=== PATIENT | female | born 1955 | race Caucasian/White ===

== ENCOUNTER 2016-12-22 11:06 | Day surgery (SDC) | payer MEDICARE ==
[2016-12-16 11:27] VITALS: BMI 27.0
[~2016-12-22 11:06] MED LIST: HYDROmorphone 1 MG/ML 1 ML SYRINGE IVP PRN; LACTATED RINGERS 1,000 ML IV SCH; LIDOCAINE 1% 20 ML VIAL (10MG/ML) FOR IV START INTRADERMA PRN; ONDANSETRON 4 MG/2 ML VIAL IVP PRN; Pre Op ABX Message 1 EACH MISC MISCELLANE ONE
[2016-12-22 12:05] VITALS: RESP 16; TEMP 97.8
[2016-12-22] MEDS ORDERED: ONDANSETRON 4 MG/2 ML VIAL ONE (12:27)
[2016-12-22] MEDS ORDERED: LIDOCAINE 1% INJ 10MG/ML (20 ML MDV) ONE (12:27)
[2016-12-22] MEDS ORDERED: MIDAZOLAM 2 MG/2 ML VIAL ONE (12:27)
[2016-12-22] MEDS ORDERED: fentaNYL (PF) 50 MCG/ML 2 ML AMP ONE (12:27)
[2016-12-22] MEDS ORDERED: PROPOFOL 10 MG/ML 20 ML VIAL IV ONE (12:27)
[2016-12-22] MEDS ORDERED: LIDOCAINE 1% (PF) 10 MG/ML (30 ML SDV) SQ ONE (12:40)
--- NOTE | 2016-12-22 13:20 | P.OP ---
Date of Procedure: 12/22/16 Preoperative Diagnosis: Plantar fasciitis right foot Postoperative Diagnosis: Same Procedure(s) Performed: Endoscopic plantar fasciotomy procedure right foot Implants: Anesthesia: MAC Surgeon: Sebastien Fink Indications for Procedure: Operative Findings: Unremarkable Description of Procedure: On the date of surgery the patient was taken to the operating room in good condition placed on the operating table in a supine position where an IV was started and adequate IV anesthetic agents were utilized. Anesthesia was then further supplemented with approximately 10 mL of 1% Xylocaine plain given in an infiltrative block to the patient's right heel. The patient's right foot and ankle were then prepped and draped in the usual aseptic manner. The patient's right foot and ankle were then elevated and exsanguinated of blood. Utilizing an Esmarch bandage and after approximately 1 minutes. A time ankle tourniquet to the right ankle was inflated to approximately 250 mmHg At this time attention was directed to the plantar medial side of the patient's right heel where an approximately 0.75 cm linear incision was made the incision was deepened via sharp dissection down through the level of the subcutaneous tissue layers. All neurovascular structures encountered were identified isolated and were retracted and any bleeding vessels were clamped electrocauterized. A fascial probe was then used to identify the plantar fascia and was passed along the inferior surface of the plantar fascia from medially to laterally and Obturator were then inserted and a lateral exit portal incision was made. The endoscope was introduced from the medial side and L blade from the lateral side and the medial band of the plantar fascia was severed upon completion of this fascial probe was used to ensure that all fibers had been severed. When this was seen to be the case the surgical site was flushed with copious amounts of sterile saline solution and the was removed. The skin edges were coaptated and maintained utilizing 4-0 simple interrupted suture. Adaptic Kerlix fluffs four- inch conformer and 4 inch Coban was used to form a compression dressing and the ankle tourniquet to the patient's right ankle was deflated. Adequate hemostatic return was seen in all digits the patient's right foot The patient tolerated surgery and anesthesia well was taken to the recovery room in good postoperative condition.
[2016-12-22 13:53] VITALS: BP 122/78; PULSE 74
[2016-12-22] MEDS ORDERED: Acetaminophen-Codeine 300-30mg TAB PO ONE (13:53)
== END 2016-12-22 14:28 | disposition home or self-care (01) ==
LOC: OR 11:06
PROVIDERS: ATTEND Podiatrist Foot & Ankle Surgery
DX: M72.2 Plantar fascial fibromatosis (principal); I10 Essential (primary) hypertension; I38 Endocarditis, valve unspecified; R01.1 Cardiac murmur, unspecified; K21.9 Gastro-esophageal reflux disease without esophagitis; I73.9 Peripheral vascular disease, unspecified; E07.9 Disorder of thyroid, unspecified; J45.909 Unspecified asthma, uncomplicated; Z79.51 Long term (current) use of inhaled steroids; Z79.899 Other long term (current) drug therapy; Z88.1 Allergy status to other antibiotic agents; Z88.0 Allergy status to penicillin; Z88.2 Allergy status to sulfonamides; Z88.8 Allergy status to other drugs, medicaments and biological substances

== ENCOUNTER → 2018-07-03 | Outpatient (CLI) | payer MEDICARE | END | disposition home or self-care (01) | LOC: LABWHC1 10:52 | PROVIDERS: ATTEND Otolaryngology | DX: J30.89 Other allergic rhinitis (principal) | CPT/HCPCS: 36415 ==

== ENCOUNTER → 2018-08-28 | Outpatient (CLI) | payer MEDICARE ==
[2018-08-24 15:41] VITALS: BMI 27.0
[2018-08-28 12:09] VITALS: BP 159/76; PULSE 72; RESP 16
--- NOTE | 2018-08-28 12:46 | P.PAINCN ---
History of Present Illness - Reason for Consult Consult date: 08/28/18 - History of Present Illness Fe is a 62-year-old female presents today as a new patient consult. She has a long history of multiple back surgeries with the most recent being 2015. She presents today with a chief complaint of right-sided low back pain and right leg pain. She reports most of her pain is over the right-sided buttock and into the top of the right leg. She reports after having back surgery her symptoms significantly improved. She began having pain in October 2017 after she suffered a stroke with right-sided weakness. At that time she was unable to walk and has been persistent in physical therapy and significant progress. She walks now with a walker and sometimes with a cane. Since the stroke she complains of pain over the right side of her low back and weakness in her right leg. She reports weakness is getting better with physical therapy. She describes pain which is sharp and shooting pain and describes it as a knife jabbing or in the side. She denies any bowel or bladder incontinence. She has weakness secondary to the stroke. She has had significant lumbar fusion which appears to be from L2 through S1. I have reviewed her MRI and they are in her chart. Thoracic MRI also shows a T10-T11 neural foraminal narrowing. She also has an MR lumbar spine correction of the deformities revisiting mentioned. 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 or walker, possible aneurysm-being tested, hx ulcers, IBS History of Any Multi-Drug Resistant Organisms: None Reported Past Surgical History: Appendectomy, Back Surgery, Bladder Surgery, Breast Surgery, Cholecystectomy, Heart Catheterization, Hysterectomy, Orthopedic Surgery, Tubal Ligation Additional Past Surgical History / Comment(s): Bilateral Carpal Tunnel surgery, Nasal surgery,kev cataract surgery, Ganglion Cyst removal right hand, Left Kidney Stone surgery, Right Breat Biopsy, Back Surgery X3, Right Ulna surgery, gum Line surgery, Bladder Suspension X 3, Colonoscopies, Debridement and Repair of left elbow. Past Anesthesia/Blood Transfusion Reactions: Motion Sickness, Postoperative Nausea & Vomiting (PONV) Additional Past Anesthesia/Blood Transfusion Reaction / Comm: states becomes very nauseaous when NPO. Smoking Status: Never smoker - Past Family History Mother Family Medical History: No Reported History Medications and Allergies Home Medications Medication Instructions Recorded Confirmed Type Calcium Carbonate [Calcium] 600 mg PO BID 12/16/16 08/24/18 History Cholecalciferol (Vitamin D3) 2,000 unit PO DAILY 12/16/16 08/24/18 History [Vitamin D3] Cinnamon Bark [Cinnamon] 1,000 mg PO BID 12/16/16 08/24/18 History Dexlansoprazole [Dexilant] 30 mg PO HS 12/16/16 08/24/18 History Dicyclomine [Bentyl] 20 mg PO BID 12/16/16 08/24/18 History Fluticasone Nasal [place] [Flonase 2 spr EA NOSTRIL HS 12/16/16 08/24/18 History Nasal [place]] L.acidoph,Paracasei, B.lactis 1 each PO DAILY 12/16/16 08/24/18 History [Probiotic] Levothyroxine Sodium [Synthroid] 50 mcg PO QAM 12/16/16 08/24/18 History Mometasone/Formoterol [Dulera 100 1 puff INHALATION BID PRN 12/16/16 08/24/18 History Mcg/5 Mcg Inhaler] Montelukast [Singulair] 10 mg PO HS 12/16/16 08/24/18 History Spironolactone [Aldactone] 50 mg PO BID 12/16/16 08/24/18 History Atorvastatin [Lipitor] 10 mg PO HS 08/24/18 08/24/18 History Azelastine HCl [Astepro] 2 spray NASAL BID PRN 08/24/18 08/24/18 History Baclofen [Lioresal] 10 mg PO 1400 08/24/18 08/24/18 History Baclofen [Lioresal] 20 mg PO 0800,2200 08/24/18 08/24/18 History Benzonatate [Tessalon Perles] 100 - 200 mg PO Q8HR PRN 08/24/18 08/24/18 History DULoxetine HCL [Cymbalta] 60 mg PO BID 08/24/18 08/24/18 History Diphenox-Atrop 2.5-0.025 mg 1 tab PO TID PRN 08/24/18 08/24/18 History [Lomotil] Furosemide [Lasix] 20 mg PO 1700 08/24/18 08/24/18 History Furosemide [Lasix] 40 mg PO QAM 08/24/18 08/24/18 History Hydrocodone/Acetaminophen [[place] 1 tab PO Q4-6H PRN 08/24/18 08/24/18 History 7.5-325] Iprat[place]ium [place] 0.06%Nasal 2 spray EA NOSTRIL BID 08/24/18 08/24/18 History [Atrovent Nasal 0.06%] L.acidoph,Paracasei, B.lactis 1 each PO BID 08/24/18 08/24/18 History [Probiotic] Losartan [Cozaar] 25 mg PO DAILY 08/24/18 08/24/18 History Ondansetron HCl [Zofran] 4 - 8 mg PO Q4HR PRN 08/24/18 08/24/18 History Promethaz-Cod 6.25-10 mg/5 ml 5 ml PO Q8HR PRN 08/24/18 08/24/18 History [Phenergan with Codeine] fentaNYL 25MCG/HR PATCH [Duragesic 1 patch TRANSDERM Q72H 08/24/18 08/24/18 History 25MCG/HR] hydrOXYzine HCL [Atarax] 10 - 20 mg PO Q12H PRN 08/24/18 08/24/18 History lamoTRIgine [LaMICtal] 100 mg PO BID 08/24/18 08/24/18 History Allergies Allergy/AdvReac Type Severity Reaction Status Date / Time cefaclor [From Ceclor] Allergy Drug Verified 08/28/18 11:48 induced fever ciprofloxacin [From Cipro] Allergy Rash/Hives Verified 08/28/18 11:48 clindamycin [From Cleocin] Allergy Drug Verified 08/28/18 11:48 induced fever gentamicin Allergy Ototoxicity Verified 08/28/18 11:48 nitrofurantoin Allergy Chest Pain Verified 08/28/18 11:48 [From Macrodantin] Penicillins Allergy Rash/Hives Verified 08/28/18 11:48 sulfamethoxazole Allergy tongue Verified 08/28/18 11:48 [From ] swelling thimerosal Allergy Rash/Hives Verified 08/28/18 11:48 tobramycin Allergy Rash/Hives Verified 08/28/18 11:48 trimethoprim [From Septra] Allergy tongue Verified 08/28/18 11:48 swelling seasonal allergies Allergy Cough Uncoded 08/28/18 11:48 Physical Exam General: Awake and alert oriented 3 mild distress Respiratory exam: No audible wheezing no accessory muscle usage Cardiovascular exam: regular rate, palpable bilateral pulses, no lower extremity edema Abdominal exam: No distention nontender to palpation Cervical spine: Normal alignment, Spurling's negative, facet loading negative, Becerra's negative Lumbar spine: Lumbar lordosis is preserved. The alignment of lumbar spine is normal. Incisions are well-healed. Skin is normal. There is some numbness over the right-sided flank. There is also areas of tenderness to palpation over the SI joint on the right side. Is also some tenderness to palpation over the l umbar spine over the facet joints. No pain is noted over the trochanteric bursa. She has limited range of motion with flexion and extension of the lumbar spine. She is unsteady on her gait secondary to right leg weakness and her stroke. Straight leg raise is positive on the right. Sacroiliac joints: tender to palpation on the right, MAURO is positive on the right, Gaenselon positive on the right Neuro exam: Normal sensation in bilateral upper extremities, deep tendon reflexes are brisk on the right impaired to the left.. She has normal sensation in the lower extremity in the upper extremity except for the small area of dysesthesia over the the right flank Psych exam: Cooperative, appropriate mood Assessment and Plan Assessment: #1 sacroiliitis #2 radiculopathy #3 central pain syndrome Plan: Had a long discussion with the patient and her family. I discussed multiple pain generators which may include the sacroiliac joint, dressing radiculopathy, as well as central pain. She is currently on fentanyl patch 25 g along with [place] as needed. I discussed with her these medications may significantly increase her pain and she would be better off coming off the medications. I advised her to discuss with her primary care doctor was riding his medications in regard to planned to decrease them slowly. As for the injections I offered her to do an SI joint injection the right side feel this may potentially help. I discussed that it may not be helpful as well. If she does have good relief which is transient nature I advised her that we may need to repeat a second time and we may potentially be able to do radiofrequency ablation on the right if she has good relief. If she does not have good relief on that side secondary to the SI joint injection we may need to try thoracic epidural at the T10 11 level. Patient family understood very well and we will move forward with the SI joint injection. She is also on aspirin I advised her to continue taking the aspirin. Time with Patient: Greater than 30 PQRS Measure Charge Sheet Measure #130: Documentation of Current Meds in Medical Chart: Patient's medications documented in chart Measure #226: Tobacco Use: Screen & Cessation Intervention: Pt not a tobacco user Measure #111: Pneumonia Vaccination: Pneumococcal vaccine administered or previously received Measure #47: Advance Care Plan: Advance care planning discussed & documented, plan or surrogate given Measure #412: Opioid Treatment Agreement: No documentation of signed opioid treatment agreement Measure #317: Preventitive Care & Scrn High Bld Press & F/U: Normal blood pressure, f/u not required Measure #128: Body Mass Index (BMI) Screening & Follow-up: BMI documented within normal parameters Measure #131: Pain Assessment & Follow-up: Pain positive & plan documented, Follow-up scheduled Measure #431: Unhealthy Alcohol Use Preventative Care & Scrn: Patient not identified as an unhealthy alcohol user PQRS Narrative: Smoking Status Never smoker Home Medications: Ambulatory Orders Calcium Carbonate [Calcium] 600 mg PO BID 12/16/16 Cholecalciferol (Vitamin D3) [Vitamin D3] 2,000 unit PO DAILY 12/16/16 Cinnamon Bark [Cinnamon] 1,000 mg PO BID 12/16/16 Dexlansoprazole [Dexilant] 30 mg PO HS 12/16/16 Dicyclomine [Bentyl] 20 mg PO BID 12/16/16 Fluticasone Nasal [place] [Flonase Nasal [place]] 2 spr EA NOSTRIL HS 12/16/16 L.acidoph,Paracasei, B.lactis [Probiotic] 1 each PO DAILY 12/16/16 Levothyroxine Sodium [Synthroid] 50 mcg PO QAM 12/16/16 Mometasone/Formoterol [Dulera 100 Mcg/5 Mcg Inhaler] 1 puff INHALATION BID PRN 12/16/16 Montelukast [Singulair] 10 mg PO HS 12/16/16 Spironolactone [Aldactone] 50 mg PO BID 12/16/16 Atorvastatin [Lipitor] 10 mg PO HS 08/24/18 Azelastine HCl [Astepro] 2 spray NASAL BID PRN 08/24/18 Baclofen [Lioresal] 10 mg PO 1400 08/24/18 Baclofen [Lioresal] 20 mg PO 0800,2200 08/24/18 Benzonatate [Tessalon Perles] 100 - 200 mg PO Q8HR PRN 08/24/18 DULoxetine HCL [Cymbalta] 60 mg PO BID 08/24/18 Diphenox-Atrop 2.5-0.025 mg [Lomotil] 1 tab PO TID PRN 08/24/18 Furosemide [Lasix] 20 mg PO 1700 08/24/18 Furosemide [Lasix] 40 mg PO QAM 08/24/18 Hydrocodone/Acetaminophen [[place] 7.5-325] 1 tab PO Q4-6H PRN 08/24/18 Iprat[place]ium [place] 0.06%Nasal [Atrovent Nasal 0.06%] 2 spray EA NOSTRIL BID 08/24/18 L.acidoph,Paracasei, B.lactis [Probiotic] 1 each PO BID 08/24/18 Losartan [Cozaar] 25 mg PO DAILY 08/24/18 Ondansetron HCl [Zofran] 4 - 8 mg PO Q4HR PRN 08/24/18 Promethaz-Cod 6.25-10 mg/5 ml [Phenergan with Codeine] 5 ml PO Q8HR PRN 08/24/18 fentaNYL 25MCG/HR PATCH [Duragesic 25MCG/HR] 1 patch TRANSDERM Q72H 08/24/18 hydrOXYzine HCL [Atarax] 10 - 20 mg PO Q12H PRN 08/24/18 lamoTRIgine [LaMICtal] 100 mg PO BID 08/24/18
== END ==
LOC: PNWHC3 11:40
PROVIDERS: ATTEND Hospitalist
DX: G89.0 Central pain syndrome (principal); M54.10 Radiculopathy, site unspecified; M46.1 Sacroiliitis, not elsewhere classified; Z79.899 Other long term (current) drug therapy; Z79.891 Long term (current) use of opiate analgesic; Z88.1 Allergy status to other antibiotic agents; Z88.0 Allergy status to penicillin; Z88.2 Allergy status to sulfonamides
CPT/HCPCS: 99211

== ENCOUNTER 2018-09-05 09:50 | Day surgery (SDC) | payer MEDICARE ==
[2018-08-31 14:30] VITALS: BMI 27.0
[~2018-09-05 09:50] MED LIST changes: -HYDROmorphone 1 MG/ML 1 ML SYRINGE IVP PRN; -LIDOCAINE 1% 20 ML VIAL (10MG/ML) FOR IV START INTRADERMA PRN; -ONDANSETRON 4 MG/2 ML VIAL IVP PRN; -Pre Op ABX Message 1 EACH MISC MISCELLANE ONE
[2018-09-05 10:28] VITALS: RESP 16; TEMP 97.7
--- NOTE | 2018-09-05 10:55 | P.PCN ---
Date of Procedure: 09/05/18 Procedure(s) Performed: Procedure= Right sacral iliac joints steroid injection under fluoroscopy esa hickey Preoperative diagnosis= 1-sacroiliitis 2-lumbar radiculopathy Postoperative diagnosis=1-sacroiliitis 2-lumbar radiculopathy Complication = none Condition= stable Anesthesia= only local infiltration with lidocaine 1% 3 mL Indication for the procedure= patient complaining of low back pain , examination was positive for severe tenderness over the sacroiliac joints ,and patient di agnosed with sacroiliitis, for this reason she was good candidate for sacroiliac joint steroid injection. Description of the procedure= procedure risk and benefits discussed with the patient, including but not limited, risk of infection and bleeding, and ALLERGIC reaction to the medication and not complete pain relief and patient agreed with the preceding patient taken to the operating room, placed in prone position or standard monitors applied to the patient then after induction of anesthesia back prepped with chlorhexidine 3 times , Then under strict sterile technique, first I did the right sacroiliac joint the which was identified under fluoroscopy guidance been local infiltration of the skin and subcu interstitial with lidocaine 1% then 22-gauge [place]ke Needle advanced slowly under fluoroscopy and placed in the right sacroiliac joint needle placement confirmed with AP and oblique and lateral view and after appropriate needle placement confirmed and after negative aspiration, or heme , then Ropivacaine 0.5% 3 mL, and 40 mg of Depo-Medrol mixed together and injected in the right sacroiliac joint after negative aspiration patient tolerated the procedure well without any complication.
[2018-09-05 11:18] VITALS: BP 122/67; PULSE 72
--- NOTE | 2018-09-05 11:29 | FL ---
EXAMINATION TYPE: FL guided pain mgmt statistic DATE OF EXAM: 09/05/2018 HISTORY: Pain 4 sec fluoro. Right SI joint.
== END 2018-09-05 11:44 | disposition home or self-care (01) ==
LOC: ORPAIN 09:50
PROVIDERS: ATTEND Specialist
DX: M46.1 Sacroiliitis, not elsewhere classified (principal); M47.26 Other spondylosis with radiculopathy, lumbar region; J45.909 Unspecified asthma, uncomplicated; Z86.73 Personal history of transient ischemic attack (TIA), and cerebral infarction without residual deficits; Z88.1 Allergy status to other antibiotic agents
CPT/HCPCS: J1030; G0260; 27096; 64483

== ENCOUNTER 2018-09-19 07:01 | Day surgery (SDC) | payer MEDICARE ==
[2018-09-15 14:57] VITALS: BMI 27.0
[2018-09-19 07:22] VITALS: TEMP 97.9
[2018-09-19] MEDS ORDERED: LACTATED RINGERS 1,000 ML IV ONE (07:28)
[2018-09-19 07:31] LABS: Glucose,Whole Blood 87 mg/dL (75-99)
--- NOTE | 2018-09-19 07:35 | P.PCN ---
Date of Procedure: 09/19/18 Description of Procedure: Procedure: Sacroiliac joint injection Preoperative diagnosis: Sacroiliitis Postoperative diagnosis: Sacroiliitis Complications: none Anesthesia: conscious sedation and local with 1% lidocaine Description of the procedure: procedure risk and benefits discussed with the patient, including but not limited, risk of infection and bleeding, and allergic reaction to the medication and incomplete pain relief. Patient agreed and signed consent. Patient was taken to the room and placed in a prone position. Chlorhexidine was used to cleanse the skin. Under sterile conditions patient skin was anesthetized 1% lidocaine. Subcutaneous tissues were also anesthetized with a total 5 mL of 1% lidocaine. After that 22-gauge spinal needle was advanced through the anesthetized location. Needle was advanced into the inferior portion of the sacroiliac joint. IV contrast was used to confirm spread within the joint. After adequate spread was achieved, 2.5 ML's of 0.5% ropivacaine with 40 mg of triamcinolone was injected into the joint. Patient tolerated the procedure well. Sent to the recovery room in stable condition. Patient will follow up in the clinic in 4-8 weeks' time
[2018-09-19 07:50] VITALS: RESP 16
[2018-09-19] MEDS ORDERED: IV FLUID CONTINUATION 1,000 ML IV ONE (07:57)
[2018-09-19 08:05] VITALS: BP 146/82; PULSE 59
--- NOTE | 2018-09-19 10:13 | FL ---
Fluoroscopy INDICATION: Pain FINDINGS: Fluoroscopy time: 5 seconds. Images obtained: 1. IMPRESSIONS: 1. Documentation of fluoroscopy.
== END 2018-09-19 08:15 | disposition home or self-care (01) ==
LOC: ORPAIN 07:01
PROVIDERS: ATTEND Hospitalist
DX: M46.1 Sacroiliitis, not elsewhere classified (principal); M54.16 Radiculopathy, lumbar region; I69.351 Hemiplegia and hemiparesis following cerebral infarction affecting right dominant side; J45.909 Unspecified asthma, uncomplicated; K21.9 Gastro-esophageal reflux disease without esophagitis; H91.90 Unspecified hearing loss, unspecified ear; I10 Essential (primary) hypertension; M19.90 Unspecified osteoarthritis, unspecified site; E07.9 Disorder of thyroid, unspecified; R20.0 Anesthesia of skin; Z91.048 Other nonmedicinal substance allergy status; Z87.442 Personal history of urinary calculi; K58.9 Irritable bowel syndrome, unspecified; Z79.890 Hormone replacement therapy; Z79.891 Long term (current) use of opiate analgesic; Z79.899 Other long term (current) drug therapy; Z79.51 Long term (current) use of inhaled steroids; Z88.1 Allergy status to other antibiotic agents; Z88.3 Allergy status to other anti-infective agents; Z88.0 Allergy status to penicillin; Z88.2 Allergy status to sulfonamides
CPT/HCPCS: J1030; Q9966; G0260; 27096

== ENCOUNTER → 2018-10-03 | Outpatient (CLI) | payer MEDICARE ==
[2018-10-03 12:39] VITALS: BP 135/71; PULSE 68; RESP 16
--- NOTE | 2018-10-03 12:59 | P.PN ---
Subjective Progress Note Date: 10/03/18 Palate presents today for follow-up. She reports she had excellent relief in her hip and her low back secondary to the SI joint injections. Her pain over the there is significantly better. She continues to have a small area of pain along the right side of her low back along the iliac crest. She complains of pain in the area which is tender to palpation and is inflamed at this point. She reports she's had this pain for quite some time and was not at her with the SI joint injection. To refresh she had a long history of multiple back surgeries and has a large fusion from L1 through S1. She currently uses [place] at home as well as lamotrigine for neuropathy Objective - Vital Signs Vital signs: Vital Signs Temp Pulse 68 10/03/18 12:34 Resp 16 10/03/18 12:34 BP 135/71 10/03/18 12:34 Pulse Ox 97 10/03/18 12:34 Intake & Output 10/02/18 10/03/18 10/03/18 18:59 06:59 18:59 Weight 70.307 kg - Exam General: Awake and alert oriented 3 mild distress Respiratory exam: No audible wheezing no accessory muscle usage Cardiovascular exam: regular rate, palpable bilateral pulses, no lower extremity edema Abdominal exam: No distention nontender to palpation Cervical spine: Normal alignment, Spurling's negative, facet loading negative, Seo Intern strength is 5/5, barcenas negative Lumbar spine: Loss of lumbar lordosis, normal alignment, tender to palpation over the iliac crest on the right side just lateral to the incision of the lumbar spine. She has no tenderness over the SI joint. There is no tenderness over the trochanteric bursa. Erythema or fluctuance over the area. Sacroiliac joints: Nontender to palpation, MAURO is negative, Gaenselon negative Neuro exam: Normal sensation in bilateral upper extremities, deep tendon reflexes are 2+ bilateral upper extremities. Normal sensation in bilateral lower extremities. Deep tendon reflexes are 1 in lower extremities Psych exam: Cooperative, appropriate mood Assessment and Plan Assessment: Lumbar postlaminectomy syndrome Sacroiliitis Cluneal neuropathy Plan: After examining the patient and reviewing her medical records a long discussion with her regarding this pain. I believe that trying a right cluneal nerve injection along the iliac crest and the medial crest may offer some benefit. I have advised her to to continue doing stretching techniques as well as muscle relaxation exercises using a ball. We'll schedule her for the injection this point in follow-up. If she does not have good relief from that we consider doing a T10 epidural injection
== END | disposition home or self-care (01) ==
LOC: PNWHC3 12:20
PROVIDERS: ATTEND Hospitalist
DX: M96.1 Postlaminectomy syndrome, not elsewhere classified (principal); M46.1 Sacroiliitis, not elsewhere classified; G62.9 Polyneuropathy, unspecified; Z98.1 Arthrodesis status; Z79.891 Long term (current) use of opiate analgesic; Z79.899 Other long term (current) drug therapy
CPT/HCPCS: 99211

== ENCOUNTER 2018-10-12 09:00 | Day surgery (SDC) | payer MEDICARE ==
[2018-10-11 08:24] VITALS: BMI 27.1
[2018-10-12] MEDS ORDERED: LACTATED RINGERS 1,000 ML IV SCH (10:15)
[2018-10-12] MEDS ORDERED: LIDOCAINE 1% 20 ML VIAL (10MG/ML) FOR IV START INTRADERMA ONE (10:40)
[2018-10-12 10:45] VITALS: RESP 16; TEMP 97.8
--- NOTE | 2018-10-12 11:04 | P.PCN ---
Date of Procedure: 10/12/18 Procedure(s) Performed: Procedure= right cluneal nerve steroid injection under fluoroscopy guidance Preoperative diagnosis= 1-sacroiliitis 2-right cluneal nerve neuralgia Postoperative diagnosis= same as preoperative diagnosis Complication = none Condition= stable Anesthesia= moderate sedation with intravenous Versed 1 mg , and fentanyl 50 micrograms . Indication for the procedure= patient complaining of low back pain, diagnosed with right cluneal neuralgia Description of the procedure= procedure risk and benefits discussed with the patient, including but not limited, risk of infection and bleeding, and ALLERGIC reaction to the medication and not complete pain relief and patient agreed with the preceding patient taken to the operating room, placed in prone position or standard monitors applied to the patient then after induction of anesthesia back prepped with chlorhexidine 3 times , Then under strict sterile technique, first I did the right cluneal nerve location and the lateral edge of the right iliac crest the which was identified under fluoroscopy guidance been local infiltration of the skin and subcu interstitial with lidocaine 1% then 22-gauge Quincke Needle advanced slowly under fluoroscopy and placed in the right cluneal nerve location needle placement confirmed with AP and oblique and lateral view and after appropriate needle placement confirmed and after negative aspiration, or heme , then Ropivacaine 0.5% 4 mL, and 40 mg of Depo-Medrol mixed together and injected , after negative aspiration patient tolerated the procedure well without any complication
[2018-10-12] MEDS ORDERED: IV FLUID CONTINUATION 1,000 ML IV ONE (11:07)
[2018-10-12 11:24] VITALS: BP 130/84; PULSE 58
--- NOTE | 2018-10-12 11:25 | FL ---
Fluoroscopy INDICATION: Pain FINDINGS: Fluoroscopy time: 2 seconds. Images obtained: 1. IMPRESSIONS: 1. Documentation of fluoroscopy.
[2018-10-12] MEDS ORDERED: KETOROLAC 30 MG/ML 1 ML VIAL IVP ONE (11:41)
== END 2018-10-12 12:27 | disposition home or self-care (01) ==
LOC: ORPAIN 09:00
PROVIDERS: ATTEND Specialist
DX: G58.8 Other specified mononeuropathies (principal); M46.1 Sacroiliitis, not elsewhere classified; Z88.1 Allergy status to other antibiotic agents; I10 Essential (primary) hypertension; Z86.73 Personal history of transient ischemic attack (TIA), and cerebral infarction without residual deficits
CPT/HCPCS: 64450; J2250; J1030; J1885

== ENCOUNTER → 2018-10-26 | Day surgery (SDC) | payer MEDICARE ==
[2018-10-24 09:39] VITALS: BMI 27.8
[~2018-10-26] MED LIST changes: +IV FLUID CONTINUATION 1,000 ML IV ONE; +KETOROLAC 30 MG/ML 1 ML VIAL IVP ONE
[2018-10-26 09:25] VITALS: TEMP 98.6
--- NOTE | 2018-10-26 10:02 | P.PCN ---
Date of Procedure: 10/26/18 Procedure(s) Performed: Procedure= right cluneal nerve steroid injection under fluoroscopy guidance Preoperative diagnosis= 1-sacroiliitis 2-right cluneal nerve neuralgia Postoperative diagnosis= same as preoperative diagnosis Complication = none Condition= stable Anesthesia= moderate sedation with intravenous Versed 1 mg , and fentanyl 50 micrograms . Indication for the procedure= patient complaining of low back pain, diagnosed with right cluneal neuralgia Description of the procedure= procedure risk and benefits discussed with the patient, including but not limited, risk of infection and bleeding, and ALLERGIC reaction to the medication and not complete pain relief and patient agreed with the preceding patient taken to the operating room, placed in prone position or standard monitors applied to the patient then after induction of anesthesia back prepped with chlorhexidine 3 times , Then under strict sterile technique, first I did the right cluneal nerve location and the lateral edge of the right iliac crest the which was identified under fluoroscopy guidance been local infiltration of the skin and subcu interstitial with lidocaine 1% then 22-gauge Quincke Needle advanced slowly under fluoroscopy and placed in the right cluneal nerve location needle placement confirmed with AP and oblique and lateral view and after appropriate needle placement confirmed and after negative aspiration, or heme , then Ropivacaine 0.5% 4 mL, and 40 mg of Depo-Medrol mixed together and injected , after negative aspiration patient tolerated the procedure well without any complication
--- NOTE | 2018-10-26 10:28 | FL ---
EXAMINATION TYPE: FL guided pain mgmt statistic DATE OF EXAM: 10/26/2018 HISTORY: Flouroscopy time 2 seconds of fluoroscopy provided. IMPRESSION: 1. Fluoroscopy time.
[2018-10-26 10:37] VITALS: BP 131/72; PULSE 59; RESP 18
== END ==
LOC: ORPAIN 08:46
PROVIDERS: ATTEND Specialist
DX: M46.1 Sacroiliitis, not elsewhere classified (principal); G58.8 Other specified mononeuropathies; Z88.1 Allergy status to other antibiotic agents; Z88.0 Allergy status to penicillin; Z88.2 Allergy status to sulfonamides; I10 Essential (primary) hypertension; J45.909 Unspecified asthma, uncomplicated; Z86.73 Personal history of transient ischemic attack (TIA), and cerebral infarction without residual deficits; E07.9 Disorder of thyroid, unspecified; Z90.710 Acquired absence of both cervix and uterus; Z79.82 Long term (current) use of aspirin
CPT/HCPCS: 64450; J2250; J1030; J3010; J1885

== ENCOUNTER → 2018-11-14 | Outpatient (CLI) | payer MEDICARE ==
[2018-11-14 12:42] VITALS: BP 144/69; PULSE 60; RESP 16
--- NOTE | 2018-11-14 14:42 | P.PN ---
Subjective This is follow-up visit for this 63 years old female, with a history of severe low back pain mainly on the right side she is diagnosed with a right cluneal neuralgia, recently we have done a right cluneal nerve block 2 , she reported that she gets more than 50% improvement of her low back pain after the cluneal nerve block, and the pain relief was for 2 weeks after each block. . She continues to have a small area of pain along the right side of her low back along the iliac crest. Physical Examinations : -Constitutiona : Cooperative , not in acute distress . -HEENT : nech : supple , no Lymphadenopathy , normal thyroid size . eyes : no ptosis , no icterus, no photophobia . . - neurologic : Cranial nerve II to XII intact , no focal neurological deffecit . -psychatric : alert , oriented X 3 , appropriate affect , intact judgment and insight . -Lymphatic : no Lymphadenopathy . - musculoskeltal : Lumber spine moter stegnth lower extremities ,thigh and legs 3-4/5 Right side , 3-4/5 Left side deep tendon reflexes : Brisk Knee J erk , brisk ankle Jerk positive lumber facet Loading Test Range of motion of the lumbar spine Flexion 30 degrees, extension 10 degrees strait leg raising test , positive at 45degree Fabere test negative bilaterally mild tenderness over the Sacroiliac joint on the R and L sides Tenderness over the lateral aspect of the right iliac crest. Assessment and plan 1-Lumbar postlaminectomy syndrome 2- Right Sacroiliitis 3- Right Cluneal neuropathy Patient had a good result after the right cluneal nerve block x2 , patient could benefit from right cluneal nerve radiofrequency ablation, but we checked with the insurance, we checked with the patient's insurance ,this procedure is not approved by her insurance , patient could benefit from TENS unit trial which will be provided by physical therapy, and patient will follow up with the pain clinic when necessary - PQRS measures = - Patient's medications are documented in the chart. -Tobacco use is negative and counseling.Given. -Patient's has not received pneumococcal vaccine. -Advanced care planning discussed, patient not eligible. -Opiate contract not signed. -Pain positive and follow-up visit/procedure is scheduled. -Patient's blood pressure measured [ 144/69 ] , and documented in the record ,and patient will follow up with the primary care. -Patient's weight was measured and body mass index [27.5 ] above the normal limits and counseling was done. and patient instructed to follow-up with the primary care physician. -Patient was not identified as an unhealthy alcohol user Objective - Vital Signs Vital signs: Vital Signs Temp Pulse 60 11/14/18 12:37 Resp 16 11/14/18 12:37 BP 144/69 11/14/18 12:37 Pulse Ox 100 11/14/18 12:37 Intake & Output 11/13/18 11/14/18 11/14/18 18:59 06:59 18:59 Weight 70.307 kg
== END ==
LOC: PNWHC3 11:19
PROVIDERS: ATTEND Specialist
DX: M96.1 Postlaminectomy syndrome, not elsewhere classified (principal); M46.1 Sacroiliitis, not elsewhere classified; G62.9 Polyneuropathy, unspecified
CPT/HCPCS: 99211

== ENCOUNTER → 2018-11-21 | Outpatient (CLI) | payer MEDICARE ==
--- NOTE | 2018-11-21 20:55 | P.PN ---
Subjective Progress Note Date: 11/21/18 This is follow-up visit for this 63 years old female, with a history of severe low back pain mainly on the right side she is diagnosed with a right cluneal neuralgia, recently we have done a right cluneal nerve block 2 , she reported that she gets more than 50% improvement of her low back pain after the cluneal nerve block, and the pain relief was for 2 weeks after each block. We tried to get approval from her insurance to do right cluneal nerve radiofrequency ablation, it was not approved, we ordered TENS unit, she reported that she use it and she has no benefit from it, she continued to have severe pain, patient tried Neurontin in the past and she had no benefit from it, (300 mg 3 times a day ) , she tried Lyrica in the past and she had side effects from it (weight gain ), Physical Examinations : -Constitutiona : Cooperative , not in acute distress . -HEENT : nech : supple , no Lymphadenopathy , normal thyroid size . eyes : no ptosis , no icterus, no photophobia . . - neurologic : Cranial nerve II to XII intact , no focal neurological deffecit . -psychatric : alert , oriented X 3 , appropriate affect , intact judgment and insight . -Lymphatic : no Lymphadenopathy . - musculoskeltal : Lumber spine moter stegnth lower extremities ,thigh and legs 3-4/5 Right side , 3-4/5 Left side deep tendon reflexes : Brisk Knee Jerk , brisk ankle Jerk positive lumber facet Loading Test Range of motion of the lumbar spine Flexion 30 degrees, extension 10 degrees strait leg raising test , positive at 45degree Fabere test negative bilaterally mild tenderness over the Sacroiliac joint on the R and L sides Tenderness over the lateral aspect of the right iliac crest. Assessment and plan 1-Lumbar postlaminectomy syndrome 2- Right Sacroiliitis 3- Right Cluneal neuropathy Patient had a good result after the right cluneal nerve block x2 , patient could benefit from right cluneal nerve radiofrequency ablation, but we checked with the insurance, we checked with the patient's insurance , we will schedule patient to have repeat right cluneal nerve block under fluoroscopy guidance Will use the highest concentration of the local anesthetic bupivacaine 0.75% - PQRS measures = - Patient's medications are documented in the chart. -Tobacco use is negative and counseling.Given. -Patient's has received pneumococcal vaccine. -Advanced care planning discussed, patient not eligible. -Opiate contract signed. -Pain positive and follow-up visit/procedure is scheduled. -Patient's blood pressure measured [ 154/68 ] , and documented in the record ,and patient will follow up with the primary care. -Patient's weight was measured and body mass index [ 26.8 ] above the normal limits and counseling was done. and patient instructed to follow-up with the primary care physician. -Patient was not identified as an unhealthy alcohol user Objective - Vital Signs Vital signs: Intake & Output 11/21/18 11/21/18 11/22/18 06:59 18:59 06:59 Weight 70.76 kg
== END | disposition home or self-care (01) ==
LOC: PNWHC3 11:50
PROVIDERS: ATTEND Specialist
DX: M96.1 Postlaminectomy syndrome, not elsewhere classified (principal); M46.1 Sacroiliitis, not elsewhere classified; G62.9 Polyneuropathy, unspecified
CPT/HCPCS: 99211

== ENCOUNTER → 2018-12-11 | Day surgery (SDC) | payer MEDICARE ==
[2018-12-05 16:16] VITALS: BMI 27.8
[~2018-12-11] MED LIST changes: -KETOROLAC 30 MG/ML 1 ML VIAL IVP ONE; +LACTATED RINGERS 1,000 ML IV ONE; -LACTATED RINGERS 1,000 ML IV SCH; +LIDOCAINE 1% 20 ML VIAL (10MG/ML) FOR IV START INTRADERMA ONE
[2018-12-11 09:39] VITALS: RESP 16; TEMP 97.6
--- NOTE | 2018-12-11 11:14 | P.PCN ---
Date of Procedure: 12/11/18 Procedure(s) Performed: Procedure= right cluneal nerve steroid injection under fluoroscopy guidance Preoperative diagnosis= 1-right cluneal nerve neuralgia Postoperative diagnosis= same as preoperative diagnosis Complication = none Condition= stable Anesthesia= moderate sedation with intravenous Versed 2 mg , and fentanyl 100 micrograms . Indication for the procedure= patient complaining of low back pain, diagnosed with right cluneal neuralgia Description of the procedure= procedure risk and benefits discussed with the patient, including but not limited, risk of infection and bleeding, and ALLERGIC reaction to the medication and not complete pain relief and patient agreed with the preceding patient taken to the operating room, placed in prone position or standard monitors applied to the patient then after induction of anesthesia back prepped with chlorhexidine Then under strict sterile technique, the right cluneal nerves located at the edge of the right iliac crest which was identified under fluoroscopy guidance. Local infiltration of the skin and subcutaneuos tissue with lidocaine 1% was performed, then 2 22-gauge [place]ke Needle was advanced slowly under fluoroscopy and placed in the right cluneal nerve location. Needle placement confirmed with AP fluoroscopy. Then, after negative aspiration, 2 MLS of Isovue 200 was injected revealing no intravascular uptake. Then 2.5 mLs of treatment solution was injected at each point. Then, the needles were moved more laterally along the iliac crest, Isovue was again injected revealing no intravascular uptake and 2.5 mLs of treatment solution was again injected at each point. A total of Ropivacaine 0.5% 9mL, and 40 mg of Kenalog was injected , after negative aspiration. Patient tolerated the procedure well without any complication and was monitored for 20-30 minutes in the recovery room, then sent home in stable condition. Patient will follow up in clinic in 4 weeks.
[2018-12-11 11:44] VITALS: BP 138/84; PULSE 69
--- NOTE | 2018-12-11 14:49 | FL ---
Fluoroscopy HISTORY: Pain 3 seconds fluoroscopy time supplied to the referring clinician. 2 intraoperative C-arm images docume nt the procedure. See dictated report from anesthesia.
== END ==
LOC: ORPAIN 08:52
PROVIDERS: ATTEND Anesthesiology
DX: G58.8 Other specified mononeuropathies (principal); M96.1 Postlaminectomy syndrome, not elsewhere classified; M46.1 Sacroiliitis, not elsewhere classified; M54.5 Low back pain
CPT/HCPCS: 64450; J2250; J3301; J3010; Q9966; 99152

== ENCOUNTER → 2019-01-09 | Outpatient (CLI) | payer MEDICARE ==
[2019-01-09 11:52] VITALS: BP 145/77; PULSE 64; RESP 18
--- NOTE | 2019-01-09 15:15 | P.PAINPG ---
Subjective Progress Note Date: 01/09/19 Mrs. Nagel is a 63-year-old female who follows in our clinic for right cluneal mononeuropathy. She is status post her third cluneal nerve injection on 12/11/2018. She states that the last injection provided almost a month of relief which is longer than the first 2 injections. She is very happy with the results. Unfortunately we have tried to get a ablation improved further insurance however this was denied. She has tried many medications such as lidocaine patch and gabapentin without good effect. She is hopeful that the mononeuropathy resolves over time. Otherwise she has no new complaints. Objective - Vital Signs Vital signs: Vital Signs Temp Pulse 64 01/09/19 11:45 Resp 18 01/09/19 11:45 BP 145/77 01/09/19 11:45 Pulse Ox 98 01/09/19 11:45 Intake & Output 01/08/19 01/09/19 01/09/19 18:59 06:59 18:59 Weight 70.307 kg - Exam Vital Signs: Reviewed in EMR GENERAL: Well appearing, in no acute distress, PSYCH: Mood and affect is appropriate. Awake, alert, and oriented SKIN: Skin color, texture, turgor normal, no rashes or lesions HEENT: Normocephalic, atraumatic. EOM intact CV: No pedal edema RESP: Respirations are unlabored, no audible wheezing GI: Abdomen non-distended MUSCULOSKELETAL: Bilateral upper and lower extremity strength is normal and symmetric. No atrophy or tone abnormalities are noted. Buttocks: She has pain to palpation along her right iliac crest. She also has pain to palpation over right PSIS Extremities: Peripheral joint ROM is full and pain free without obvious instability or laxity in all four extremities. No edema or skin discolorations noted. Gait: Gait is anantalgic NEUR: Cranial nerves are grossly intact. Assessment and Plan Assessment: Assessment: 1. Right cluneal mononeuropathy 2. Right SI joint dysfunction 3. Multiple ALLERGIES please see last Plan: 1. Explanation: Spoke to her about the risks of 2. Opioid agreement: None 3. Counseling: The patient was counseled extensively on staying active 4. Procedures: She will have a repeat right cluneal nerve injection with steroid, similar to the one she had at the end of November and she has had most benefit with that. 5. Consultations: None 6. Investigations: None 7. Medications: We are not prescribing medications 8. Disposition: For procedure , PQRS Measure Charge Sheet Measure #226: Tobacco Use: Screen & Cessation Intervention: Pt not a tobacco user Measure #47: Advance Care Plan: Advance care planning discussed & documented, pt chose/unable to give Measure #412: Opioid Treatment Agreement: No documentation of signed opioid treatment agreement Measure #408: Opioid Therapy Follow-up Evaluation: Patient had NO f/u eval minimum every 3 months during opioid therapy Measure #131: Pain Assessment & Follow-up: Pain positive & plan documented, Follow-up scheduled Measure #431: Unhealthy Alcohol Use Preventative Care & Scrn: Patient not identified as an unhealthy alcohol user PQRS Narrative: Smoking Status Never smoker Blood Pressure 145/77 Pain Intensity [Right Lower 6 Back] Scale Used Numeric (1 - 10) Hx Alcohol Use (MH) No Home Medications: Ambulatory Orders Calcium Carbonate [Calcium] 600 mg PO BID 12/16/16 Cholecalciferol (Vitamin D3) [Vitamin D3] 2,000 unit PO DAILY 12/16/16 Cinnamon Bark [Cinnamon] 1,000 mg PO BID 12/16/16 Dexlansoprazole [Dexilant] 30 mg PO HS 12/16/16 Dicyclomine [Bentyl] 20 mg PO BID 12/16/16 Fluticasone Nasal [place] [Flonase Nasal [place]] 2 spr EA NOSTRIL HS 12/16/16 L.acidoph,Paracasei, B.lactis [Probiotic] 1 each PO BID 12/16/16 Mometasone/Formoterol [Dulera 100 Mcg/5 Mcg Inhaler] 1 puff INHALATION BID PRN 12/16/16 Montelukast [Singulair] 10 mg PO HS 12/16/16 Spironolactone [Aldactone] 50 mg PO BID 12/16/16 Atorvastatin [Lipitor] 10 mg PO HS 08/24/18 Azelastine HCl [Astepro] 2 spray NASAL BID PRN 08/24/18 Baclofen [Lioresal] 10 mg PO 1400 08/24/18 Baclofen [Lioresal] 20 mg PO 0800,2200 08/24/18 Benzonatate [Tessalon Perles] 100 - 200 mg PO Q8HR PRN 08/24/18 DULoxetine HCL [Cymbalta] 60 mg PO BID 08/24/18 Diphenox-Atrop 2.5-0.025 mg [Lomotil] 1 tab PO TID PRN 08/24/18 Furosemide [Lasix] 20 mg PO HS 08/24/18 Furosemide [Lasix] 40 mg PO QAM 08/24/18 Losartan [Cozaar] 25 mg PO DAILY 08/24/18 Ondansetron HCl [Zofran] 4 - 8 mg PO Q4HR PRN 08/24/18 Promethaz-Cod 6.25-10 mg/5 ml [Phenergan with Codeine] 5 ml PO Q8HR PRN 08/24/18 hydrOXYzine HCL [Atarax] 10 - 20 mg PO Q12H PRN 08/24/18 lamoTRIgine [LaMICtal] 100 mg PO BID 08/24/18 Levothyroxine Sodium [Synthroid] 50 mcg PO DAILY 09/19/18 Methenamine Hippurate [Hiprex] 1 gm PO DAILY 09/19/18 HYDROcodone/APAP 10-325MG [[place] 10-325] 1 tab PO Q6HR PRN 10/11/18 Meloxicam [Mobic] 7.5 mg PO DAILY 10/11/18 Potassium Chloride 10 meq PO BID 10/12/18 Aspirin 81 mg PO DAILY 10/24/18 Magnesium 200 mg PO DAILY 10/24/18 Controlled Substance Measures - Controlled Substance Measures Is patient prescribed a controlled substance at discharge?: No
== END | disposition home or self-care (01) ==
LOC: PNWHC3 11:30
PROVIDERS: ATTEND Student in an Organized Health Care Education/Training Program
DX: G58.8 Other specified mononeuropathies (principal); M53.3 Sacrococcygeal disorders, not elsewhere classified; Z88.0 Allergy status to penicillin; Z88.1 Allergy status to other antibiotic agents; Z88.2 Allergy status to sulfonamides; Z88.3 Allergy status to other anti-infective agents
CPT/HCPCS: 99211

== ENCOUNTER 2019-03-19 09:49 | Day surgery (SDC) | payer SELFPAY ==
[2019-03-14 16:10] VITALS: BMI 27.8
[2019-03-19] MEDS ORDERED: LACTATED RINGERS 1,000 ML IV SCH (11:02)
[2019-03-19 11:17] VITALS: TEMP 97.8
[2019-03-19] MEDS ORDERED: LACTATED RINGERS 1,000 ML IV ONE (11:17)
[2019-03-19] MEDS ORDERED: LIDOCAINE 1% 20 ML VIAL (10MG/ML) FOR IV START INTRADERMA ONE (11:39)
--- NOTE | 2019-03-19 12:40 | P.PCN ---
Date of Procedure: 03/19/19 Procedure(s) Performed: Procedure= right cluneal nerve radiofrequency ablation under fluoroscopy travis luana Preoperative diagnosis= 1-right cluneal nerve neuralgia Postoperative diagnosis= same as preoperative diagnosis Complication = none Condition= stable Anesthesia= moderate sedation with intravenous Versed and fentanyl, sedation time 24 minutes Fluoroscopic images were saved to the radiology portion of patient's chart Indication for the procedure= patient complaining of low back pain, diagnosed with right cluneal neuralgia, which responded well to cluneal nerve block but of limited duration Description of the procedure= procedure risk and benefits discussed with the patient, including but not limited, risk of infection and bleeding, and ALLERGIC reaction to the medication and not complete pain relief and patient agreed with the preceding patient taken to the operating room, placed in prone position or standard monitors applied to the patient then after induction of anesthesia back prepped with chlorhexidine Then under strict sterile technique, the right cluneal nerves located at the edge of the right iliac crest which was identified under fluoroscopy guidance. Local infiltration of the skin and subcutaneuos tissue with lidocaine 1% was performed, then 4 18 guage 100-mm radiofrequency cannula with a 10-mm active tip was advanced guided by fluoroscopy to the identified target at each site along the medial half of the right iliac crest. Needle placement confirmed with AP fluoroscopy. Then, after negative aspiration, 1 mL of 4% lidocaine was injected at each site. Subsequently, bipolar radiofrequency ablation was carried out at each of the aforementioned locations with a probe temperature set to 90C for 150 seconds. A total of 5 bipolar radiofrequency lesions was done after moving the needles more laterally along the iliac crest. Patient tolerated the procedu re well without any complication and was monitored for 20-30 minutes in the recovery room, then sent home in stable condition. Patient will follow up in clinic in 4 weeks.
[2019-03-19] MEDS ORDERED: IV FLUID CONTINUATION 700 ML IV ONE (12:45)
[2019-03-19 12:56] VITALS: RESP 16
[2019-03-19 13:02] VITALS: BP 136/80; PULSE 65
--- NOTE | 2019-03-19 13:03 | FL ---
EXAMINATION TYPE: FL guided pain mgmt statistic DATE OF EXAM: 03/19/2019 CLINICAL HISTORY: Low back and sacroiliac joint pain. TECHNIQUE: Fluoroscopy. COMPARISON: None. FINDINGS: Fluoroscopic guidance was provided during pain relief procedure performed by Dr. Bush. A t otal of 7 seconds of fluoroscopic time was utilized during the procedure and two spot images are acqu ired. Images acquired shows needle localization of the right sacroiliac joint. IMPRESSION: As Above.
== END 2019-03-19 13:24 | disposition home or self-care (01) ==
LOC: ORPAIN 09:49
PROVIDERS: ATTEND Anesthesiology
DX: Z78.0 Asymptomatic menopausal state (principal); Z79.82 Long term (current) use of aspirin
CPT/HCPCS: 64640; J2250; J3010; 99152; 99153

== ENCOUNTER → 2019-04-09 | Outpatient (CLI) | payer MEDICARE ==
[2019-04-09 14:30] VITALS: BP 164/104; PULSE 74; RESP 16
--- NOTE | 2019-04-09 15:28 | P.PAINPG ---
Subjective Progress Note Date: 04/09/19 This is follow-up visit for this 63 years old female, with a history of severe low back pain mainly on the right side she is diagnosed with a right cluneal neuralgia, lumbar degenerative disc disease and lumbar spondylosis with lumbar facet arthropathy , status post radiofrequency thermocoagulation of the right cluneal nerve, she reported that she had significant improvement, and her low back pain but she continued to have low back pain issue which is increased with any activity, she is able to ambulate and she decreased her intake of opioid by 50%, currently she is using one or twice of [place] per day, she denies any change in the bowel movements or urination, no fever or night sweats Objective - Vital Signs Vital signs: Vital Signs Temp Pulse 74 04/09/19 14:26 Resp 16 04/09/19 14:26 BP 164/104 04/09/19 14:26 Pulse Ox Intake & Output 04/08/19 04/09/19 04/09/19 18:59 06:59 18:59 Weight 72.575 kg - Exam -Constitutiona : Cooperative , not in acute distress . -HEENT : nech : supple , no Lymphadenopathy , normal thyroid size . eyes : no ptosis , no icterus, no photophobia . . - neurologic : Cranial nerve II to XII intact , no focal neurological deffecit . -psychatric : alert , oriented X 3 , appropriate affect , intact judgment and insight . -Lymphatic : no Lymphadenopathy . - musculoskeltal : Lumber spine moter stegnth lower extremities ,thigh and legs 3-4/5 Right side , 3-4/5 Left side deep tendon reflexes : Brisk Knee Jerk , brisk ankle Jerk positive lumber facet Loading Test Range of motion of the lumbar spine Flexion 30 degrees, extension 10 degrees strait leg raising test , positive at 45degree Fabere test negative bilaterally mild tenderness over the Sacroiliac joint on the R and L sides Tenderness over the lateral aspect of the right iliac crest. Assessment and Plan Plan: Assessment and plan 1-Lumbar spondylosis with lumbar facet arthropathy 2- Right Sacroiliitis 3- Right Cluneal neuropathy 4-postlaminectomy pain syndrome Patient had improvement of her pain after right cluneal nerve radiofrequency ablation, patient continued to have pain, and correctly most of the pain is coming from the facetogenic component, patient would be good candidate to have right-sided diagnostic medial branch block L2, L3, L4 ,L5 , and if she has good results then we will proceed with RFA, treatment plan discussed with the patient she agreed with the preceding PQRS Measure Charge Sheet Measure #130: Documentation of Current Meds in Medical Chart: Patient's me dications documented in chart Measure #226: Tobacco Use: Screen & Cessation Intervention: Pt not a tobacco user Measure #111: Pneumonia Vaccination: Pneumococcal vaccine administered or previously received Measure #47: Advance Care Plan: Advance care planning discussed & documented, pt chose/unable to give Measure #412: Opioid Treatment Agreement: No documentation of signed opioid treatment agreement Measure #408: Opioid Therapy Follow-up Evaluation: Patient had NO f/u eval minimum every 3 months during opioid therapy Measure #317: Preventitive Care & Scrn High Bld Press & F/U: Pre-hypertensive or hypertensive BP documented, pt will f/u with PCP Measure #128: Body Mass Index (BMI) Screening & Follow-up: BMI documented ABOVE normal parameters - f/u documented Measure #131: Pain Assessment & Follow-up: Pain positive & plan documented, Follow-up scheduled Measure #431: Unhealthy Alcohol Use Preventative Care & Scrn: Patient not identified as an unhealthy alcohol user PQRS Narrative: Smoking Status Never smoker Blood Pressure 164/104 Pain Intensity [Right Lower 6 Back] Scale Used Numeric (1 - 10) Hx Alcohol Use (MH) No Home Medications: Ambulatory Orders Calcium Carbonate [Calcium] 600 mg PO BID 12/16/16 Cholecalciferol (Vitamin D3) [Vitamin D3] 2,000 unit PO DAILY 12/16/16 Cinnamon Bark [Cinnamon] 1,000 mg PO BID 12/16/16 Dexlansoprazole [Dexilant] 30 mg PO HS 12/16/16 Dicyclomine [Bentyl] 20 mg PO BID 12/16/16 Fluticasone Nasal [place] [Flonase Nasal [place]] 2 spr EA NOSTRIL 12/16/16 L.acidoph,Paracasei, B.lactis [Probiotic] 1 each PO BID 12/16/16 Mometasone/Formoterol [Dulera 100 Mcg/5 Mcg Inhaler] 1 puff INHALATION BID PRN 12/16/16 Montelukast [Singulair] 10 mg PO HS 12/16/16 Spironolactone [Aldactone] 50 mg PO BID 12/16/16 Atorvastatin [Lipitor] 10 mg PO HS 08/24/18 Azelastine HCl [Astepro] 2 spray NASAL BID PRN 08/24/18 Baclofen [Lioresal] 10 mg PO 1400 08/24/18 Baclofen [Lioresal] 20 mg PO 0800,2200 08/24/18 Benzonatate [Tessalon Perles] 100 - 200 mg PO Q8HR PRN 08/24/18 DULoxetine HCL [Cymbalta] 60 mg PO DAILY 08/24/18 Diphenox-Atrop 2.5-0.025 mg [Lomotil] 1 tab PO TID PRN 08/24/18 Furosemide [Lasix] 20 mg PO HS 08/24/18 Furosemide [Lasix] 40 mg PO QAM 08/24/18 Losartan [Cozaar] 100 mg PO DAILY 08/24/18 Ondansetron HCl [Zofran] 4 - 8 mg PO Q4HR PRN 08/24/18 Promethaz-Cod 6.25-10 mg/5 ml [Phenergan with Codeine] 5 ml PO Q8HR PRN 08/24/18 hydrOXYzine HCL [Atarax] 10 - 20 mg PO Q12H PRN 08/24/18 lamoTRIgine [LaMICtal] 100 mg PO BID 08/24/18 Levothyroxine Sodium [Synthroid] 50 mcg PO DAILY 09/19/18 Methenamine Hippurate [Hiprex] 1 gm PO DAILY 09/19/18 HYDROcodone/APAP 10-325MG [[place] 10-325] 1 tab PO Q6HR PRN 10/11/18 Meloxicam [Mobic] 7.5 mg PO DAILY 10/11/18 Potassium Chloride 10 meq PO BID 10/12/18 Aspirin 81 mg PO DAILY 10/24/18 Magnesium 200 mg PO DAILY 10/24/18 Controlled Substance Measures - Controlled Substance Measures Is patient prescribed a controlled substance at discharge?: No
== END ==
LOC: PNWHC3 13:56
PROVIDERS: ATTEND Specialist
DX: M47.816 Spondylosis without myelopathy or radiculopathy, lumbar region (principal); M46.96 Unspecified inflammatory spondylopathy, lumbar region; M46.1 Sacroiliitis, not elsewhere classified; G62.9 Polyneuropathy, unspecified; M96.1 Postlaminectomy syndrome, not elsewhere classified; Z79.899 Other long term (current) drug therapy; Z79.891 Long term (current) use of opiate analgesic; Z79.1 Long term (current) use of non-steroidal anti-inflammatories (NSAID); Z79.82 Long term (current) use of aspirin
CPT/HCPCS: 99211

== ENCOUNTER 2019-04-18 09:05 | Day surgery (SDC) | payer MEDICARE ==
[2019-04-16 15:15] VITALS: BMI 27.7
[~2019-04-18 09:05] MED LIST changes: -IV FLUID CONTINUATION 1,000 ML IV ONE; -LACTATED RINGERS 1,000 ML IV ONE; +LACTATED RINGERS 1,000 ML IV SCH; -LIDOCAINE 1% 20 ML VIAL (10MG/ML) FOR IV START INTRADERMA ONE
[2019-04-18 09:33] VITALS: TEMP 97.4
[2019-04-18] MEDS ORDERED: LIDOCAINE 1% 20 ML VIAL (10MG/ML) FOR IV START INTRADERMA ONE (09:52)
--- NOTE | 2019-04-18 10:26 | P.PCN ---
Date of Procedure: 04/18/19 Procedure(s) Performed: PREOPERATIVE DIAGNOSIS : 1- Lumbar spondylosis with Facet Arthropathy without myelopathy . 2- Failed back surgeries in the lumbar area 3-right cluneal nerve neuralgia. 4-right sacroiliitis POSTOPERATIVE DIAGNOSIS: Same as preoperative diagnosis PROCEDURE: Diagnostic Right L3 , L4 , and L5 medial branch block under fluoroscopy guidance(fluoroscopy images available in the radiology Department ) ( To target the facet joint between L4-5 , and L5-S1 ) ANESTHESIA: Local with Ropivacain 0.5 % 3 ml , moderate sedation with intravenous Versed 2 mg and Fentanyl 50 mcg. EBL: Minimal COMPLICATION: None. IV FLUIDS: 100 mL of normal saline. PROCEDURE INDICATION: Chronic low back pain secondary to Facet arthropathy unresponsive to conservative treatment. PROCEDURE DESCRIPTION: the patient was seen and identified in the preop holding area , risks and benefits and possible complications of the procedure and alternative were discussed with the patient, and the patient agreed to proceed with the procedure and signed the consent IV was started and vital signs monitored during the procedure and fluoroscopy was used to maximize the benefit and accuracy of the needle placement, and sedation was given to decrease patient anxiety, patient was taken to the procedure room and placed in prone position vital signs monitored in the back prepped with chlorhexidine X3 then under strict sterile technique using a right oblique fluoroscopy ,the junction of the transverse process and the superior articulating process of the right L3 , L4 , and L5 vertebra which corresponding to the fluoroscopy image of the eye of the Jose dog on the block side for the medial branches and subsequently , after local infiltration of skin and subcu tissuies with Ropivacaine 0.5 % , one mL at each level ,then 22-gauge Quincke-type needles , 3 needle was used , each one of them placed at the junction of the base of the transverse process and the superior articular process at the appropriate level, and the needle was advanced until the periosteum contacted, needle placement confirmed with AP oblique and lateral view and after appropriate needle placement confirmed, and after negative aspiration for heme and CSF and there was no paresthesia 1-1/2 mL of Ropivacaine 0.5% mixed with 20 mg Depo-Medrol , then half mL injected at each level after negative aspiration the needle subsequently removed intact. At the end of the procedure and the needles removed and a bandage applied after the skin was cleaned the cleaning solution patient taken to recovery room in stable condition and monitors in the recovery room for 20-30 minutes and discharged home in stable condition after discharge criteria met and patient will follow up with the pain clinic in 2-4 weeks note= the plan was to do the agnostic medial branch block right side L2 ,L3 ,L4 ,L5 , but patient had hardware ,at L2 level for this reason it was not done , a nd we ended up doing on the right side L3, L4, L5
[2019-04-18] MEDS ORDERED: IV FLUID CONTINUATION 1,000 ML IV ONE (10:30)
--- NOTE | 2019-04-18 10:47 | FL ---
EXAMINATION TYPE: FL guided pain mgmt statistic DATE OF EXAM: 04/18/2019 CLINICAL HISTORY: Low back pain. TECHNIQUE: Fluoroscopy. COMPARISON: None. FINDINGS: Fluoroscopic guidance was provided during pain relief procedure performed by Dr. Ward . A total of 3 seconds of fluoroscopic time was utilized during the procedure and 2 spot images are acquired. Images acquired shows needle localization at multiple levels in the lumbar spine. IMPRESSION: As Above.
[2019-04-18 10:51] VITALS: BP 133/70; PULSE 69; RESP 17
== END 2019-04-18 11:15 | disposition home or self-care (01) ==
LOC: ORPAIN 09:05
PROVIDERS: ATTEND Specialist
DX: G89.29 Other chronic pain (principal); M47.816 Spondylosis without myelopathy or radiculopathy, lumbar region; M96.1 Postlaminectomy syndrome, not elsewhere classified; G58.8 Other specified mononeuropathies; M46.1 Sacroiliitis, not elsewhere classified; M51.36 Other intervertebral disc degeneration, lumbar region; Z79.891 Long term (current) use of opiate analgesic; Z79.899 Other long term (current) drug therapy; Z79.51 Long term (current) use of inhaled steroids; Z79.890 Hormone replacement therapy; Z79.82 Long term (current) use of aspirin; Z98.890 Other specified postprocedural states
CPT/HCPCS: 64493; 64494; 64495; J2250; J1030; J3010

== ENCOUNTER → 2019-05-03 | Day surgery (SDC) | payer MEDICARE ==
[2019-05-02 08:10] VITALS: BMI 27.7
[~2019-05-03] MED LIST changes: +IV FLUID CONTINUATION 1,000 ML IV ONE; +LIDOCAINE 1% 20 ML VIAL (10MG/ML) FOR IV START INTRADERMA ONE
[2019-05-03 09:39] VITALS: TEMP 97.5
--- NOTE | 2019-05-03 10:04 | P.PCN ---
Date of Procedure: 05/03/19 Procedure(s) Performed: PREOPERATIVE DIAGNOSIS : Lumbar spondylosis with Facet Arthropathy without myelopathy POSTOPERATIVE DIAGNOSIS: same PROCEDURE: [first/second] Diagnostic lumbar medial branch block with fluoroscopy at L3, L4, L5 right side which covers facets L4-5 and L5-S1 ANESTHESIA: Local anesthetic; moderate IV sedation with Versed 1 mg, sedation time 10 minutes Fluoroscopy was used for the procedure and images were saved in the radiology portion of the chart. Surgeon: Yahir Bush MD PROCEDURE INDICATION: Lumbar back pain without radiculopathy, not responsive to conservative management. PROCEDURE DESCRIPTION: the patient was seen and identified in the preop holding area , risks and benefits and possible complications of the procedure and alternatives were discussed with the patient, and the patient agreed to proceed with the procedure and signed the consent . IV was started , vital signs were monitored during the procedure and fluoroscopy was used to maximize the benefit and accuracy of the needle placement, and sedation was given to decrease patient anxiety. Patient was taken to the procedure room and placed in prone position. The lumbar region was prepped using chlorhexidineX-2. Under strict sterile technique using AP fluoroscopy the bilateral sacral ala were identified and using ipsilateral oblique fluoroscopy ,the junction of the transverse process and the superior articulating process of the L4, L5 vertebra which corresponds to the fluoroscopy image of the eye of the Jose dog for the medial branches were identified. Subsequently, after local infiltration of skin with lidocaine 1% 0.2 mL at each level , a 25-gauge 3.5" Quincke-type needle was placed at the junction of the base of the transverse process and the superior articular process at the appropriate level as well as the sacral ala, and the needle was advanced until the periosteum contacted, needle placement confirmed with AP and oblique fluoroscopy, 0.2 mL of Isovue 200 per level was injected which revealed no vascular uptake and after negative aspiration, 0.5 mL of lidocaine 4% was injected at each level and the needle subsequently removed . At the end of the procedure and the needles were removed and a bandage applied after the skin was cleaned. The patient was taken to recovery room in stable condition and monitors in the recovery room for 20-30 minutes and discharged home in stable condition after discharge criteria met and patient will follow up in clinic in 2 weeks EBL: Minimal COMPLICATION: None.
[2019-05-03 10:19] VITALS: BP 132/74; PULSE 61; RESP 18
--- NOTE | 2019-05-05 09:25 | FL ---
Fluoroscopy HISTORY: Pain 4 seconds fluoroscopy time supplied to the referring clinician. 2 intraoperative C-arm images docume nt the procedure. See dictated report from anesthesia.
== END ==
LOC: ORPAIN 08:44
PROVIDERS: ATTEND Anesthesiology
DX: M47.816 Spondylosis without myelopathy or radiculopathy, lumbar region (principal); M51.36 Other intervertebral disc degeneration, lumbar region; M46.1 Sacroiliitis, not elsewhere classified; M96.1 Postlaminectomy syndrome, not elsewhere classified; Z79.82 Long term (current) use of aspirin; Z88.1 Allergy status to other antibiotic agents; Z79.899 Other long term (current) drug therapy; Z79.890 Hormone replacement therapy; Z88.0 Allergy status to penicillin; Z88.2 Allergy status to sulfonamides
CPT/HCPCS: 64493; 64494; J2250; Q9966; 99152

== ENCOUNTER 2019-05-30 12:42 | Emergency (ER) | payer MEDICARE ==
[2019-05-30] MEDS ORDERED: SODIUM CHLORIDE 0.9% 1,000 ML IV STA (13:04)
--- NOTE | 2019-05-30 13:08 | ED ---
General Adult HPI - General Chief complaint: Neuro Symptoms/Deficit Stated complaint: Lower back pain Time Seen by Provider: 05/30/19 12:52 Source: patient, family, RN/MD, RN notes reviewed Mode of arrival: wheelchair Limitations: no limitations - History of Present Illness Initial comments: Patient is a pleasant 63-year-old female presenting to the emergency department with some increase in low back pain. Patient was using the restroom when her back started hurting her more. Patient was unable to urinate. Patient feels like her bladder is full. Patient does have some history of intermittent urinary retention, sometimes up to 600 mL. Patient does have pain in her back. Patient does have numbness sensation of her right greater than left leg. Patient's right leg is flexed and she has difficulty relaxing it. Patient did have similar symptoms previously associated with back problems. Patient also had a presumed blood clot to her thoracic spine in 2018 with somewhat similar symptoms. Patient was never put on more blood thinners other than aspirin for this however. - Related Data Home Medications Medication Instructions Recorded Confirmed Calcium Carbonate [Calcium] 600 mg PO BID 12/16/16 05/30/19 Cholecalciferol (Vitamin D3) 2,000 unit PO BID 12/16/16 05/30/19 [Vitamin D3] Cinnamon Bark [Cinnamon] 1,000 mg PO BID 12/16/16 05/30/19 Dexlansoprazole [Dexilant] 30 mg PO HS 12/16/16 05/30/19 Dicyclomine [Bentyl] 20 mg PO Q12HR 12/16/16 05/30/19 Fluticasone Nasal [place] [Flonase 2 spr EA NOSTRIL HS 12/16/16 05/30/19 Nasal [place]] L.acidoph,Paracasei, B.lactis 1 each PO BID 12/16/16 05/30/19 [Probiotic] Montelukast [Singulair] 10 mg PO HS 12/16/16 05/30/19 Spironolactone [Aldactone] 50 mg PO BID 12/16/16 05/30/19 Atorvastatin [Lipitor] 10 mg PO HS 08/24/18 05/30/19 Azelastine HCl [Astepro] 2 spray NASAL BID PRN 08/24/18 05/30/19 Baclofen [Lioresal] 10 mg PO 1400 08/24/18 05/30/19 Baclofen [Lioresal] 20 mg PO 0800,2200 08/24/18 05/30/19 DULoxetine HCL [Cymbalta] 60 mg PO DAILY 08/24/18 05/30/19 Furosemide [Lasix] 20 mg PO HS 08/24/18 05/30/19 Furosemide [Lasix] 40 mg PO QAM 08/24/18 05/30/19 Losartan [Cozaar] 100 mg PO DAILY 08/24/18 05/30/19 lamoTRIgine [LaMICtal] 100 mg PO BID 08/24/18 05/30/19 Levothyroxine Sodium [Synthroid] 50 mcg PO DAILY 09/19/18 05/30/19 Methenamine Hippurate [Hiprex] 1 gm PO DAILY 09/19/18 05/30/19 HYDROcodone/APAP 10-325MG [[place] 1 tab PO Q4-6H PRN 10/11/18 05/30/19 10-325] Meloxicam [Mobic] 7.5 mg PO DAILY 10/11/18 05/30/19 Potassium Chloride 10 meq PO BID 10/12/18 05/30/19 Aspirin 81 mg PO DAILY 10/24/18 05/30/19 Magnesium 200 mg PO DAILY 10/24/18 05/30/19 Allergy Injections Weekly 1 dose SQ WEEKLY 05/25/19 05/30/19 Ascorbic Acid [Vitamin C] 500 mg PO DAILY 05/25/19 05/30/19 Benzonatate [Tessalon Perles] 100 mg PO TID PRN 05/25/19 05/30/19 Calcium Polycarbophil [Fibercon] 625 mg PO BID 05/25/19 05/30/19 Ipratropium Smilax 0.06%Nasal 2 spray EA NOSTRIL DIRECTED PRN 05/25/19 05/30/19 [Atrovent Nasal 0.06%] Ondansetron HCl [Zofran] 8 mg PO Q12H PRN 05/25/19 05/30/19 Sucralfate [Carafate] 1 gm PO Q8HR PRN 05/25/19 05/30/19 hydrALAZINE HCL [Apresoline] 37.5 mg PO TID 05/25/19 05/30/19 hydrOXYzine HCL [Atarax] 10 mg PO TID PRN 05/25/19 05/30/19 Allergies Allergy/AdvReac Type Severity Reaction Status Date / Time cefaclor [From Ceclor] Allergy Drug Verified 05/25/19 11:56 induced fever ciprofloxacin [From Cipro] Allergy Rash/Hives Verified 05/25/19 11:56 clindamycin [From Cleocin] Allergy Drug Verified 05/25/19 11:56 induced fever gentamicin Allergy Ototoxicity Verified 05/25/19 11:56 nitrofurantoin Allergy Chest Pain Verified 05/25/19 11:56 [From Macrodantin] Penicillins Allergy Rash/Hives Verified 05/25/19 11:56 sulfamethoxazole Allergy tongue Verified 05/25/19 11:56 [From Septra] swelling thimerosal Allergy Rash/Hives Verified 05/25/19 11:56 tobramycin Allergy Rash/Hives Verified 05/25/19 11:56 trimethoprim [From Septra] Allergy tongue Verified 05/25/19 11:56 swelling seasonal allergies Allergy Cough Uncoded 05/25/19 11:56 Review of Systems ROS Statement: Those systems with pertinent positive or pertinent negative responses have been documented in the HPI. ROS Other: All systems not noted in ROS Statement are negative. Constitutional: Denies: fever Eyes: Denies: eye pain ENT: Denies: ear pain Respiratory: Denies: cough, dyspnea Cardiovascular: Denies: chest pain Endocrine: Denies: fatigue Gastrointestinal: Denies: nausea, vomiting Genitourinary: Reports: as per HPI Musculoskeletal: Reports: as per HPI Skin: Denies: rash Neurological: Reports: as per HPI Past Medical History Past Medical History: Asthma, CVA/TIA, GERD/Reflux, Hearing Disorder / Deafness, Hypertension, Osteoarthritis (OA), Thyroid Disorder Additional Past Medical History / Comment(s): heart murmur, numbness left foot, can not feel rt foot, severe seasonal allergies, pyleonephritis and kidney stones, swelling in legs." Unexplained episode of endocrine shutdown-yrs ago", "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 Hinton) History of Any Multi-Drug Resistant Organisms: None Reported Past Surgical History: Appendectomy, Back Surgery, Bladder Surgery, Breast Surgery, Cholecystectomy, Heart Catheterization, Hysterectomy, Orthopedic Surgery, Tubal Ligation Additional Past Surgical History / Comment(s): Bilateral Carpal Tunnel surgery, Nasal surgery, bilateral cataract surgery, Ganglion Cyst removal right hand, Left Kidney Stone surgery, Right Breast Biopsy, Back Surgery X3, Right Ulna s urgery, gum Line surgery, Bladder Suspension X 3, Colonoscopies, Debridement and Repair of left elbow. PAIN CLINIC PROCEDURES., torn retina right eye with tx Apr 2019 Past Anesthesia/Blood Transfusion Reactions: Motion Sickness, Postoperative Nausea & Vomiting (PONV) Additional Past Anesthesia/Blood Transfusion Reaction / Comment(s): States becomes very nauseaous when NPO. Past Psychological History: Depression Smoking Status: Never smoker Past Alcohol Use History: None Reported Past Drug Use History: None Reported - Past Family History Mother Family Medical History: No Reported History General Exam Limitations: no limitations General appearance: alert Head exam: Present: atraumatic, normocephalic Eye exam: Present: normal appearance, PERRL ENT exam: Present: normal oropharynx Neck exam: Present: normal inspection Respiratory exam: Present: normal lung sounds bilaterally Cardiovascular Exam: Present: regular rate, normal rhythm Expanded Peripheral pulses: 2+: Dorsalis Pedis (R), Dorsalis Pedis (L) GI/Abdominal exam: Present: soft. Absent: tenderness Extremities exam: Absent: pedal edema, calf tenderness Neurological exam: Present: alert Expanded Sensory exam: Lower Extremity Light Touch: Abnormal Right, Lower Extremity Pin Prick: Abnormal Right Motor strength exam: RUE: 5, LUE: 5 Eye Response: (4) open spontaneously Motor Response: (6) obeys commands Verbal Response: (5) oriented Psychiatric exam: Present: normal affect, normal mood Skin exam: Present: normal color Course Vital Signs 05/30/19 05/30/19 12:44 15:57 Temperature 97.7 F Pulse Rate 86 75 Respiratory 19 18 Rate Blood Pressure 127/77 137/72 O2 Sat by Pulse 97 98 Oximetry - Reevaluation(s) Reevaluation #1: 05/30/19 16:13 Patient was earlier reevaluated with still complains of discomfort and minimal improvement of weakness with right leg. Orthopedics was called. Dr. Pompa is not available however his practitioner Yue Barr did speak with him and does recommend 80 mg of Solu-Medrol and transfer. Patient previously has been to [facility] with similar symptoms. Case was discussed with Meño from transfer team as well as Dr. Valencia who will accept transfer. Medical Decision Making - Medical Decision Making Patient and family updated - Lab Data Result diagrams: 05/30/19 13:55 05/30/19 13:55 Lab Results 05/30/19 05/30/19 05/30/19 Range/Units 13:55 13:55 13:55 WBC 9.4 (3.8-10.6) k/uL RBC 4.36 (3.80-5.40) m/uL Hgb 13.9 (11.4-16.0) gm/dL Hct 41.9 (34.0-46.0) % MCV 96.1 (80.0-100.0) fL MCH 32.0 (25.0-35.0) pg MCHC 33.3 (31.0-37.0) g/dL RDW 13.2 (11.5-15.5) % Plt Count 230 (150-450) k/uL Neutrophils % 72 % Lymphocytes % 16 % Monocytes % 5 % Eosinophils % 4 % Basophils % 2 % Neutrophils # 6.8 (1.3-7.7) k/uL Lymphocytes # 1.5 (1.0-4.8) k/uL Monocytes # 0.5 (0-1.0) k/uL Eosinophils # 0.4 (0-0.7) k/uL Basophils # 0.2 (0-0.2) k/uL PT 9.5 (9.0-12.0) sec INR 0.9 (<1.2) APTT 22.3 (22.0-30.0) sec Sodium 141 (137-145) mmol/L Potassium 3.9 (3.5-5.1) mmol/L Chloride 106 (98-107) mmol/L Carbon Dioxide 26 (22-30) mmol/L Anion Gap 9 mmol/L BUN 16 (7-17) mg/dL Creatinine 0.77 (0.52-1.04) mg/dL Est GFR (CKD-EPI)AfAm >90 (>60 ml/min/1.73 sqM) Est GFR (CKD-EPI)NonAf 81 (>60 ml/min/1.73 sqM) Glucose 91 (74-99) mg/dL Calcium 10.0 (8.4-10.2) mg/dL Total Bilirubin 0.9 (0.2-1.3) mg/dL AST 39 H (14-36) U/L ALT 24 (4-34) U/L Alkaline Phosphatase 91 (38-126) U/L Total Protein 7.1 (6.3-8.2) g/dL Albumin 4.7 (3.5-5.0) g/dL Urine Color Urine Appearance (Clear) Urine pH (5.0-8.0) Ur Specific [place] (1.001-1.035) Urine Protein (Negative) Urine Glucose (UA) (Negative) Urine Ketones (Negative) Urine Blood (Negative) Urine Nitrite (Negative) Urine Bilirubin (Negative) Urine Urobilinogen (<2.0) mg/dL Ur Leukocyte Esterase (Negative) 05/30/19 Range/Units 14:02 WBC (3.8-10.6) k/uL RBC (3.80-5.40) m/uL Hgb (11.4-16.0) gm/dL Hct (34.0-46.0) % MCV (80.0-100.0) fL MCH (25.0-35.0) pg MCHC (31.0-37.0) g/dL RDW (11.5-15.5) % Plt Count (150-450) k/uL Neutrophils % % Lymphocytes % % Monocytes % % Eosinophils % % Basophils % % Neutrophils # (1.3-7.7) k/uL Lymphocytes # (1.0-4.8) k/uL Monocytes # (0-1.0) k/uL Eosinophils # (0-0.7) k/uL Basophils # (0-0.2) k/uL PT (9.0-12.0) sec INR (<1.2) APTT (22.0-30.0) sec Sodium (137-145) mmol/L Potassium (3.5-5.1) mmol/L Chloride (98-107) mmol/L Carbon Dioxide (22-30) mmol/L Anion Gap mmol/L BUN (7-17) mg/dL Creatinine (0.52-1.04) mg/dL Est GFR (CKD-EPI)AfAm (>60 ml/min/1.73 sqM) Est GFR (CKD-EPI)NonAf (>60 ml/min/1.73 sqM) Glucose (74-99) mg/dL Calcium (8.4-10.2) mg/dL Total Bilirubin (0.2-1.3) mg/dL AST (14-36) U/L ALT (4-34) U/L Alkaline Phosphatase (38-126) U/L Total Protein (6.3-8.2) g/dL Albumin (3.5-5.0) g/dL Urine Color Light Yellow Urine Appearance Clear (Clear) Urine pH 7.5 (5.0-8.0) Ur Specific [place] 1.006 (1.001-1.035) Urine Protein Negative (Negative) Urine Glucose (UA) Negative (Negative) Urine Ketones Negative (Negative) Urine Blood Negative (Negative) Urine Nitrite Negative (Negative) Urine Bilirubin Negative (Negative) Urine Urobilinogen <2.0 (<2.0) mg/dL Ur Leukocyte Esterase Negative (Negative) Disposition Clinical Impression: Leg weakness, Low back pain, Urinary retention Disposition: OTHER INSTITUTION NOT DEFINED Condition: Serious Is patient prescribed a controlled substance at d/c from ED?: No Referrals: Sherman Myers MD [Primary Care Provider] - 1-2 days Time of Disposition: 16:14 - Out of Hospital Transfer - Req. Specs Out of Hospital Transfer - Requested Specifics: Other Emergency Center
[2019-05-30 14:05] LABS: Basophils # (A) 0.2 k/uL (0-0.2); Basophils % (A) 2 %; Eosinophils # (A) 0.4 k/uL (0-0.7); Eosinophils % (A) 4 %; HCT 41.9 % (34.0-46.0); HGB 13.9 gm/dL (11.4-16.0); Lymphocytes # (A) 1.5 k/uL (1.0-4.8); Lymphocytes % (A) 16 %; MCHC 33.3 g/dL (31.0-37.0); MCV 96.1 fL (80.0-100.0); Monocytes # (A) 0.5 k/uL (0-1.0); Monocytes % (A) 5 %; Neutrophils # (A) 6.8 k/uL (1.3-7.7); Neutrophils % (A) 72 %; Platelet Count 230 k/uL (150-450); RBC 4.36 m/uL (3.80-5.40); RDW 13.2 % (11.5-15.5); WBC 9.4 k/uL (3.8-10.6)
[2019-05-30 14:13] LABS: INR 0.9 (<1.2); Partial Thromboplastin Time 22.3 sec (22.0-30.0); Prothrombin Time 9.5 sec (9.0-12.0)
[2019-05-30 14:14] LABS: Appearance,Urine Clear (Clear); Bilirubin,Urine Negative (Negative); Blood,Urine Negative (Negative); Color,Urine Light Yellow; Glucose,Urine (UA) Negative (Negative); Ketones,Urine Negative (Negative); Leukocyte Esterase,Urine Negative (Negative); Nitrite,Urine Negative (Negative); PH, Urine 7.5 (5.0-8.0); Protein,Urine Negative (Negative); Specific Gravity,Urine 1.006 (1.001-1.035); Urobilinogen,Urine <2.0 mg/dL (<2.0)
[2019-05-30 14:18] LABS: ALT 24 U/L (4-34); AST 39 U/L (14-36); African American GFR (CKD) >90 (>60 ml/min/1.73 sqM); Albumin 4.7 g/dL (3.5-5.0); Alkaline Phosphatase 91 U/L (38-126); Anion Gap 9 mmol/L; Blood Urea Nitrogen 16 mg/dL (7-17); Carbon Dioxide 26 mmol/L (22-30); Chloride 106 mmol/L (98-107); Glucose 91 mg/dL (74-99); Non-African American GFR(CKD) 81 (>60 ml/min/1.73 sqM); Potassium 3.9 mmol/L (3.5-5.1); Sodium 141 mmol/L (137-145); Total Bilirubin 0.9 mg/dL (0.2-1.3); Total Protein 7.1 g/dL (6.3-8.2)
[2019-05-30] MEDS: HYDROmorphone 1 MG/ML 1 ML SYRINGE IVP STA ×2 (14:31→14:47)
[2019-05-30] MEDS ORDERED: HYDROmorphone 1 MG/ML 1 ML SYRINGE IM STA (14:31)
[2019-05-30] MEDS ORDERED: HYDROmorphone 1 MG/ML 1 ML SYRINGE IVP STA (15:53)
[2019-05-30 15:58] VITALS: RESP 18
[2019-05-30] MEDS ORDERED: methylPREDNISolone SOD SUCCI 125 MG/2 ML VIAL IV STA (16:18)
[2019-05-30 17:25] VITALS: BP 132/72; PULSE 85; TEMP 97.8
== END 2019-05-30 17:30 | disposition other institution (70) ==
LOC: EC 12:42
DX: M54.5 Low back pain (principal); R33.9 Retention of urine, unspecified; R20.0 Anesthesia of skin; M62.81 Muscle weakness (generalized); J45.909 Unspecified asthma, uncomplicated; I10 Essential (primary) hypertension; E07.9 Disorder of thyroid, unspecified; F32.9 Major depressive disorder, single episode, unspecified; Z79.51 Long term (current) use of inhaled steroids; Z79.890 Hormone replacement therapy; Z79.1 Long term (current) use of non-steroidal anti-inflammatories (NSAID); Z79.82 Long term (current) use of aspirin; Z79.899 Other long term (current) drug therapy; Z88.0 Allergy status to penicillin; Z88.1 Allergy status to other antibiotic agents; Z88.2 Allergy status to sulfonamides; Z88.8 Allergy status to other drugs, medicaments and biological substances; Z91.048 Other nonmedicinal substance allergy status; Z86.73 Personal history of transient ischemic attack (TIA), and cerebral infarction without residual deficits
CPT/HCPCS: 36415; 80053; 85025; 85610; 85730; 81003; 99284; 96374; 96375; 96376; 96361 ×3; J2930; J1170

== ENCOUNTER → 2019-05-30 | Outpatient (CLI) | payer MEDICARE ==
[2019-05-30 12:33] VITALS: BP 168/66; PULSE 94; RESP 20
--- NOTE | 2019-05-30 14:28 | P.PN ---
Progress Note - Text Progress Note Date: 05/30/19 63-year-old female with a history of chronic low back pain. She recently had right-sided lumbar medial branch blocks of the L4 5 and L5-S1 facet joints. She reported relief greater than 80% with those diagnostic blocks. However, today when presenting for her appointment patient went to the bathroom and experienced acute and sudden low back pain and right leg weakness. Patient was having difficulty with any type of movement secondary to excruciating pain in her low back. She has had an episode similar to this in the past over 2 years ago but not to this severity. Patient appears to be in acute moderate distress and will be sent to the emergency department for further evaluation which will include a computed tomography scan of her lumbar spine and analgesia. She denies any recent bowel or bladder incontinence any significant weakness in her right lower shoddy. She was able to ambulate a walker to this appointment. She denies any falls in the bathroom. In addition to above, 13-point review of systems is also negative for chest pain, shortness of breath, changes in vision, changes in hearing, new onset weakness, abdominal pain, diarrhea, extreme fatigue, malaise, fever, skin changes, homicidal or suicidal ideation, or bowel or bladder incontinence. Vital Signs: Reviewed in EMR General: Awake and alert oriented 3, acute moderate distress Respiratory: No audible wheezing no accessory muscle usage Cardiovascular exam: regular rate, palpable bilateral pulses, no lower extremity edema Abdominal exam: No distention nontender to palpation Cervical spine: Normal alignment, Spurling's negative, facet loading negative, Becerra's negative Lumbar spine: pain across lumbar spine. 0 out of 5 motor strength in dorsiflexion, plantar flexion hip flexion, quadriceps extension or flexion in the right. Motor strength preserved on the left. Sensation decreased in the dermatomes of L4 and L5 on the right compared to left Psych exam: Cooperative, appropriate mood Imaging: Reviewed in EMR Assessment: 1. lumbar spinal stenosis 2. lumbar radiculopathy 3. lumbar spondylosis 4. Lumbar postlaminectomy syndrome Plan: 1. Explanation: Diagnoses, prognoses, and multiple treatment options including but not limited to physical therapy, interventional therapies, adjuvant medical therapies, narcotic medication therapies, and surgery were discussed with the patient and all questions were answered to the patient's satisfaction. 2. Opioid agreement: none 3. Counseling: The patient was counseled extensively on SMOKING CESSATION, BODY MASS INDEX, EXERCISE. Specifically, the patient was instructed regarding the importance of smoking cessation, obesity, and exercise in the context of both chronic pain and overall health. 4. Procedures: We'll consider radio frequency ablation in the future pending patient's current issue. 5. Consultations: We will send patient to the emergency department, I'll contact ER to notify. Patient will likely need an evaluation with a computed tomography scan of her lumbar spine and a consultation with orthopedic spine surgeon. 6. Medications: None 7. Disposition: patient taken to the emergency department in stable condition, assisted and escorting patient and understands rationale for sending patient to the emergency department. PQRS measures: 1-Patient's medications are documented in the chart. 2-Tobacco use is positive, counseling given 3-Patient has not had a pneumococcal vaccine. 4-Advanced care planning discussed, patient unable to give. 5-Opioid contract signed with the patient. 6-Pain positive, follow-up visit or procedure scheduled 7-Patient's blood pressure measured and documented, and WNL. 8-Patient's weight was measured, and body mass index ABOVE the normal limits, and counseling was done. Patient instructed to follow up with PCP. 9-Patient WAS NOT identified as an unhealthy alcohol user.
== END | disposition home or self-care (01) ==
LOC: PNWHC3 11:43
PROVIDERS: ATTEND Anesthesiology
DX: M48.061 Spinal stenosis, lumbar region without neurogenic claudication (principal); M47.26 Other spondylosis with radiculopathy, lumbar region; M96.1 Postlaminectomy syndrome, not elsewhere classified; Z72.0 Tobacco use
CPT/HCPCS: 99211

== ENCOUNTER → 2019-07-11 | Day surgery (SDC) | payer MEDICARE ==
[2019-07-10 10:06] VITALS: BMI 27.8
[~2019-07-11] MED LIST changes: +LACTATED RINGERS 1,000 ML IV ONE; +MIDAZOLAM 2 MG/2 ML VIAL ONE; +ROPIVACAINE 5MG/ML 20ML VIAL ONE; +fentaNYL (PF) 50 MCG/ML 2 ML AMP ONE; +methylPREDNISolone ACETATE 40 MG/ML 1 ML VIAL ONE
--- NOTE | 2019-07-11 10:52 | P.PCN ---
Date of Procedure: 07/11/19 Procedure(s) Performed: PREOPERATIVE DIAGNOSIS: 1-Lumbar Spondylosis with Facet Arthropathy without myelopathy. 2-right cluneal nerve neuralgia. 3-right sacroiliitis. POSTOPERATIVE DIAGNOSIS: Same as preop diagnosis PROCEDURES : Right Radiofrequency thermocoagulation, L3 , L4 , and L5 medial branch, with fluoroscopic guidance (fluoroscopy images available in the radiology department) ( to denervate the facet joint at L4-5 ,and L5-S1 levels ) ANESTHESIA: Moderate sedation with intravenous versed 2 mg and fentaneyl 100 mcg. EBL: Minimal PROCEDURE INDICATION: The patient with low back pain secondary to lumbar facet arthropathy who had more than 50% relief of her pain with previous diagnostic lumbar medial branch block with bupivacaine. PROCEDURE DESCRIPTION / TECHNIQUE: The patient was seen and identified in the preoperative area. Risks, benefits, complications, including but not limited to risk of infection ,bleeding , allergic reactions to the medications and no com plete pain releife , and alternatives were discussed with the patient, the patient agreed to proceed with the procedure and signed the consent. IV was started. Vital signs remained stable throughout the procedure. Patient was taken to the OR and time out was completed. The patient was placed in the prone position on the procedure table. The lumber area was prepped and draped in the usual sterile fashion. . Vital signs were closely monitored during the procedure .IV sedation was used during the procedure to decrease patients anxiety. Using AP and then oblique fluoroscopy, the ``eye of the Jose dog corresponding to the connection between the superior and transverse articular processes of right L3, L4, and L5 were identified, marked, and localized with 1% lidocaine. Subsequently, a 18 [id number] radiofrequency cannula with a 10- mm active tip was advanced guided by fluoroscopy to each of the``eyes of the Jose dog at right L3, L4, and L5. Each site then underwent sensory testing at 50 Hz and 0 to 1 volt and motor testing at 2.5 Hz and 0 to 3 volt with local stimulation, but no radicular symptoms down the legs. Thereafter the right L3, L4 , and L5 sites underwent radiofrequency thermocoagulation at 80 degrees celsius for 90 seconds after injecting 0.5 ml of PF Ropivacaine 1ml, then after the thermocoagulation done , 1 ml of the block solution containing Depo-Medrol 40 mg and 3 ml of Ropivacaine 0.5% was injected at the right L3 , L4 , and L5 , levels after negative aspiration of CSF and blood and with no paresthesias. Cannulas were retracted while injecting lidocaine 1% until the needle is out. At the end of the procedure, the skin was cleansed and bandages were applied. COMPLICATIONS: No acute complications. DISPOSITION / PLANS: The patient was placed in a supine position and transferred to the recovery area in a stable condition for observation and was discharged from the recovery room after meeting discharge criteria. Home discharge instructions given to the patient by the staff. The patient was reexamined prior to discharge. The patient will schedule a follow up in the clinic in 2-4 weeks.
--- NOTE | 2019-07-11 10:58 | FL ---
EXAMINATION TYPE: FL guided pain mgmt statistic DATE OF EXAM: 07/11/2019 HISTORY: Pain Rt lumbar RF. 22 sec fl, 3 images scanned.
[2019-07-11 11:02] VITALS: PULSE 68
[2019-07-11 11:18] VITALS: BP 99/59; RESP 16
== END ==
LOC: ORPAIN 08:46
PROVIDERS: ATTEND Specialist
DX: M47.816 Spondylosis without myelopathy or radiculopathy, lumbar region (principal); G58.8 Other specified mononeuropathies; M46.1 Sacroiliitis, not elsewhere classified; Z78.0 Asymptomatic menopausal state; Z79.82 Long term (current) use of aspirin; Z88.1 Allergy status to other antibiotic agents
CPT/HCPCS: 64635; 64636; J2250; J1030; J3010; J2795; 99152

== ENCOUNTER → 2019-07-30 | Outpatient (CLI) | payer MEDICARE | END | disposition home or self-care (01) | CPT/HCPCS: 99211 ==

== ENCOUNTER → 2019-12-20 | Outpatient (CLI) | payer MEDICARE ==
[2019-12-20 13:04] VITALS: TEMP 98.1
[2019-12-20 13:12] VITALS: BP 133/70; PULSE 73; RESP 16
--- NOTE | 2019-12-20 13:13 | P.PAINPG ---
Subjective This is follow-up visit for this 64 years old female, with a history of severe low back pain mainly on the right side she is diagnosed with a right cluneal neuralgia, lumbar degenerative disc disease and lumbar spondylosis with lumbar facet arthropathy , status post radiofrequency thermocoagulation of the right cluneal nerve, she reported that she had significant improvement of her low back pain. She had an RFA of the right side at L3-L4 and L5 in June of this year with great relief. She was planning on having this prior to June but she had an episode of severe weakness of the right lower extremity where she had to go to [facility] and was told that her weakness was due to a past stroke. However at this moment she is feeling okay just pain in the right lower back described as sharp stabbing and aching which is the same in quality and severity as it was prior to the previous lumbar radiofrequency ablation. Currently interested in repeating procedure. No symptoms of cauda equina syndrome such as bowel or bladder incontinence, saddle anesthesia, worsening lower show any weakness Review of systems is negative for chest pain, shortness of breath, new onset weakness, numbness/tingling, abdominal pain, malaise, fever, night sweats, chills, homicidal or suicidal ideation, or bowel or bladder incontinence. - Exam -Constitutiona : Cooperative , not in acute distress . -HEENT : nech : supple , no Lymphadenopathy , normal thyroid size . eyes : no ptosis , no icterus, no photophobia . . - neurologic : Cranial nerve II to XII intact , no focal neurological deffecit . -psychatric : alert , oriented X 3 , appropriate affect , intact judgment and insight . -Lymphatic : no Lymphadenopathy . - musculoskeltal : Lumber spine moter stegnth lower extremities ,thigh and legs 3-4/5 Right side , 3-4/5 Left side deep tendon reflexes : Brisk Knee Jerk , brisk ankle Jerk positive lumber facet Loading Test Range of motion of the lumbar spine Flexion 30 degrees, extension 10 degrees strait leg raising test , positive at 45degree Fabere test negative bilaterally mild tenderness over the Sacroiliac joint on the R and L sides Tenderness over the lateral aspect of the right iliac crest. Assessment and Plan Plan: Assessment and plan 1-Lumbar spondylosis with lumbar facet arthropathy 2- Right Sacroiliitis 3- Right Cluneal neuropathy 4-postlaminectomy pain syndrome Repeat L3 L4 L5 lumbar radiofrequency ablation on the right side Time with Patient: Less than 30 Smoking Status Never smoker Blood Pressure 126/68 Pain Intensity [Right Lower 7 Back] Scale Used Numeric (1 - 10) Hx Alcohol Use (MH) No Objective - Vital Signs Vital signs: Vital Signs Temp 98.1 F 12/20/19 12:59 Pulse Resp BP Pulse Ox 98 12/20/19 12:59 PQRS Measure Charge Sheet Measure #226: Tobacco Use: Screen & Cessation Intervention: Pt not a tobacco user Measure #111: Pneumonia Vaccination: Pneumococcal vaccine administered or previously received Measure #47: Advance Care Plan: Advance care planning discussed & documented, pt chose/unable to give Measure #131: Pain Assessment & Follow-up: Pain positive & plan documented, Fol low-up scheduled Measure #431: Unhealthy Alcohol Use Preventative Care & Scrn: Patient not identified as an unhealthy alcohol user PQRS Narrative: Smoking Status Never smoker Pain Intensity [Right Lower 7 Back] Scale Used Numeric (1 - 10) Hx Alcohol Use (MH) No Home Medications: Ambulatory Orders Calcium Carbonate [Calcium] 600 mg PO BID 12/16/16 Cholecalciferol (Vitamin D3) [Vitamin D3] 2,000 unit PO BID 12/16/16 Cinnamon Bark [Cinnamon] 1,000 mg PO BID 12/16/16 Dexlansoprazole [Dexilant] 30 mg PO HS 12/16/16 Dicyclomine [Bentyl] 20 mg PO Q12HR 12/16/16 Fluticasone Nasal Brohard [Flonase Nasal Brohard] 2 spr EA NOSTRIL HS 12/16/16 L.acidoph,Paracasei, B.lactis [Probiotic] 1 each PO BID 12/16/16 Montelukast [Singulair] 10 mg PO HS 12/16/16 Spironolactone [Aldactone] 50 mg PO BID 12/16/16 Atorvastatin [Lipitor] 10 mg PO HS 08/24/18 Azelastine HCl [Astepro] 2 spray NASAL BID PRN 08/24/18 Baclofen [Lioresal] 20 mg PO 0800,2200 08/24/18 DULoxetine HCL [Cymbalta] 60 mg PO DAILY 08/24/18 Furosemide [Lasix] 20 mg PO HS 08/24/18 Furosemide [Lasix] 40 mg PO QAM 08/24/18 Losartan [Cozaar] 100 mg PO DAILY 08/24/18 lamoTRIgine [LaMICtal] 50 mg PO BID 08/24/18 Levothyroxine Sodium [Synthroid] 50 mcg PO DAILY 09/19/18 Methenamine Hippurate [Hiprex] 1 gm PO DAILY 09/19/18 HYDROcodone/APAP 10-325MG [Mikana 10-325] 1 tab PO Q4-6H PRN 10/11/18 Potassium Chloride 10 meq PO BID 10/12/18 Aspirin 81 mg PO DAILY 10/24/18 Magnesium 200 mg PO DAILY 10/24/18 Allergy Injections Weekly 1 dose SQ WEEKLY 05/25/19 Ascorbic Acid [Vitamin C] 500 mg PO DAILY 05/25/19 Benzonatate [Tessalon Perles] 100 mg PO TID PRN 05/25/19 Ipratropium [place] 0.06%Nasal [Atrovent Nasal 0.06%] 2 spray EA NOSTRIL TID PRN 05/25/19 Ondansetron HCl [Zofran] 8 mg PO Q8H PRN 05/25/19 Sucralfate [Carafate] 1 gm PO Q8HR PRN 05/25/19 calcium polycarbophiL [Fibercon] 625 mg PO BID 05/25/19 hydrALAZINE HCL [Apresoline] 37.5 mg PO TID 05/25/19 hydrOXYzine HCL [Atarax] 10 - 20 mg PO Q12H PRN 05/25/19 Diclofenac Sodium Gel [Voltaren Gel] 4 gm TOPICAL QID PRN 07/10/19 Albuterol Sulfate [Ventolin HFA] 2 puff INHALATION Q4-6H PRN 12/17/19 Mometasone/Formoterol [Dulera 100 Mcg-5 Mcg Inhaler] 1 puff PO BID PRN 12/17/19 Controlled Substance Measures - Controlled Substance Measures Is patient prescribed a controlled substance at discharge?: No
== END | disposition home or self-care (01) ==
LOC: PNWHC3 12:53
PROVIDERS: ATTEND Anesthesiology
DX: M47.816 Spondylosis without myelopathy or radiculopathy, lumbar region (principal); M46.1 Sacroiliitis, not elsewhere classified; M46.96 Unspecified inflammatory spondylopathy, lumbar region; M96.1 Postlaminectomy syndrome, not elsewhere classified; G62.9 Polyneuropathy, unspecified; Z79.891 Long term (current) use of opiate analgesic; Z79.899 Other long term (current) drug therapy; Z79.82 Long term (current) use of aspirin
CPT/HCPCS: 99211

== ENCOUNTER → 2020-01-24 | Day surgery (SDC) | payer MEDICARE ==
[2020-01-22 10:11] VITALS: BMI 27.4
[~2020-01-24] MED LIST changes: -LACTATED RINGERS 1,000 ML IV ONE; -LACTATED RINGERS 1,000 ML IV SCH; -LIDOCAINE 1% 20 ML VIAL (10MG/ML) FOR IV START INTRADERMA ONE
[2020-01-24 08:27] VITALS: TEMP 98.3
[2020-01-24] MEDS: LACTATED RINGERS 1,000 ML IV SCH ×2 (08:38→08:47)
--- NOTE | 2020-01-24 09:11 | P.PCN ---
Date of Procedure: 01/24/20 Procedure(s) Performed: PREOPERATIVE DIAGNOSIS: 1-Lumbar Spondylosis with Facet Arthropathy without myelopathy. 2-right cluneal nerve neuralgia. 3-right sacroiliitis. POSTOPERATIVE DIAGNOSIS: Same as preop diagnosis. PROCEDURES : Right Radiofrequency thermocoagulation, L3 , L4 , and L5 medial branch, with fluoroscopic guidance (fluoroscopy images available in the radiology department) ( to denervate the facet joint at L4-5 ,and L5-S1 levels ) ANESTHESIA: Moderate sedation with intravenous versed 2 mg and fentaneyl 50 mcg. EBL: Minimal PROCEDURE INDICATION: The patient with low back pain secondary to lumbar facet arthropathy who had more than 50% relief of her pain with previous diagnostic lumbar medial branch block with bupivacaine. PROCEDURE DESCRIPTION / TECHNIQUE: The patient was seen and identified in the preoperative area. Risks, benefits, complications, including but not limited to risk of infection ,bleeding , allergic reactions to the medications and no com plete pain releife , and alternatives were discussed with the patient, the patient agreed to proceed with the procedure and signed the consent. IV was started. Vital signs remained stable throughout the procedure. Patient was taken to the OR and time out was completed. The patient was placed in the prone position on the procedure table. The lumber area was prepped and draped in the usual sterile fashion. . Vital signs were closely monitored during the procedure .IV sedation was used during the procedure to decrease patients anxiety. Using AP and then oblique fluoroscopy, the ``eye of the Jose dog corresponding to the connection between the superior and transverse articular processes of right L3, L4, and L5 were identified, marked, and localized with 1% lidocaine. Subsequently, a 18 [id number] radiofrequency cannula with a 10- mm active tip was advanced guided by fluoroscopy to each of the``eyes of the Jose dog at right L3, L4, and L5. Each site then underwent sensory testing at 50 Hz and 0 to 1 volt and motor testing at 2.5 Hz and 0 to 3 volt with local stimulation, but no radicular symptoms down the legs. Thereafter the right L3, L4 , and L5 sites underwent radiofrequency thermocoagulation at 80 degrees celsius for 90 seconds after injecting 0.5 ml of PF Ropivacaine 1ml, then after the thermocoagulation done , 1 ml of the block solution containing Depo-Medrol 40 mg and 3 ml of Ropivacaine 0.5% was injected at the right L3 , L4 , and L5 , levels after negative aspiration of CSF and blood and with no paresthesias. Cannulas were retracted while injecting lidocaine 1% until the needle is out. At the end of the procedure, the skin was cleansed and bandages were applied. COMPLICATIONS: No acute complications. DISPOSITION / PLANS: The patient was placed in a supine position and transferred to the recovery area in a stable condition for observation and was discharged from the recovery room after meeting discharge criteria. Home discharge instructions given to the patient by the staff. The patient was reexamined prior to discharge. The patient will schedule a follow up in the clinic in 2-4 weeks.
[2020-01-24 09:28] VITALS: BP 115/65; PULSE 67; RESP 17
--- NOTE | 2020-01-24 09:34 | FL ---
EXAMINATION TYPE: FL guided pain mgmt statistic DATE OF EXAM: 01/24/2020 HISTORY: Pain DR. HURTADO SUPERVISED USE OF RYLEE LUMBAR. FL 0.08 MINS.
== END ==
LOC: ORPAIN 07:59
PROVIDERS: ATTEND Specialist
DX: M47.816 Spondylosis without myelopathy or radiculopathy, lumbar region (principal); M46.1 Sacroiliitis, not elsewhere classified; G58.8 Other specified mononeuropathies; Z88.1 Allergy status to other antibiotic agents
CPT/HCPCS: 64635; 64636; J2250; J1030; J3010; J2795; 99152

== ENCOUNTER → 2020-02-13 | Outpatient (CLI) | payer MEDICARE ==
[2020-02-13 14:35] VITALS: BP 133/79; PULSE 71; RESP 12; TEMP 98.1
--- NOTE | 2020-02-14 15:22 | P.PN ---
Subjective Progress Note Date: 02/13/20 This is follow-up visit for this 63 years old female, with a history of severe low back pain mainly on the right side she is diagnosed with a right cluneal neuralgia, lumbar degenerative disc disease and lumbar spondylosis with lumbar facet arthropathy , recently we have been RFA of the right medial branch lumbar area, her low back pain improved significantly but she is currently complaining of severe right buttock pain which is constant and increased with any activity she denies any Ivar overnights which she denies any change in the bowel movement or urination -Constitutiona : Cooperative , not in acute distress . -HEENT : nech : supple , no Lymphadenopathy , normal thyroid size . eyes : no ptosis , no icterus, no photophobia . . - neurologic : Cranial nerve II to XII intact , no focal neurological deffecit . -psychatric : alert , oriented X 3 , appropriate affect , intact judgment and insight . -Lymphatic : no Lymphadenopathy . - musculoskeltal : Lumber spine moter stegnth lower extremities ,thigh and legs 3-4/5 Right side , 3-4/5 Left side deep tendon reflexes : Brisk Knee Jerk , brisk ankle Jerk positive lumber facet Loading Test Range of motion of the lumbar spine Flexion 30 degrees, extension 10 degrees strait leg raising test , positive at 45 degree Fabere test negative bilaterally tenderness over the Sacroiliac joint on the Right side Tenderness over the lateral aspect of the right iliac crest. Assessment and plan 1-Lumbar spondylosis with lumbar facet arthropathy 2- Right Sacroiliitis 3- Right Cluneal neuropathy 4-postlaminectomy pain syndrome Patient could benefit from right sacroiliac joint steroid injection Time with Patient: Less than 30 PQRS Measure Charge Sheet Measure #130: Documentation of Current Meds in Medical Chart: Patient's medications documented in chart Measure #226: Tobacco Use: Screen & Cessation Intervention: Pt not a tobacco user Measure #111: Pneumonia Vaccination: Pneumococcal vaccine administered or previously received Measure #47: Advance Care Plan: Advance care planning discussed & documented, pt chose/unable to give Measure #412: Opioid Treatment Agreement: No documentation of signed opioid treatment agreement Measure #408: Opioid Therapy Follow-up Evaluation: Patient had NO f/u eval minimum every 3 months during opioid therapy Measure #317: Preventitive Care & Scrn High Bld Press & F/U: Normal blood pressure, f/u not required Measure #128: Body Mass Index (BMI) Screening & Follow-up: BMI documented ABOVE normal parameters - f/u documented Measure #131: Pain Assessment & Follow-up: Pain positive & plan documented, Follow-up scheduled Measure #431: Unhealthy Alcohol Use Preventative Care & Scrn: Patient not identified as an unhealthy alcohol user PQRS Narrative: Objective - Vital Signs Vital signs: Vital Signs Temp 98.1 F 02/13/20 14:28 Pulse 71 02/13/20 14:28 Resp 12 02/13/20 14:28 BP 133/79 02/13/20 14:28 Pulse Ox 97 02/13/20 14:28
== END | disposition home or self-care (01) ==
LOC: PNWHC3 14:11
PROVIDERS: ATTEND Specialist
DX: M96.1 Postlaminectomy syndrome, not elsewhere classified (principal); M47.816 Spondylosis without myelopathy or radiculopathy, lumbar region; M46.1 Sacroiliitis, not elsewhere classified; G62.9 Polyneuropathy, unspecified
CPT/HCPCS: 99211

== ENCOUNTER 2020-02-28 12:26 | Day surgery (SDC) | payer MEDICARE ==
[2020-02-27 09:03] VITALS: BMI 27.4
[~2020-02-28 12:26] MED LIST changes: -IV FLUID CONTINUATION 1,000 ML IV ONE; +LACTATED RINGERS 1,000 ML IV SCH; -MIDAZOLAM 2 MG/2 ML VIAL ONE; -ROPIVACAINE 5MG/ML 20ML VIAL ONE; -fentaNYL (PF) 50 MCG/ML 2 ML AMP ONE; -methylPREDNISolone ACETATE 40 MG/ML 1 ML VIAL ONE
[2020-02-28 13:18] VITALS: TEMP 97.8
[2020-02-28] MEDS ORDERED: TRIAMCINOLONE ACETONIDE 40 MG/ML 1 ML VIAL ONE (13:27)
[2020-02-28] MEDS ORDERED: ROPIVACAINE 5MG/ML 20ML VIAL ONE (13:27)
[2020-02-28] MEDS ORDERED: MIDAZOLAM 2 MG/2 ML VIAL ONE (13:27)
[2020-02-28] MEDS ORDERED: fentaNYL (PF) 50 MCG/ML 2 ML AMP ONE (13:27)
--- NOTE | 2020-02-28 13:40 | P.PCN ---
Date of Procedure: 02/28/20 Surgeon: Brett Baez Pathology: none sent Condition: stable Disposition: PACU Description of Procedure: Preoperative diagnoses= sacroiliac joint dysfunction and sacroiliitis on the r ight side.postlaminectomy pain syndrome Postoperative diagnoses= same as preoperative diagnosis. Procedure= sacroiliac joint steroid injection under fluoroscopic guidance. Anesthesia= local anesthesia with lidocaine 1% and IV moderate conscious sedation with fentanyl and Versed Estimated blood loss=minimal. Procedure indication= the patient had a history of severe chronic low back pain, diagnosed with sacroiliitis and lumbar sacral facet arthropathy unresponsive to conservative treatment. Procedure description= the patient was seen and identified in the preoperative holding area, risks and benefits and alternative of the procedure and possible complications discussed with the patient, patient signed the consent. an IV was started, and vital signs were monitored and were stable throughout the procedure, patient was placed in the prone position or table and the lumbosacral area was prepped and draped with a sterile fashion, vital signs were closely monitored during the procedure.The Rt sacroiliac joint was identified on the AP view of fluoroscopy then the C-arm was tilted to the contralateral oblique position to superimpose the anterior and posterior joint lines on each other and to have a unified joint line with the target point at the inferior one third of this line. I used 22-gauge 3-1/2 inch Quincke spinal needle for this procedure and after getting into the sacroiliac joint I injected 40 mg of Kenalog +2 MLS of Ropivacaine 0.5%. Patient tolerated the procedure well without any complication, The patient returned to supine position after the back was cleaned and a Band- Aid applied, the patient transported to recovery room in stable condition and he was monitored for 30 minutes before she was discharged home in stable condition . patient will follow up with the pain clinic in a few weeks. A copy of the needle placement was saved to the C-arm machine.
[2020-02-28] MEDS ORDERED: IV FLUID CONTINUATION 1,000 ML IV ONE (13:46)
--- NOTE | 2020-02-28 13:50 | FL ---
Fluoroscopy INDICATION: Pain FINDINGS: Fluoroscopy time: 2 seconds. Images obtained: 1. IMPRESSIONS: 1. Documentation of fluoroscopy.
[2020-02-28 14:44] VITALS: RESP 18
[2020-02-28 14:58] VITALS: BP 105/65; PULSE 66
== END 2020-02-28 15:04 | disposition home or self-care (01) ==
LOC: ORPAIN 12:26
PROVIDERS: ATTEND Anesthesiology
DX: G89.29 Other chronic pain (principal); M46.1 Sacroiliitis, not elsewhere classified; M53.3 Sacrococcygeal disorders, not elsewhere classified; M96.1 Postlaminectomy syndrome, not elsewhere classified; M47.897 Other spondylosis, lumbosacral region; I10 Essential (primary) hypertension; Z88.0 Allergy status to penicillin; Z88.1 Allergy status to other antibiotic agents; Z88.2 Allergy status to sulfonamides; Z88.8 Allergy status to other drugs, medicaments and biological substances
CPT/HCPCS: J2250; J3301; J3010; J2795; G0260; 27096

== ENCOUNTER → 2020-03-24 | Outpatient (CLI) | payer MEDICARE ==
[2020-03-24 11:05] VITALS: BP 119/70; PULSE 71; RESP 18; TEMP 98.3
--- NOTE | 2020-03-25 11:45 | P.PN ---
Subjective Progress Note Date: 03/24/20 This is follow-up visit for this 63 years old female, with a history of severe low back pain mainly on the right side she is diagnosed with a right cluneal neuralgia, lumbar degenerative disc disease and lumbar spondylosis with lumbar facet arthropathy , and right sacroiliitis , status post RFA of the right medial branch lumbar area, a few weeks ago we did right-sided sacroiliac joint steroid injection, she reported excellent pain relief ,she denies any change in the bowel movement or urination Objective - Vital Signs Vital signs: Vital Signs Temp 98.3 F 03/24/20 10:55 Pulse 71 03/24/20 10:55 Resp 18 03/24/20 10:55 BP 119/70 03/24/20 10:55 Pulse Ox 95 03/24/20 10:55 - Exam -Constitutiona : Cooperative , not in acute distress . -HEENT : nech : supple , no Lymphadenopathy , normal thyroid size . eyes : no ptosis , no icterus, no photophobia . . - neurologic : Cranial nerve II to XII intact , no focal neurological deffecit . -psychatric : alert , oriented X 3 , appropriate affect , intact judgment and insight . -Lymphatic : no Lymphadenopathy . - musculoskeltal : Lumber spine moter stegnth lower extremities ,thigh and legs 4/5 Right side , 4/5 Left side deep tendon reflexes : Brisk Knee Jerk , brisk ankle Jerk positive lumber facet Loading Test Range of motion of the lumbar spine Flexion 30 degrees, extension 10 degrees strait leg raising test , positive at 45 degree Fabere test negative bilaterally tenderness over the Sacroiliac joint on the Right side Tenderness over the lateral aspect of the right iliac crest. Assessment and Plan Plan: Assessment and plan 1-Lumbar spondylosis with lumbar facet arthropathy 2- Right Sacroiliitis 3- Right Cluneal neuropathy 4-postlaminectomy pain syndrome Patient improved after RFA of the right medial branch lumbar area ,and after right sacroiliac joint steroid injection, she will follow up when necessary and we can repeat the right-sided sacroiliac joint steroid injection Time with Patient: Less than 30 PQRS Measure Charge Sheet Measure #130: Documentation of Current Meds in Medical Chart: Patient's medications documented in chart Measure #226: Tobacco Use: Screen & Cessation Intervention: Pt not a tobacco user Measure #111: Pneumonia Vaccination: Pneumococcal vaccine administered or previously received Measure #47: Advance Care Plan: Advance care planning discussed & documented, pt chose/unable to give Measure #412: Opioid Treatment Agreement: No documentation of signed opioid treatment agreement Measure #408: Opioid Therapy Follow-up Evaluation: Patient had NO f/u eval minimum every 3 months during opioid therapy Measure #317: Preventitive Care & Scrn High Bld Press & F/U: Normal blood pressure, f/u not required Measure #128: Body Mass Index (BMI) Screening & Follow-up: BMI documented ABOVE normal parameters - f/u documented Measure #131: Pain Assessment & Follow-up: Pain positive & plan documented, Follow-up scheduled Measure #431: Unhealthy Alcohol Use Preventative Care & Scrn: Patient not identified as an unhealthy alcohol user PQRS Narrative: Time with Patient: Less than 30
== END | disposition home or self-care (01) ==
LOC: PNWHC3 09:57
PROVIDERS: ATTEND Specialist
DX: M47.816 Spondylosis without myelopathy or radiculopathy, lumbar region (principal); M46.1 Sacroiliitis, not elsewhere classified; G62.9 Polyneuropathy, unspecified
CPT/HCPCS: 99211

== ENCOUNTER 2020-04-09 23:28 | Inpatient (IN) | payer MEDICARE ==
[2020-04-10] MEDS ORDERED: SODIUM CHLORIDE 0.9% 500 ML 500 ML IV STA ×2 (00:28→02:37)
[2020-04-10] MEDS ORDERED: ONDANSETRON 4 MG/2 ML VIAL IVP STA (00:30)
--- NOTE | 2020-04-10 00:36 | ED ---
Nausea/Vomiting/Diarrhea HPI - General Chief complaint: Nausea/Vomiting/Diarrhea Stated complaint: Fever Time Seen by Provider: 04/09/20 23:39 Source: patient, EMS Mode of arrival: EMS Limitations: no limitations - History of Present Illness Initial comments: This patient is a 64-year-old woman who presents here as a transfer from [facility]. The patient had gone there as a return visit, this evening to be seen about recurrent nausea and vomiting. The patient's history begins approximately one week ago when she started having upper respiratory symptoms, including cough and congestion as well as some intermittent fevers. She did have a cold and test as outpatient a few days ago, and then returned to [facility] she was having nausea and vomiting. She went into the hospital on Tuesday, was admitted, had a rapid Covid test that was positive, and was administered monoclonal antibody therapy. The patient was discharged today, and then return to the hospital when she had recurrent nausea and vomiting, as well as generalized weakness and fatigue. The patient was transferred here for intractable nausea and vomiting. Patient here is denying dyspnea, abdominal pain, change in bowel movements. She did earlier have some right flank pain but had computed tomography scan performed at the outside hospital which was read as negative. MD complaint: nausea, vomiting Onset/Timin -: days(s) Description of Vomiting: food contents Associated Abdominal Pain: Yes Location: flank (Right) Radiation: none Severity: moderate Quality: stabbing Consistency: constant Improves with: none Worsens with: none Associated Symptoms: cough, fever/chills, nausea/vomiting, weakness - Related Data Home Medications Medication Instructions Recorded Confirmed Calcium Carbonate [Calcium] 600 mg PO BID 12/16/16 03/20/20 Cholecalciferol (Vitamin D3) 2,000 unit PO BID 12/16/16 03/20/20 [Vitamin D3] Cinnamon Bark [Cinnamon] 1,000 mg PO BID 12/16/16 03/20/20 Dexlansoprazole [Dexilant] 30 mg PO HS 12/16/16 03/20/20 Dicyclomine [Bentyl] 20 mg PO Q12HR 12/16/16 03/20/20 Fluticasone Nasal [place] [Flonase 2 spr EA NOSTRIL HS 12/16/16 03/20/20 Nasal [place]] L.acidoph,Paracasei, B.lactis 1 each PO BID 12/16/16 03/20/20 [Probiotic] Montelukast [Singulair] 10 mg PO HS 12/16/16 03/20/20 Spironolactone [Aldactone] 50 mg PO BID 12/16/16 03/20/20 Atorvastatin [Lipitor] 10 mg PO HS 08/24/18 03/20/20 Azelastine HCl [Astepro] 2 spray [place]AL BID PRN 08/24/18 03/20/20 Baclofen [Lioresal] 20 mg PO 0800,2200 08/24/18 03/20/20 DULoxetine HCL [Cymbalta] 60 mg PO DAILY 08/24/18 03/20/20 Furosemide [Lasix] 20 mg PO DAILY@1700 08/24/18 03/20/20 Furosemide [Lasix] 40 mg PO QAM 08/24/18 03/20/20 Losartan [Cozaar] 100 mg PO DAILY 08/24/18 03/20/20 lamoTRIgine [LaMICtal] 50 mg PO BID 08/24/18 03/20/20 Levothyroxine Sodium [Synthroid] 50 mcg PO DAILY 09/19/18 03/20/20 Methenamine Hippurate [Hiprex] 1 gm PO DAILY 09/19/18 03/20/20 HYDROcodone/APAP 10-325MG [[place] 1 tab PO Q4-6H PRN 10/11/18 03/20/20 10-325] Potassium Chloride 10 meq PO BID 10/12/18 03/20/20 Aspirin 81 mg PO DAILY 10/24/18 03/20/20 Magnesium 200 mg PO DAILY 10/24/18 03/20/20 Allergy Injections Weekly 1 dose SQ WEEKLY 05/25/19 03/20/20 Ascorbic Acid [Vitamin C] 500 mg PO DAILY 05/25/19 03/20/20 Benzonatate [Tessalon [place]] 100 mg PO TID PRN 05/25/19 03/20/20 Ipratropium [place] 0.06%Nasal 2 spray EA NOSTRIL TID PRN 05/25/19 03/20/20 [Atrovent Nasal 0.06%] Sucralfate [Carafate] 1 gm PO Q8HR PRN 05/25/19 03/20/20 calcium polycarbophiL [Fibercon] 625 mg PO BID 05/25/19 03/20/20 hydrALAZINE HCL [Apresoline] 37.5 mg PO TID 05/25/19 03/20/20 hydrOXYzine HCL [Atarax] 10 - 20 mg PO Q12H PRN 05/25/19 03/20/20 ondansetron HCL [Zofran] 8 mg PO Q8H PRN 05/25/19 03/20/20 Diclofenac Sodium Gel [Voltaren 4 gm TOPICAL QID PRN 07/10/19 03/20/20 Gel] Albuterol Sulfate [Ventolin HFA] 2 puff INHALATION Q4-6H PRN 12/17/19 03/20/20 Mometasone/Formoterol [Dulera 100 1 puff PO BID PRN 12/17/19 03/20/20 Mcg-5 Mcg Inhaler] Lidocaine 5% Patch [Lidoderm] 1 patch TOPICAL DAILY 01/22/20 03/20/20 Amitriptyline HCl [Elavil] 10 mg PO HS 02/28/20 03/20/20 Allergies Allergy/AdvReac Type Severity Reaction Status Date / Time cefaclor [From Ceclor] Allergy Drug Verified 04/09/20 23:43 induced fever ciprofloxacin [From Cipro] Allergy Rash/Hives Verified 04/09/20 23:43 clindamycin [From Cleocin] Allergy Drug Verified 04/09/20 23:43 induced fever gentamicin Allergy Ototoxicity Verified 04/09/20 23:43 nitrofurantoin Allergy Chest Pain Verified 04/09/20 23:43 [From Macrodantin] Penicillins Allergy Rash/Hives Verified 04/09/20 23:43 sulfamethoxazole Allergy tongue Verified 04/09/20 23:43 [From Septra] swelling thimerosal Allergy Rash/Hives Verified 04/09/20 23:43 tobramycin Allergy Rash/Hives Verified 04/09/20 23:43 trimethoprim [From Septra] Allergy tongue Verified 04/09/20 23:43 swelling seasonal allergies Allergy Cough Uncoded 03/24/20 10:58 Review of Systems ROS Statement: Those systems with pertinent positive or pertinent negative responses have been documented in the HPI. ROS Other: All systems not noted in ROS Statement are negative. Constitutional: Reports: fever, chills, weakness ENT: Reports: congestion Respiratory: Reports: cough. Denies: dyspnea, wheezes, hemoptysis Cardiovascular: Denies: chest pain, palpitations, orthopnea, edema, syncope Gastrointestinal: Reports: abdominal pain, nausea, vomiting. Denies: diarrhea, constipation, hematemesis, melena, hematochezia Genitourinary: Denies: dysuria, hematuria Musculoskeletal: Denies: back pain Skin: Denies: rash Neurological: Denies: headache, weakness Past Medical History Past Medical History: Asthma, CVA/TIA, GERD/Reflux, Hearing Disorder / Deafness, Hypertension, Musculoskeletal Disorder, Osteoarthritis (OA), Thyroid Disorder Additional Past Medical History / Comment(s): heart murmur, Aortic Aneurysm, numbness lt foot, no feeling RLE, & right leg is numb now, severe seasonal allergies, pyleonephritis and kidney stones, swelling in Rt leg." Unexplained episode of endocrine shutdown-yrs ago", "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 allergy shots weekly (Dr. Hinton). 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 Hx spinal fusion L2-S1. History of Any Multi-Drug Resistant Organisms: None Reported Past Surgical History: Appendectomy, Back Surgery, Bladder Surgery, Breast Surgery, Cholecystectomy, Heart Catheterization, Hysterectomy, Orthopedic Surgery, Tubal Ligation Additional Past Surgical History / Comment(s): Bilat CTR, Nasal surgery, bilat cataract surgery, Ganglion Cyst removal right hand, Left Kidney Stone surgery, Right Breast Biopsy, Back Surgery X3 w/(Lumbar fusion L2-S1), Right Ulna surgery, gum Line surgery, Bladder Suspension X 3, Colonoscopies, Debridement & Repair of left elbow. PAIN CLINIC PROCEDURES., torn retina right eye 04/2019 Past Anesthesia/Blood Transfusion Reactions: Motion Sickness, Postoperative Nausea & Vomiting (PONV) Additional Past Anesthesia/Blood Transfusion Reaction / Comment(s): States beco mes very nauseaous when NPO. Past Psychological History: Depression Smoking Status: Never smoker Past Alcohol Use History: None Reported Past Drug Use History: None Reported - Past Family History Mother Family Medical History: No Reported History Daughter(s) Family Medical History: Deep Vein Thrombosis (DVT) General Exam Limitations: no limitations General appearance: alert, in no apparent distress Head exam: Present: atraumatic, normocephalic Eye exam: Present: normal appearance. Absent: scleral icterus, conjunctival injection ENT exam: Present: normal oropharynx Neck exam: Present: normal inspection Respiratory exam: Present: rales (Diffuse bilateral rales). Absent: respiratory distress, wheezes, rhonchi, stridor Cardiovascular Exam: Present: regular rate, normal rhythm, normal heart sounds. Absent: systolic murmur, diastolic murmur, rubs, gallop GI/Abdominal exam: Present: soft. Absent: distended, tenderness, guarding, rebound, rigid, mass Extremities exam: Present: normal inspection, normal capillary refill. Absent: pedal edema, calf tenderness Back exam: Present: normal inspection. Absent: CVA tenderness (R), CVA tenderness (L) Neurological exam: Present: alert Skin exam: Present: warm, dry, intact, normal color. Absent: rash Course Vital Signs 04/09/20 23:32 Temperature 98.8 F Pulse Rate 70 Respiratory 18 Rate Blood Pressure 119/58 O2 Sat by Pulse 97 Oximetry Disposition Referrals: Sherman Myers MD [Primary Care Provider] - 1-2 days
[2020-04-10 01:15] LABS: Basophils % (A) 0 %; Eosinophils % (A) 0 %; HCT 34.8 % (34.0-46.0); HGB 12.2 gm/dL (11.4-16.0); Lymphocytes # (A) 0.4 k/uL (1.0-4.8); Lymphocytes % (A) 5 %; MCH 32.7 pg (25.0-35.0); MCHC 35.1 g/dL (31.0-37.0); Mean Platelet Volume 8.4; Monocytes # (A) 0.4 k/uL (0-1.0); Monocytes % (A) 4 %; Neutrophils # (A) 8.3 k/uL (1.3-7.7); Neutrophils % (A) 90 %; Platelet Count 156 k/uL (150-450); RBC 3.74 m/uL (3.80-5.40); RDW 12.5 % (11.5-15.5); WBC 9.2 k/uL (3.8-10.6)
[2020-04-10 02:06] LABS: African American GFR (CKD) >90 (>60 ml/min/1.73 sqM); Anion Gap 5 mmol/L; Blood Urea Nitrogen 15 mg/dL (7-17); Calcium 8.1 mg/dL (8.4-10.2); Carbon Dioxide 27 mmol/L (22-30); Chloride 101 mmol/L (98-107); Glucose 107 mg/dL (74-99); Non-African American GFR(CKD) 83 (>60 ml/min/1.73 sqM); Potassium 4.2 mmol/L (3.5-5.1); Sodium 133 mmol/L (137-145)
[2020-04-10] MEDS ORDERED: ONDANSETRON 4 MG/2 ML VIAL IVP PRN (02:55)
[2020-04-10] MEDS ORDERED: NALOXONE 0.4 MG/ML 1 ML VIAL IV PRN (02:55)
[2020-04-10] MEDS: SODIUM CHLORIDE 0.9% 1,000 ML IV SCH ×2 (07:46→14:04)
[2020-04-10] MEDS ORDERED: guaiFENesin-DM 100-10MG/5ML 10 ML CUP PO PRN (13:23)
--- NOTE | 2020-04-10 13:24 | P.HPIM ---
History of Present Illness This is a pleasant 64 years old female with multiple medical problems as below. She was transferred from [facility]. She is a patient of Dr. Myers Patient presents with cough and an upper respiratory symptoms of one week duration associated with loss of some smell of 3 days duration. Also she was complaining of from abdominal pain in the right upper quadrant for about one to 1-2 weeks Also she went to bed ask about 2 weeks ago when she had a CT of the abdomen showing stool in the bowel as per records and they prescribed her laxative. Chest x-ray showing septal Covid 19 infiltration in both bases with right more than left and small area in the left midlung. Her also complaining from respiratory symptoms with cough. CT of the abdomen and pelvis showing Stable liver cyst patchy infiltrates on both lung bases greater on the right side suspicious for Covid 19 distribution patient had low-grade temperature of 99.9. She is saturating 97% on 2 L oxygen. Postop Vitas looks stable. Labs show an unremarkable CBC except for mild leukopenia of 0.4K. Sodium slightly low at 133, rest of BMP is unremarkable. Liver enzymes not elevated with AST 18 and ALT 12 and total bilirubin 0.5 at [facility]. Other labs prior to transfer showing lactic acid normal at 0.5, normal WBC 6.9K, hemoglobin 12.6, platelets 150 3K, urine analysis is nonsuspicious of infection, sodium 132, potassium 3.7, creatinine 0.9, glucose 84 Review of Systems CONSTITUTIONAL: No fever, no malaise, no fatigue. HEENT: No recent visual problems or hearing problems. Denied any sore throat. CARDIOVASCULAR: No orthopnea, PND, no palpitations, no syncope. -PULMONARY: As above -GASTROINTESTINAL: As above NEUROLOGICAL: No headaches, no weakness, no numbness. HEMATOLOGICAL: Denies any bleeding or petechiae. GENITOURINARY: Denies any burning micturition, frequency, or urgency. MUSCULOSKELETAL/RHEUMATOLOGICAL: Denies any joint pain, swelling, or any muscle pain. ENDOCRINE: Denies any polyuria or polydipsia. 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 allergy shots weekly (Dr. Hinton). 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 Hx spinal fusion L2-S1. History of Any Multi-Drug Resistant Organisms: None Reported Past Surgical History: Appendectomy, Back Surgery, Bladder Surgery, Breast Surg oscar, Cholecystectomy, Heart Catheterization, Hysterectomy, Orthopedic Surgery, Tubal Ligation Additional Past Surgical History / Comment(s): Bilat CTR, Nasal surgery, bilat cataract surgery, Ganglion Cyst removal right hand, Left Kidney Stone surgery, Right Breast Biopsy, Back Surgery X3 w/(Lumbar fusion L2-S1), Right Ulna surgery, gum Line surgery, Bladder Suspension X 3, Colonoscopies, Debridement & Repair of left elbow. PAIN CLINIC PROCEDURES., torn retina right eye 04/2019 Past Anesthesia/Blood Transfusion Reactions: Motion Sickness, Postoperative Nausea & Vomiting (PONV) Additional Past Anesthesia/Blood Transfusion Reaction / Comment(s): States becomes very nauseaous when NPO. Past Psychological History: Depression Smoking Status: Never smoker Past Alcohol Use History: None Reported Past Drug Use History: None Reported - Past Family History Mother Family Medical History: No Reported History Daughter(s) Family Medical History: Deep Vein Thrombosis (DVT) Medications and Allergies Home Medications Medication Instructions Recorded Confirmed Type Calcium Carbonate [Calcium] 600 mg PO BID 12/16/16 04/10/20 History Cholecalciferol (Vitamin D3) 2,000 unit PO BID 12/16/16 04/10/20 History [Vitamin D3] Cinnamon Bark [Cinnamon] 1,000 mg PO BID 12/16/16 04/10/20 History Dexlansoprazole [Dexilant] 30 mg PO HS 12/16/16 04/10/20 History Dicyclomine [Bentyl] 20 mg PO Q12HR 12/16/16 04/10/20 History Fluticasone Nasal [place] [Flonase 2 spr EA NOSTRIL HS 12/16/16 04/10/20 History Nasal [place]] L.acidoph,Paracasei, B.lactis 1 each PO BID 12/16/16 04/10/20 History [Probiotic] Montelukast [Singulair] 10 mg PO HS 12/16/16 04/10/20 History Spironolactone [Aldactone] 50 mg PO BID 12/16/16 04/10/20 History Atorvastatin [Lipitor] 10 mg PO HS 08/24/18 04/10/20 History Azelastine HCl [Astepro] 2 spray EA NOSTRIL BID PRN 08/24/18 04/10/20 History Baclofen [Lioresal] 20 mg PO BID 08/24/18 04/10/20 History DULoxetine HCL [Cymbalta] 60 mg PO DAILY 08/24/18 04/10/20 History Furosemide [Lasix] 20 mg PO DAILY@1700 08/24/18 04/10/20 History Furosemide [Lasix] 40 mg PO QAM 08/24/18 04/10/20 History Losartan [Cozaar] 100 mg PO DAILY 08/24/18 04/10/20 History lamoTRIgine [LaMICtal] 50 mg PO BID 08/24/18 04/10/20 History Levothyroxine Sodium [Synthroid] 50 mcg PO DAILY 09/19/18 04/10/20 History Methenamine Hippurate [Hiprex] 1 gm PO DAILY 09/19/18 04/10/20 History HYDROcodone/APAP 10-325MG [[place] 1 tab PO Q4-6H PRN 10/11/18 04/10/20 History 10-325] Potassium Chloride 10 meq PO BID 10/12/18 04/10/20 History Aspirin 81 mg PO DAILY 10/24/18 04/10/20 History Magnesium 200 mg PO DAILY 10/24/18 04/10/20 History Ascorbic Acid [Vitamin C] 500 mg PO DAILY 05/25/19 04/10/20 History Ipratropium [place] 0.06%Nasal 2 spray EA NOSTRIL TID PRN 05/25/19 04/10/20 History [Atrovent Nasal 0.06%] Sucralfate [Carafate] 1 gm PO BID PRN 05/25/19 04/10/20 History calcium polycarbophiL [Fibercon] 625 mg PO BID 05/25/19 04/10/20 History hydrALAZINE HCL [Apresoline] 37.5 mg PO TID 05/25/19 04/10/20 History hydrOXYzine HCL [Atarax] 10 - 20 mg PO Q12H PRN 05/25/19 04/10/20 History Diclofenac Sodium Gel [Voltaren 4 gm TOPICAL QID PRN 07/10/19 04/10/20 History Gel] Mometasone/Formoterol [Dulera 100 1 puff PO RT-BID PRN 12/17/19 04/10/20 History Mcg-5 Mcg Inhaler] Lidocaine 5% Patch [Lidoderm] 1 patch TOPICAL DAILY 01/22/20 04/10/20 History Amitriptyline HCl [Elavil] 10 mg PO HS 02/28/20 04/10/20 History Metoclopramide HCl [Reglan] 10 mg PO TID PRN 04/10/20 04/10/20 History Ondansetron Odt [Zofran ODT] 8 mg PO TID PRN 04/10/20 04/10/20 History Allergies Allergy/AdvReac Type Severity Reaction Status Date / Time cefaclor [From Ceclor] Allergy Drug Verified 04/10/20 11:43 induced fever ciprofloxacin [From Cipro] Allergy Rash/Hives Verified 04/10/20 11:43 clindamycin [From Cleocin] Allergy Drug Verified 04/10/20 11:43 induced fever gentamicin Allergy Ototoxicity Verified 04/10/20 11:43 nitrofurantoin Allergy Chest Pain Verified 04/10/20 11:43 [From Macrodantin] Penicillins Allergy Rash/Hives Verified 04/10/20 11:43 sulfamethoxazole Allergy tongue Verified 04/10/20 11:43 [From Septra] swelling thimerosal Allergy Rash/Hives Verified 04/10/20 11:43 tobramycin Allergy Rash/Hives Verified 04/10/20 11:43 trimethoprim [From Septra] Allergy tongue Verified 04/10/20 11:43 swelling seasonal allergies Allergy Cough Uncoded 03/24/20 10:58 Physical Exam Vitals: Vital Signs Temp Pulse Pulse Resp BP BP Pulse Ox 04/10/20 13:00 99.9 F H 68 18 160/70 98 04/10/20 12:36 98.7 F 92 18 118/82 98 04/10/20 06:00 63 18 118/63 98 04/10/20 03:00 60 16 134/66 98 04/10/20 00:43 65 18 133/66 97 04/09/20 23:32 98.8 F 70 18 119/58 97 Intake and Output 04/09/20 04/10/20 04/10/20 22:59 06:59 14:59 Other: Weight 71.214 kg GENERAL: The patient is alert and oriented x3, not in any acute distress. Well developed, well nourished. HEENT: Pupils are round and equally reacting to light. EOMI. No scleral icterus. No conjunctival pallor. Normocephalic, atraumatic. No pharyngeal erythema. No thyromegaly. CARDIOVASCULAR: S1 and S2 present. No murmurs, rubs, or gallops. PULMONARY: Chest is clear to auscultation, no wheezing or crackles. ABDOMEN: Soft, nontender, nondistended, normoactive bowel sounds. No palpable organomegaly. MUSCULOSKELETAL: No joint swelling or deformity. EXTREMITIES: No cyanosis, clubbing, or pedal edema. NEUROLOGICAL: Gross neurological examination did not reveal any focal deficits. SKIN: No rashes. No petechiae Results CBC & Chem 7: 04/10/20 00:58 04/10/20 01:41 Labs: Abnormal Lab Results - Last 24 Hours (Table) 04/10/20 04/10/20 Range/Units 00:58 01:41 RBC 3.74 L (3.80-5.40) m/uL Neutrophils # 8.3 H (1.3-7.7) k/uL Lymphocytes # 0.4 L (1.0-4.8) k/uL Sodium 133 L (137-145) mmol/L Glucose 107 H (74-99) mg/dL Calcium 8.1 L (8.4-10.2) mg/dL Assessment and Plan Assessment: -Bilateral Covid pneumonia: Continue with vitamin C, zinc sulfate insufflate, dexamethasone. Also Lovenox. Consult pulmonary service. Continue with oxygen as needed. -Acute Covid gastroenteritis: Continue with gentle hydration. 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 DVT prophylaxis: Lovenox GI prophylaxis: I asked Prognosis is guardeChronic low back paind
[2020-04-10] MEDS ORDERED: dexAMETHasone 2 MG TAB PO SCH (13:30)
[2020-04-10] MEDS ORDERED: ENOXAPARIN 40 MG/0.4 ML SYRINGE SQ SCH (13:30)
[2020-04-10] MEDS ORDERED: ONDANSETRON 4 MG TAB PO PRN (13:40)
[2020-04-10] MEDS: ZINC SULFATE 220 MG CAP PO SCH (14:10)
[2020-04-10] MEDS: ASCORBIC ACID 500 MG TAB PO SCH (14:11)
[2020-04-11] MEDS: ONDANSETRON 4 MG/2 ML VIAL IVP PRN (04:57)
[2020-04-11] MEDS: SODIUM CHLORIDE 0.9% 1,000 ML IV SCH ×2 (06:19→18:46)
[2020-04-11] MEDS ORDERED: SUCRALFATE 1 GM TAB PO PRN (07:33)
[2020-04-11] MEDS ORDERED: METOCLOPRAMIDE 10 MG TAB PO PRN (07:33)
[2020-04-11] MEDS ORDERED: SYMBICORT 80-4.5 MCG INHALER INHALATION PRN (07:33)
[2020-04-11] MEDS ORDERED: HYDROcodone/APAP 10-325MG 1 EACH TAB PO PRN (07:33)
[2020-04-11] MEDS ORDERED: hydrOXYzine HCL 10 MG TAB PO PRN (07:33)
[2020-04-11] MEDS: DICYCLOMINE 20 MG TAB PO SCH ×2 (08:45→22:33)
[2020-04-11] MEDS: ZINC SULFATE 220 MG CAP PO SCH (08:45)
[2020-04-11] MEDS: LOSARTAN 50 MG TAB PO SCH (08:46)
[2020-04-11] MEDS: lamoTRIgine 100 MG TAB PO SCH ×2 (08:46→22:32)
[2020-04-11] MEDS: DULoxetine HCL 60 MG CAPSULE.DR PO SCH (08:46)
[2020-04-11] MEDS: ASCORBIC ACID 500 MG TAB PO SCH (08:46)
[2020-04-11] MEDS: BACLOFEN 10 MG TAB PO SCH ×2 (08:47→22:33)
[2020-04-11] MEDS: LEVOTHYROXINE 50 MCG TAB PO SCH (08:51)
[2020-04-11] MEDS: LIDOCAINE 5% PATCH TOPICAL SCH (08:51)
--- NOTE | 2020-04-11 10:02 | XR ---
EXAMINATION TYPE: XR KUB DATE OF EXAM: 04/11/2020 COMPARISON: None INDICATION: Gastroenteritis TECHNIQUE: Single view abdomen spine view FINDINGS: There is a normal bowel gas pattern. Contrast is present through the colon. Psoas margins are normal. No organomegaly is present. Cholecystectomy clips are in the right upper quadrant. IMPRESSION: 1. Unremarkable Abdomen
[2020-04-11 10:07] VITALS: BMI 26.9
[2020-04-11 10:28] VITALS: RESP 18
[2020-04-11] MEDS: ASPIRIN 81 MG PO SCH (10:29)
[2020-04-11] MEDS: FUROSEMIDE 40 MG TAB PO SCH (10:29)
[2020-04-11] MEDS: SPIRONOLACTONE 25 MG TAB PO SCH ×2 (10:30→22:32)
[2020-04-11] MEDS: hydrALAZINE HCL 25 MG TAB PO SCH ×3 (10:30→22:30)
[2020-04-11] MEDS: POTASSIUM CHLORIDE ER 10 MEQ TAB.ER.PRT PO SCH ×2 (10:30→22:31)
[2020-04-11 10:43] LABS: Basophils % (A) 0 %; Eosinophils % (A) 1 %; HCT 36.2 % (34.0-46.0); HGB 12.4 gm/dL (11.4-16.0); Lymphocytes # (A) 1.2 k/uL (1.0-4.8); Lymphocytes % (A) 23 %; MCH 32.1 pg (25.0-35.0); MCHC 34.1 g/dL (31.0-37.0); MCV 94.1 fL (80.0-100.0); Mean Platelet Volume 8.4; Monocytes # (A) 0.4 k/uL (0-1.0); Monocytes % (A) 8 %; Neutrophils # (A) 3.3 k/uL (1.3-7.7); Neutrophils % (A) 66 %; Platelet Count 178 k/uL (150-450); RBC 3.85 m/uL (3.80-5.40); RDW 12.5 % (11.5-15.5); WBC 5.1 k/uL (3.8-10.6)
[2020-04-11 10:48] LABS: African American GFR (CKD) >90 (>60 ml/min/1.73 sqM); Anion Gap 7 mmol/L; Blood Urea Nitrogen 15 mg/dL (7-17); Calcium 8.5 mg/dL (8.4-10.2); Carbon Dioxide 20 mmol/L (22-30); Chloride 110 mmol/L (98-107); Glucose 86 mg/dL (74-99); Non-African American GFR(CKD) >90 (>60 ml/min/1.73 sqM); Potassium 4.2 mmol/L (3.5-5.1); Sodium 137 mmol/L (137-145)
[2020-04-11] MEDS: DEXAMETHASONE SOD PHOSPHATE 10 MG/ML 1 ML VIAL IV SCH (11:45)
--- NOTE | 2020-04-11 11:51 | XR ---
EXAMINATION TYPE: XR chest 1V portable DATE OF EXAM: 04/11/2020 COMPARISON: None INDICATION: Covid, short of breath TECHNIQUE: Single frontal view of the chest is obtained. FINDINGS: The heart size is normal. The pulmonary vasculature is normal. Minimal infiltrate is in the periphery of the right upper lobe. Some mild increased lung markings are in the periphery of the left upper lung field. This is nonspecific but can be related to atypical pn eumonia. IMPRESSION: 1. Correlate for Mild atypical pneumonia
[2020-04-11] MEDS ORDERED: FUROSEMIDE 20 MG TAB PO SCH (17:00)
--- NOTE | 2020-04-11 20:50 | P.PN ---
Subjective This is a pleasant 64 years old female with multiple medical problems as below. She was transferred from [facility]. She is a patient of Dr. Myers Patient presents with cough and an upper respiratory symptoms of one week duration associated with loss of some smell of 3 days duration. Also she was complaining of from abdominal pain in the right upper quadrant for about one to 1-2 weeks Also she went to bed ask about 2 weeks ago when she had a CT of the abdomen showing stool in the bowel as per records and they prescribed her laxative. Chest x-ray showing septal Covid 19 infiltration in both bases with right more than left and small area in the left midlung. Her also complaining from respiratory symptoms with cough. CT of the abdomen and pelvis showing Stable liver cyst patchy infiltrates on both lung bases greater on the right side suspicious for Covid 19 distribution patient had low-grade temperature of 99.9. She is saturating 97% on 2 L oxygen. Postop Vitas looks stable. Labs show an unremarkable CBC except for mild leukopenia of 0.4K. Sodium slightly low at 133, rest of BMP is unremarkable. Liver enzymes not elevated with AST 18 and ALT 12 and total bilirubin 0.5 at [facility]. Other labs prior to transfer showing lactic acid normal at 0.5, normal WBC 6.9K, hemoglobin 12.6, platelets 150 3K, urine analysis is nonsuspicious of infection, sodium 132, potassium 3.7, creatinine 0.9, glucose 84 04/11/2020 Patient is awake and alert, she is presenting quietly. She has a large bowel movement conversant, last night but that was formed however this morning she has recurrent lower abdominal pain with loose bowel movement, abdominal x-ray shows nonspecific finding. Chest x-ray: Mild atypical pneumonia pulmonary team evaluated the patient and start her on dexamethasone Patient is not eating much, only 25% of her meal, patient encouraged to increase her eating as she was afraid to do so Objective - Vital Signs Vital signs: Vital Signs Temp 97.5 F L 04/11/20 09:00 Pulse 57 L 04/11/20 09:00 Resp 18 04/11/20 09:00 BP 157/69 04/11/20 09:00 Pulse Ox 99 04/11/20 09:00 Intake & Output 04/10/20 04/11/20 04/11/20 18:59 06:59 18:59 Intake Total 120 Balance 120 Weight 71.214 kg 71.214 kg Intake: Oral 120 Other: Voiding Method Toilet Toilet Toilet # Voids 2 1 # Bowel Movements 1 2 - Exam HEENT: Pupils are round and equally reacting to light. EOMI. No scleral icterus. No conjunctival pallor. Normocephalic, atraumatic. No pharyngeal erythema. No thyromegaly. CARDIOVASCULAR: S1 and S2 present. No murmurs, rubs, or gallops. PULMONARY: Chest is clear to auscultation, no wheezing or crackles. ABDOMEN: Soft, nontender, nondistended, normoactive bowel sounds. No palpable organomegaly. MUSCULOSKELETAL: No joint swelling or deformity. EXTREMITIES: No cyanosis, clubbing, or pedal edema. NEUROLOGICAL: Gross neurological examination did not reveal any focal deficits. SKIN: No rashes. No petechiae - Labs CBC & Chem 7: 04/11/20 10:31 04/11/20 10:31 Labs: Abnormal Lab Results - Last 24 Hours (Table) 04/11/20 Range/Units 10:31 Chloride 110 H (98-107) mmol/L Carbon Dioxide 20 L (22-30) mmol/L Assessment and Plan Assessment: -Bilateral Covid pneumonia: Continue with vitamin C, zinc sulfate insufflate, dexamethasone. Also Lovenox. Consult pulmonary service. Continue with oxygen as needed. -Acute Covid gastroenteritis: Continue with gentle hydration. 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 DVT prophylaxis: Lovenox GI prophylaxis: I asked Prognosis is guardeChronic low back paind
[2020-04-11] MEDS ORDERED: ATORVASTATIN 10 MG TAB PO SCH (21:00)
[2020-04-11] MEDS ORDERED: MONTELUKAST 10 MG TAB PO SCH (21:00)
[2020-04-11] MEDS ORDERED: AMITRIPTYLINE HCL 10 MG TAB PO SCH (21:00)
[2020-04-12] MEDS: LEVOTHYROXINE 50 MCG TAB PO SCH (06:37)
[2020-04-12] MEDS: ONDANSETRON 4 MG/2 ML VIAL IVP PRN (06:37)
[2020-04-12] MEDS: BACLOFEN 10 MG TAB PO SCH (10:09)
[2020-04-12] MEDS: SODIUM CHLORIDE 0.9% 1,000 ML IV SCH (10:09)
[2020-04-12] MEDS: ASPIRIN 81 MG PO SCH (10:09)
[2020-04-12] MEDS: SPIRONOLACTONE 25 MG TAB PO SCH (10:09)
[2020-04-12] MEDS: ASCORBIC ACID 500 MG TAB PO SCH (10:09)
[2020-04-12] MEDS: LOSARTAN 50 MG TAB PO SCH (10:10)
[2020-04-12] MEDS: hydrALAZINE HCL 25 MG TAB PO SCH (10:10)
[2020-04-12] MEDS: FUROSEMIDE 40 MG TAB PO SCH (10:10)
[2020-04-12] MEDS: lamoTRIgine 100 MG TAB PO SCH (10:10)
[2020-04-12] MEDS: ZINC SULFATE 220 MG CAP PO SCH (10:11)
[2020-04-12] MEDS: POTASSIUM CHLORIDE ER 10 MEQ TAB.ER.PRT PO SCH (10:11)
[2020-04-12] MEDS: DICYCLOMINE 20 MG TAB PO SCH (10:12)
[2020-04-12] MEDS: DEXAMETHASONE SOD PHOSPHATE 10 MG/ML 1 ML VIAL IV SCH (10:12)
[2020-04-12] MEDS: DULoxetine HCL 60 MG CAPSULE.DR PO SCH (10:12)
[2020-04-12] MEDS: LIDOCAINE 5% PATCH TOPICAL SCH (10:13)
[2020-04-12 10:41] LABS: Basophils % (A) 0 %; Eosinophils % (A) 0 %; HCT 34.4 % (34.0-46.0); HGB 11.4 gm/dL (11.4-16.0); Lymphocytes # (A) 1.4 k/uL (1.0-4.8); Lymphocytes % (A) 21 %; MCH 31.4 pg (25.0-35.0); MCHC 33.2 g/dL (31.0-37.0); MCV 94.8 fL (80.0-100.0); Mean Platelet Volume 8.7; Monocytes # (A) 0.4 k/uL (0-1.0); Monocytes % (A) 5 %; Neutrophils # (A) 4.8 k/uL (1.3-7.7); Neutrophils % (A) 72 %; Platelet Count 191 k/uL (150-450); RBC 3.63 m/uL (3.80-5.40); RDW 13.1 % (11.5-15.5); WBC 6.7 k/uL (3.8-10.6)
[2020-04-12 10:55] LABS: African American GFR (CKD) >90 (>60 ml/min/1.73 sqM); Anion Gap 6 mmol/L; Blood Urea Nitrogen 12 mg/dL (7-17); Calcium 8.2 mg/dL (8.4-10.2); Carbon Dioxide 22 mmol/L (22-30); Chloride 111 mmol/L (98-107); Glucose 105 mg/dL (74-99); Magnesium 1.9 mg/dL (1.6-2.3); Non-African American GFR(CKD) >90 (>60 ml/min/1.73 sqM); Sodium 139 mmol/L (137-145)
[2020-04-12 15:37] VITALS: BP 134/63; PULSE 63; TEMP 97.7
== END 2020-04-12 17:46 | disposition home or self-care (01) | DRG 177 ==
LOC: EC 23:28 → 1SOBS 04-10 02:55 → OBSVTOIN 04-12 07:41
PROVIDERS: ADMIT Hospitalist; ATTEND Hospitalist
DX: U07.1 COVID-19 (principal); J12.89 Other viral pneumonia; J96.01 Acute respiratory failure with hypoxia; A08.39 Other viral enteritis; G81.91 Hemiplegia, unspecified affecting right dominant side; K76.89 Other specified diseases of liver; E03.9 Hypothyroidism, unspecified; F32.9 Major depressive disorder, single episode, unspecified; H91.90 Unspecified hearing loss, unspecified ear; I10 Essential (primary) hypertension; J45.909 Unspecified asthma, uncomplicated; M19.90 Unspecified osteoarthritis, unspecified site; I71.9 Aortic aneurysm of unspecified site, without rupture; K21.9 Gastro-esophageal reflux disease without esophagitis; K58.9 Irritable bowel syndrome, unspecified; R01.1 Cardiac murmur, unspecified; Z79.51 Long term (current) use of inhaled steroids; Z79.82 Long term (current) use of aspirin; Z79.890 Hormone replacement therapy; Z79.899 Other long term (current) drug therapy; Z87.442 Personal history of urinary calculi; Z90.710 Acquired absence of both cervix and uterus; Z98.1 Arthrodesis status; Z88.1 Allergy status to other antibiotic agents; Z88.0 Allergy status to penicillin; Z88.2 Allergy status to sulfonamides; Z88.8 Allergy status to other drugs, medicaments and biological substances; Z98.42 Cataract extraction status, left eye; Z98.41 Cataract extraction status, right eye; Z90.49 Acquired absence of other specified parts of digestive tract; Z87.19 Personal history of other diseases of the digestive system; Z98.890 Other specified postprocedural states; Z87.11 Personal history of peptic ulcer disease; Z98.51 Tubal ligation status; Z82.49 Family history of ischemic heart disease and other diseases of the circulatory system; Z86.73 Personal history of transient ischemic attack (TIA), and cerebral infarction without residual deficits
CPT/HCPCS: 36415; 71045; 74018; 80048; 83735; 84145; 85025; 96372; 99284

== ENCOUNTER → 2020-10-22 | Outpatient (CLI) | payer MEDICARE ==
[2020-10-22 11:20] VITALS: BP 130/41; PULSE 78; RESP 18; TEMP 98.3
--- NOTE | 2020-10-22 11:50 | P.PN ---
Subjective Progress Note Date: 10/22/20 This is follow-up visit for this 65 years old female, with a history of severe low back pain mainly on the right side she is diagnosed with a right cluneal neuralgia, lumbar degenerative disc disease ,and lumbar spondylosis with lumbar facet arthropathy , last year we have been RFA of the right medial branch lumbar area, her low back pain improved significantly , she gets pain relief more than 80 % or more than 6 months , and her activity of daily livings improved significantly , and she is complaining of pain mainly in the low back area on the right side ,pain is constant and increased with any activity , she denies any change in the bowel movement or urination, she is using Bronson 10/325 every 6 hours when necessary and baclofen 10 mg when necessary she is getting prescription refills from her primary care and she denies any side effect of the medication -Constitutiona : Cooperative , not in acute distress . -HEENT : nech : supple , no Lymphadenopathy , normal thyroid size . eyes : no ptosis , no icterus, no photophobia . . - neurologic : Cranial nerve II to XII intact , no focal neurological deffecit . -psychatric : alert , oriented X 3 , appropriate affect , intact judgment and insight . -Lymphatic : no Lymphadenopathy . - musculoskeltal : Lumber spine moter stegnth lower extremities ,thigh and legs 3-4/5 Right side , 4/5 Left side deep tendon reflexes : Brisk Knee Jerk , brisk ankle Jerk positive lumber facet Loading Test Range of motion of the lumbar spine Flexion 30 degrees, extension 10 degrees strait leg raising test , positive at 45 degree Fabere test negative bilaterally tenderness over the Sacroiliac joint on the Right side Tenderness over the lateral aspect of the right iliac crest. Assessment and plan 1-Lumbar spondylosis with lumbar facet arthropathy 2- Right Sacroiliitis 3- Right Cluneal neuropathy 4-postlaminectomy pain syndrome Patient could benefit from repeat RFA of the right side medial branch lumbar area at L3, L4, L5 Time with Patient: Less than 30 PQRS Measure Charge Sheet Measure #130: Documentation of Current Meds in Medical Chart: Patient's medications documented in chart Measure #226: Tobacco Use: Screen & Cessation Intervention: Pt not a tobacco user Measure #111: Pneumonia Vaccination: Pneumococcal vaccine administered or previously received Measure #47: Advance Care Plan: Advance care planning discussed & documented, pt chose/unable to give Measure #412: Opioid Treatment Agreement: No documentation of signed opioid treatment agreement Measure #408: Opioid Therapy Follow-up Evaluation: Patient had NO f/u eval minimum every 3 months during opioid therapy Measure #317: Preventitive Care & Scrn High Bld Press & F/U: Normal blood pressure, f/u not required Measure #128: Body Mass Index (BMI) Screening & Follow-up: BMI documented ABOVE normal parameters - f/u documented Measure #131: Pain Assessment & Follow-up: Pain positive & plan documented, Follow-up scheduled Measure #431: Unhealthy Alcohol Use Preventative Care & Scrn: Patient not identified as an unhealthy alcohol user PQRS Narrative: Objective - Vital Signs Vital signs: Vital Signs Temp 98.3 F 10/22/20 11:17 Pulse 78 10/22/20 11:17 Resp 18 10/22/20 11:17 BP 130/41 10/22/20 11:17 Pulse Ox 95 10/22/20 11:17 Intake & Output 10/21/20 10/22/20 10/22/20 18:59 06:59 18:59 Weight 72.575 kg
== END ==
LOC: PNWHC3 11:07
PROVIDERS: ATTEND Specialist
DX: M47.816 Spondylosis without myelopathy or radiculopathy, lumbar region (principal); M46.1 Sacroiliitis, not elsewhere classified; M96.1 Postlaminectomy syndrome, not elsewhere classified; G62.9 Polyneuropathy, unspecified; Z88.1 Allergy status to other antibiotic agents; Z88.0 Allergy status to penicillin; Z88.2 Allergy status to sulfonamides; Z88.7 Allergy status to serum and vaccine; Z91.09 Other allergy status, other than to drugs and biological substances
CPT/HCPCS: 99211

== ENCOUNTER 2020-11-14 | Day surgery (SDC) | payer MEDICARE | END 2020-11-14 09:37 | disposition home or self-care (01) | CPT/HCPCS: 64635; 64636; J2250; J2001; J3010; J2795 ==

== ENCOUNTER → 2020-12-15 | Outpatient (CLI) | payer MEDICARE ==
[2020-12-15 09:27] VITALS: BP 125/68; PULSE 62; RESP 16; TEMP 98.1
--- NOTE | 2020-12-15 09:36 | P.PN ---
Subjective Progress Note Date: 12/15/20 This is follow-up visit for this 65 years old female, with a history of severe low back pain mainly on the right side she is diagnosed with a right cluneal neuralgia, lumbar spondylosis with lumbar facet arthropathy, status post RFA of the medial branch lumbar area on the right side she gets excellent pain relief, of her low back pain currently she is complaining of severe localized pain in the right side above the iliac crest area, she tried TENS unit, and she has no benefit from it, she continued to have severe pain, Physical Examinations : -Constitutiona : Cooperative , not in acute distress . -HEENT : nech : supple , no Lymphadenopathy , normal thyroid size . eyes : no ptosis , no icterus, no photophobia . . - neurologic : Cranial nerve II to XII intact , no focal neurological deffecit . -psychatric : alert , oriented X 3 , appropriate affect , intact judgment and insight . -Lymphatic : no Lymphadenopathy . - musculoskeltal : Lumber spine moter stegnth lower extremities ,thigh and legs 3-4/5 Right side , 3-4/5 Left side deep tendon reflexes : Brisk Knee Jerk , brisk ankle Jerk positive lumber facet Loading Test Range of motion of the lumbar spine Flexion 30 degrees, extension 10 degrees strait leg raising test , positive at 45degree Fabere test negative bilaterally mild tenderness over the Sacroiliac joint on the R and L sides Tenderness over the lateral aspect of the right iliac crest. Assessment and plan 1-Lumbar postlaminectomy syndrome 2- Right Sacroiliitis 3- Right Cluneal neuropathy. 4-lumbar spondylosis with lumbar facet arthropathy Patient had good benefit from a right sided medial branch RFA, most of the pain is coming from the right cluneal nerve neuralgia, patient could benefit from repeat RFA of the right cluneal nerve, the procedure was done in 2019 and she had good pain relief from it, - PQRS measures = - Patient's medications are documented in the chart. -Tobacco use is negative and counseling.Given. -Patient's has not received pneumococcal vaccine. -Advanced care planning discussed, patient not eligible. -Opiate contract not signed. -Pain positive and follow-up visit/procedure is scheduled. -Patient's blood pressure measured [ 125/68 ] , and documented in the record ,and patient will follow up with the primary care. -Patient's weight was measured and body mass index [ 28] above the,normal limits and counseling was done. and patient instructed to follow-up with the primary care physician. -Patient was not identified as an unhealthy alcohol user Objective - Vital Signs Vital signs: Vital Signs Temp 98.1 F 12/15/20 09:24 Pulse 62 12/15/20 09:24 Resp 16 12/15/20 09:24 BP 125/68 12/15/20 09:24 Pulse Ox 97 12/15/20 09:24
== END | disposition home or self-care (01) ==
LOC: PNWHC3 08:53
PROVIDERS: ATTEND Specialist
DX: M47.816 Spondylosis without myelopathy or radiculopathy, lumbar region (principal); M46.96 Unspecified inflammatory spondylopathy, lumbar region; M96.1 Postlaminectomy syndrome, not elsewhere classified; M46.1 Sacroiliitis, not elsewhere classified; G62.9 Polyneuropathy, unspecified; Z98.890 Other specified postprocedural states
CPT/HCPCS: 99211

== ENCOUNTER 2021-02-03 08:54 | Day surgery (SDC) | payer MEDICARE ==
[2021-01-30 16:04] VITALS: BMI 27.4
[2021-02-03 09:45] VITALS: RESP 16; TEMP 97.4
[2021-02-03] MEDS: LACTATED RINGERS 1,000 ML IV SCH ×2 (10:20→10:24)
[2021-02-03] MEDS ORDERED: TRIAMCINOLONE ACETONIDE 40 MG/ML 1 ML VIAL ONE (10:24)
[2021-02-03] MEDS ORDERED: ROPIVACAINE 5MG/ML 20ML VIAL ONE (10:24)
[2021-02-03] MEDS ORDERED: fentaNYL (PF) 50 MCG/ML 2 ML AMP ONE (10:24)
[2021-02-03] MEDS ORDERED: MIDAZOLAM 2 MG/2 ML VIAL ONE (10:24)
[2021-02-03] MEDS ORDERED: IV FLUID CONTINUATION 900 ML IV ONE (10:44)
--- NOTE | 2021-02-03 11:08 | P.PCN ---
Date of Procedure: 02/03/21 Surgeon: Brett Baez Pathology: none sent Condition: stable Disposition: PACU Description of Procedure: pre- and postoperative diagnosis :Rt cluneal nerve entrapment procedure: Rt cluneal nerve block under fluoroscopic guidance physician:Brett Baez MD Anesthesia: Local with IV moderate sedation with Versed and fentanyl Description of procedure: The patient was seen in the preop holding area consent was obtained then she was brought into the procedure room and placed in prone position. ASA monitors were applied. Skin was prepped with ChloraPrep and draped in a sterile manner. Lidocaine 1% was used to numb the skin up at the target points. The target points were chosen as follows: The superior cluneal nerve branches to medial, intermediate, and lateral branches at the medial aspect of the iliac crest slightly lateral to the posterior superior iliac spine. The target points were chosen a few centimeters away from the posterior superior iliac spine in 3 spots at the edge of the iliac crest. I used 22-gauge 3-1/2 inch Quincke spinal needle for this procedure.After contacting bone I injected 3 mls of a mixture of 40 mg of Kenalog +9 MLS of ropivacaine 0.5% in each spot. patient tolerated procedure well. The final picture was saved to the fluoroscopy machine.
[2021-02-03 11:21] VITALS: BP 96/54; PULSE 63
--- NOTE | 2021-02-03 14:23 | FL ---
Fluoroscopy INDICATION: Pain FINDINGS: Fluoroscopy time: 5 seconds. Images obtained: 3. IMPRESSIONS: 1. Documentation of fluoroscopy.
== END 2021-02-03 11:41 | disposition home or self-care (01) ==
LOC: ORPAIN 08:54
PROVIDERS: ATTEND Anesthesiology
DX: G58.8 Other specified mononeuropathies (principal)
CPT/HCPCS: 64450; J2250; J3301; J3010; J2795; 99152

== ENCOUNTER → 2021-03-09 | Outpatient (CLI) | payer MEDICARE ==
[2021-03-09 14:12] VITALS: PULSE 70; RESP 18
[2021-03-09 14:26] VITALS: BP 122/62; TEMP 97
--- NOTE | 2021-03-09 15:31 | P.PAINPG ---
Subjective Progress Note Date: 03/09/21 Principal diagnosis: Lumbar back pain, and right side gluteal pain Mrs. Nagel is a 65 year old pleasant female patient came to [facility] pain management clinic for follow-up, and postprocedure evaluation. Patient described pain started many years ago. Patient had lumbar radiofrequency ablation, and right cluneal nerve radiofrequency ablation. Patient had right side peroneal nerve ablation done on 03/19/2019, which helped her tremendous pain relief in her gluteal area or 2 years. She had right side. The lower injection done on 02/03/2021 which helped her more than 70% pain relief for 2 days, which also helped her to sleep better, able to do her activities of daily living with out any difficulties. But later her pain got gradually back to normal,. Patient described pain as aching, sharp, throbbing, type of pain. Patient rated pain6 -7 out of 10 in severity. Which may very her pain level from5-9 out of 10 in severity. Pain increases with activities, and standing, walking, sitting, bending forward, and lifting. Pain decreases with intervention procedures andmedications. Overall patient activities decreased secondary to pain. Because of the pain patient is feeling lack of sleep and interest and energy. Denied any bowel or bladder problems. Patient denies any adverse effects to medications. Using walker as a walking aids for walking. Patient denied any suicidal / homicidal tendency at this time. There are no signs of narcotic diversion/misuse/overuse and no new-onset weakness, bowel/bladder incontinence, saddle anesthesia, or no red flag symptoms. Objective - Vital Signs Vital signs: Vital Signs Temp 97.0 F L 03/09/21 14:09 Pulse 70 03/09/21 14:09 Resp 18 03/09/21 14:09 BP 122/62 03/09/21 14:09 Pulse Ox 99 03/09/21 14:09 - Exam General: Well-developed, well-nourished, no acute distress HEENT: Normocephalic, and atraumatic Neck: Supple, no neck swelling Psychiatric: Appropriate mood, and affect PROMOTIONS MANAGER: No focal neurological deficits Musculoskeletal: Upper extremity: Normal strength, and range of motion. Sensation grossly intact Lower extremity: Normal strength, and decreased range of motion secondary to pain, patient is wearing right leg supporting brace. Lumbar spine: Paravertebral tenderness: positive Lumbar facet load test : positive Tenderness over right gluteal area along the superior cluneal nerve distribution, not able to perform any other tests secondary to pain. 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 And all questions were answered to the patient's satisfaction. #2 treatment plan agreement : Patient was thoroughly discussed regarding the treatment options, alternatives, and importance of exercises as tolerated. Patient clearly understood. #3 Patient was counseled on importance of regular exercise. Including ruthie chi, aerobic exercises as tolerated. Which helps for chronic pain, and overall well- being. #4 investigations: MAPS- reviewed , urine drug test-not done #5 diagnostic tests: None #6 consultation : Patient recommended to try physical therapy for cluneal nerve entrapment syndrome # 7 interventional procedures: Right side superior cluneal nerve block under fluoroscopy #2. Procedure, complications, alternatives discussed with the patient. #8 medications Magnesium oxide 400 mg by mouth daily Medication side effects, complications, long-term consequences discussed with the patient. #9 morphine milligrams equivalents dose ( MME) per day: 0 from the pain clinic. # 10 patient recommended to try percussion massage device #11 disposition: scheduled to follow up with pain clinic in 4 weeks duration. Time with Patient: Less than 30 PQRS Measure Charge Sheet Measure #130: Documentation of Current Meds in Medical Chart: Patient's medications documented in chart Measure #226: Tobacco Use: Screen & Cessation Intervention: Pt not a tobacco user Measure #111: Pneumonia Vaccination: Pneumococcal vaccine NOT administered or previously given Measure #47: Advance Care Plan: Advance care planning discussed & documented, pt chose/unable to give Measure #412: Opioid Treatment Agreement: No documentation of signed opioid treatment agreement Measure #408: Opioid Therapy Follow-up Evaluation: Patient had NO f/u eval minimum every 3 months during opioid therapy Measure #317: Preventitive Care & Scrn High Bld Press & F/U: Pre-hypertensive or hypertensive BP documented, pt will f/u with PCP Measure #128: Body Mass Index (BMI) Screening & Follow-up: BMI documented within normal parameters Measure #131: Pain Assessment & Follow-up: Pain positive & plan documented Measure #431: Unhealthy Alcohol Use Preventative Care & Scrn: Patient not identified as an unhealthy alcohol user Mode of Arrival: Walker - Pain Location Right Lower Back Non-Pharmacological Interventions: Home Exercise, Inactivity, Physical Therapy, Stretching Pharmacological Interventions: Block, Medication, PRN Medication PQRS Narrative: Smoking Status Never smoker Blood Pressure 122/62 Pain Intensity [Right Lower 6 Back] Scale Used Numeric (1 - 10) Hx Alcohol Use (MH) No Home Medications: Ambulatory Orders Calcium Carbonate [Calcium] 600 mg PO BID 12/16/16 Cholecalciferol (Vitamin D3) [Vitamin D3] 2,000 unit PO BID 12/16/16 Cinnamon Bark [Cinnamon] 1,000 mg PO BID 12/16/16 Dexlansoprazole [Dexilant] 30 mg PO HS 12/16/16 Dicyclomine [Bentyl] 20 mg PO Q12HR 12/16/16 Fluticasone Nasal [place] [Flonase Nasal [place]] 2 spr EA NOSTRIL HS 12/16/16 L.acidoph,Paracasei, B.lactis [Probiotic] 1 each PO BID 12/16/16 Montelukast [Singulair] 10 mg PO HS 12/16/16 Spironolactone [Aldactone] 50 mg PO BID 12/16/16 Atorvastatin [Lipitor] 10 mg PO HS 08/24/18 Azelastine HCl [Astepro] 2 spray EA NOSTRIL BID PRN 08/24/18 Baclofen [Lioresal] 20 mg PO BID 08/24/18 DULoxetine HCL [Cymbalta] 60 mg PO DAILY 08/24/18 Furosemide [Lasix] 20 mg PO DAILY@1700 08/24/18 Furosemide [Lasix] 40 mg PO QAM 08/24/18 Losartan [Cozaar] 100 mg PO DAILY 08/24/18 lamoTRIgine [LaMICtal] 100 mg PO BID 08/24/18 Levothyroxine Sodium [Synthroid] 50 mcg PO DAILY 09/19/18 Methenamine Hippurate [Hiprex] 1 gm PO Q48H 09/19/18 HYDROcodone/APAP 10-325MG [[place]quette 10-325] 1 tab PO Q4-6H PRN 10/11/18 Potassium Chloride [Potassium Chloride ER] 10 meq PO BID 10/12/18 Aspirin 81 mg PO DAILY 10/24/18 Magnesium 200 mg PO DAILY 10/24/18 Ipratropium [place] 0.06%Nasal [Atrovent Nasal 0.06%] 2 spray EA NOSTRIL TID PRN 05/25/19 Sucralfate [Carafate] 1 gm PO BID PRN 05/25/19 calcium polycarbophiL [Fibercon] 625 mg PO BID 05/25/19 hydrALAZINE HCL [Apresoline] 37.5 mg PO TID 05/25/19 hydrOXYzine HCL [Atarax] 10 - 20 mg PO Q8H PRN 05/25/19 Diclofenac Sodium Gel [Voltaren Gel] 4 gm TOPICAL QID PRN 07/10/19 Mometasone/Formoterol [Dulera 100 Mcg-5 Mcg Inhaler] 1 puff PO RT-BID PRN 12/17/19 Lidocaine 5% Patch [Lidoderm 5% Patch] 1 patch TOPICAL DAILY 01/22/20 Ondansetron Odt [Zofran ODT] 8 mg PO TID PRN 04/10/20 Ascorbic Acid [Vitamin C] 1,000 mg PO DAILY #60 tab 04/12/20 lamoTRIgine [LaMICtal] 50 mg PO 1400 03/06/21 Controlled Substance Measures - Controlled Substance Measures Is patient prescribed a controlled substance at discharge?: No
== END ==
LOC: PNWHC3 13:45
DX: M47.816 Spondylosis without myelopathy or radiculopathy, lumbar region (principal); M79.18 Myalgia, other site; G58.8 Other specified mononeuropathies; Z88.0 Allergy status to penicillin; Z88.2 Allergy status to sulfonamides; Z88.1 Allergy status to other antibiotic agents
CPT/HCPCS: 99211

== ENCOUNTER 2021-04-16 08:28 | Day surgery (SDC) | payer MEDICARE ==
[2021-04-14 12:11] VITALS: BMI 27.1
[2021-04-16 09:01] VITALS: RESP 16; TEMP 97.3
[2021-04-16] MEDS ORDERED: LACTATED RINGERS 1,000 ML IV ONE (09:07)
[2021-04-16] MEDS ORDERED: MIDAZOLAM 2 MG/2 ML VIAL ONE (10:14)
[2021-04-16] MEDS ORDERED: methylPREDNISolone ACETATE 40 MG/ML 1 ML VIAL ONE (10:14)
[2021-04-16] MEDS ORDERED: ROPIVACAINE 5MG/ML 20ML VIAL ONE (10:14)
[2021-04-16] MEDS ORDERED: .fentaNYL (PF) 50 MCG/ML AMP ONE (10:14)
[2021-04-16] MEDS ORDERED: IV FLUID CONTINUATION 1,000 ML IV ONE (10:32)
[2021-04-16] MEDS ORDERED: LACTATED RINGERS 1,000 ML IV SCH (10:45)
[2021-04-16 10:47] VITALS: BP 126/70; PULSE 66
--- NOTE | 2021-04-16 14:29 | P.PCN ---
Date of Procedure: 04/16/21 Description of Procedure: Procedure: Right Cluneal nerve block injection under fluoroscopic guidance PREOPERATIVE DIAGNOSIS: Cluneal nerve entrapment syndrome POSTOPERATIVE DIAGNOSIS: Cluneal nerve entrapment syndrome SURGEON: Yael Greenberg ANESTHESIA: Local with 1% lidocaine, and IV sedation : Versed, and fentanyl EBL: None. Specimen removed: None Fluoroscopic image: saved to electronic medical records PROCEDURE INDICATION: The patient had history of cluneal nerve entrapment s yndrome. Failed to conservative therapy. Presented for epidural steroid injection. PROCEDURE DESCRIPTION: The patient was seen and identified in the preoperative area. Risks, benefits, complications, and alternatives were discussed with the patient. The patient agreed to proceed with the procedure and signed the consent. IV was started, and vital signs were stable. Patient was taken to the procedure area, and time out was completed. The patient was placed in the prone position on procedure table and a pillow was placed under the abdomen to reduce lumbar lordosis. The Sacral area was prepped and draped in the usual sterile fashion. Critical pause was taken. Vital signs were closely monitored during the procedure. Using anterior-posterior fluoroscopy, posterior superior iliac spine, and iliac crest was identified, and skin and deeper tissues were localized with 1% lidocaine. Using anterior-posterior fluoroscopy, using 22-gauge 3.5 inch spinal needles 3 used. After reaching the target area. After negative aspiration of blood , no paresthesias, 3 mL of block solution was injected through each spinal needle . Block solution contained 40 mg of Depo-Medrol, and 8 mL mL of preservative-free 0.5% ropivacaine. Needle was withdrawn intact, skin was cleansed, and bandages were applied. COMPLICATIONS: None. DISPOSITION / PLANS: The patient was placed in a supine position and transferred to the recovery area in a stable condition for observation. Patient was discharged from the recovery room after meeting discharge criteria. Home discharge instructions given by RN. Patient can follow up with pain clinic in 4 weeks duration.
--- NOTE | 2021-04-17 13:32 | FL ---
EXAMINATION TYPE: FL guided pain mgmt statistic DATE OF EXAM: 04/16/2021 CLINICAL HISTORY: Pelvic pain. TECHNIQUE: Fluoroscopy. COMPARISON: None. FINDINGS: Fluoroscopic guidance was provided during pain relief procedure performed by Dr. Greenberg . A total of 3 seconds of fluoroscopic time was utilized during the procedure and two spot images are acquired. Images acquired shows needle localization near the iliac crest. IMPRESSION: As Above.
== END 2021-04-16 11:08 | disposition home or self-care (01) ==
LOC: ORPAIN 08:28
DX: G58.8 Other specified mononeuropathies (principal); E03.9 Hypothyroidism, unspecified; J45.909 Unspecified asthma, uncomplicated; F32.9 Major depressive disorder, single episode, unspecified; Z88.6 Allergy status to analgesic agent; Z88.1 Allergy status to other antibiotic agents; Z88.5 Allergy status to narcotic agent; Z88.2 Allergy status to sulfonamides; Z88.8 Allergy status to other drugs, medicaments and biological substances; Z79.899 Other long term (current) drug therapy; Z79.82 Long term (current) use of aspirin
CPT/HCPCS: 64450; J2250; J1030; J3010; J2795; 99152

== ENCOUNTER → 2021-05-11 | Outpatient (CLI) | payer MEDICARE ==
[2021-05-11 13:05] VITALS: BP 116/62; PULSE 74; RESP 18; TEMP 97.8
--- NOTE | 2021-05-11 13:25 | P.PN ---
Subjective Progress Note Date: 05/11/21 This is follow-up visit for this 65 years old female, with a history of severe low back pain,mainly on the right side ,she is diagnosed with a right cluneal neuralgia, lumbar spondylosis with lumbar facet arthropathy, previously we have done RFA of the medial branch lumbar area on the right side ,she gets excellent pain relief, of her low back pain , she is complaining of severe localized pain in the right side above the iliac crest area, she tried TENS unit, and she has no benefit from it, she continued to have severe pain, patient datewith right cluneal nerve neuralgia, previously we have done right cluneal nerve block 2 ,she get excellent pain relief after each block, the pain relief lasted for a few days after each block, currently she is complaining of severe pain above the iliac crest area Physical Examinations : -Constitutiona : Cooperative , not in acute distress . -HEENT : nech : supple , no Lymphadenopathy , normal thyroid size . eyes : no ptosis , no icterus, no photophobia . . - neurologic : Cranial nerve II to XII intact , no focal neurological deffecit . -psychatric : alert , oriented X 3 , appropriate affect , intact judgment and insight . -Lymphatic : no Lymphadenopathy . - musculoskeltal : Lumber spine moter stegnth lower extremities ,thigh and legs 3-4/5 Right side , 3-4/5 Left side deep tendon reflexes : Brisk Knee Jerk , brisk ankle Jerk positive lumber facet Loading Test Range of motion of the lumbar spine Flexion 30 degrees, extension 10 degrees strait leg raising test , positive at 45degree Fabere test negative bilaterally mild tenderness over the Sacroiliac joint on the R and L sides Tenderness over the lateral aspect of the right iliac crest. Assessment and plan 1-Lumbar postlaminectomy syndrome 2- Right Sacroiliitis 3- Right Cluneal neuropathy. 4-lumbar spondylosis with lumbar facet arthropathy Patient had good benefit from the right cluneal nerve block x2 , patient could benefit from RFA of the right cluneal nerve (Had more than 70% improvement of the pain after each of block , the pain relief lasted for a few days after each block) - PQRS measures = - Patient's medications are documented in the chart. -Tobacco use is negative and counseling.Given. -Patient's has not received pneumococcal vaccine. -Advanced care planning discussed, patient not eligible. -Opiate contract not signed. -Pain positive and follow-up visit/procedure is scheduled. -Patient's blood pressure measured [ 116/62 ] , and documented in the record ,and patient will follow up with the primary care. -Patient's weight was measured and body mass index [ 26.9] above the,normal limits and counseling was done. and patient instructed to follow-up with the primary care physician. -Patient was not identified as an unhealthy alcohol user Objective - Vital Signs Vital signs: Vital Signs Temp 97.8 F 05/11/21 12:40 Pulse 74 05/11/21 12:40 Resp 18 05/11/21 12:40 BP 116/62 05/11/21 12:40 Pulse Ox 98 05/11/21 12:40 Intake & Output 05/10/21 05/11/21 05/11/21 18:59 06:59 18:59 Weight 71.214 kg
== END ==
LOC: PNWHC3 11:53
PROVIDERS: ATTEND Specialist
DX: M96.1 Postlaminectomy syndrome, not elsewhere classified (principal); M46.1 Sacroiliitis, not elsewhere classified; G62.9 Polyneuropathy, unspecified; Z88.1 Allergy status to other antibiotic agents; Z88.6 Allergy status to analgesic agent; Z88.0 Allergy status to penicillin; Z88.2 Allergy status to sulfonamides; Z88.8 Allergy status to other drugs, medicaments and biological substances; Z91.09 Other allergy status, other than to drugs and biological substances
CPT/HCPCS: 99211

== ENCOUNTER 2021-06-25 08:26 | Day surgery (SDC) | payer MEDICARE ==
[2021-06-24 09:38] VITALS: BMI 26.9
[2021-06-25 08:53] VITALS: RESP 20; TEMP 98.5
[2021-06-25] MEDS ORDERED: fentaNYL (PF) 50 MCG/ML 2 ML AMP ONE (09:17)
[2021-06-25] MEDS ORDERED: MIDAZOLAM 2 MG/2 ML VIAL ONE (09:17)
--- NOTE | 2021-06-25 09:47 | P.PCN ---
Date of Procedure: 06/25/21 Description of Procedure: Procedure: Right Cluneal nerve Radiofrequency ablation under fluoroscopic guidance PREOPERATIVE DIAGNOSIS: Cluneal nerve entrapment syndrome POSTOPERATIVE DIAGNOSIS: Cluneal nerve entrapment syndrome SURGEON: Toma Jaramillo MD ANESTHESIA: Local with 1% lidocaine, and IV sedation : Versed 2mg, and fentanyl 100mcg EBL: None. Specimen removed: None Fluoroscopic image: saved to electronic medical records PROCEDURE INDICATION: The patient had history of cluneal nerve entrapment syndrome. Failed to conservative therapy. Had good success with previous RFA of cluneal nerve. PROCEDURE DESCRIPTION: The patient was seen and identified in the preoperative area. Risks, benefits, complications, and alternatives were discussed with the patient. The patient agreed to proceed with the procedure and signed the consent. IV was started, and vital signs were stable. Patient was taken to the procedure area, and time out was completed. The patient was placed in the prone position on procedure table and a pillow was placed under the abdomen to reduce lumbar lordosis. The Sacral area was prepped and draped in the usual sterile fashion. Critical pause was taken. Vital signs were closely monitored during the procedure. Using anterior-posterior fluoroscopy, posterior superior iliac spine, and iliac crest was identified, and skin and deeper tissues were localized with 1% lidocaine. Using anterior-posterior fluoroscopy, 20g 100mm RFA needle 3 used. After reaching the target area. After negative aspiration of blood , no paresthesias, 3 mL of lidocaine was injected through each needle. RFA motor stimulation was negative, after negative stimulation, lesion of the cluneal nerve target area was confirmed and then lesion of 90 degree's for 90 seconds was performed at each area along the iliac crest. Needle was withdrawn intact, skin was cleansed, and bandages were applied. COMPLICATIONS: None. DISPOSITION / PLANS: The patient was placed in a supine position and transferred to the recovery area in a stable condition for observation. Patient was discharged from the recovery room after meeting discharge criteria. Home discharge instructions given by RN. Patient can follow up with pain clinic in 4 weeks duration.
[2021-06-25] MEDS ORDERED: IV FLUID CONTINUATION 1,000 ML IV ONE (09:51)
--- NOTE | 2021-06-25 09:55 | FL ---
Fluoroscopy HISTORY: Pain 16 seconds fluoroscopy time supplied to the referring clinician. 3 intraoperative C-arm images docum ent the procedure. See dictated report from anesthesia.
[2021-06-25 10:12] VITALS: BP 115/60; PULSE 64
== END 2021-06-25 10:37 | disposition home or self-care (01) ==
LOC: ORPAIN 08:26
PROVIDERS: ATTEND Hospitalist
DX: G58.8 Other specified mononeuropathies (principal)
CPT/HCPCS: 64640; J2250; J3010; 99152; 99153

== ENCOUNTER 2021-07-15 11:05 | Day surgery (SDC) | payer MEDICARE ==
[2021-07-14 11:37] VITALS: BMI 26.9
[~2021-07-15 11:05] MED LIST changes: +ONDANSETRON 4 MG/2 ML VIAL IVP ONE; +Pre Op ABX Message 1 EACH MISC MISCELLANE ONE; +fentaNYL (PF) 50 MCG/ML 2 ML AMP IV PRN
[2021-07-15 12:18] VITALS: TEMP 98
[2021-07-15] MEDS ORDERED: SCOPOLAMINE 1.5MG/72HR PATCH TRANSDERM ONE (12:48)
[2021-07-15] MEDS ORDERED: fentaNYL (PF) 50 MCG/ML 2 ML AMP ONE (13:11)
[2021-07-15] MEDS ORDERED: MIDAZOLAM 2 MG/2 ML VIAL ONE (13:11)
[2021-07-15] MEDS ORDERED: ePHEDrine 50 MG/ML 1 ML VIAL ONE (13:11)
[2021-07-15] MEDS ORDERED: PROPOFOL 10 MG/ML 20 ML VIAL IV ONE (13:11)
[2021-07-15] MEDS ORDERED: BUPIVACAIN-EPI 0.25%-1:200,000 30 ML VIAL SQ ONE (13:38)
[2021-07-15 14:39] VITALS: RESP 16
[2021-07-15 15:01] VITALS: BP 126/69; PULSE 69
--- NOTE | 2021-08-01 13:59 | OP ---
OPERATIVE REPORT DATE OF SURGERY: 07/15/2021. PREOPERATIVE DIAGNOSES: Hypertrophied bone causing painful callus below the fifth metatarsal base of the patient's right foot and contracted hammer digit deformity, fifth digit, right foot. POSTOPERATIVE DIAGNOSES: Hypertrophied bone causing painful callus below the fifth metatarsal base of the patient's right foot and contracted hammer digit deformity, fifth digit, right foot. OPERATION: 1. Remodeling of the fifth metatarsal base, right foot. 2. D-Rotational arthroplasty procedure, fifth digit, right foot. SURGEON: Sebastien Fink DPM. ANESTHESIA: IV sedation supplemented with local anesthesia i.e. approximately 12 mL of 0.25% plain Marcaine. DESCRIPTION OF PROCEDURE: On the date of surgery, the patient was taken to the operating room in good condition. Placed on the operating table in supine position and an IV was started. An adequate IV anesthetic agents were utilized. Anesthesia was then further supplemented with approximately 12 mL of 0.25% plain Marcaine given in an infiltrative block to the fifth metatarsal base area in the fifth digit of the patient's right foot. The patient's right foot and ankle were then prepped and draped in the usual aseptic manner and over heavy Webril padding an ankle tourniquet was placed above the malleoli of the patient's right ankle. The patient's right foot and ankle were then elevated and exsanguinated of blood and after approximately 1 minute period of time, ankle tourniquet to the patient's right ankle was inflated to approximately 250 mmHg. At this time, attention was directed to the lateral side of the mid foot area of the patient's right foot where overlying the fifth metatarsal base, an approximately 4 cm linear incision was made. The incision was deepened via sharp dissection down through the level of the subcutaneous tissue layers. All neurovascular structures encountered were identified, isolated and were retracted. Any bleeding vessels were clamped and electrocauterized. Throughout the surgical procedure, copious amounts of sterile saline solution were used to irrigate the surgical site. Dissection was then carried deep down to the level of the base of the fifth metatarsal where in line with the original skin incision, capsular and periosteal structures were incised on the inferior aspect of the lateral side of the fifth metatarsal base. Capsule and periosteal structures were then underscored and retracted from the underlying bone utilizing an oscillating bone saw as well as a rotary bur, hyperostosis present on fifth metatarsal base was resected from the lateral plantar lateral and plantar aspect of the fifth metatarsal. When it was determined adequate bone had been resected, the capsule and periosteal structures were coapted and maintained utilizing a 3-0 Vicryl simple interrupted suture. Subcutaneous tissues were then coapted and maintained utilizing 3-0 Vicryl simple interrupted suture and the skin was closed utilizing 4-0 nylon simple interrupted suture. At this point in time, attention was directed to the fifth digit of the right foot where a semi-elliptical oblique incision was made. The incision was oriented so that it ran from distal medial to proximal lateral. The encompass wedge of skin was removed and dissection was carried deep down to the level of the proximal interphalangeal joint. The collateral ligaments on either side of the joint were incised sharply and the head of the proximal phalanx was developed through the incision site and resected utilizing an oscillating bone saw. It was resected slightly obliquely with distal portion of the osteotomy being placed medially and the lateral portion being placed proximal. The surgical site was flushed with copious amounts of sterile saline solution. The extensor digitorum tendon which had been incised was repaired and the skin was closed utilizing 4-0 nylon simple interrupted suture. Adaptic, Kerlix fluff, 4 inch conform, 4 inch Coban was applied to the incisions and the ankle tourniquet was deflated. Adequate hemostatic return was seen in all digits of the patient's right foot. The patient tolerated the surgery and anesthesia well and was taken to the recovery room in good postoperative condition. MMYURI / IJN: [id number] /
== END 2021-07-15 15:53 | disposition home or self-care (01) ==
LOC: OR 11:05
PROVIDERS: ATTEND Podiatrist Foot & Ankle Surgery
DX: M89.371 Hypertrophy of bone, right ankle and foot (principal); L84 Corns and callosities; E78.5 Hyperlipidemia, unspecified; M20.41 Other hammer toe(s) (acquired), right foot; F32.A Depression, unspecified; R60.0 Localized edema; R20.0 Anesthesia of skin; R33.9 Retention of urine, unspecified; G89.29 Other chronic pain; M54.9 Dorsalgia, unspecified; R10.9 Unspecified abdominal pain; M25.561 Pain in right knee; Z86.16 Personal history of COVID-19; G62.9 Polyneuropathy, unspecified; Z79.890 Hormone replacement therapy; Z83.3 Family history of diabetes mellitus; Z82.49 Family history of ischemic heart disease and other diseases of the circulatory system; Z79.891 Long term (current) use of opiate analgesic; Z79.51 Long term (current) use of inhaled steroids; Z79.899 Other long term (current) drug therapy; Z79.82 Long term (current) use of aspirin; Z88.1 Allergy status to other antibiotic agents; Z88.0 Allergy status to penicillin
CPT/HCPCS: 88304; 88311; 28285; J2250; J2405; J3010; J2704

== ENCOUNTER → 2021-07-15 | Outpatient (CLI) | payer MEDICARE ==
--- NOTE | 2021-07-15 10:45 | P.PN ---
Subjective Progress Note Date: 07/15/21 Principal diagnosis: A 65 yr old female with at side with a history of severe and chronic low back pain secondary to lumbar degenerative disc diseases and lumbar spondylosis with facet arthropathy presents today for evaluation of right RFA of the Cluneal Nerve and lower back pain with occasional shooting pain to the right hip and right lower extremity. Pain level is 6 out of 10 in intensity, sharp, shooting, stabbing in the lower back, right hip and right lower extremity. Pain is provoked by sitting for periods of 30 minutes and walking for periods of 10 minutes. Pain is alleviated with medications, topicals, injections, physical therapy years back, home exercise regimen, use of a wheelchair for ambulation, repositioning and rest. Interventional pain procedures completed include R RFA of the cluneal nerve, R RFA of the L4-L5, L-S1 Medications patient has used on [place], Motrin, Lidoderm patches Patient denies any side effects of the medication(s), denies excessive drowsiness or sleepiness, denies suicidal ideation and reports that the current pain medication is helping to control the pain and improve activities of daily living. Patient denies any motor or sensory deficits. Patient denies any fever or night sweats, denies any change in the bowel movements or urination. Physical Examination: -Constitutional: Cooperative. Not in acute distress . -HEENT: Neck is supple. No lymphadenopathy. No thyromegaly. Normal thyroid size. Eyes: No ptosis , no icterus, no photophobia. ENT: No auditory deficits. Normal oropharynx. No Thrush. - Respiratory: Chest clear to auscultations bilaterally. No wheezing. No rhonchi. - Cardiovascular: Regular rate and rhythm. S1 / S2 , no S3 , no S4. - Gastrointestinal: Abdomen soft no tenderness. Bowel sounds positive in all four quadrants. No organomegaly. - Genitourinary: Deferred. - Neurologic: Cranial nerve II to XII intact. No focal neurological deficits. - Psychatric: Alert & oriented x 3. Matching mood & appropriate affect. Judgment and insight intact. - Lymphatic: No Lymphadenopathy. - Musculoskeletal: Cervical spine: Muscle bulk/ tone/ strength in the bilateral upper extremities normal. Facet loading test cervical area positive. Lumbar spine: Motor bulk/ tone/ strength lower extremities , thigh and legs : 5/5 Deep tendon reflexes : Normal Knee Jerk. Normal Ankle Jerk . Vertebral body tenderness to palpation over Lumbar Facet Loading Test positive right L4-L5, L5-S1 with jump reflex Straight Leg Raise: positive at 30 degrees right side/ left side Gaenslen's Test positive Sacral spine : Severe tenderness over the Sacroiliac joint: right side / left side Range of motion: Flexion of the lumbar spine <60 degrees Range of motion: Extension of the lumbar spine <20 degrees Gaenslen's Test positive Yash test: positive right side / left side Assessment and plan: Chronic low back pain secondary to lumbar degenerative disc disease , lumbar spondylosis with facet arthropathy without myelopathy Recommendation of right RFA of the L4-L5, L5-S1 Risks, benefits of procedure discussed and patient verbalized understanding. Denies anticoagulants use. Denies medical history of diabetes mellitus. All patient questions answered MAPS reviewed and it was appropriate. I have spent 31 minutes on patient care today. Dr Ward was available by phone for the evaluation of this patient. The time was used to review the medical records including relevant urine studies and Prescription history (MAPs), review of the available imaging, evaluation and examination of the patient, coordination of care with the medical staff and if applicable referring physicians, as well as creation of the medical record PQRS Measure Charge Sheet PQRS Narrative: Smoking Status Never smoker Hx Alcohol Use (MH) No Home Medications: Ambulatory Orders Calcium Carbonate [Calcium] 600 mg PO BID 12/16/16 Cholecalciferol (Vitamin D3) [Vitamin D3] 2,000 unit PO BID 12/16/16 Cinnamon Bark [Cinnamon] 1,000 mg PO BID 12/16/16 Dexlansoprazole [Dexilant] 30 mg PO HS 12/16/16 Dicyclomine [Bentyl] 20 mg PO Q12HR 12/16/16 Fluticasone Nasal [place] [Flonase Nasal [place]] 2 spr EA NOSTRIL HS 12/16/16 L.acidoph,Paracasei, B.lactis [Probiotic] 1 each PO BID 12/16/16 Montelukast [Singulair] 10 mg PO HS 12/16/16 Spironolactone [Aldactone] 50 mg PO BID 12/16/16 Atorvastatin [Lipitor] 10 mg PO HS 08/24/18 Azelastine HCl [Astepro] 2 spray EA NOSTRIL BID PRN 08/24/18 Baclofen [Lioresal] 20 mg PO BID 08/24/18 DULoxetine HCL [Cymbalta] 60 mg PO DAILY 08/24/18 Furosemide [Lasix] 20 mg PO DAILY@1700 08/24/18 Furosemide [Lasix] 40 mg PO QAM 08/24/18 Losartan [Cozaar] 100 mg PO DAILY 08/24/18 lamoTRIgine [LaMICtal] 100 mg PO BID 08/24/18 Levothyroxine Sodium [Synthroid] 50 mcg PO DAILY 09/19/18 Methenamine Hippurate [Hiprex] 1 gm PO Q48H 09/19/18 HYDROcodone/APAP 10-325MG [[place] 10-325] 1 tab PO Q4-6H PRN 10/11/18 Potassium Chloride [Potassium Chloride ER] 10 meq PO BID 10/12/18 Aspirin 81 mg PO DAILY 10/24/18 Magnesium 200 mg PO DAILY 10/24/18 Ipratropium [place] 0.06%Nasal [Atrovent Nasal 0.06%] 2 spray EA NOSTRIL TID PRN 05/25/19 Sucralfate [Carafate] 1 gm PO BID PRN 05/25/19 calcium polycarbophiL [Fibercon] 625 mg PO BID 05/25/19 hydrALAZINE HCL [Apresoline] 37.5 mg PO TID 05/25/19 hydrOXYzine HCL [Atarax] 10 - 20 mg PO Q8H PRN 05/25/19 Diclofenac Sodium Gel [Voltaren Gel] 4 gm TOPICAL QID PRN 07/10/19 Mometasone/Formoterol [Dulera 100 Mcg-5 Mcg Inhaler] 1 puff PO RT-BID PRN 12/17/19 Lidocaine 5% Patch [Lidoderm 5% Patch] 1 patch TOPICAL DAILY PRN 01/22/20 Ondansetron Odt [Zofran ODT] 4 - 8 mg PO TID PRN 04/10/20 Ascorbic Acid [Vitamin C] 1,000 mg PO DAILY #60 tab 04/12/20 lamoTRIgine [LaMICtal] 50 mg PO 1400 03/06/21 Enoxaparin [Lovenox] 80 mg SQ Q12H 07/14/21
[2021-07-15 12:38] VITALS: BP 116/56; PULSE 74; RESP 18; TEMP 98.5
== END ==
LOC: PNWHC3 10:00
PROVIDERS: ATTEND Physician Assistant Medical
DX: G89.29 Other chronic pain (principal); M51.36 Other intervertebral disc degeneration, lumbar region; M47.816 Spondylosis without myelopathy or radiculopathy, lumbar region; Z88.1 Allergy status to other antibiotic agents; Z88.6 Allergy status to analgesic agent; Z88.0 Allergy status to penicillin; Z88.2 Allergy status to sulfonamides; Z88.8 Allergy status to other drugs, medicaments and biological substances; Z91.09 Other allergy status, other than to drugs and biological substances
CPT/HCPCS: 99211

== ENCOUNTER 2021-07-17 12:21 | Inpatient (IN) | payer MEDICARE ==
[2021-07-17] MEDS ORDERED: NALOXONE 0.4 MG/ML 1 ML VIAL IVP STA (12:41)
[2021-07-17 12:43] LABS: Glucose,Whole Blood 142 mg/dL (75-99)
[2021-07-17] MEDS ORDERED: SODIUM CHLORIDE 0.9% 500 ML 500 ML IV ONE (12:43)
--- NOTE | 2021-07-17 12:59 | ED ---
General Adult HPI - General Chief complaint: Altered Mental Status Stated complaint: altered mental status Time Seen by Provider: 07/17/21 12:35 Source: patient, EMS, RN notes reviewed, old records reviewed Mode of arrival: EMS Limitations: no limitations - History of Present Illness Initial comments: This is a 65-year-old female who comes to us from [facility]. Patient had surgery by Dr. Fink on Tuesday and I was told had a couple episodes of vomiting and was lethargic so brought her to the hospital. According to the physician at [facility] patient was very somnolent was able to be aroused but would go right back to sleep. Patient had lab work which showed an elevated creatinine and elevated white count. Patient had a CT of the brain and CT of the abdomen pelvis which all were negative. No history of any fevers or chills no history of any difficulty breathing or cough. Patient arrives without anyone with her and she is unable to give any history. - Related Data Home Medications Medication Instructions Recorded Confirmed Calcium Carbonate [Calcium] 600 mg PO BID 12/16/16 07/17/21 Cholecalciferol (Vitamin D3) 50 mcg PO BID 12/16/16 07/17/21 [Vitamin D3] Cinnamon Bark [Cinnamon] 1,000 mg PO BID 12/16/16 07/17/21 Dexlansoprazole [Dexilant] 30 mg PO HS 12/16/16 07/17/21 Fluticasone Nasal [place] [Flonase 2 spr EA NOSTRIL HS 12/16/16 07/17/21 Nasal [place]] L.acidoph,Paracasei, B.lactis 1 cap PO BID 12/16/16 07/17/21 [Probiotic] Montelukast [Singulair] 10 mg PO HS 12/16/16 07/17/21 Spironolactone [Aldactone] 50 mg PO BID 12/16/16 07/17/21 Atorvastatin [Lipitor] 10 mg PO HS 08/24/18 07/17/21 Azelastine HCl [Astepro] 2 spray EA NOSTRIL BID PRN 08/24/18 07/17/21 Baclofen [Lioresal] 20 mg PO BID 08/24/18 07/17/21 DULoxetine HCL [Cymbalta] 60 mg PO DAILY 08/24/18 07/17/21 Furosemide [Lasix] 20 mg PO DAILY@1700 08/24/18 07/17/21 Furosemide [Lasix] 40 mg PO DAILY 08/24/18 07/17/21 lamoTRIgine [LaMICtal] 100 mg PO BID 08/24/18 07/17/21 Levothyroxine Sodium [Synthroid] 50 mcg PO DAILY 09/19/18 07/17/21 Methenamine Hippurate [Hiprex] 1 gm PO Q48H 09/19/18 07/17/21 Potassium Chloride [Potassium 10 meq PO BID 10/12/18 07/17/21 Chloride ER] Aspirin 81 mg PO DAILY 10/24/18 07/17/21 Magnesium 200 mg PO DAILY 10/24/18 07/17/21 Ipratropium [place] 0.06%Nasal 2 spray EA NOSTRIL TID PRN 05/25/19 07/17/21 [Atrovent Nasal 0.06%] Sucralfate [Carafate] 1 gm PO BID PRN 05/25/19 07/17/21 calcium polycarbophiL [Fibercon] 625 mg PO BID 05/25/19 07/17/21 hydrALAZINE HCL [Apresoline] 37.5 mg PO TID 05/25/19 07/17/21 hydrOXYzine HCL [Atarax] 10 - 20 mg PO Q8H PRN 05/25/19 07/17/21 Diclofenac Sodium Gel [Voltaren 4 gm TOPICAL QID PRN 07/10/19 07/17/21 Gel] Mometasone/Formoterol [Dulera 100 1 puff INHALATION RT-BID PRN 12/17/19 07/17/21 Mcg-5 Mcg Inhaler] Ondansetron Odt [Zofran ODT] 4 - 8 mg PO TID PRN 04/10/20 07/17/21 lamoTRIgine [LaMICtal] 50 mg PO DAILY@1400 03/06/21 07/17/21 Albuterol Sulfate [Ventolin HFA] 2 puff INHALATION RT-Q4H PRN 07/17/21 07/17/21 Dicyclomine [Bentyl] 40 mg PO Q12H 07/17/21 07/17/21 Estradiol Cream [Estrace Cream 1 gm VAGINAL TUTH 07/17/21 07/17/21 0.01%] HYDROcodone/APAP 5-325MG [[place] 1 - 2 tab PO Q4H PRN 07/17/21 07/17/21 5-325] Ketorolac [Toradol] 10 mg PO Q6H PRN 07/17/21 07/17/21 Lidocaine [Aspercreme Patch] 1 patch TRANSDERM DAILY PRN 07/17/21 07/17/21 Losartan Potassium 100 mg PO DAILY 07/17/21 07/17/21 Multivit with Calcium,Iron,Min 1 tab PO DAILY 07/17/21 07/17/21 [Women's Multivitamin] diazePAM [Valium] 5 mg PO Q8H PRN 07/17/21 07/17/21 Previous Rx's Medication Instructions Recorded Ascorbic Acid [Vitamin C] 1,000 mg PO DAILY #60 tab 04/12/20 Allergies Allergy/AdvReac Type Severity Reaction Status Date / Time celecoxib [From Celebrex] Allergy Itching Verified 07/17/21 14:14 ciprofloxacin [From Cipro] Allergy Rash/Hives Verified 07/17/21 14:14 gentamicin Allergy Ototoxicity Verified 07/17/21 14:14 nitrofurantoin Allergy Chest Pain Verified 07/17/21 14:14 [From Macrodantin] Penicillins Allergy Rash/Hives Verified 07/17/21 14:14 sulfamethoxazole Allergy tongue Verified 07/17/21 14:14 [From Septra] swelling thimerosal Allergy Rash/Hives Verified 07/17/21 14:14 tobramycin Allergy Rash/Hives Verified 07/17/21 14:14 trimethoprim [From Septra] Allergy tongue Verified 07/17/21 14:14 swelling cefaclor [From Ceclor] AdvReac Drug Verified 07/17/21 14:14 induced fever clindamycin [From Cleocin] AdvReac Drug Verified 07/17/21 14:14 induced fever seasonal allergies Allergy Cough Uncoded 07/17/21 12:40 Review of Systems ROS Statement: Those systems with pertinent positive or pertinent negative responses have been documented in the HPI. ROS Other: All systems not noted in ROS Statement are negative. Past Medical History Past Medical History: Asthma, CVA/TIA, GERD/Reflux, Hearing Disorder / Deafness, Hyperlipidemia, Hypertension, Musculoskeletal Disorder, Neurologic Disorder, Osteoarthritis (OA), Thyroid Disorder Additional Past Medical History / Comment(s): Varicose veins. Bilateral hearing aids. 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 allergy shots biweekly (Dr. Hinton). 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 Hx spinal fusion L2-S1., hx of positive tb test and now has [id number] instead. History of Any Multi-Drug Resistant Organisms: None Reported Past Surgical History: Appendectomy, Back Surgery, Bladder Surgery, Breast Surgery, Cholecystectomy, Heart Catheterization, Hysterectomy, Orthopedic Surgery, Tubal Ligation Additional Past Surgical History / Comment(s): Bilat CTR, Nasal surgery, bilat cataract surgery, Ganglion Cyst removal right hand, Left Kidney Stone surgery, Right Breast Biopsy, Back Surgery X3 w/(Lumbar fusion L2-S1), Right Ulna surgery, gum Line surgery, Bladder Suspension X 3, Colonoscopies, Debridement & Repair of left elbow. PAIN CLINIC PROCEDURES., torn retina right eye 04/2019 Past Anesthesia/Blood Transfusion Reactions: Postoperative Nausea & Vomiting (PONV) Additional Past Anesthesia/Blood Transfusion Reaction / Comment(s): States becomes very nauseaous when NPO. Past Psychological History: Depression Smoking Status: Never smoker Past Alcohol Use History: Unable to Obtain Past Drug Use History: Unable to Obtain - Past Family History Mother Family Medical History: No Reported History Daughter(s) Family Medical History: Deep Vein Thrombosis (DVT) General Exam - General Exam Comments Initial Comments: GENERAL: Patient is well-developed and well-nourished. Patient is nontoxic and well- hydrated and is in no acute distress. Patient only responds to painful stimuli ENT: Neck is soft and supple. No significant lymphadenopathy is noted. Oropharynx is clear. Moist mucous membranes. Neck has full range of motion without eliciting any pain. EYES: The sclera were anicteric and conjunctiva were pink and moist. Extraocular movements were intact and pupils were equal round and reactive to light. Eyelids were unremarkable. PULMONARY: Unlabored respirations. Good breath sounds bilaterally. No audible rales rhonchi or wheezing was noted. CARDIOVASCULAR: There is a regular rate and rhythm without any murmurs gallops or rubs. ABDOMEN: Soft and nontender with normal bowel sounds. SKIN: Skin is clear with no lesions or rashes and otherwise unremarkable. NEUROLOGIC: Patient is alert and oriented 0. MUSCULOSKELETAL: Patient cannot follow commands unable to assess LYMPHATICS: No significant lymphadenopathy is noted PSYCHIATRIC: Unable to assess Limitations: no limitations Course Vital Signs 07/17/21 07/17/21 12:35 12:41 Temperature 97.8 F Pulse Rate 60 Respiratory 20 20 Rate Blood Pressure 95/43 O2 Sat by Pulse 94 L Oximetry Medical Decision Making - Medical Decision Making EKG shows sinus bradycardia 59 bpm MO interval 152 QRS is under 2 QT interval 09/02/1969 QTC is 427. Patient's EKG shows no ST segment elevation or depression. I reviewed the labs and CAT scan results on this patient. Patient remained only responsive to painful stimuli. She withdrew appropriately. I spoke with EMS and he agreed to admit the patient admitted the patient wrote admitting orders. - Lab Data Lab Results 07/17/21 07/17/21 07/17/21 Range/Units 12:32 13:12 13:13 Sample Site r rad ABG pH 7.33 L (7.35-7.45) ABG pCO2 46 H (35-45) mmHg ABG pO2 74 L (83-108) mmHg ABG HCO3 24 (21-25) mmol/L ABG Total CO2 26 H (19-24) mmol/L ABG O2 Saturation 94.5 (94-97) % ABG Base Excess -1.7 mmol/L Marck Test yes FiO2 28 % POC Glucose (mg/dL) 142 H (75-99) mg/dL POC Glu Construction Rep ID Qi Crowe Ammonia 23 (<30) umol/L Salicylates mg/dL Acetaminophen ug/mL 07/17/21 Range/Units 13:13 Sample Site ABG pH (7.35-7.45) ABG pCO2 (35-45) mmHg ABG pO2 (83-108) mmHg ABG HCO3 (21-25) mmol/L ABG Total CO2 (19-24) mmol/L ABG O2 Saturation (94-97) % ABG Base Excess mmol/L Marck Test FiO2 % POC Glucose (mg/dL) (75-99) mg/dL POC Glu Construction Rep ID Ammonia (<30) umol/L Salicylates <1.0 mg/dL Acetaminophen <10.0 ug/mL Disposition Clinical Impression: Altered mental status Disposition: ADMITTED IP TO THIS HOSP Referrals: Sherman Myers MD [Primary Care Provider] - 1-2 days Time of Disposition: 14:32
[2021-07-17 13:16] LABS: ABG Base Excess -1.7 mmol/L; ABG HCO3 24 mmol/L (21-25); ABG Oxygen Saturation 94.5 % (94-97); ABG PCO2 46 mmHg (35-45); ABG PH 7.33 (7.35-7.45); ABG PO2 74 mmHg (83-108); ABG TCO2 26 mmol/L (19-24)
[2021-07-17 13:17] LABS: Allen Test Performed? yes
[2021-07-17 13:46] LABS: Acetaminophen <10.0 ug/mL; Salicylate <1.0 mg/dL
[2021-07-17] MEDS ORDERED: SODIUM CHLORIDE 0.9% 1,000 ML IV ONE (14:46)
[2021-07-17 14:59] LABS: Amphetamine Screen,Urine Not Detected (NotDetected); Barbiturate Screen,Urine Not Detected (NotDetected); Benzodiazepines Screen,Urine Detected (NotDetected); Cocaine Screen,Urine Not Detected (NotDetected); Methadone Screen, Urine Not Detected (NotDetected); Opiate Screen,Urine Detected (NotDetected); Oxycodone Screen, Urine Not Detected (NotDetected); Phencyclidine Screen,Urine Not Detected (NotDetected); Tricyclic Antidepressant,Urine Not Detected (NotDetected); Urn Cannabinoid Scrn Not Detected (NotDetected)
--- NOTE | 2021-07-17 17:18 | P.CNNES ---
History of Present Illness Consult date: 07/17/21 Requesting physician: Bang Kendrick Reason for Consult: altered mental status History of Present Illness: This is a 65-year-old woman with medical history of hypertension, hyperlipidemia, stroke with residual right hemipareis, spinal fusion over L2 to S1, hard of hearing bilaterally, numbness over the right lower extremity who was transferred from [facility] because of altered mental status. History was obtained from Patient's (who is at bedside). Neurology is consulted for altered mental status. Per the patient the patient had a bone spur over the right heel and had surgery this past Tuesday by her prosthetics lab technician then was discharged the patient was complaining of pain as a result she was given [place] she continues to have pain then the on she was given Toradol ordered according to the patient's and then late afternoon night the patient well was very somnolent and the patient was having difficult time waking her up. He said the the patient would wake up and would be very slow to respond and wouldn't go back fall asleep her basically should be delayed in responding but was responding appropriately. There are Tuesday around 3 AM patient heard a noise and the patient vomited and the patient was luggage and answering questions and it again she was delayed in responding. He didn't notice any jerking of any extremities any tongue bites. The patient does not have any history of seizures. Patient is on Valium because of spasm over the right lower extremity. Patient does have history of stroke per the patient about 34 years ago was in the spinal cord and as a result she had that residual right-sided weakness and wall walks with a cane or walker. He denies the patient drinks alcohol. As a result because of her alter ed mentation EMS was contacted and the patient was taken to outside facility to [facility]. It is reported she had elevated creatinine and white blood cell and he had a CT of the brain which was negative. He does not have any fevers chills or any difficulty breathing or coughing. Patient is on multiple home medication of Lamictal 150 mg in the morning and high milligram at night, Valium 5 mg at every hours as needed, multiple vitamins, Synthroid, Lasix, Cymbalta, Lipitor 10 mg daily at bedtime, aspirin 81 mg daily, Toradol, Some other workup in our facility consisted of: Initial vital signs as a blood pressure of 95/43, heart rate of 60, respiratory rate of 20, temperature of 97.8 Fahrenheit oral and pulse ox of 94% on 2 L of nasal cannula. Next Initial serum glucose is 142 and ammonia is 23 Urine drug screen is positive for opiates, methamphetamine, benzoyl. Otherwise the rest is nondetected. Acetaminophen is less than 10, systolic is less than 1.0. Review of Systems Review of system is limited but the pertinent positive and negative as per HPI. Past Medical History Past Medical History: Asthma, CVA/TIA, GERD/Reflux, Hearing Disorder / Deafness, Hyperlipidemia, Hypertension, Musculoskeletal Disorder, Neurologic Disorder, Osteoarthritis (OA), Thyroid Disorder Additional Past Medical History / Comment(s): Varicose veins. Bilateral hearing aids. 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 allergy shots biweekly (Dr. Hinton). [place] 05/29/19 inpt r/t paralysis rt leg inpt x4 days pt states inflammation around infarct of spinal cord that occured 10/2017. Hx spinal fusion L2-S1., hx of positive tb test and now has [id number] instead. History of Any Multi-Drug Resistant Organisms: None Reported Past Surgical History: Appendectomy, Back Surgery, Bladder Surgery, Breast Surgery, Cholecystectomy, Heart Catheterization, Hysterectomy, Orthopedic Surgery, Tubal Ligation Additional Past Surgical History / Comment(s): Bilat CTR, Nasal surgery, bilat cataract surgery, Ganglion Cyst removal right hand, Left Kidney Stone surgery, Right Breast Biopsy, Back Surgery X3 w/(Lumbar fusion L2-S1), Right Ulna surgery, gum Line surgery, Bladder Suspension X 3, Colonoscopies, Debridement & Repair of left elbow. PAIN CLINIC PROCEDURES., torn retina right eye 04/2019 Past Anesthesia/Blood Transfusion Reactions: Postoperative Nausea & Vomiting (PONV) Additional Past Anesthesia/Blood Transfusion Reaction / Comment(s): States becomes very nauseaous when NPO. Past Psychological History: Depression Smoking Status: Never smoker Past Alcohol Use History: Unable to Obtain Past Drug Use History: Unable to Obtain - Past Family History Mother Family Medical History: No Reported History Daughter(s) Family Medical History: Deep Vein Thrombosis (DVT) Medications and Allergies Home Medications Medication Instructions Recorded Confirmed Type Calcium Carbonate [Calcium] 600 mg PO BID 12/16/16 07/17/21 History Cholecalciferol (Vitamin D3) 50 mcg PO BID 12/16/16 07/17/21 History [Vitamin D3] Cinnamon Bark [Cinnamon] 1,000 mg PO BID 12/16/16 07/17/21 History Dexlansoprazole [Dexilant] 30 mg PO HS 12/16/16 07/17/21 History Fluticasone Nasal [place] [Flonase 2 spr EA NOSTRIL HS 12/16/16 07/17/21 History Nasal [place]] L.acidoph,Paracasei, B.lactis 1 cap PO BID 12/16/16 07/17/21 History [Probiotic] Montelukast [Singulair] 10 mg PO HS 12/16/16 07/17/21 History Spironolactone [Aldactone] 50 mg PO BID 12/16/16 07/17/21 History Atorvastatin [Lipitor] 10 mg PO HS 08/24/18 07/17/21 History Azelastine HCl [Astepro] 2 spray EA NOSTRIL BID PRN 08/24/18 07/17/21 History Baclofen [Lioresal] 20 mg PO BID 08/24/18 07/17/21 History DULoxetine HCL [Cymbalta] 60 mg PO DAILY 08/24/18 07/17/21 History Furosemide [Lasix] 20 mg PO DAILY@1700 08/24/18 07/17/21 History Furosemide [Lasix] 40 mg PO DAILY 08/24/18 07/17/21 History lamoTRIgine [LaMICtal] 100 mg PO BID 08/24/18 07/17/21 History Levothyroxine Sodium [Synthroid] 50 mcg PO DAILY 09/19/18 07/17/21 History Methenamine Hippurate [Hiprex] 1 gm PO Q48H 09/19/18 07/17/21 History Potassium Chloride [Potassium 10 meq PO BID 10/12/18 07/17/21 History Chloride ER] Aspirin 81 mg PO DAILY 10/24/18 07/17/21 History Magnesium 200 mg PO DAILY 10/24/18 07/17/21 History Ipratropium [place] 0.06%Nasal 2 spray EA NOSTRIL TID PRN 05/25/19 07/17/21 History [Atrovent Nasal 0.06%] Sucralfate [Carafate] 1 gm PO BID PRN 05/25/19 07/17/21 History calcium polycarbophiL [Fibercon] 625 mg PO BID 05/25/19 07/17/21 History hydrALAZINE HCL [Apresoline] 37.5 mg PO TID 05/25/19 07/17/21 History hydrOXYzine HCL [Atarax] 10 - 20 mg PO Q8H PRN 05/25/19 07/17/21 History Diclofenac Sodium Gel [Voltaren 4 gm TOPICAL QID PRN 07/10/19 07/17/21 History Gel] Mometasone/Formoterol [Dulera 100 1 puff INHALATION RT-BID PRN 12/17/19 07/17/21 History Mcg-5 Mcg Inhaler] Ondansetron Odt [Zofran ODT] 4 - 8 mg PO TID PRN 04/10/20 07/17/21 History Ascorbic Acid [Vitamin C] 1,000 mg PO DAILY #60 tab 04/12/20 07/17/21 Rx lamoTRIgine [LaMICtal] 50 mg PO DAILY@1400 03/06/21 07/17/21 History Albuterol Sulfate [Ventolin HFA] 2 puff INHALATION RT-Q4H PRN 07/17/21 07/17/21 History Dicyclomine [Bentyl] 40 mg PO Q12H 07/17/21 07/17/21 History Estradiol Cream [Estrace Cream 1 gm VAGINAL TUTH 07/17/21 07/17/21 History 0.01%] HYDROcodone/APAP 5-325MG [[place] 1 - 2 tab PO Q4H PRN 07/17/21 07/17/21 History 5-325] Ketorolac [Toradol] 10 mg PO Q6H PRN 07/17/21 07/17/21 History Lidocaine [Aspercreme Patch] 1 patch TRANSDERM DAILY PRN 07/17/21 07/17/21 History Losartan Potassium 100 mg PO DAILY 07/17/21 07/17/21 History Multivit with Calcium,Iron,Min 1 tab PO DAILY 07/17/21 07/17/21 History [Women's Multivitamin] diazePAM [Valium] 5 mg PO Q8H PRN 07/17/21 07/17/21 History Allergies Allergy/AdvReac Type Severity Reaction Status Date / Time celecoxib [From Celebrex] Allergy Itching Verified 07/17/21 14:14 ciprofloxacin [From Cipro] Allergy Rash/Hives Verified 07/17/21 14:14 gentamicin Allergy Ototoxicity Verified 07/17/21 14:14 nitrofurantoin Allergy Chest Pain Verified 07/17/21 14:14 [From Macrodantin] Penicillins Allergy Rash/Hives Verified 07/17/21 14:14 sulfamethoxazole Allergy tongue Verified 07/17/21 14:14 [From Septra] swelling thimerosal Allergy Rash/Hives Verified 07/17/21 14:14 tobramycin Allergy Rash/Hives Verified 07/17/21 14:14 trimethoprim [From Septra] Allergy tongue Verified 07/17/21 14:14 swelling cefaclor [From Ceclor] AdvReac Drug Verified 07/17/21 14:14 induced fever clindamycin [From Cleocin] AdvReac Drug Verified 07/17/21 14:14 induced fever seasonal allergies Allergy Cough Uncoded 07/17/21 12:40 Physical Examination - Vital Signs Vital Signs: Vital Signs Temp Pulse Resp BP Pulse Ox 07/17/21 14:56 66 20 109/52 96 07/17/21 12:41 97.8 F 60 20 95/43 94 L 07/17/21 12:35 20 Intake and Output 07/17/21 07/17/21 07/17/21 06:59 14:59 22:59 Other: Weight 77.111 kg GENERAL: The patient is very somnolent. HENT: No nuchal rigidity. CHEST: The heart rate is regular rate rhythm. No murmurs to auscultation. LUNG: Clear to auscultation bilaterally no wheezing noted throughout. Not labored breathing. ABDOMEN/GI: Bowel sounds present in all 4 quadrants. No tenderness to palpation throughout. EXTREMITIES: Right ankle wrapped in gauze and has brace from her recent surgery. NEUROLOGICAL: Examination is very limited because of patient's Sebastien Higher mental function: He is only snoring and not responding or verbalizing. She would grimace face with painful stimuli. Cranial nerves: I had to manually open her eyes and the pupils are midline. The pupils are round, equal (2mm) and reactive to light . No facial weakness. She would grimace face with painful stimuli. Motor: Strength is very limited but with painful stimuli she withdraws the left side more than the right (she has residual right-sided weakness from previous stroke). Decreased tone throughout Cerebellum: Could not assess. Sensation: She responds to painful some light on both sides. Reflexes (right/left): 1+ throughout. Plantars is mute on left but right could not assess. Results - Laboratory Findings Abnormal Lab Findings: Abnormal Labs 07/17/21 07/17/21 07/17/21 12:32 13:12 13:27 ABG pH 7.33 L ABG pCO2 46 H ABG pO2 74 L ABG Total CO2 26 H POC Glucose (mg/dL) 142 H Urine Opiates Screen Detected H U Methamphetamines Scrn Detected H U Benzodiazepines Scrn Detected H Assessment and Plan Assessment: Encephalopathy of unknown etiology but seems due to a medication induced recently she was being prescribed [place], Toradol and she has home dose of [place] lium. As result the creatinine was reported to be elevated at outside facility and the urine drug screen is positive for opiates, benzo and methamphetamine as well as hypotensive. Patient had a CT of the head at outside facility which was reported negative. Hypotensive and initial blood pressure on presentation is 95/43 History of hypertension History of stroke with residual weakness over the right sided (has stroke in spinal cord according to patient) and walks with walker History of spinal fusion over the L2 to S1 Hard of hearing bilaterally. Neuropathy over the right lower extremity as reported Plan: Please avoid any hypotensive episode and we'll defer the management to the primary team Please avoidany opiate use/narcotic or sedation notified the patient mentation Patient received one dose of Naloxone in the ED. I ordered MRI of the brain without I ordered a routine EEG STAT. I notified that the patient's that the there is no EEG techs on staff currently and I cannot rule out seizure and likely will be done tomorrow and that he is in acceptance with that. I will not start the patient on an antiepileptic drug unless there is epileptiform discharges or seizure on the EEG. Ordered TSH, vitamin B-12, folate level. Ordered CBC with differential and chemistry panel. We'll defer the rest of the medical management to the primary team. The plan is discussed with the patient's and her nurse. Thank you for the consultation. Abel Mathew M.D. Neuro-Hospitalist Time with Patient: Greater than 30
[2021-07-17 18:51] LABS: ALT 66 U/L (4-34); AST 86 U/L (14-36); African American GFR (CKD) 39 (>60 ml/min/1.73 sqM); Albumin 3.9 g/dL (3.5-5.0); Alkaline Phosphatase 221 U/L (38-126); Anion Gap 12 mmol/L; Blood Urea Nitrogen 33 mg/dL (7-17); Calcium 9.8 mg/dL (8.4-10.2); Carbon Dioxide 19 mmol/L (22-30); Chloride 106 mmol/L (98-107); Glucose 127 mg/dL (74-99); Non-African American GFR(CKD) 34 (>60 ml/min/1.73 sqM); Sodium 137 mmol/L (137-145); Total Bilirubin 0.8 mg/dL (0.2-1.3); Total Protein 6.2 g/dL (6.3-8.2)
[2021-07-17 18:55] LABS: Basophils # (A) 0.1 k/uL (0-0.2); Basophils % (A) 0 %; Eosinophils # (A) 0.1 k/uL (0-0.7); Eosinophils % (A) 0 %; HCT 46.8 % (34.0-46.0); HGB 15.3 gm/dL (11.4-16.0); Hypochromasia Slight; Lymphocytes # (A) 0.5 k/uL (1.0-4.8); Lymphocytes % (A) 2 %; MCH 31.1 pg (25.0-35.0); MCHC 32.6 g/dL (31.0-37.0); MCV 95.2 fL (80.0-100.0); Mean Platelet Volume 10.7; Monocytes # (A) 1.2 k/uL (0-1.0); Monocytes % (A) 5 %; Neutrophils # (A) 22.6 k/uL (1.3-7.7); Neutrophils % (A) 92 %; Platelet Count 195 k/uL (150-450); RBC 4.92 m/uL (3.80-5.40); RDW 14.5 % (11.5-15.5); WBC 24.7 k/uL (3.8-10.6)
[2021-07-17 18:57] LABS: Potassium 4.8 mmol/L (3.5-5.1)
[2021-07-17] MEDS ORDERED: ACETAMINOPHEN IV (For NPO) 1,000 MG in EMPTY BAG 1 BAG IVPB ONE (23:35)
[2021-07-18 00:29] LABS: Appearance,Urine Clear (Clear); Bilirubin,Urine Negative (Negative); Blood,Urine Negative (Negative); Color,Urine Yellow; Glucose,Urine (UA) Negative (Negative); Ketones,Urine Negative (Negative); Leukocyte Esterase,Urine Negative (Negative); Mucus,Urine Rare /hpf; Nitrite,Urine Negative (Negative); PH, Urine 5.5 (5.0-8.0); Protein,Urine 1+ (Negative); RBC,Urine 1 /hpf (0-5); Specific Gravity,Urine 1.032 (1.001-1.035); Urobilinogen,Urine <2.0 mg/dL (<2.0); WBC,Urine 1 /hpf (0-5)
[2021-07-18] MEDS ORDERED: SUCRALFATE 1 GM TAB PO PRN (03:49)
--- NOTE | 2021-07-18 07:06 | XR ---
EXAMINATION TYPE: XR chest 1V portable DATE OF EXAM: 07/18/2021 HISTORY: Shortness of breath. COMPARISON: 04/11/2020 TECHNIQUE: Single view of the chest is submitted. FINDINGS: Demonstrated are scattered senescent parenchymal change. Elevation right hemidiaphragm with right lower lobe atelectasis. The heart is stable. Hilar and mediastinal structures are within normal limits. Degenerative changes are seen of the dorsal spine. IMPRESSION: 1. Elevation right hemidiaphragm with right lower lobe atelectasis.
[2021-07-18] MEDS ORDERED: SYMBICORT 80-4.5 MCG INHALER INHALATION PRN (08:00)
[2021-07-18] MEDS: LEVOTHYROXINE 50 MCG TAB PO SCH (08:33)
[2021-07-18] MEDS: SODIUM CHLORIDE 0.9% 1,000 ML IV SCH ×2 (08:35→18:26)
[2021-07-18] MEDS: ASCORBIC ACID 500 MG TAB PO SCH (08:35)
[2021-07-18] MEDS: CHOLECALCIFEROL 25 MCG (1000 IU) TABLET PO SCH ×2 (08:36→22:28)
[2021-07-18] MEDS: CALCIUM CARBONATE 500 MG CHEWABLE PO SCH ×2 (08:36→22:28)
[2021-07-18] MEDS: ASPIRIN 81 MG PO SCH (08:36)
[2021-07-18] MEDS: DULoxetine HCL 60 MG CAPSULE.DR PO SCH (08:36)
[2021-07-18 09:30] LABS: Basophils % (A) 0 %; Eosinophils % (A) 0 %; HCT 44.3 % (34.0-46.0); HGB 13.9 gm/dL (11.4-16.0); Hypochromasia Moderate; Lymphocytes # (A) 0.5 k/uL (1.0-4.8); Lymphocytes % (A) 2 %; MCH 30.3 pg (25.0-35.0); MCHC 31.3 g/dL (31.0-37.0); MCV 96.6 fL (80.0-100.0); Mean Platelet Volume 10.2; Monocytes # (A) 1.3 k/uL (0-1.0); Monocytes % (A) 6 %; Neutrophils # (A) 20.9 k/uL (1.3-7.7); Neutrophils % (A) 90 %; Platelet Count 291 k/uL (150-450); RBC 4.58 m/uL (3.80-5.40); RDW 14.3 % (11.5-15.5); WBC 23.2 k/uL (3.8-10.6)
[2021-07-18 09:31] LABS: ALT 43 U/L (4-34); AST 57 U/L (14-36); African American GFR (CKD) 61 (>60 ml/min/1.73 sqM); Albumin 2.8 g/dL (3.5-5.0); Alkaline Phosphatase 131 U/L (38-126); Anion Gap 8 mmol/L; Blood Urea Nitrogen 36 mg/dL (7-17); Calcium 8.7 mg/dL (8.4-10.2); Carbon Dioxide 20 mmol/L (22-30); Chloride 111 mmol/L (98-107); Glucose 130 mg/dL (74-99); Non-African American GFR(CKD) 53 (>60 ml/min/1.73 sqM); Sodium 139 mmol/L (137-145); Total Bilirubin 0.6 mg/dL (0.2-1.3); Total Protein 5.1 g/dL (6.3-8.2)
--- NOTE | 2021-07-18 10:58 | P.HPIM ---
History of Present Illness H&P Date: 07/17/21 Chief Complaint: Altered mental status 65-year-old female who comes to us from [facility]. Patient had surgery by Dr. Fink on Tuesday and I was told had a couple episodes of vomiting and was lethargic so brought her to the hospital. According to the physician at [facility] patient was very somnolent was able to be aroused but would go right back to sleep. Patient had lab work which showed an elevated creatinine and elevated white count. Patient had a CT of the brain and CT of the abdomen pelvis which all were negative. No history of any fevers or chills no history of any difficulty breathing or cough. Initial serum glucose is 142 and ammonia is 23 Urine drug screen is positive for opiates, methamphetamine, benzoyl. Otherwise the rest is nondetected. Acetaminophen is less than 10, systolic is less than 1.0. EKG shows sinus bradycardia no ST segment elevation or depression Blood work completed an outside facility revealed elevated creatinine and a white blood count; CT head was reported to be negative Review of Systems ROS unobtainable: due to mental status Past Medical History Past Medical History: Asthma, CVA/TIA, GERD/Reflux, Hearing Disorder / Deafness, Hyperlipidemia, Hypertension, Musculoskeletal Disorder, Neurologic Disorder, Osteoarthritis (OA), Thyroid Disorder Additional Past Medical History / Comment(s): Varicose veins. Bilateral hearing aids. 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 allergy shots biweekly (Dr. Hinton). 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 Hx spinal fusion L2-S1., hx of positive tb test and now has [id number] instead. History of Any Multi-Drug Resistant Organisms: None Reported Past Surgical History: Appendectomy, Back Surgery, Bladder Surgery, Breast Surgery, Cholecystectomy, Heart Catheterization, Hysterectomy, Orthopedic Surgery, Tubal Ligation Additional Past Surgical History / Comment(s): Bilat CTR, Nasal surgery, bilat cataract surgery, Ganglion Cyst removal right hand, Left Kidney Stone surgery, Right Breast Biopsy, Back Surgery X3 w/(Lumbar fusion L2-S1), Right Ulna surgery, gum Line surgery, Bladder Suspension X 3, Colonoscopies, Debridement & Repair of left elbow. PAIN CLINIC PROCEDURES., torn retina right eye 04/2019 Past Anesthesia/Blood Transfusion Reactions: Postoperative Nausea & Vomiting (PONV) Additional Past Anesthesia/Blood Transfusion Reaction / Comment(s): States becomes very nauseaous when NPO. Past Psychological History: Depression Smoking Status: Never smoker Past Alcohol Use History: Unable to Obtain Past Drug Use History: Unable to Obtain - Past Family History Mother Family Medical History: No Reported History Daughter(s) Family Medical History: Deep Vein Thrombosis (DVT) Medications and Allergies Home Medications Medication Instructions Recorded Confirmed Type Calcium Carbonate [Calcium] 600 mg PO BID 12/16/16 07/17/21 History Cholecalciferol (Vitamin D3) 50 mcg PO BID 12/16/16 07/17/21 History [Vitamin D3] Cinnamon Bark [Cinnamon] 1,000 mg PO BID 12/16/16 07/17/21 History Dexlansoprazole [Dexilant] 30 mg PO HS 12/16/16 07/17/21 History Fluticasone Nasal [place] [Flonase 2 spr EA NOSTRIL HS 12/16/16 07/17/21 History Nasal [place]] L.acidoph,Paracasei, B.lactis 1 cap PO BID 12/16/16 07/17/21 History [Probiotic] Montelukast [Singulair] 10 mg PO HS 12/16/16 07/17/21 History Spironolactone [Aldactone] 50 mg PO BID 12/16/16 07/17/21 History Atorvastatin [Lipitor] 10 mg PO HS 08/24/18 07/17/21 History Azelastine HCl [Astepro] 2 spray EA NOSTRIL BID PRN 08/24/18 07/17/21 History Baclofen [Lioresal] 20 mg PO BID 08/24/18 07/17/21 History DULoxetine HCL [Cymbalta] 60 mg PO DAILY 08/24/18 07/17/21 History Furosemide [Lasix] 20 mg PO DAILY@1700 08/24/18 07/17/21 History Furosemide [Lasix] 40 mg PO DAILY 08/24/18 07/17/21 History lamoTRIgine [LaMICtal] 100 mg PO BID 08/24/18 07/17/21 History Levothyroxine Sodium [Synthroid] 50 mcg PO DAILY 09/19/18 07/17/21 History Methenamine Hippurate [Hiprex] 1 gm PO Q48H 09/19/18 07/17/21 History Potassium Chloride [Potassium 10 meq PO BID 10/12/18 07/17/21 History Chloride ER] Aspirin 81 mg PO DAILY 10/24/18 07/17/21 History Magnesium 200 mg PO DAILY 10/24/18 07/17/21 History Ipratropium [place] 0.06%Nasal 2 spray EA NOSTRIL TID PRN 05/25/19 07/17/21 History [Atrovent Nasal 0.06%] Sucralfate [Carafate] 1 gm PO BID PRN 05/25/19 07/17/21 History calcium polycarbophiL [Fibercon] 625 mg PO BID 05/25/19 07/17/21 History hydrALAZINE HCL [Apresoline] 37.5 mg PO TID 05/25/19 07/17/21 History hydrOXYzine HCL [Atarax] 10 - 20 mg PO Q8H PRN 05/25/19 07/17/21 History Diclofenac Sodium Gel [Voltaren 4 gm TOPICAL QID PRN 07/10/19 07/17/21 History Gel] Mometasone/Formoterol [Dulera 100 1 puff INHALATION RT-BID PRN 12/17/19 07/17/21 History Mcg-5 Mcg Inhaler] Ondansetron Odt [Zofran ODT] 4 - 8 mg PO TID PRN 04/10/20 07/17/21 History Ascorbic Acid [Vitamin C] 1,000 mg PO DAILY #60 tab 04/12/20 07/17/21 Rx lamoTRIgine [LaMICtal] 50 mg PO DAILY@1400 03/06/21 07/17/21 History Albuterol Sulfate [Ventolin HFA] 2 puff INHALATION RT-Q4H PRN 07/17/21 07/17/21 History Dicyclomine [Bentyl] 40 mg PO Q12H 07/17/21 07/17/21 History Estradiol Cream [Estrace Cream 1 gm VAGINAL TUTH 07/17/21 07/17/21 History 0.01%] HYDROcodone/APAP 5-325MG [[place] 1 - 2 tab PO Q4H PRN 07/17/21 07/17/21 History 5-325] Ketorolac [Toradol] 10 mg PO Q6H PRN 07/17/21 07/17/21 History Lidocaine [Aspercreme Patch] 1 patch TRANSDERM DAILY PRN 07/17/21 07/17/21 History Losartan Potassium 100 mg PO DAILY 07/17/21 07/17/21 History Multivit with Calcium,Iron,Min 1 tab PO DAILY 07/17/21 07/17/21 History [Women's Multivitamin] diazePAM [Valium] 5 mg PO Q8H PRN 07/17/21 07/17/21 History Allergies Allergy/AdvReac Type Severity Reaction Status Date / Time celecoxib [From Celebrex] Allergy Itching Verified 07/17/21 14:14 ciprofloxacin [From Cipro] Allergy Rash/Hives Verified 07/17/21 14:14 gentamicin Allergy Ototoxicity Verified 07/17/21 14:14 nitrofurantoin Allergy Chest Pain Verified 07/17/21 14:14 [From Macrodantin] Penicillins Allergy Rash/Hives Verified 07/17/21 14:14 sulfamethoxazole Allergy tongue Verified 07/17/21 14:14 [From Septra] swelling thimerosal Allergy Rash/Hives Verified 07/17/21 14:14 tobramycin Allergy Rash/Hives Verified 07/17/21 14:14 trimethoprim [From Septra] Allergy tongue Verified 07/17/21 14:14 swelling cefaclor [From Ceclor] AdvReac Drug Verified 07/17/21 14:14 induced fever clindamycin [From Cleocin] AdvReac Drug Verified 07/17/21 14:14 induced fever seasonal allergies Allergy Cough Uncoded 07/17/21 12:40 Physical Exam Vitals: Vital Signs Temp Pulse Resp BP Pulse Ox 07/17/21 17:59 98.1 F 69 18 129/58 97 07/17/21 14:56 66 20 109/52 96 07/17/21 14:00 60 18 110/52 98 07/17/21 12:41 97.8 F 60 20 95/43 94 L 07/17/21 12:35 20 Intake and Output 07/17/21 07/17/21 07/17/21 06:59 14:59 22:59 Output Total 550 Balance -550 Output: Urine 550 Uretheral (Zarate) 550 Other: Weight 77.111 kg PHYSICAL EXAMINATION: GENERAL: The patient is sleepy and responds only to tactile and painful stimuli, not in any acute distress. Well developed, well nourished. HEENT: Pupils are round and equally reacting to light. EOMI. No scleral icterus. No conjunctival pallor. Normocephalic, atraumatic. No pharyngeal erythema. No thyromegaly. CARDIOVASCULAR: S1 and S2 present. No murmurs, rubs, or gallops. PULMONARY: Chest is clear to auscultation, no wheezing or crackles. ABDOMEN: Soft, nontender, nondistended, normoactive bowel sounds. No palpable organomegaly. MUSCULOSKELETAL: No joint swelling or deformity. EXTREMITIES: No cyanosis, clubbing, or pedal edema. NEUROLOGICAL: Unable to evaluate. SKIN: No rashes. Results CBC & Chem 7: 07/18/21 08:53 07/18/21 08:53 Labs: Abnormal Lab Results - Last 24 Hours (Table) 07/17/21 07/17/21 07/17/21 Range/Units 12:32 13:12 13:27 ABG pH 7.33 L (7.35-7.45) ABG pCO2 46 H (35-45) mmHg ABG pO2 74 L (83-108) mmHg ABG Total CO2 26 H (19-24) mmol/L POC Glucose (mg/dL) 142 H (75-99) mg/dL Urine Opiates Screen Detected H (NotDetected) U Methamphetamines Scrn Detected H (NotDetected) U Benzodiazepines Scrn Detected H (NotDetected) Thrombosis Risk Factor Assmnt - Choose All That Apply Each Risk Factor Represents 2 Points: Age 61-74 years Each Risk Factor Represents 3 Points: History of DVT/PE Thrombosis Risk Factor Assessment Total Risk Factor Score: 5 Thrombosis Risk Factor Assessment Level: High Risk Assessment and Plan Assessment: 1. Altered mental status/encephalopathy likely medication induced; combination of narcotics, benzodiazepines and methamphetamine; CT of head completed and outside facilities negative; patient has been evaluated by neurology-- recommending to hold all hypertensive medications and avoid sedating medications including opiates and narcotics; patient did receive a dose of Lanoxin in ED -- MRI of the brain and EEG is recommended; TSH, vitamin B12 and folic acid levels are ordered 2. Marked leukocytosis; no clear source of infection; we will monitor CBC, CMP and pro-calcitonin; IDs consulted, await recommendations 3. Acute renal injury; slowly IV fluid hydration in form of normal saline at rate of 75 mL an hour; we will monitor strict JAQUELINE's, daily weights, renal function and electrolytes; avoid 4. Transaminitis; we will monitor liver enzymes closely with plans to obtain a hepatic ultrasound if continue to trend up 5. Substance abuse; urine drug screen is positive for opiates, benzodiazepines and methamphetamine 6. Hypertension; takes hydralazine 37.5 mg daily; losartan 100 mg daily; antihypertensive therapy held due to soft blood pressures 7. Hyperlipidemia; Lipitor 10 mg by mouth daily at bedtime 8. Hypothyroidism; Synthroid 50 MCG daily 9. Asthma; not in exacerbation; continue home inhalers therapy with Symbicort and albuterol nebulizer treatments 10. History of CVA/TIA; takes aspirin 81 mg daily and Lipitor 10 mg daily at bedtime DVT prophylaxis; SCDs/heparin CODE STATUS; full code
--- NOTE | 2021-07-18 12:39 | MR ---
EXAMINATION TYPE: MR brain wo con DATE OF EXAM: 07/18/2021 11:36 AM COMPARISON: NONE HISTORY: Altered mental status. FINDINGS: The ventricles, basal cisterns and sulci overlying the cerebral convexities are mildly enlarged. There is evidence of mild periventricular white matter ischemic demyelination. Remote deep white matter insults are also noted. No acute edema is seen on diffusion weighted imaging. There is no evidence for midline shift or mass effect. Acute intracranial hemorrhage or extra-axial collection is not evident. The paranasal sinuses are well-aerated. Left-sided mastoiditis. IMPRESSION: Age-related atrophic and chronic small vessel ischemic change. No acute intracranial process at this time.
--- NOTE | 2021-07-18 13:19 | P.PN ---
Subjective Progress Note Date: 07/18/21 The patient seen at bedside and per the patient's nurse she continues to be somnolent and is unarouseable. No seizure-like activity seen per the nurses staff. Patient has been having low-grade fevers max of 100.5 Objective - Vital Signs Vital signs: Vital Signs Temp 100.3 F H 07/18/21 12:33 Pulse 94 07/18/21 12:33 Resp 36 H 07/18/21 12:33 BP 113/60 07/18/21 12:33 Pulse Ox 95 07/18/21 12:33 Intake & Output 07/17/21 07/18/21 07/18/21 18:59 06:59 18:59 Output Total 550 950 Balance -550 -950 Weight 77.111 kg Output: Urine 550 950 Uretheral (Zarate) 550 Other: Voiding Method Indwelling Catheter Indwelling Catheter - Exam GENERAL: The patient is very somnolent. HENT: No nuchal rigidity. EXTREMITIES: Right ankle wrapped in gauze and has brace from her recent surgery. NEUROLOGICAL: Examination is very limited because of patient's Sebastien Higher mental function: He is only snoring and not responding or verbalizing but would moan now (yesterday was not vocalizing). She would grimace face with painful stimuli. Cranial nerves: I had to manually open her eyes and the pupils are midline. The pupils are round, equal (2mm) and reactive to light . No facial weakness. She would grimace face with painful stimuli. Motor: Strength is very limited but with painful stimuli she withdraws the left side more than the right (she has residual right-sided weakness from previous stroke). Decreased tone throughout. No spontaneous movement of extremities. Cerebellum: Could not assess. Sensation: She responds to painful some light on both sides. Reflexes (right/left): 1+ throughout. Plantars is mute on left but right could not assess. SOME OF THE WORK-UP: Urine drug screen is positive for opiates, methamphetamine, benzoyl. Otherwise the rest is nondetected. Acetaminophen is less than 10, systolic is less than 1.0. White blood cell is as high as 24.7k and predominately neutrophilic. Her creatinine is 1.57 and today is 1.09, sodium is 137, AST is 86, ALT of 66 and most current AST is 57 and ALT 43. Ammonia level is 23 TSH is 1.130. - Labs CBC & Chem 7: 07/18/21 08:53 07/18/21 08:53 Labs: Abnormal Lab Results - Last 24 Hours (Table) 07/17/21 07/17/21 07/17/21 Range/Units 13:12 13:27 18:20 WBC 24.7 H (3.8-10.6) k/uL Hct 46.8 H (34.0-46.0) % Neutrophils # 22.6 H (1.3-7.7) k/uL Lymphocytes # 0.5 L (1.0-4.8) k/uL Monocytes # 1.2 H (0-1.0) k/uL ABG pH 7.33 L (7.35-7.45) ABG pCO2 46 H (35-45) mmHg ABG pO2 74 L (83-108) mmHg ABG Total CO2 26 H (19-24) mmol/L Chloride (98-107) mmol/L Carbon Dioxide (22-30) mmol/L BUN (7-17) mg/dL Creatinine (0.52-1.04) mg/dL Glucose (74-99) mg/dL Plasma Lactic Acid Jeffy (0.7-2.0) mmol/L AST (14-36) U/L ALT (4-34) U/L Alkaline Phosphatase (38-126) U/L Total Protein (6.3-8.2) g/dL Albumin (3.5-5.0) g/dL Urine Protein (Negative) Urine Mucus (None) /hpf Urine Opiates Screen Detected H (NotDetected) U Methamphetamines Scrn Detected H (NotDetected) U Benzodiazepines Scrn Detected H (NotDetected) 07/17/21 07/18/21 07/18/21 Range/Units 18:20 00:00 08:53 WBC (3.8-10.6) k/uL Hct (34.0-46.0) % Neutrophils # (1.3-7.7) k/uL Lymphocytes # (1.0-4.8) k/uL Monocytes # (0-1.0) k/uL ABG pH (7.35-7.45) ABG pCO2 (35-45) mmHg ABG pO2 (83-108) mmHg ABG Total CO2 (19-24) mmol/L Chloride 111 H (98-107) mmol/L Carbon Dioxide 19 L 20 L (22-30) mmol/L BUN 33 H 36 H (7-17) mg/dL Creatinine 1.57 H 1.09 H (0.52-1.04) mg/dL Glucose 127 H 130 H (74-99) mg/dL Plasma Lactic Acid Jeffy (0.7-2.0) mmol/L AST 86 H 57 H (14-36) U/L ALT 66 H 43 H (4-34) U/L Alkaline Phosphatase 221 H 131 H (38-126) U/L Total Protein 6.2 L 5.1 L (6.3-8.2) g/dL Albumin 2.8 L (3.5-5.0) g/dL Urine Protein 1+ H (Negative) Urine Mucus Rare H (None) /hpf Urine Opiates Screen (NotDetected) U Methamphetamines Scrn (NotDetected) U Benzodiazepines Scrn (NotDetected) 07/18/21 07/18/21 Range/Units 08:53 12:08 WBC 23.2 H (3.8-10.6) k/uL Hct (34.0-46.0) % Neutrophils # 20.9 H (1.3-7.7) k/uL Lymphocytes # 0.5 L (1.0-4.8) k/uL Monocytes # 1.3 H (0-1.0) k/uL ABG pH (7.35-7.45) ABG pCO2 (35-45) mmHg ABG pO2 (83-108) mmHg ABG Total CO2 (19-24) mmol/L Chloride (98-107) mmol/L Carbon Dioxide (22-30) mmol/L BUN (7-17) mg/dL Creatinine (0.52-1.04) mg/dL Glucose (74-99) mg/dL Plasma Lactic Acid Jeffy 2.2 H* (0.7-2.0) mmol/L AST (14-36) U/L ALT (4-34) U/L Alkaline Phosphatase (38-126) U/L Total Protein (6.3-8.2) g/dL Albumin (3.5-5.0) g/dL Urine Protein (Negative) Urine Mucus (None) /hpf Urine Opiates Screen (NotDetected) U Methamphetamines Scrn (NotDetected) U Benzodiazepines Scrn (NotDetected) Assessment and Plan Assessment: * Low grade fever with altered mental status. Encephalopathy of unknown etiology. But appears multifactorial is seems septic especially with the current surgery she had over the right lower extremity, medication induced (recently she was being prescribed [place], Toradol and she has home dose of Valium) and metabolic component. 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 * Neuropathy over the right lower extremity as reported Plan: I consulted Dr. Mendez for further work-up/management of her sepsis. I consulted ICU for escalation of care. Pending MRI Brain (per nurse she is scheduled today). She had CT of the brain at outside facility and reported as negative. If unable to get MRI Brain today then will get repeat CT head. STAT EEG will be performed today. I will not start the patient on an antiepileptic drug unless there is epileptiform discharges or seizure on the EEG. Please avoidany opiate use/narcotic or sedation which will affect patient's mentation. Pending Vitamin B12 and folate level. Patient received one dose of Naloxone in the ED. We'll defer the rest of the medical management to the primary team. The plan is discussed with the patient's nurse and her who is at bedside. UPDATE: The nurse updated me, that ICU evaluated the patient and they did not feel patient was ICU candidate at this time. They felt patient should be started on empiric treatment for meningoencephalitis and to perform lumbar puncture and I.D. to assess patient. I have consulted Anesthesiology STAT for lumbar puncture and started patient on empiric antibiotic (Ceftriaxone 2gm every 12 hours, Vancomycin and one dose of Ampicillin) and started Acylovir 20mg/kg every 8 hours in the mean time. I also started the patient on Keppra 1500mg once then 1000mg every 12 hours for seizure prophylaxis. I spend 35 minutes in caring for patient. Abel Mathew M.D. Neuro-Hospitalist Time with Patient: Greater than 30
[2021-07-18] MEDS ORDERED: VANCOMYCIN IV PER PHARMACY 1 EACH MISC MISCELLANE PRN (15:33)
[2021-07-18] MEDS ORDERED: AMPICILLIN 2,000 MG in SODIUM CHLORIDE 0.9% 100 ML IVPB STA (15:36)
--- NOTE | 2021-07-18 15:51 | P.PN ---
Subjective Progress Note Date: 07/18/21 Principal diagnosis: Altered mental status Encephalopathy related to medications Leukocytosis 65-year-old female who comes to us from [facility]. Patient had surgery by Dr. Fink on Tuesday and I was told had a couple episodes of vomiting and was lethargic so brought her to the hospital. According to the physician at [facility] patient was very somnolent was able to be aroused but would go right back to sleep. Patient had lab work which showed an elevated creatinine and elevated white count. Patient had a CT of the brain and CT of the abdomen pelvis which all were negative. No history of any fevers or chills no history of any difficulty breathing or cough. Initial serum glucose is 142 and ammonia is 23 Urine drug screen is positive for opiates, methamphetamine, benzoyl. Otherwise the rest is nondetected. Acetaminophen is less than 10, systolic is less than 1.0. EKG shows sinus bradycardia no ST segment elevation or depression Blood work completed an outside facility revealed elevated creatinine and a white blood count; CT head was reported to be negative 07/18/2021 Patient is evaluated with family members at bedside; doesn't open eyes on verbal stimulation but continues to moan spontaneously; doesn't follow any commands; EEG just completed MRI of the brain scheduled for today; computed tomography scan of the brain done at an outside facility was negative; urology has recommended stat EEG which is just completed; no plans to start antiepileptic drugs unless EEG is conclusive We will continue to avoid any sedating medications which can affect patient's mentation Labs including vitamin B12 and folic acid are pending Objective - Vital Signs Vital signs: Vital Signs Temp 100.5 F H 07/18/21 08:40 Pulse 102 H 07/18/21 08:40 Resp 36 H 07/18/21 08:40 BP 126/68 07/18/21 08:40 Pulse Ox 94 L 07/18/21 08:40 Intake & Output 07/17/21 07/18/21 07/18/21 18:59 06:59 18:59 Output Total 550 950 Balance -550 -950 Weight 77.111 kg Output: Urine 550 950 Uretheral (Zarate) 550 Other: Voiding Method Indwelling Catheter - Exam GENERAL: The patient is sleepy and responds only to tactile and painful stimuli, not in any acute distress. Well developed, well nourished. HEENT: Pupils are round and equally reacting to light. EOMI. No scleral icterus. No conjunctival pallor. Normocephalic, atraumatic. No pharyngeal erythema. No thyromegaly. CARDIOVASCULAR: S1 and S2 present. No murmurs, rubs, or gallops. PULMONARY: Chest is clear to auscultation, no wheezing or crackles. ABDOMEN: Soft, nontender, nondistended, normoactive bowel sounds. No palpable organomegaly. MUSCULOSKELETAL: No joint swelling or deformity. EXTREMITIES: No cyanosis, clubbing, or pedal edema. NEUROLOGICAL: Unable to evaluate. SKIN: No rashes. - Labs CBC & Chem 7: 07/18/21 08:53 07/18/21 08:53 Labs: Abnormal Lab Results - Last 24 Hours (Table) 07/17/21 07/17/21 07/17/21 Range/Units 12:32 13:12 13:27 WBC (3.8-10.6) k/uL Hct (34.0-46.0) % Neutrophils # (1.3-7.7) k/uL Lymphocytes # (1.0-4.8) k/uL Monocytes # (0-1.0) k/uL ABG pH 7.33 L (7.35-7.45) ABG pCO2 46 H (35-45) mmHg ABG pO2 74 L (83-108) mmHg ABG Total CO2 26 H (19-24) mmol/L Chloride (98-107) mmol/L Carbon Dioxide (22-30) mmol/L BUN (7-17) mg/dL Creatinine (0.52-1.04) mg/dL Glucose (74-99) mg/dL POC Glucose (mg/dL) 142 H (75-99) mg/dL AST (14-36) U/L ALT (4-34) U/L Alkaline Phosphatase (38-126) U/L Total Protein (6.3-8.2) g/dL Albumin (3.5-5.0) g/dL Urine Protein (Negative) Urine Mucus (None) /hpf Urine Opiates Screen Detected H (NotDetected) U Methamphetamines Scrn Detected H (NotDetected) U Benzodiazepines Scrn Detected H (NotDetected) 07/17/21 07/17/21 07/18/21 Range/Units 18:20 18:20 00:00 WBC 24.7 H (3.8-10.6) k/uL Hct 46.8 H (34.0-46.0) % Neutrophils # 22.6 H (1.3-7.7) k/uL Lymphocytes # 0.5 L (1.0-4.8) k/uL Monocytes # 1.2 H (0-1.0) k/uL ABG pH (7.35-7.45) ABG pCO2 (35-45) mmHg ABG pO2 (83-108) mmHg ABG Total CO2 (19-24) mmol/L Chloride (98-107) mmol/L Carbon Dioxide 19 L (22-30) mmol/L BUN 33 H (7-17) mg/dL Creatinine 1.57 H (0.52-1.04) mg/dL Glucose 127 H (74-99) mg/dL POC Glucose (mg/dL) (75-99) mg/dL AST 86 H (14-36) U/L ALT 66 H (4-34) U/L Alkaline Phosphatase 221 H (38-126) U/L Total Protein 6.2 L (6.3-8.2) g/dL Albumin (3.5-5.0) g/dL Urine Protein 1+ H (Negative) Urine Mucus Rare H (None) /hpf Urine Opiates Screen (NotDetected) U Methamphetamines Scrn (NotDetected) U Benzodiazepines Scrn (NotDetected) 07/18/21 07/18/21 Range/Units 08:53 08:53 WBC 23.2 H (3.8-10.6) k/uL Hct (34.0-46.0) % Neutrophils # 20.9 H (1.3-7.7) k/uL Lymphocytes # 0.5 L (1.0-4.8) k/uL Monocytes # 1.3 H (0-1.0) k/uL ABG pH (7.35-7.45) ABG pCO2 (35-45) mmHg ABG pO2 (83-108) mmHg ABG Total CO2 (19-24) mmol/L Chloride 111 H (98-107) mmol/L Carbon Dioxide 20 L (22-30) mmol/L BUN 36 H (7-17) mg/dL Creatinine 1.09 H (0.52-1.04) mg/dL Glucose 130 H (74-99) mg/dL POC Glucose (mg/dL) (75-99) mg/dL AST 57 H (14-36) U/L ALT 43 H (4-34) U/L Alkaline Phosphatase 131 H (38-126) U/L Total Protein 5.1 L (6.3-8.2) g/dL Albumin 2.8 L (3.5-5.0) g/dL Urine Protein (Negative) Urine Mucus (None) /hpf Urine Opiates Screen (NotDetected) U Methamphetamines Scrn (NotDetected) U Benzodiazepines Scrn (NotDetected) Assessment and Plan Assessment: 1. Altered mental status/encephalopathy likely medication induced; combination of narcotics, benzodiazepines and methamphetamine; CT of head completed and outside facilities negative; patient has been evaluated by neurology-- recommending to hold all hypertensive medications and avoid sedating medications including opiates and narcotics; patient did receive a dose of Lanoxin in ED -- MRI of the brain and EEG is recommended; TSH, vitamin B12 and folic acid levels are ordered 2. Marked leukocytosis; no clear source of infection; we will monitor CBC, CMP and pro-calcitonin; IDs consulted, await recommendations 3. Acute renal injury; slowly IV fluid hydration in form of normal saline at rate of 75 mL an hour; we will monitor strict JAQUELINE's, daily weights, renal function and electrolytes; avoid 4. Transaminitis; we will monitor liver enzymes closely with plans to obtain a hepatic ultrasound if continue to trend up 5. Substance abuse; urine drug screen is positive for opiates, benzodiazepines and methamphetamine 6. Hypertension; takes hydralazine 37.5 mg daily; losartan 100 mg daily; antihypertensive therapy held due to soft blood pressures 7. Hyperlipidemia; Lipitor 10 mg by mouth daily at bedtime 8. Hypothyroidism; Synthroid 50 MCG daily 9. Asthma; not in exacerbation; continue home inhalers therapy with Symbicort and albuterol nebulizer treatments 10. History of CVA/TIA; takes aspirin 81 mg daily and Lipitor 10 mg daily at bedtime DVT prophylaxis; SCDs/heparin CODE STATUS; full code
[2021-07-18] MEDS ORDERED: VANCOMYCIN 1,250 MG in SODIUM CHLORIDE 0.9% 250 ML IVPB ONE (16:00)
[2021-07-18] MEDS ORDERED: levETIRAcetam IV 1,500 MG in SALINE 1 100ML.BAG IVPB STA (16:07)
--- NOTE | 2021-07-18 16:56 | P.PN ---
Progress Note - Text Anesthesia was consulted to perform a lumbar puncture by Dr. Mathew neurology. The patient is incurring [ altered mental status]. The chart was reviewed. The procedure, the risks and benefits of the procedure, were explained to the patients . He then agreed to the procedure after informed consent was obtained. Procedure: The patient was placed in the sitting position. The low back was then sterilely prepped and draped. Then [1 ]mL of lidocaine 1% was injected subcutaneously at the L3-L4 interspace. Then a 22-gauge quinke spinal needle was placed into the subarachnoid space via a paramedian approach without difficulty. Then approximately [8 ]mL's of[ ]spinal fluid was obtained in 4 tubes. [ 2mls]/tube. The patient tolerated the procedure well. There were no complications. Instructions were then given to the patients and her nurse. Patient was to be at bed rest for the next 2 hours. Patient is e ncouraged to increase oral fluids. Patient may take previously prescribed pain meds if needed.
--- NOTE | 2021-07-18 17:39 | EEG ---
ELECTROENCEPHALOGRAM REPORT DATE OF SERVICE: 07/18/2021. CLINICAL HISTORY: This is a 65-year-old woman who has altered mental status. The video EEG is obtained to evaluate for seizure epileptiform activity. The patient is not on any antiepileptic drugs. EEG TYPE: A routine 21 channel EEG is performed with video using the 10/20 electrode placement system. DESCRIPTION: Wakefulness is only obtained. During the awake state, the background consists of moderate voltage of 4 to 5 hertz theta activity intermixed with delta. There is no physiological stage 2 sleep architecture seen. There is no focal slowing. There is moderate amount of diffuse high voltage anterior to posterior lag with triphasic morphology seen. Photic stimulation and hyperventilation is not performed. CLINICAL INTERPRETATION: This is an abnormal routine EEG. The background slowing is suggestive of moderate to severe encephalopathy of unknown etiology. There is no focal slowing, epileptiform discharges or seizure on the EEG. Triphasic morphology is likely due to toxic metabolic abnormalities. Clinical correlation is recommended. CLAUDIA / JAGDISH: [id number] / MTDD
[2021-07-18] MEDS: SODIUM CHLORIDE 0.9% IV SCH ×2 (18:54→23:55)
[2021-07-18] MEDS: ACYCLOVIR SODIUM IV SCH ×2 (18:54→23:55)
[2021-07-18 18:57] LABS: Glucose,CSF 80 mg/dL (40-70); Total Protein,CSF 57 mg/dL (12-60)
[2021-07-18 19:25] LABS: Appearance,CSF Clear; CSF Tube Number 4; Nucleated Cells, CSF 0 u/L (0-5); Red Blood Cell,CSF 2 u/L (0-10)
[2021-07-18] MEDS: PANTOPRAZOLE 40 MG TABLET PO SCH (22:28)
[2021-07-18] MEDS: ATORVASTATIN 10 MG TAB PO SCH (22:28)
[2021-07-18] MEDS: FLUTICASONE 50MCG/SPRAY NASAL 16GM EA NOSTRIL SCH (22:28)
[2021-07-18] MEDS: levETIRAcetam IV 1,000 MG in SALINE 1 100ML.BAG IVPB SCH (23:01)
[2021-07-18] MEDS ORDERED: ACETAMINOPHEN IV (For NPO) 1,000 MG in EMPTY BAG 1 BAG IVPB ONE (23:30)
--- NOTE | 2021-07-18 23:35 | P.CONS ---
History of Present Illness - Reason for Consult Consult date: 07/18/21 Fever and decreased mental status changes Requesting physician: Abel Mathew - Chief Complaint Mental status changes x 1 day - History of Present Illness , Patient is a 65-year female with a past medical history pertinent for hypertension hyperlipidemia CVA with residual right-sided hemiparesis spinal fusion recently he did have a procedure done on her right foot with some bone spurring that happened on Tuesday that is 2 days before presentation to the hospital patient seem to have some postop pain for the patient has received [place] and Toradol patient apparently was doing okay when she went to bed on however around 3 in the morning on Tuesday the patient has been heard noises and noticed the patient was throwing up and the patient was not respo nding to him appropriately he was slow patient was subsequently taken to the [facility], however the patient did have a CT of the brain and abdominal pelvis apparently reported negative and the patient was subsequently transferred to [facility] for further work-up on arrival to the ER the patient was afebrile however the patient started spiking a fever 100.6 -100.5 last night and this morning patient did have a mental status changes and the patient is unresponsive no further vomiting has been reported or any diarrhea patient did have white count 24.7 on admission with a left shift patient did have elevated BUN/creatinine though seem to have some improvement lung exams are mildly elevated as well as elevated lactic acid patient did have a negative UA drug screen was positive for opiates methamphetamines and benzos patient also have an MRI of the brain age-related atrophic and chronic small vessel ischemic changes no acute intracranial process patient did have a chest x-ray elevation the right hemidiaphragm with right lower lobe atelectasis, most additional patient has been to be from review the chart and talking to the present at bedside as the patient was unresponsive and did not provide any history Review of Systems Positive points has been mentioned in HPI complete review could not be obtained because of his underlying mental status Past Medical History Past Medical History: Asthma, CVA/TIA, GERD/Reflux, Hearing Disorder / Deafness, Hyperlipidemia, Hypertension, Musculoskeletal Disorder, Neurologic Disorder, Osteoarthritis (OA), Thyroid Disorder Additional Past Medical History / Comment(s): Varicose veins. Bilateral hearing aids. 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 allergy shots biweekly (Dr. Hinton). 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 Hx spinal fusion L2-S1., hx of positive tb test and now has [id number] instead. History of Any Multi-Drug Resistant Organisms: None Reported Past Surgical History: Appendectomy, Back Surgery, Bladder Surgery, Breast Surgery, Cholecystectomy, Heart Catheterization, Hysterectomy, Orthopedic Surgery, Tubal Ligation Additional Past Surgical History / Comment(s): Bilat CTR, Nasal surgery, bilat cataract surgery, Ganglion Cyst removal right hand, Left Kidney Stone surgery, Right Breast Biopsy, Back Surgery X3 w/(Lumbar fusion L2-S1), Right Ulna surgery, gum Line surgery, Bladder Suspension X 3, Colonoscopies, Debridement & Repair of left elbow. PAIN CLINIC PROCEDURES., torn retina right eye 04/2019 Past Anesthesia/Blood Transfusion Reactions: Postoperative Nausea & Vomiting (PONV) Additional Past Anesthesia/Blood Transfusion Reaction / Comm: States becomes very nauseaous when NPO. Past Psychological History: Depression Smoking Status: Never smoker Past Alcohol Use History: Unable to Obtain Past Drug Use History: Unable to Obtain - Past Family History Mother Family Medical History: No Reported History Daughter(s) Family Medical History: Deep Vein Thrombosis (DVT) Medications and Allergies Home Medications Medication Instructions Recorded Confirmed Type Calcium Carbonate [Calcium] 600 mg PO BID 12/16/16 07/17/21 History Cholecalciferol (Vitamin D3) 50 mcg PO BID 12/16/16 07/17/21 History [Vitamin D3] Cinnamon Bark [Cinnamon] 1,000 mg PO BID 12/16/16 07/17/21 History Dexlansoprazole [Dexilant] 30 mg PO HS 12/16/16 07/17/21 History Fluticasone Nasal [place] [Flonase 2 spr EA NOSTRIL HS 12/16/16 07/17/21 History Nasal [place]] L.acidoph,Paracasei, B.lactis 1 cap PO BID 12/16/16 07/17/21 History [Probiotic] Montelukast [Singulair] 10 mg PO HS 12/16/16 07/17/21 History Spironolactone [Aldactone] 50 mg PO BID 12/16/16 07/17/21 History Atorvastatin [Lipitor] 10 mg PO HS 08/24/18 07/17/21 History Azelastine HCl [Astepro] 2 spray EA NOSTRIL BID PRN 08/24/18 07/17/21 History Baclofen [Lioresal] 20 mg PO BID 08/24/18 07/17/21 History DULoxetine HCL [Cymbalta] 60 mg PO DAILY 08/24/18 07/17/21 History Furosemide [Lasix] 20 mg PO DAILY@1700 08/24/18 07/17/21 History Furosemide [Lasix] 40 mg PO DAILY 08/24/18 07/17/21 History lamoTRIgine [LaMICtal] 100 mg PO BID 08/24/18 07/17/21 History Levothyroxine Sodium [Synthroid] 50 mcg PO DAILY 09/19/18 07/17/21 History Methenamine Hippurate [Hiprex] 1 gm PO Q48H 09/19/18 07/17/21 History Potassium Chloride [Potassium 10 meq PO BID 10/12/18 07/17/21 History Chloride ER] Aspirin 81 mg PO DAILY 10/24/18 07/17/21 History Magnesium 200 mg PO DAILY 10/24/18 07/17/21 History Ipratropium [place] 0.06%Nasal 2 spray EA NOSTRIL TID PRN 05/25/19 07/17/21 History [Atrovent Nasal 0.06%] Sucralfate [Carafate] 1 gm PO BID PRN 05/25/19 07/17/21 History calcium polycarbophiL [Fibercon] 625 mg PO BID 05/25/19 07/17/21 History hydrALAZINE HCL [Apresoline] 37.5 mg PO TID 05/25/19 07/17/21 History hydrOXYzine HCL [Atarax] 10 - 20 mg PO Q8H PRN 05/25/19 07/17/21 History Diclofenac Sodium Gel [Voltaren 4 gm TOPICAL QID PRN 07/10/19 07/17/21 History Gel] Mometasone/Formoterol [Dulera 100 1 puff INHALATION RT-BID PRN 12/17/19 07/17/21 History Mcg-5 Mcg Inhaler] Ondansetron Odt [Zofran ODT] 4 - 8 mg PO TID PRN 04/10/20 07/17/21 History Ascorbic Acid [Vitamin C] 1,000 mg PO DAILY #60 tab 04/12/20 07/17/21 Rx lamoTRIgine [LaMICtal] 50 mg PO DAILY@1400 03/06/21 07/17/21 History Albuterol Sulfate [Ventolin HFA] 2 puff INHALATION RT-Q4H PRN 07/17/21 07/17/21 History Dicyclomine [Bentyl] 40 mg PO Q12H 07/17/21 07/17/21 History Estradiol Cream [Estrace Cream 1 gm VAGINAL TUTH 07/17/21 07/17/21 History 0.01%] HYDROcodone/APAP 5-325MG [[place] 1 - 2 tab PO Q4H PRN 07/17/21 07/17/21 History 5-325] Ketorolac [Toradol] 10 mg PO Q6H PRN 07/17/21 07/17/21 History Lidocaine [Aspercreme Patch] 1 patch TRANSDERM DAILY PRN 07/17/21 07/17/21 History Losartan Potassium 100 mg PO DAILY 07/17/21 07/17/21 History Multivit with Calcium,Iron,Min 1 tab PO DAILY 07/17/21 07/17/21 History [Women's Multivitamin] diazePAM [Valium] 5 mg PO Q8H PRN 07/17/21 07/17/21 History Allergies Allergy/AdvReac Type Severity Reaction Status Date / Time celecoxib [From Celebrex] Allergy Itching Verified 07/17/21 14:14 ciprofloxacin [From Cipro] Allergy Rash/Hives Verified 07/17/21 14:14 gentamicin Allergy Ototoxicity Verified 07/17/21 14:14 nitrofurantoin Allergy Chest Pain Verified 07/17/21 14:14 [From Macrodantin] Penicillins Allergy Rash/Hives Verified 07/17/21 14:14 sulfamethoxazole Allergy tongue Verified 07/17/21 14:14 [From Septra] swelling thimerosal Allergy Rash/Hives Verified 07/17/21 14:14 tobramycin Allergy Rash/Hives Verified 07/17/21 14:14 trimethoprim [From Septra] Allergy tongue Verified 07/17/21 14:14 swelling cefaclor [From Ceclor] AdvReac Drug Verified 07/17/21 14:14 induced fever clindamycin [From Cleocin] AdvReac Drug Verified 07/17/21 14:14 induced fever seasonal allergies Allergy Cough Uncoded 07/17/21 12:40 Physical Exam Vitals: Vital Signs Temp Pulse Pulse Resp BP BP Pulse Ox 07/18/21 12:33 100.3 F H 94 36 H 113/60 95 07/18/21 08:40 100.5 F H 102 H 36 H 126/68 94 L 07/18/21 03:55 98.2 F 84 20 93/54 93 L 07/17/21 23:20 100.6 F H 92 19 117/62 93 L 07/17/21 19:55 98 F 71 20 121/59 96 07/17/21 18:00 99.4 F 74 18 120/68 96 07/17/21 17:59 98.1 F 69 18 129/58 97 07/17/21 14:56 66 20 109/52 96 Intake and Output 07/17/21 07/18/21 07/18/21 22:59 06:59 14:59 Output Total 550 950 Balance -550 -950 Output: Urine 550 950 Uretheral (Zarate) 550 Other: Voiding Method Indwelling Catheter Indwelling Catheter Indwelling Catheter # Bowel Movements 1 GENERAL DESCRIPTION: Elderly female lying in bed, no distress. No tachypnea or accessory muscle of respiration use. HEENT: Shows Pallor , no scleral icterus. Oral mucous membrane is dry. No pharyngeal erythema or thrush NECK: Trachea central, no thyromegaly. LUNGS: Unlabored breathing. Decreased to some of the base. No wheeze or crackle. HEART: S1, S2, regular rate and rhythm. No loud murmur ABDOMEN: Soft, mild left lower quadrant tenderness , no guarding or rigidity, EXTREMITIES: No edema of feet. SKIN: No rash, no masses palpable. NEUROLOGICAL: The patient is unresponsive, questionable neck rigidity Results CBC & Chem 7: 07/18/21 08:53 07/18/21 08:53 Labs: Abnormal Lab Results - Last 24 Hours (Table) 07/17/21 07/17/21 07/17/21 Range/Units 13:27 18:20 18:20 WBC 24.7 H (3.8-10.6) k/uL Hct 46.8 H (34.0-46.0) % Neutrophils # 22.6 H (1.3-7.7) k/uL Lymphocytes # 0.5 L (1.0-4.8) k/uL Monocytes # 1.2 H (0-1.0) k/uL Chloride (98-107) mmol/L Carbon Dioxide 19 L (22-30) mmol/L BUN 33 H (7-17) mg/dL Creatinine 1.57 H (0.52-1.04) mg/dL Glucose 127 H (74-99) mg/dL Plasma Lactic Acid Jeffy (0.7-2.0) mmol/L AST 86 H (14-36) U/L ALT 66 H (4-34) U/L Alkaline Phosphatase 221 H (38-126) U/L Total Protein 6.2 L (6.3-8.2) g/dL Albumin (3.5-5.0) g/dL Urine Protein (Negative) Urine Mucus (None) /hpf Urine Opiates Screen Detected H (NotDetected) U Methamphetamines Scrn Detected H (NotDetected) U Benzodiazepines Scrn Detected H (NotDetected) 07/18/21 07/18/21 07/18/21 Range/Units 00:00 08:53 08:53 WBC 23.2 H (3.8-10.6) k/uL Hct (34.0-46.0) % Neutrophils # 20.9 H (1.3-7.7) k/uL Lymphocytes # 0.5 L (1.0-4.8) k/uL Monocytes # 1.3 H (0-1.0) k/uL Chloride 111 H (98-107) mmol/L Carbon Dioxide 20 L (22-30) mmol/L BUN 36 H (7-17) mg/dL Creatinine 1.09 H (0.52-1.04) mg/dL Glucose 130 H (74-99) mg/dL Plasma Lactic Acid Jeffy (0.7-2.0) mmol/L AST 57 H (14-36) U/L ALT 43 H (4-34) U/L Alkaline Phosphatase 131 H (38-126) U/L Total Protein 5.1 L (6.3-8.2) g/dL Albumin 2.8 L (3.5-5.0) g/dL Urine Protein 1+ H (Negative) Urine Mucus Rare H (None) /hpf Urine Opiates Screen (NotDetected) U Methamphetamines Scrn (NotDetected) U Benzodiazepines Scrn (NotDetected) 07/18/21 Range/Units 12:08 WBC (3.8-10.6) k/uL Hct (34.0-46.0) % Neutrophils # (1.3-7.7) k/uL Lymphocytes # (1.0-4.8) k/uL Monocytes # (0-1.0) k/uL Chloride (98-107) mmol/L Carbon Dioxide (22-30) mmol/L BUN (7-17) mg/dL Creatinine (0.52-1.04) mg/dL Glucose (74-99) mg/dL Plasma Lactic Acid Jeffy 2.2 H* (0.7-2.0) mmol/L AST (14-36) U/L ALT (4-34) U/L Alkaline Phosphatase (38-126) U/L Total Protein (6.3-8.2) g/dL Albumin (3.5-5.0) g/dL Urine Protein (Negative) Urine Mucus (None) /hpf Urine Opiates Screen (NotDetected) U Methamphetamines Scrn (NotDetected) U Benzodiazepines Scrn (NotDetected) Assessment and Plan (1) Fever Current Visit: Yes Status: Acute Code(s): R50.9 - FEVER, UNSPECIFIED SNOMED Code(s): 139425802 Plan: 1patient presented to hospital with mental status changes patient did have an episode of vomiting, patient apparently did have a negative CT of abdominal pelvis at the [facility] chest x-ray showing a right lower lobe atelectasis UA was negative with significant mental status changes and minimal headache recently underlying HAUL CANE BRAKEMAN infection needs to be ruled out, anesthesia has been consulted and LP has been ordered result be followed 2patient is empirically covered with the Rocephin Vanco and acyclovir to continue while waiting for the work-up to be completed We will follow on clinical condition and cultures to further adjust medication if needed Thank you for this consultation will follow this patient along with you at the bedside questions and concerns were answered Time with Patient: Greater than 30
[2021-07-18 23:39] LABS: Glucose,Whole Blood 125 mg/dL (75-99)
[2021-07-19] MEDS: SODIUM CHLORIDE 0.9% 1,000 ML IV SCH ×2 (06:48→16:26)
[2021-07-19] MEDS: LEVOTHYROXINE 50 MCG TAB PO SCH (06:48)
[2021-07-19] MEDS: CHOLECALCIFEROL 25 MCG (1000 IU) TABLET PO SCH ×2 (07:33→22:13)
[2021-07-19] MEDS: ASCORBIC ACID 500 MG TAB PO SCH (07:33)
[2021-07-19] MEDS: ASPIRIN 81 MG PO SCH (07:33)
[2021-07-19] MEDS: DULoxetine HCL 60 MG CAPSULE.DR PO SCH (07:33)
[2021-07-19] MEDS: CALCIUM CARBONATE 500 MG CHEWABLE PO SCH ×2 (07:34→22:12)
[2021-07-19] MEDS ORDERED: VANCOMYCIN 1,500 MG in SODIUM CHLORIDE 0.9% 250 ML IVPB SCH (08:00)
[2021-07-19] MEDS: levETIRAcetam IV 1,000 MG in SALINE 1 100ML.BAG IVPB SCH (09:12)
[2021-07-19] MEDS: SODIUM CHLORIDE 0.9% IV SCH (10:00)
[2021-07-19] MEDS: ACYCLOVIR SODIUM IV SCH (10:00)
--- NOTE | 2021-07-19 12:16 | P.PN ---
Subjective Progress Note Date: 07/19/21 The patient is seen at bedside and per nurse she continues to be confused but some improvement today compared to yesterday. She was opening her eyes and lifting arms to nurse. Otherwise not verbalizing. No seizure-like activity. Patient had CSF study yesterday and was negative for meningoecephalitis. Objective - Vital Signs Vital signs: Vital Signs Temp 98.4 F 07/19/21 09:10 Pulse 85 07/19/21 09:10 Resp 16 07/19/21 09:10 BP 150/85 07/19/21 09:10 Pulse Ox 95 07/19/21 09:10 Intake & Output 07/18/21 07/19/21 07/19/21 18:59 06:59 18:59 Output Total 525 500 Balance -525 -500 Output: Urine 525 500 Other: Voiding Method Indwelling Catheter Indwelling Catheter Indwelling Catheter # Bowel Movements 1 1 2 - Exam GENERAL: The patient is very somnolent. HENT: No nuchal rigidity. EXTREMITIES: Right ankle wrapped in gauze and has brace from her recent surgery. NEUROLOGICAL: Examination is very limited because of patient's Sebastien Higher mental function: He is severely drowsy but briefly aweakable to voice. She would open her eyes and follow few simple commands (wiggling right toes and attempting to stick tongue out). Otherwise is moaning and not verbalizing. Cranial nerves: The pupils are round, equal (2mm) and reactive to light . No facial weakness. Was attempting to stick her tongue out. She is moaning. . Motor: Strength is very limited but with painful stimuli she withdraws the left side more than the right (she has residual right-sided weakness from previous stroke). Cerebellum: Could not assess. Plantars is mute on left but right could not assess. SOME OF THE WORK-UP: CSF is it clear, colorless, red blood cell is 2, total nucleated cells 0, glucose is 80 and a protein is 57. The CSF is negative for meningeal encephalitis. CSF stain is no organisms seen. MRI the brain without is reported as age-related atrophic and chronic small vessel ischemia. No acute intracranial process seen at this time. Urinalysis is negative for urinary tract infection Blood cultures is no growth after 24 hours. Urine drug screen is positive for opiates, methamphetamine, benzoyl. Otherwise the rest is nondetected. Acetaminophen is less than 10, systolic is less than 1.0. White blood cell is as high as 24.7k and predominately neutrophilic. Her creatinine is 1.57--->0.86, AST is 86, ALT of 66 and most current AST is 57 and ALT 43. Ammonia level is 23 TSH is 1.130. Vitamin B12 is 1140 Serum folate is 18.20 - Labs CBC & Chem 7: 07/18/21 08:53 07/19/21 07:47 Labs: Abnormal Lab Results - Last 24 Hours (Table) 07/18/21 07/18/21 07/18/21 Range/Units 08:53 12:08 15:40 POC Glucose (mg/dL) (75-99) mg/dL Plasma Lactic Acid Jeffy 2.2 H* 2.8 H* (0.7-2.0) mmol/L Vitamin B12 1140.0 H (200.0-944.0) pg/mL CSF Glucose (40-70) mg/dL 07/18/21 07/18/21 07/18/21 Range/Units 17:58 18:57 23:35 POC Glucose (mg/dL) 125 H (75-99) mg/dL Plasma Lactic Acid Jeffy 2.5 H* (0.7-2.0) mmol/L Vitamin B12 (200.0-944.0) pg/mL CSF Glucose 80 H (40-70) mg/dL Microbiology - Last 24 Hours (Table) 07/18/21 17:58 CSF Gram Stain - Preliminary Cerebral Spinal Fluid CSF Culture - Preliminary 07/18/21 00:03 Blood Culture - Preliminary Blood No Growth after 24 hours Assessment and Plan Assessment: * Septic encephalopathy: Unknown exact source yet. Had Low grade fever with altered mental status. Had current surgery over the right lower extremity. Other cause of her altered mentation due to medication induced (recently she was being prescribed [place], Toradol and she has home dose of Valium) and metabolic component. CSF is negative for meningoencephalitis. MRI Brain is negative for stroke.--mentation is minimally improving * Acute kidney injury--improved * History of hypertension * History of stroke with residual weakness over the right sided (has stroke in spinal cord according to patient) and walks with walker * History of spinal fusion over the L2 to S1 * Hard of hearing bilaterally. * Neuropathy over the right lower extremity as reported Plan: Is on Ceftriaxone 2gm every 12 hours, Vancomycin, Acylovir 20mg/kg every 8 hours started on 07/18/2021 for empiric meningeal encephalitis but the CSF is negative. Therefore I stopped the acyclovir. I'll defer the antibiotic modification to the ID team. Patient had a stat EEG on 07/18/2021 and it was abnormal. The background slowing is suggestive of moderate encephalopathy of unknown etiology. There is no focal slowing, epileptiform discharges or seizure on the EEG. Triphasic morphology is likely due to toxic metabolic abnormality I decreased the Keppra from 1000 mg every 12 hours to 500mg every 12 hours for seizure prophylaxis. Once the patient's mentation is improved then recommend to stop the antiepileptic drug. I will repeat routine EEG for tomorrow. Infection disease is on board. Unknown source of the patient's sepsis. Cartography Professor feels the wound site is clean. Possibly consider further imaging of the spine if the source is still unknown. I.D. is consulted. ICU is consulted but they did not feel patient is an ICU candidate. Please avoidany opiate use/narcotic or sedation which will affect patient's mentation. We'll defer the rest of the medical management to the primary team. The plan is discussed with the patient's who is at bedside and her nurse. Dr. Vuong will start neurology coverage tomorrow AM. Abel Mathew M.D. Neuro-Hospitalist Time with Patient: Less than 30
--- NOTE | 2021-07-19 13:03 | P.CNPUL ---
History of Present Illness Consult date: 07/19/21 Chief complaint: Altered mental status History of present illness: I was involved in the patient's care due to possible ICU transfer as the patient was having diminished level of consciousness and the patient was altered neurologically. I reviewed the chart. 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 The patient has issues with chronic pain and she has undergone also spinal fusion. She has hypertension and hyperlipidemia as comorbid conditions in addition to multitude of comorbidities as mentioned in the chart. She was in a good state of health. She apparently was undergoing a foot surgery for a bunion and to my understanding this was done under spinal anesthesia. The patient went home and following that she was found to be altered by the and she came into the hospital for further evaluation. Since yesterday, the patient was evaluated by neurology and infectious disease. The patient was spiking a temperature 100.6. Along with the mental status change, there was a concern of an underlying PICTURES EDITOR infection and patient was given an MRI that do not to be negative and a lumbar puncture that showed no significant leukocytosis or increased protein. Cultures still pending for now. Meanwhile, the patient was given a dose of vancomycin and Rocephin by infectious disease. No seizure activity has been noted. The patient has been a bit difficult to arouse. Nevertheless, she was as the painful stimulation and she would moan and groan. She has withdrawing to moving all 4 extremities. She does not converse. We have not seen any significant Sheryl White movements to indicate on the underlying seizure activity. Note that the patient was given [place] and Toradol following her surgery to be taken outpatient basis and there is no clear history of a drug overdose. For now, the patient has mild LFT abnormalities with an AST of 57, ALT of 43 and an alkaline phosphatase of 131. Creatinine is down to 1.09 and a sodium level is at 139. The patient has a white cell count of 23.2 with a hemoglobin of 13.9. UA has been negative for any infection. CSF shows 2 RBCs, no nucleated cells, glucose of 80 with a protein of 57. Urine toxin was positive for opiates, methamphetamine and benzodiazepines. Earlier this morning, she developed some loose diarrhea and stool was checked for C. diff that came back negative. MRI of the brain was negative. 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 The EEG was abnormal and showed background slowing along with moderate to severe encephalopathy. No seizure activity was noted. Review of Systems ROS unobtainable: due to mental status Past Medical History Past Medical History: Asthma, CVA/TIA, GERD/Reflux, Hearing Disorder / Deafness, Hyperlipidemia, Hypertension, Musculoskeletal Disorder, Neurologic Disorder, Osteoarthritis (OA), Thyroid Disorder Additional Past Medical History / Comment(s): Varicose veins. Bilateral hearing aids. 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 allergy shots biweekly (Dr. Hinton). 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 Hx spinal fusion L2-S1., hx of positive tb test and now has [id number] instead. History of Any Multi-Drug Resistant Organisms: None Reported Past Surgical History: Appendectomy, Back Surgery, Bladder Surgery, Breast Surgery, Cholecystectomy, Heart Catheterization, Hysterectomy, Orthopedic Surgery, Tubal Ligation Additional Past Surgical History / Comment(s): Bilat CTR, Nasal surgery, bilat cataract surgery, Ganglion Cyst removal right hand, Left Kidney Stone surgery, Right Breast Biopsy, Back Surgery X3 w/(Lumbar fusion L2-S1), Right Ulna surgery, gum Line surgery, Bladder Suspension X 3, Colonoscopies, Debridement & Repair of left elbow. PAIN CLINIC PROCEDURES., torn retina right eye 04/2019 Past Anesthesia/Blood Transfusion Reactions: Postoperative Nausea & Vomiting (PONV) Additional Past Anesthesia/Blood Transfusion Reaction / Comment(s): States becomes very nauseaous when NPO. Past Psychological History: Depression Smoking Status: Never smoker Past Alcohol Use History: Unable to Obtain Past Drug Use History: Unable to Obtain - Past Family History Mother Family Medical History: No Reported History Daughter(s) Family Medical History: Deep Vein Thrombosis (DVT) Medications and Allergies Home Medications Medication Instructions Recorded Confirmed Type Calcium Carbonate [Calcium] 600 mg PO BID 12/16/16 07/17/21 History Cholecalciferol (Vitamin D3) 50 mcg PO BID 12/16/16 07/17/21 History [Vitamin D3] Cinnamon Bark [Cinnamon] 1,000 mg PO BID 12/16/16 07/17/21 History Dexlansoprazole [Dexilant] 30 mg PO HS 12/16/16 07/17/21 History Fluticasone Nasal [place] [Flonase 2 spr EA NOSTRIL HS 12/16/16 07/17/21 History Nasal [place]] L.acidoph,Paracasei, B.lactis 1 cap PO BID 12/16/16 07/17/21 History [Probiotic] Montelukast [Singulair] 10 mg PO HS 12/16/16 07/17/21 History Spironolactone [Aldactone] 50 mg PO BID 12/16/16 07/17/21 History Atorvastatin [Lipitor] 10 mg PO HS 08/24/18 07/17/21 History Azelastine HCl [Astepro] 2 spray EA NOSTRIL BID PRN 08/24/18 07/17/21 History Baclofen [Lioresal] 20 mg PO BID 08/24/18 07/17/21 History DULoxetine HCL [Cymbalta] 60 mg PO DAILY 08/24/18 07/17/21 History Furosemide [Lasix] 20 mg PO DAILY@1700 08/24/18 07/17/21 History Furosemide [Lasix] 40 mg PO DAILY 08/24/18 07/17/21 History lamoTRIgine [LaMICtal] 100 mg PO BID 08/24/18 07/17/21 History Levothyroxine Sodium [Synthroid] 50 mcg PO DAILY 09/19/18 07/17/21 History Methenamine Hippurate [Hiprex] 1 gm PO Q48H 09/19/18 07/17/21 History Potassium Chloride [Potassium 10 meq PO BID 10/12/18 07/17/21 History Chloride ER] Aspirin 81 mg PO DAILY 10/24/18 07/17/21 History Magnesium 200 mg PO DAILY 10/24/18 07/17/21 History Ipratropium [place] 0.06%Nasal 2 spray EA NOSTRIL TID PRN 05/25/19 07/17/21 History [Atrovent Nasal 0.06%] Sucralfate [Carafate] 1 gm PO BID PRN 05/25/19 07/17/21 History calcium polycarbophiL [Fibercon] 625 mg PO BID 05/25/19 07/17/21 History hydrALAZINE HCL [Apresoline] 37.5 mg PO TID 05/25/19 07/17/21 History hydrOXYzine HCL [Atarax] 10 - 20 mg PO Q8H PRN 05/25/19 07/17/21 History Diclofenac Sodium Gel [Voltaren 4 gm TOPICAL QID PRN 07/10/19 07/17/21 History Gel] Mometasone/Formoterol [Dulera 100 1 puff INHALATION RT-BID PRN 12/17/19 07/17/21 History Mcg-5 Mcg Inhaler] Ondansetron Odt [Zofran ODT] 4 - 8 mg PO TID PRN 04/10/20 07/17/21 History Ascorbic Acid [Vitamin C] 1,000 mg PO DAILY #60 tab 04/12/20 07/17/21 Rx lamoTRIgine [LaMICtal] 50 mg PO DAILY@1400 03/06/21 07/17/21 History Albuterol Sulfate [Ventolin HFA] 2 puff INHALATION RT-Q4H PRN 07/17/21 07/17/21 History Dicyclomine [Bentyl] 40 mg PO Q12H 07/17/21 07/17/21 History Estradiol Cream [Estrace Cream 1 gm VAGINAL TUTH 07/17/21 07/17/21 History 0.01%] HYDROcodone/APAP 5-325MG [[place] 1 - 2 tab PO Q4H PRN 07/17/21 07/17/21 History 5-325] Ketorolac [Toradol] 10 mg PO Q6H PRN 07/17/21 07/17/21 History Lidocaine [Aspercreme Patch] 1 patch TRANSDERM DAILY PRN 07/17/21 07/17/21 History Losartan Potassium 100 mg PO DAILY 07/17/21 07/17/21 History Multivit with Calcium,Iron,Min 1 tab PO DAILY 07/17/21 07/17/21 History [Women's Multivitamin] diazePAM [Valium] 5 mg PO Q8H PRN 07/17/21 07/17/21 History Allergies Allergy/AdvReac Type Severity Reaction Status Date / Time celecoxib [From Celebrex] Allergy Itching Verified 07/17/21 14:14 ciprofloxacin [From Cipro] Allergy Rash/Hives Verified 07/17/21 14:14 gentamicin Allergy Ototoxicity Verified 07/17/21 14:14 nitrofurantoin Allergy Chest Pain Verified 07/17/21 14:14 [From Macrodantin] Penicillins Allergy Rash/Hives Verified 07/17/21 14:14 sulfamethoxazole Allergy tongue Verified 07/17/21 14:14 [From Septra] swelling thimerosal Allergy Rash/Hives Verified 07/17/21 14:14 tobramycin Allergy Rash/Hives Verified 07/17/21 14:14 trimethoprim [From Septra] Allergy tongue Verified 07/17/21 14:14 swelling cefaclor [From Ceclor] AdvReac Drug Verified 07/17/21 14:14 induced fever clindamycin [From Cleocin] AdvReac Drug Verified 07/17/21 14:14 induced fever seasonal allergies Allergy Cough Uncoded 07/17/21 12:40 Physical Exam Vitals: Vital Signs Temp Pulse Pulse Resp BP Pulse Ox 07/19/21 12:41 99.5 F 86 37 H 145/78 96 07/19/21 09:10 98.4 F 85 16 150/85 95 07/19/21 04:25 97.8 F 78 21 104/60 96 07/18/21 23:05 99.7 F H 109 H 30 H 110/68 94 L 07/18/21 21:35 99.8 F H 123 H 28 H 94/62 91 L 07/18/21 17:00 99.8 F H 99 38 H 123/72 95 Intake and Output 07/18/21 07/19/21 07/19/21 22:59 06:59 14:59 Output Total 525 500 Balance -525 -500 Output: Urine 525 500 Other: Voiding Method Indwelling Catheter Indwelling Catheter Indwelling Catheter # Bowel Movements 1 2 GENERAL DESCRIPTION: Elderly female lying in bed, no distress. No tachypnea or accessory muscle of respiration use. The patient's breathing is nonlabored. Head exam was generally normal. There was no scleral icterus or corneal arcus. Mucous membranes were moist. HEENT: Shows Pallor , no scleral icterus. Oral mucous membrane is dry. No pharyngeal erythema or thrush NECK: Trachea central, no thyromegaly. There is no JVDs. There is no neck stiffness. LUNGS: Unlabored breathing. Decreased to some of the base. No wheeze or crackle. HEART: S1, S2, regular rate and rhythm. No loud murmur ABDOMEN: Soft, mild left lower quadrant tenderness , no guarding or rigidity, EXTREMITIES: No edema of feet. SKIN: No rash, no masses palpable. NEUROLOGICAL: Cranial nerves: The pupils are round, equal (2mm) and reactive to light . No facial weakness. Was attempting to stick her tongue out. She is moaning. Motor: Strength is very limited but with painful stimuli she withdraws the left side more than the right and she has residual right-sided weakness from previous stroke). Results - Laboratory Findings CBC and BMP: 07/18/21 08:53 07/19/21 07:47 ABG ABG pH 7.33 (7.35-7.45) L 07/17/21 13:12 ABG pCO2 46 mmHg (35-45) H 07/17/21 13:12 ABG pO2 74 mmHg (83-108) L 07/17/21 13:12 ABG O2 Saturation 94.5 % (94-97) 07/17/21 13:12 Abnormal lab findings: Abnormal Labs 07/17/21 07/17/21 07/17/21 12:32 13:12 13:27 WBC Hct Neutrophils # Lymphocytes # Monocytes # ABG pH 7.33 L ABG pCO2 46 H ABG pO2 74 L ABG Total CO2 26 H Chloride Carbon Dioxide BUN Creatinine Glucose POC Glucose (mg/dL) 142 H Plasma Lactic Acid Jeffy AST ALT Alkaline Phosphatase Total Protein Albumin Vitamin B12 Urine Protein Urine Mucus CSF Glucose Urine Opiates Screen Detected H U Methamphetamines Scrn Detected H U Benzodiazepines Scrn Detected H 07/17/21 07/17/21 07/18/21 18:20 18:20 00:00 WBC 24.7 H Hct 46.8 H Neutrophils # 22.6 H Lymphocytes # 0.5 L Monocytes # 1.2 H ABG pH ABG pCO2 ABG pO2 ABG Total CO2 Chloride Carbon Dioxide 19 L BUN 33 H Creatinine 1.57 H Glucose 127 H POC Glucose (mg/dL) Plasma Lactic Acid Jeffy AST 86 H ALT 66 H Alkaline Phosphatase 221 H Total Protein 6.2 L Albumin Vitamin B12 Urine Protein 1+ H Urine Mucus Rare H CSF Glucose Urine Opiates Screen U Methamphetamines Scrn U Benzodiazepines Scrn 07/18/21 07/18/21 07/18/21 08:53 08:53 12:08 WBC 23.2 H Hct Neutrophils # 20.9 H Lymphocytes # 0.5 L Monocytes # 1.3 H ABG pH ABG pCO2 ABG pO2 ABG Total CO2 Chloride 111 H Carbon Dioxide 20 L BUN 36 H Creatinine 1.09 H Glucose 130 H POC Glucose (mg/dL) Plasma Lactic Acid Jeffy 2.2 H* AST 57 H ALT 43 H Alkaline Phosphatase 131 H Total Protein 5.1 L Albumin 2.8 L Vitamin B12 1140.0 H Urine Protein Urine Mucus CSF Glucose Urine Opiates Screen U Methamphetamines Scrn U Benzodiazepines Scrn 07/18/21 07/18/21 07/18/21 15:40 17:58 18:57 WBC Hct Neutrophils # Lymphocytes # Monocytes # ABG pH ABG pCO2 ABG pO2 ABG Total CO2 Chloride Carbon Dioxide BUN Creatinine Glucose POC Glucose (mg/dL) Plasma Lactic Acid Jeffy 2.8 H* 2.5 H* AST ALT Alkaline Phosphatase Total Protein Albumin Vitamin B12 Urine Protein Urine Mucus CSF Glucose 80 H Urine Opiates Screen U Methamphetamines Scrn U Benzodiazepines Scrn 07/18/21 23:35 WBC Hct Neutrophils # Lymphocytes # Monocytes # ABG pH ABG pCO2 ABG pO2 ABG Total CO2 Chloride Carbon Dioxide BUN Creatinine Glucose POC Glucose (mg/dL) 125 H Plasma Lactic Acid Jeffy AST ALT Alkaline Phosphatase Total Protein Albumin Vitamin B12 Urine Protein Urine Mucus CSF Glucose Urine Opiates Screen U Methamphetamines Scrn U Benzodiazepines Scrn - Diagnostic Findings Chest x-ray: image reviewed Assessment and Plan Plan: 1 encephalopathy, likely metabolic. Lumbar puncture showed no acute abnormalities. CAT scan of the brain was negative. MRI of the brain was negative. And neurology is on the case and the patient is still under investigation. No seizure activity has been noted. 2 fever 3 leukocytosis 4 acute kidney injury, improved 5 recent history of foot surgery/bunion surgery 6 hypertension 7 previous history of a stroke with chronic right-sided weakness and the patient has difficulty with mobility using a help of a walker 8 chronic right hemidiaphragmatic elevation 9. History of spinal fusion involving L2 through S1 10 hearing impairment 11 chronic pain 12 hyperlipidemia 15 osteoarthritis 14 hypothyroidism 15 history of kidney stones with previous history of nephrolithiasis/pyelonephritis 16 irritable bowel syndrome Plan Monitor neuro functions on the medical floor Noted for ICU transfer this point in time Patient is able to protect her airways Keep the patient by mouth for now Consult with ID and urology regarding antibiotic management and further neuro workup We'll continue to follow
[2021-07-19 17:17] LABS: Basophils % (A) 0 %; Eosinophils % (A) 0 %; HCT 33.7 % (34.0-46.0); Hypochromasia Slight; Lymphocytes # (A) 0.7 k/uL (1.0-4.8); Lymphocytes % (A) 7 %; MCH 30.7 pg (25.0-35.0); MCV 95.8 fL (80.0-100.0); Mean Platelet Volume 9.6; Monocytes # (A) 0.5 k/uL (0-1.0); Monocytes % (A) 4 %; Neutrophils # (A) 9.8 k/uL (1.3-7.7); Neutrophils % (A) 87 %; Platelet Count 185 k/uL (150-450); RBC 3.52 m/uL (3.80-5.40); RDW 13.9 % (11.5-15.5); WBC 11.3 k/uL (3.8-10.6)
[2021-07-19 17:18] LABS: African American GFR (CKD) >90 (>60 ml/min/1.73 sqM); Anion Gap 4 mmol/L; Blood Urea Nitrogen 28 mg/dL (7-17); Calcium 8.2 mg/dL (8.4-10.2); Carbon Dioxide 23 mmol/L (22-30); Chloride 119 mmol/L (98-107); Glucose 85 mg/dL (74-99); Non-African American GFR(CKD) 86 (>60 ml/min/1.73 sqM); Potassium 3.7 mmol/L (3.5-5.1); Sodium 146 mmol/L (137-145)
[2021-07-19 17:41] LABS: HGB 10.8 gm/dL (11.4-16.0)
[2021-07-19] MEDS ORDERED: levETIRAcetam IV 500 MG in SODIUM CHLORIDE 0.9% 100 ML IVPB SCH (21:00)
[2021-07-19] MEDS: ATORVASTATIN 10 MG TAB PO SCH (22:12)
[2021-07-19] MEDS: FLUTICASONE 50MCG/SPRAY NASAL 16GM EA NOSTRIL SCH (22:12)
[2021-07-19] MEDS: PANTOPRAZOLE 40 MG TABLET PO SCH (22:18)
--- NOTE | 2021-07-19 23:42 | P.PN ---
Subjective Progress Note Date: 07/19/21 Principal diagnosis: Fever Patient is a 65-year-old female who was transferred from [facility] for evaluation fever and mental status changes, and this patient apparently did have a negative CT of the head and abdominal pelvis patient did have a CSF examination completed yesterday which was negative. On today's evaluation that is 07/19/2021, the patient overall fever pattern has improved with a T-max of 99.8F, the patient is slightly waking up at the [facility] staff however wasn't ambulatory in history and vomiting diarrhea or any the changes reported by the nursing staff or the at the bedside Objective - Vital Signs Vital signs: Vital Signs Temp 99.5 F 07/19/21 12:41 Pulse 86 07/19/21 12:41 Resp 37 H 07/19/21 12:41 BP 145/78 07/19/21 12:41 Pulse Ox 96 07/19/21 12:41 Intake & Output 07/18/21 07/19/21 07/19/21 18:59 06:59 18:59 Output Total 525 500 Balance -525 -500 Output: Urine 525 500 Other: Voiding Method Indwelling Catheter Indwelling Catheter Indwelling Catheter # Bowel Movements 1 1 2 - Exam GENERAL DESCRIPTION: An elderly female lying in bed in no distress RESPIRATORY SYSTEM: Unlabored breathing , decreased breath sounds at bases HEART: S1 S2 regular rate and rhythm , ABDOMEN: Soft , mild lower abdominal tenderness EXTREMITIES: No edema feet - Labs CBC & Chem 7: 07/19/21 16:37 07/19/21 16:37 Labs: Abnormal Lab Results - Last 24 Hours (Table) 07/18/21 07/18/21 07/18/21 Range/Units 08:53 17:58 18:57 POC Glucose (mg/dL) (75-99) mg/dL Plasma Lactic Acid Jeffy 2.5 H* (0.7-2.0) mmol/L Vitamin B12 1140.0 H (200.0-944.0) pg/mL CSF Glucose 80 H (40-70) mg/dL 07/18/21 Range/Units 23:35 POC Glucose (mg/dL) 125 H (75-99) mg/dL Plasma Lactic Acid Jeffy (0.7-2.0) mmol/L Vitamin B12 (200.0-944.0) pg/mL CSF Glucose (40-70) mg/dL Microbiology - Last 24 Hours (Table) 07/18/21 12:08 Blood Culture - Preliminary Blood No Growth after 24 hours 07/18/21 17:58 CSF Gram Stain - Preliminary Cerebral Spinal Fluid CSF Culture - Preliminary 07/18/21 00:03 Blood Culture - Preliminary Blood No Growth after 24 hours Assessment and Plan (1) Fever Current Visit: Yes Status: Acute Code(s): R50.9 - FEVER, UNSPECIFIED SNOMED Code(s): 410088405 Plan: 1patient presented to hospital with mental status changes patient did have an episode of vomiting, patient apparently did have a negative CT of abdominal pelvis at the [facility] chest x-ray showing a right lower lobe atelectasis UA was negative with significant mental status changes and minimal headache recently underlying [employer] infection has been 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 2 patient with a possible abdominal source as the patient is tender on clinical examination. We will wait for patient to wake up more so she is able to drink some contrast for CT of abdominal pelvis antibiotic will be adjusted to cefepime and Flagyl, at the bedside his questions and concerns were answered Time with Patient: Less than 30
--- NOTE | 2021-07-19 23:45 | P.PN ---
Subjective Progress Note Date: 07/19/21 Principal diagnosis: Altered mental status Encephalopathy related to medications Leukocytosis 65-year-old female who comes to us from [facility]. Patient had surgery by Dr. Fink on Tuesday and I was told had a couple episodes of vomiting and was lethargic so brought her to the hospital. According to the physician at [place] patient was very somnolent was able to be aroused but would go right back to sleep. Patient had lab work which showed an elevated creatinine and elevated white count. Patient had a CT of the brain and CT of the abdomen pelvis which all were negative. No history of any fevers or chills no history of any difficulty breathing or cough. Initial serum glucose is 142 and ammonia is 23 Urine drug screen is positive for opiates, methamphetamine, benzoyl. Otherwise the rest is nondetected. Acetaminophen is less than 10, systolic is less than 1.0. EKG shows sinus bradycardia no ST segment elevation or depression Blood work completed an outside facility revealed elevated creatinine and a white blood count; CT head was reported to be negative 07/18/2021 Patient is evaluated with family members at bedside; doesn't open eyes on verbal stimulation but continues to moan spontaneously; doesn't follow any commands; EEG just completed MRI of the brain scheduled for today; computed tomography scan of the brain done at an outside facility was negative; urology has recommended stat EEG which is just completed; no plans to start antiepileptic drugs unless EEG is conclusive We will continue to avoid any sedating medications which can affect patient's mentation Labs including vitamin B12 and folic acid are pending 07/19/2021 Patient is seen and evaluated, continues to be confused but some improvement compared to yesterday. Patient opens her eyes on verbal stimulation Vital signs: temperature 98.4, pulse 85, resp 16, BP 150/85 Labs WBC 11.3 , Hgb 10.8, Na 146, BUN 28 Patient IS currently on ceftriaxone, vancomycin, and acyclovir for empiric meningeal encephalitis CSF studies have been negative ; neurology on board and recommending to discontinue acyclovir Patient remains on ceftriaxone and vancomycin pending ID re-evaluation EEG is completed and suggestive of encephalopathy; no seizure activity noted Neuro recommending repeat EEG tomorrow Objective - Vital Signs Vital signs: Vital Signs Temp 99.5 F 07/19/21 12:41 Pulse 86 07/19/21 12:41 Resp 37 H 07/19/21 12:41 BP 145/78 07/19/21 12:41 Pulse Ox 96 07/19/21 12:41 Intake & Output 07/18/21 07/19/21 07/19/21 18:59 06:59 18:59 Output Total 525 500 Balance -525 -500 Output: Urine 525 500 Other: Voiding Method Indwelling Catheter Indwelling Catheter Indwelling Catheter # Bowel Movements 1 1 2 - Exam GENERAL: The patient is sleepy and responds only to tactile and painful stimuli, not in any acute distress. Well developed, well nourished. HEENT: Pupils are round and equally reacting to light. EOMI. No scleral icterus. No conjunctival pallor. Normocephalic, atraumatic. No pharyngeal erythema. No thyromegaly. CARDIOVASCULAR: S1 and S2 present. No murmurs, rubs, or gallops. PULMONARY: Chest is clear to auscultation, no wheezing or crackles. ABDOMEN: Soft, nontender, nondistended, normoactive bowel sounds. No palpable organomegaly. MUSCULOSKELETAL: No joint swelling or deformity. EXTREMITIES: No cyanosis, clubbing, or pedal edema. NEUROLOGICAL: Unable to evaluate. SKIN: No rashes. - Labs CBC & Chem 7: 07/19/21 16:37 07/19/21 16:37 Labs: Abnormal Lab Results - Last 24 Hours (Table) 07/18/21 07/18/21 07/18/21 Range/Units 08:53 15:40 17:58 POC Glucose (mg/dL) (75-99) mg/dL Plasma Lactic Acid Jeffy 2.8 H* (0.7-2.0) mmol/L Vitamin B12 1140.0 H (200.0-944.0) pg/mL CSF Glucose 80 H (40-70) mg/dL 07/18/21 07/18/21 Range/Units 18:57 23:35 POC Glucose (mg/dL) 125 H (75-99) mg/dL Plasma Lactic Acid Jeffy 2.5 H* (0.7-2.0) mmol/L Vitamin B12 (200.0-944.0) pg/mL CSF Glucose (40-70) mg/dL Microbiology - Last 24 Hours (Table) 07/18/21 12:08 Blood Culture - Preliminary Blood No Growth after 24 hours 07/18/21 17:58 CSF Gram Stain - Preliminary Cerebral Spinal Fluid CSF Culture - Preliminary 07/18/21 00:03 Blood Culture - Preliminary Blood No Growth after 24 hours Assessment and Plan Assessment: 1. Altered mental status/encephalopathy likely medication induced; combination of narcotics, benzodiazepines and methamphetamine; CT of head completed and outside facilities negative; patient has been evaluated by neurology-- recommending to hold all hypertensive medications and avoid sedating medications including opiates and narcotics; patient did receive a dose of Lanoxin in ED -- MRI of the brain and EEG is recommended; TSH, vitamin B12 and folic acid levels are ordered 2. Marked leukocytosis; no clear source of infection; we will monitor CBC, CMP and pro-calcitonin; IDs consulted, await recommendations 3. Acute renal injury; slowly IV fluid hydration in form of normal saline at rate of 75 mL an hour; we will monitor strict JAQUELINE's, daily weights, renal function and electrolytes; avoid 4. Transaminitis; we will monitor liver enzymes closely with plans to obtain a hepatic ultrasound if continue to trend up 5. Substance abuse; urine drug screen is positive for opiates, benzodiazepines and methamphetamine 6. Hypertension; takes hydralazine 37.5 mg daily; losartan 100 mg daily; antihypertensive therapy held due to soft blood pressures 7. Hyperlipidemia; Lipitor 10 mg by mouth daily at bedtime 8. Hypothyroidism; Synthroid 50 MCG daily 9. Asthma; not in exacerbation; continue home inhalers therapy with Symbicort and albuterol nebulizer treatments 10. History of CVA/TIA; takes aspirin 81 mg daily and Lipitor 10 mg daily at bedtime DVT prophylaxis; SCDs/heparin CODE STATUS; full code
[2021-07-20] MEDS: metroNIDAZOLE-NS PMX 500 MG in SALINE 1 100ML.BAG IVPB SCH ×3 (00:43→17:04)
[2021-07-20] MEDS: CEFEPIME 2 GM in SODIUM CHLORIDE 0.9% 100 ML IVPB SCH ×3 (00:43→17:04)
[2021-07-20] MEDS: LEVOTHYROXINE 50 MCG TAB PO SCH (06:47)
[2021-07-20 08:43] LABS: ALT 24 U/L (4-34); AST 33 U/L (14-36); African American GFR (CKD) >90 (>60 ml/min/1.73 sqM); Albumin 2.3 g/dL (3.5-5.0); Alkaline Phosphatase 53 U/L (38-126); Anion Gap 10 mmol/L; Blood Urea Nitrogen 24 mg/dL (7-17); Calcium 7.9 mg/dL (8.4-10.2); Carbon Dioxide 16 mmol/L (22-30); Chloride 118 mmol/L (98-107); Glucose 69 mg/dL (74-99); Non-African American GFR(CKD) >90 (>60 ml/min/1.73 sqM); Potassium 3.5 mmol/L (3.5-5.1); Sodium 144 mmol/L (137-145); Total Bilirubin 0.5 mg/dL (0.2-1.3); Total Protein 4.4 g/dL (6.3-8.2)
[2021-07-20] MEDS: CHOLECALCIFEROL 25 MCG (1000 IU) TABLET PO SCH ×2 (08:50→20:49)
[2021-07-20] MEDS: CALCIUM CARBONATE 500 MG CHEWABLE PO SCH ×2 (08:50→20:49)
[2021-07-20] MEDS: ASCORBIC ACID 500 MG TAB PO SCH (08:50)
[2021-07-20] MEDS: ASPIRIN 81 MG PO SCH (08:51)
[2021-07-20] MEDS: DULoxetine HCL 60 MG CAPSULE.DR PO SCH (08:51)
[2021-07-20] MEDS: ALBUTEROL NEBULIZED 2.5 MG/3 ML INHALATION PRN (08:59)
[2021-07-20 09:07] LABS: Basophils % (A) 0 %; Eosinophils % (A) 0 %; HCT 37.9 % (34.0-46.0); HGB 12.3 gm/dL (11.4-16.0); Hypochromasia Slight; Lymphocytes % (A) 7 %; MCH 30.9 pg (25.0-35.0); MCHC 32.4 g/dL (31.0-37.0); MCV 95.6 fL (80.0-100.0); Monocytes % (A) 7 %; Neutrophils # (A) 12.9 k/uL (1.3-7.7); Neutrophils % (A) 85 %; Platelet Count 180 k/uL (150-450); RBC 3.96 m/uL (3.80-5.40); RDW 13.9 % (11.5-15.5); WBC 15.2 k/uL (3.8-10.6)
[2021-07-20 09:21] LABS: C Reactive Protein 29.2 mg/dL (<1.0)
[2021-07-20] MEDS ORDERED: IOPAMIDOL CONTRAST (ORAL USE) VIAL PO PRN (10:59)
--- NOTE | 2021-07-20 13:37 | P.PN ---
Subjective Progress Note Date: 07/20/21 Principal diagnosis: Mental status changes. I was involved in the patient's care due to possible ICU transfer as the patient was having diminished level of consciousness and the patient was altered neurologically. I reviewed the chart. 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 The patient has issues with chronic pain and she has undergone also spinal fusion. She has hypertension and hyperlipidemia as comorbid conditions in addition to multitude of comorbidities as mentioned in the chart. She was in a good state of health. She apparently was undergoing a foot surgery for a bunion and to my understanding this was done under spinal anesthesia. The patient went home and following that she was found to be altered by the and she came into the hospital for further evaluation. Since yesterday, the patient was evaluated by neurology and infectious disease. The patient was spiking a temperature 100.6. Along with the mental status change, there was a concern of an underlying [employer]ASS[employer] infection and patient was given an MRI that do not to be negative and a lumbar puncture that showed no significant leukocytosis or increased protein. Cultures still pending for now. Meanwhile, the patient was given a dose of vancomycin and Rocephin by infectious disease. No seizure activity has been noted. The patient has been a bit difficult to arouse. Nevertheless, she was as the painful stimulation and she would moan and groan. She has withdrawing to moving all 4 extremities. She does not converse. We have not seen any significant Sheryl White movements to indicate on the underlying seizure activity. Note that the patient was given No rco and Toradol following her surgery to be taken outpatient basis and there is no clear history of a drug overdose. For now, the patient has mild LFT abnormalities with an AST of 57, ALT of 43 and an alkaline phosphatase of 131. Creatinine is down to 1.09 and a sodium level is at 139. The patient has a white cell count of 23.2 with a hemoglobin of 13.9. UA has been negative for any infection. CSF shows 2 RBCs, no nucleated cells, glucose of 80 with a protein of 57. Urine toxin was positive for opiates, methamphetamine and benzodiazepines. Earlier this morning, she developed some loose diarrhea and stool was checked for C. diff that came back negative. MRI of the brain was negative. 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 The EEG was abnormal and showed background slowing along with moderate to severe encephalopathy. No seizure activity was noted. Progress note dated 07/20/2021. 65-year-old female seen by my partner yesterday for mental status changes. 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 She also suffers from hypertension and hyperlipidemia. She was seen by my partner yesterday for mental status changes. Today, she is resting comfortably in her room, room 368. She is improved. Interestingly, she tested positive for opiates, methamphetamines, benzodiazepines. Her is in the room, shocked by the fact that her drug screen was positive for methamphetamines. He is not aware that she is taking those types of medications. The patient herself denies it as well. Her MRI of the brain was negative. The EEG showed slowing, consistent with moderate to severe encephalopathy. Currently she is on 3 L nasal cannula, with saturations of 98%. White count 15.2, normal hemoglobin hematocrit and platelet count. Sodium 144, potassium 3.5, chlorides 118, CO2 16, anion gap 10, BUN 24, with a creatinine 0.64. C-reactive protein is 29.2. Microbiology is negative. CSF appears to be negative. Chest x-ray shows a elevated right hemidiaphragm with some minimal b asilar atelectasis. The patient received 1 dose of vancomycin, and is currently on cefepime and Flagyl per infectious diseases. Objective - Vital Signs Vital signs: Vital Signs Temp 97.5 F L 07/20/21 08:00 Pulse 78 07/20/21 09:07 Resp 18 07/20/21 08:00 BP 139/66 07/20/21 08:00 Pulse Ox 98 07/20/21 08:00 Intake & Output 07/19/21 07/20/21 07/20/21 18:59 06:59 18:59 Output Total 575 350 Balance -575 -350 Weight 75 kg Output: Urine 575 350 Other: Voiding Method Indwelling Catheter Indwelling Catheter Indwelling Catheter # Bowel Movements 2 3 - Exam No acute distress, oriented 3. The patient is a little lethargic/somnolent, but is oriented. HEENT examination is grossly unremarkable. Neck supple. Full range of motion. No adenopathy thyromegaly or neck vein distention. Cardiovascular examination reveals regular rhythm rate. S1-S2 normal. No S3 or S4. No discernible murmur noted. Heart rate is 78 bpm. Lungs reveal clear breath sounds. Breath sounds are equal bilaterally. No adventitious lung sounds including wheezes rhonchi or crackles. Abdomen soft bowel sounds are heard. No masses or tenderness. Extremities are intact. No cyanosis clubbing or edema. Skin is without rash or lesion. Neurologic examination is brief but nonfocal. - Labs CBC & Chem 7: 07/20/21 07:56 07/20/21 07:07 Labs: Abnormal Lab Results - Last 24 Hours (Table) 07/19/21 07/19/21 07/20/21 Range/Units 16:37 16:37 07:07 WBC 11.3 H (3.8-10.6) k/uL RBC 3.52 L (3.80-5.40) m/uL Hgb 10.8 L D (11.4-16.0) gm/dL Hct 33.7 L (34.0-46.0) % Neutrophils # 9.8 H (1.3-7.7) k/uL Lymphocytes # 0.7 L (1.0-4.8) k/uL Sodium 146 H (137-145) mmol/L Chloride 119 H 118 H (98-107) mmol/L Carbon Dioxide 16 L (22-30) mmol/L BUN 28 H 24 H (7-17) mg/dL Glucose 69 L (74-99) mg/dL Calcium 8.2 L 7.9 L (8.4-10.2) mg/dL C-Reactive Protein 29.2 H (<1.0) mg/dL Total Protein 4.4 L (6.3-8.2) g/dL Albumin 2.3 L (3.5-5.0) g/dL 07/20/21 Range/Units 07:56 WBC 15.2 H (3.8-10.6) k/uL RBC (3.80-5.40) m/uL Hgb (11.4-16.0) gm/dL Hct (34.0-46.0) % Neutrophils # 12.9 H (1.3-7.7) k/uL Lymphocytes # (1.0-4.8) k/uL Sodium (137-145) mmol/L Chloride (98-107) mmol/L Carbon Dioxide (22-30) mmol/L BUN (7-17) mg/dL Glucose (74-99) mg/dL Calcium (8.4-10.2) mg/dL C-Reactive Protein (<1.0) mg/dL Total Protein (6.3-8.2) g/dL Albumin (3.5-5.0) g/dL Microbiology - Last 24 Hours (Table) 07/18/21 00:03 Blood Culture - Preliminary Blood No Growth after 48 hours 07/18/21 17:58 CSF Gram Stain - Preliminary Cerebral Spinal Fluid CSF Culture - Preliminary 07/18/21 12:08 Blood Culture - Preliminary Blood No Growth after 24 hours Assessment and Plan Assessment: Encephalopathy, likely metabolic, and a patient who is improved since yesterday. CT scan/MRI, were negative. CSF, negative for infection. Acute kidney injury, improved. Recent history of foot injury/bunion surgery. History of hypertension. History of CVA, chronic right-sided weakness. Chronic right hemidiaphragm elevation. History of spinal fusion, involving L2 through S1. Hearing impairment. Chronic pain syndrome. History of hyperlipidemia. Osteoarthritis. History of kidney stones. Irritable bowel syndrome. Plan: Plan dated 07/20/2021. The patient appears to be improving. Because of the possibility of infection, and septic encephalopathy, even though culture data is thus far negative, the patient will have a pro-calcitonin level done. Also, because of the unusual finding in the drug screen, and positive for methamphetamines, a repeat drug screen is ordered. The is in the room, and all this is discussed with him. Additional recommendations are forthcoming. We will continue to follow as needed. Time with Patient: Less than 30
--- NOTE | 2021-07-20 14:34 | P.PN ---
Subjective Progress Note Date: 07/20/21 Patient was seen for a follow-up. Patient initially seen by Dr. Abel Mathew. Please refer to his note for details. Patient has history of a stroke with residual right-sided weakness. She came because of altered mental status. She was found to have encephalopathy of unknown origin. Patient had a recent right ankle surgery last 07/15/2021. She underwent shaving of some bone spurs in the right ankle. Patient's son was present today, and provided the history. He states that patient has markedly improved. Patient came with altered mental status on Tuesday, when she was minimally communicative to noncommunicative status. On Tuesday, which is yesterday she had some minimal verbalization. Today she is talking a lot. He believes that she is back to baseline. She is conversant sitting usually, asking about her grandkids. She appears generalized weak. She is going for computed tomography scan of abdomen and pelvis. Denies any headache, chest pain, down pain nausea vomiting diarrhea. Patient lives with her son. Patient's son states that about 4 years ago she had a "blood clot in the spine at T10 level. She underwent surgery for it at [facility]. She underwent hospitalization for 3 weeks at that time. She had constant numbness of her both lower limbs from waist down. It is worse in the right leg as compared to the left. The left leg is somewhat better proximally from waist to the knee, except from below knee to the foot, which is severely numb like the right side. Since then she has been walking weird. She uses a walker. Objective - Vital Signs Vital signs: Vital Signs Temp 97.5 F L 07/20/21 08:00 Pulse 71 07/20/21 12:00 Resp 18 07/20/21 12:00 BP 151/80 07/20/21 12:00 Pulse Ox 97 07/20/21 12:00 Intake & Output 07/19/21 07/20/21 07/20/21 18:59 06:59 18:59 Output Total 575 350 Balance -575 -350 Weight 75 kg Output: Urine 575 350 Other: Voiding Method Indwelling Catheter Indwelling Catheter Indwelling Catheter # Bowel Movements 2 3 - Exam Patient's mental status, speech and language functions are normal. She has slow mentation. Patient knows it is July 2021 and that she is in [facility] and she knows name of the current president. She admits that she has decreased hearing and uses hearing aids. Speech and language functions are normal. Attention span and concentration is decreased, fund of knowledge appears adequate. Detailed testing deferred. On cranial nerve examination pupils are round and reacting, visual vilchis are full on confrontation with no neglect. Extraocular muscles are intact with no nystagmus. Face is symmetric and tongue protrudes to the midline. Palatal elevation and sensation normal hearing is moderately decreased and facial sensation is normal. Muscle strength shows normal strength in the upper limbs. Patient is generalized weak in the lower limbs. He also has hyperesthesia therefore did not let me examine her legs. Deep tendon reflexes are 2+ in the arms and legs. Plantars are withdrawal. Sensory to touch in the upper extremities is equal with no neglect. She does have significant dysesthesias to touch with bilateral lower limbs from him down to the feet. Cerebellar function showed no ataxia for [id number] testing. Tone and bulk of muscles normal. Gait deferred. On general examination, there is no carotid bruit or murmur, S1-S2 audible. Abdomen is slightly tender in the left lower quadrant. No organomegaly. Bowel sounds present. Chest is clear to auscultation. Peripheral pulses are present. Patient has mild peripheral edema. - Labs CBC & Chem 7: 07/21/21 08:26 07/21/21 08:26 Labs: Abnormal Lab Results - Last 24 Hours (Table) 07/19/21 07/19/21 07/20/21 Range/Units 16:37 16:37 07:07 WBC 11.3 H (3.8-10.6) k/uL RBC 3.52 L (3.80-5.40) m/uL Hgb 10.8 L D (11.4-16.0) gm/dL Hct 33.7 L (34.0-46.0) % Neutrophils # 9.8 H (1.3-7.7) k/uL Lymphocytes # 0.7 L (1.0-4.8) k/uL Sodium 146 H (137-145) mmol/L Chloride 119 H 118 H (98-107) mmol/L Carbon Dioxide 16 L (22-30) mmol/L BUN 28 H 24 H (7-17) mg/dL Glucose 69 L (74-99) mg/dL Calcium 8.2 L 7.9 L (8.4-10.2) mg/dL C-Reactive Protein 29.2 H (<1.0) mg/dL Total Protein 4.4 L (6.3-8.2) g/dL Albumin 2.3 L (3.5-5.0) g/dL 07/20/21 Range/Units 07:56 WBC 15.2 H (3.8-10.6) k/uL RBC (3.80-5.40) m/uL Hgb (11.4-16.0) gm/dL Hct (34.0-46.0) % Neutrophils # 12.9 H (1.3-7.7) k/uL Lymphocytes # (1.0-4.8) k/uL Sodium (137-145) mmol/L Chloride (98-107) mmol/L Carbon Dioxide (22-30) mmol/L BUN (7-17) mg/dL Glucose (74-99) mg/dL Calcium (8.4-10.2) mg/dL C-Reactive Protein (<1.0) mg/dL Total Protein (6.3-8.2) g/dL Albumin (3.5-5.0) g/dL Microbiology - Last 24 Hours (Table) 07/18/21 00:03 Blood Culture - Preliminary Blood No Growth after 48 hours 07/18/21 17:58 CSF Gram Stain - Preliminary Cerebral Spinal Fluid CSF Culture - Preliminary 07/18/21 12:08 Blood Culture - Preliminary Blood No Growth after 24 hours Assessment and Plan Assessment: * Septic encephalopathy: Unknown exact source yet. Had Low grade fever with altered mental status. Had current surgery over the right ankle. Other cause of her altered mentation due to medication induced (recently she was being prescribed [place], Toradol and she has home dose of Valium) and metabolic component. CSF is negative for meningoencephalitis. MRI Brain is negative for stroke.--mentation is markedly improved today. * Acute kidney injury--improved * History of hypertension * History of stroke with residual weakness over the right sided (has blood clot in spinal cord according to patient) and walks with walker * History of spinal fusion over the L2 to S1 * Hard of hearing bilaterally. * Dysesthesias of bilateral lower extremities, probably due to above #4. * Patient's urine positive for methamphetamine, possible lab error. * Osteoarthritis Plan: Patient is off ceftriaxone and acyclovir, as meningoencephalitis has been ruled out. Patient on cefepime and metronidazole for possible abdominal source. Patient undergoing computed tomography scan of abdomen and pelvis. EEG on 07/18/2021 and it was abnormal. The background slowing is suggestive of moderate encephalopathy of unknown etiology. There is no focal slowing, epileptiform discharges or seizure on the EEG. Triphasic morphology is likely due to toxic metabolic abnormality Patient is off Keppra. Repeat EEG has been performed, results pending. Infection disease is on board. Unknown source of the patient's sepsis. [employer] feels the wound site is clean. Patient undergoing CT of abdomen and pelvis to rule out abdominal source of infection. Please avoid any opiate use/narcotic or sedation which will affect patient's mentation. Repeat UDS. Continue aspirin 81 mg daily. B12 1140, folate 18.2. Discussed with patient's son in detail. We'll defer the rest of the medical management to the primary team.
[2021-07-20] MEDS ORDERED: VANCOMYCIN TROUGH DUE 1 EACH MISC MISCELLANE ONE (15:00)
--- NOTE | 2021-07-20 15:19 | US ---
EXAMINATION TYPE: US carotid duplex BILAT DATE OF EXAM: 07/20/2021 COMPARISON: NONE CLINICAL HISTORY: AMS, aphasia, r/o TIA. Aphasia, TIA EXAM MEASUREMENTS: RIGHT: Peak Systolic Velocity (PSV) cm/sec ----- Right CCA: 65.4 ----- Right ICA: 100 ----- Right ECA: 70.2 ICA/CCA ratio: 1.5 RIGHT: End Diastole cm/sec ----- Right CCA: 17.8 ----- Right ICA: 27.9 ----- Right ECA: 0.0 LEFT: Peak Systolic Velocity (PSV) cm/sec ----- Left CCA: 53.9 ----- Left ICA: 90.7 ----- Left ECA: 72.9 ICA/CCA ratio: 1.7 LEFT: End Diastole cm/sec ----- Left CCA: 14.9 ----- Left ICA: 23.0 ----- Left ECA: 9.8 VERTEBRALS (direction of flow): Right Vertebral: Antegrade Left Vertebral: Antegrade Rhythm: Normal Grayscale, color Doppler, spectral Doppler imaging performed of the carotid arteries. Waveform analys is does not show significant stenosis of the internal carotid arteries. No significant stenosis seen IMPRESSION: No hemodynamic significant stenosis of the proximal internal carotid arteries by Doppler criteria, an indirect measurement of carotid stenosis Criteria for Assigning % of Stenosis / Diameter reduction (Estimation based on the indirect measurements of the internal carotid artery velocities (ICA PSV). 1. Normal (no stenosis)=ICA PSV < 125 cm/s: ratio < 2.0: ICA EDV<40 cm/s. 2. Less than 50% stenosis=ICA PSV < 125 cm/s: ratio < 2.0: ICA EDV<40 cm/s. 3. 50 to 69% stenosis=ICA PSV of 125 to 230 cm/s: ration 2.0 ? 4.0: ICA EDV 40-100 cm/s. 4. Greater than 70% stenosis to near occlusion= ICA PSV > 230 cm/s: ratio > 4.0: ICA EDV > 100 cm/s. 5. Near occlusion= ICA PSV velocities may be low or undetectable: variable ratio and ICA EDV. 6. Total occlusion=unable to detect flow.
--- NOTE | 2021-07-20 17:09 | CT ---
EXAMINATION TYPE: CT abdomen pelvis w con CT DLP: 1096.4 mGycm, Automated exposure control for dose reduction was used. DATE OF EXAM: 07/20/2021 4:52 PM COMPARISON: None. CLINICAL INDICATION:Female, 65 years old with history of pain and generalized tenderness of abdomen; Pain and generalized tenderness of abdomen. TECHNIQUE: Standard CT of the abdomen and pelvis following the administration of 100 cc of Isovue 3 00 IV contrast material and oral contrast. Coronal and sagittal reformats were performed. FINDINGS: LOWER CHEST: Trace bilateral pleural effusions are greater than left. Associated subsegmental atelect asis. ABDOMEN LIVER: Cyst measuring 13 mm in the right hepatic lobe segment 4A. GALLBLADDER AND BILE DUCTS: Gallbladder surgically absent. PANCREAS: No ductal dilatation. SPLEEN: Small splenule is present. ADRENAL GLANDS: Unremarkable. KIDNEYS AND URETERS: No evidence of hydronephrosis or renal calculus. The ureters are unremarkable. PELVIS BLADDER: Nondistended with Zarate catheter in place. Gas seen within the bladder lumen likely secondar y to Zarate catheter insertion. REPRODUCTIVE: Unremarkable. ABDOMEN & PELVIS STOMACH AND BOWEL: Circumferential wall thickening of the sigmoid colon and rectum measuring up to 8 mm in the sigmoid colon and 10 mm in the rectum with submucosal edema. This results in dilation of th e upstream stool. There is retained contrast seen within the colon and few loops of small bowel. PERITONEUM: Trace fluid is seen within the pelvis, no evidence of pneumoperitoneum. VASCULATURE: Mild atherosclerotic calcifications are present throughout the abdominal aorta and its b ranches. MUSCULOSKELETAL: Moderate disc degeneration changes are present throughout the thoracolumbar spine. T here is fixation hardware in the spine extending from L2-L3 with laminectomy changes from L2 to L5. F luid collection is seen along the surgical bed in the spine measuring 77 x 20 mm from L2 to L5. There appears to be close proximity to the thecal sac with evaluation of the any communications to the the haydee sac limited by CT technique. LYMPH NODES: No gross evidence for lymphadenopathy. SOFT TISSUE/ABDOMINAL WALL: There is anasarca of the soft tissues. IMPRESSION: 1. Colitis/proctitis of the sigmoid colon and rectum upstream large stool burden throughout the colon . 2. Surgical bed fluid collection along the thecal sac of the L2-L5 vertebral bodies levels which may represent a pseudomeningocele, seroma or abscess. Correlate with surgical history of the spine. Consi calixto MRI lumbar spine with IV contrast if there is clinical concern. Correlation with outside imaging may be of benefit. 3. Trace bilateral pleural effusions, right greater than left. 4. Zarate catheter in place with gas in the bladder lumen. Correlate with urinalysis for if there is c oncern for cystitis.
[2021-07-20] MEDS: PANTOPRAZOLE 40 MG TABLET PO SCH (20:49)
[2021-07-20] MEDS: FLUTICASONE 50MCG/SPRAY NASAL 16GM EA NOSTRIL SCH (20:50)
[2021-07-20] MEDS: ATORVASTATIN 10 MG TAB PO SCH (20:50)
[2021-07-20] MEDS: SODIUM CHLORIDE 0.9% 1,000 ML IV SCH ×2 (20:50→23:55)
--- NOTE | 2021-07-20 21:19 | EEG ---
ELECTROENCEPHALOGRAM REPORT DATE OF SERVICE: 07/20/2021 PREAMBLE: This is a 65-year-old female with altered mental status. Patient recently had surgery on her right foot and is complaining of pain. Patient was sleepy. EEG FINDINGS: This is a 21-channel digital EEG recorded with video component, utilizing 10/20 international system with referential and bipolar montages. Background consists of well-developed, moderately well-regulated, mixed frequencies of 7-8 hertz theta and alpha activity seen in bihemispheric region. Background seems to be posterior-dominant and reactive to eye opening and closing. Photic driving response was seen with some flash frequencies. Some drowsiness was seen with appearance of bilaterally symmetric theta frequency rhythm. Deeper stages of sleep were not seen. No focal or generalized epileptiform activity was seen. There was some focal slowing noted in the left hemispheric region, but this only occurred when the EEG machine was being moved. Otherwise, no focal slowing was seen. IMPRESSION: This is a normal awake and drowsy EEG for patient's age. No focal, lateralized or epileptiform activity was seen. When compared to the EEG from 07/18/2021, the background has remarkably improved. The sharply contoured, triphasic type waves seen in bihemispheric region have now completely resolved. MMODL / IJN: [id number] /
[2021-07-20] MEDS ORDERED: SENNOSIDES 8.6 MG TAB PO PRN (23:09)
--- NOTE | 2021-07-20 23:18 | P.PN ---
Subjective From the records 65-year-old female who comes to us from [facility]. Patient had surgery by Dr. Fink on Tuesday and I was told had a couple episodes of vomiting and was lethargic so brought her to the hospital. According to the physician at [facility] patient was very somnolent was able to be aroused but would go right back to sleep. Patient had lab work which showed an elevated creatinine and elevated white count. Patient had a CT of the brain and CT of the abdomen pelvis which all were negative. No history of any fevers or chills no history of any difficulty breathing or cough. Initial serum glucose is 142 and ammonia is 23 Urine drug screen is positive for opiates, methamphetamine, benzoyl. Otherwise the rest is nondetected. Acetaminophen is less than 10, systolic is less than 1.0. EKG shows sinus bradycardia no ST segment elevation or depression Blood work completed an outside facility revealed elevated creatinine and a white blood count; CT head was reported to be negative 07/18/2021 Patient is evaluated with family members at bedside; doesn't open eyes on verbal stimulation but continues to moan spontaneously; doesn't follow any commands; EEG just completed MRI of the brain scheduled for today; computed tomography scan of the brain done at an outside facility was negative; urology has recommended stat EEG which is just completed; no plans to start antiepileptic drugs unless EEG is conclusive We will continue to avoid any sedating medications which can affect patient's mentation Labs including vitamin B12 and folic acid are pending 07/19/2021 Patient is seen and evaluated, continues to be confused but some improvement compared to yesterday. Patient opens her eyes on verbal stimulation Vital signs: temperature 98.4, pulse 85, resp 16, BP 150/85 Labs WBC 11.3 , Hgb 10.8, Na 146, BUN 28 Patient IS currently on ceftriaxone, vancomycin, and acyclovir for empiric meningeal encephalitis CSF studies have been negative ; neurology on board and recommending to discontinue acyclovir Patient remains on ceftriaxone and vancomycin pending ID re-evaluation EEG is completed and suggestive of encephalopathy; no seizure activity noted Neuro recommending repeat EEG tomorrow subjective: Resume the care of the patient from today 07/21/2011 Patient is a pleasant 65 years old female who presents with altered mental status, workup ruled out pending encephalitis with no nucleated cells and CSF tap. Today patient is more awake, she does she the hospital although she could not on the name, she The year of the month and the date and she knows name of the president, she wasn't sure why she was in the hospital. Patient was reoriented. Patient is complaining of from generalized abdominal pain and tenderness, no guarding or rebound tenderness. CT of the abdomen and pelvis is ordered and result is pending. Patient kept nothing by mouth for now. Several consultants on the case included neurology and pulmonary service. Patient remains on broad-spectrum antibiotics cefepime and Flagyl with ID team on the case as well as gentle hydration. Labs and vitals reviewed Objective - Vital Signs Vital signs: Vital Signs Temp 97.5 F L 07/20/21 08:00 Pulse 71 07/20/21 12:00 Resp 18 07/20/21 14:00 BP 151/80 07/20/21 12:00 Pulse Ox 97 07/20/21 12:00 Intake & Output 07/19/21 07/20/21 07/20/21 18:59 06:59 18:59 Output Total 575 350 Balance -575 -350 Weight 75 kg Output: Urine 575 350 Other: Voiding Method Indwelling Catheter Indwelling Catheter Indwelling Catheter # Bowel Movements 2 3 - Exam GENERAL: The patient is alert and oriented x3, not in any acute distress. Well developed, well nourished. HEENT: Pupils are round and equally reacting to light. EOMI. No scleral icterus. No conjunctival pallor. Normocephalic, atraumatic. No pharyngeal erythema. No thyromegaly. CARDIOVASCULAR: S1 and S2 present. No murmurs, rubs, or gallops. PULMONARY: Chest is clear to auscultation, no wheezing or crackles. -ABDOMEN: Soft, generalized abdominal tenderness, no rebound tenderness or guarding, nondistended, normoactive bowel sounds. No palpable organomegaly. MUSCULOSKELETAL: No joint swelling or deformity. EXTREMITIES: No cyanosis, clubbing, or pedal edema. NEUROLOGICAL: Gross neurological examination did not reveal any focal deficits. SKIN: No rashes. no petechiae. - Labs CBC & Chem 7: 07/20/21 07:56 07/20/21 07:07 Labs: Abnormal Lab Results - Last 24 Hours (Table) 07/19/21 07/19/21 07/20/21 Range/Units 16:37 16:37 07:07 WBC 11.3 H (3.8-10.6) k/uL RBC 3.52 L (3.80-5.40) m/uL Hgb 10.8 L D (11.4-16.0) gm/dL Hct 33.7 L (34.0-46.0) % Neutrophils # 9.8 H (1.3-7.7) k/uL Lymphocytes # 0.7 L (1.0-4.8) k/uL Sodium 146 H (137-145) mmol/L Chloride 119 H 118 H (98-107) mmol/L Carbon Dioxide 16 L (22-30) mmol/L BUN 28 H 24 H (7-17) mg/dL Glucose 69 L (74-99) mg/dL Calcium 8.2 L 7.9 L (8.4-10.2) mg/dL C-Reactive Protein 29.2 H (<1.0) mg/dL Total Protein 4.4 L (6.3-8.2) g/dL Albumin 2.3 L (3.5-5.0) g/dL Procalcitonin (0.02-0.09) ng/mL 07/20/21 07/20/21 Range/Units 07:56 07:56 WBC 15.2 H (3.8-10.6) k/uL RBC (3.80-5.40) m/uL Hgb (11.4-16.0) gm/dL Hct (34.0-46.0) % Neutrophils # 12.9 H (1.3-7.7) k/uL Lymphocytes # (1.0-4.8) k/uL Sodium (137-145) mmol/L Chloride (98-107) mmol/L Carbon Dioxide (22-30) mmol/L BUN (7-17) mg/dL Glucose (74-99) mg/dL Calcium (8.4-10.2) mg/dL C-Reactive Protein (<1.0) mg/dL Total Protein (6.3-8.2) g/dL Albumin (3.5-5.0) g/dL Procalcitonin 2.88 H (0.02-0.09) ng/mL Microbiology - Last 24 Hours (Table) 07/18/21 12:08 Blood Culture - Preliminary Blood No Growth after 48 hours 07/18/21 00:03 Blood Culture - Preliminary Blood No Growth after 48 hours 07/18/21 17:58 CSF Gram Stain - Preliminary Cerebral Spinal Fluid CSF Culture - Preliminary Assessment and Plan Assessment: Abdominal pain and tenderness, CT of the abdomen and pelvis ordered and result is pending. Altered mental status most likely metabolic/toxic encephalopathy, improved Evidence of some drug abuse with cocaine, benzodiazepines and opiates. History of stroke and right hemiparesis Plan: This is a pleasant 74 years old female who presents with altered mental status, abdominal pain. Continue with IV fluid and broad-spectrum antibiotics prior to team. Follow-up the results of CT of the abdomen and pelvis with IV and oral contrast Neurology service on the case as well as pulmonary service. Labs and medication were reviewed.. Continue same treatment. Continue with symptomatic treatment. Resume home medication. Monitor lytes and vitals. DVT and GI prophylaxis. Further recommendations as per clinical course of the patient DVT prophylaxis: Subcutaneous heparin GI Prophylaxis: Protonix and Carafate PT/OT: Pending Prognosis is guarded
[2021-07-20] MEDS: DOCUSATE 100 MG CAP PO SCH (23:57)
[2021-07-21] MEDS ORDERED: IOPAMIDOL CONTRAST (ORAL USE) VIAL PO PRN (00:05)
[2021-07-21] MEDS: metroNIDAZOLE-NS PMX 500 MG in SALINE 1 100ML.BAG IVPB SCH ×4 (00:05→23:58)
[2021-07-21] MEDS: ALBUTEROL NEBULIZED 2.5 MG/3 ML INHALATION PRN ×2 (00:16→20:33)
[2021-07-21] MEDS: CEFEPIME 2 GM in SODIUM CHLORIDE 0.9% 100 ML IVPB SCH ×3 (01:45→18:05)
[2021-07-21] MEDS: LEVOTHYROXINE 50 MCG TAB PO SCH (06:54)
[2021-07-21] MEDS: DOCUSATE 100 MG CAP PO SCH ×2 (08:19→20:43)
[2021-07-21 09:17] LABS: Basophils % (A) 0 %; Eosinophils # (A) 0.1 k/uL (0-0.7); Eosinophils % (A) 1 %; HCT 33.5 % (34.0-46.0); HGB 10.7 gm/dL (11.4-16.0); Hypochromasia Moderate; Lymphocytes # (A) 0.8 k/uL (1.0-4.8); Lymphocytes % (A) 8 %; MCH 31.3 pg (25.0-35.0); MCHC 31.9 g/dL (31.0-37.0); MCV 98.1 fL (80.0-100.0); Mean Platelet Volume 9.9; Monocytes # (A) 0.5 k/uL (0-1.0); Monocytes % (A) 6 %; Neutrophils # (A) 7.7 k/uL (1.3-7.7); Neutrophils % (A) 82 %; Platelet Count 157 k/uL (150-450); RBC 3.42 m/uL (3.80-5.40); RDW 14.1 % (11.5-15.5); WBC 9.4 k/uL (3.8-10.6)
[2021-07-21 09:34] LABS: African American GFR (CKD) >90 (>60 ml/min/1.73 sqM); Anion Gap 3 mmol/L; Blood Urea Nitrogen 18 mg/dL (7-17); Calcium 7.9 mg/dL (8.4-10.2); Carbon Dioxide 19 mmol/L (22-30); Chloride 114 mmol/L (98-107); Glucose 72 mg/dL (74-99); Non-African American GFR(CKD) >90 (>60 ml/min/1.73 sqM); Sodium 136 mmol/L (137-145)
[2021-07-21 09:36] LABS: Potassium 3.5 mmol/L (3.5-5.1)
[2021-07-21] MEDS: ASCORBIC ACID 500 MG TAB PO SCH (10:07)
[2021-07-21] MEDS: CALCIUM CARBONATE 500 MG CHEWABLE PO SCH ×2 (10:07→20:56)
[2021-07-21] MEDS: CHOLECALCIFEROL 25 MCG (1000 IU) TABLET PO SCH ×2 (10:07→20:56)
[2021-07-21] MEDS: ASPIRIN 81 MG PO SCH (10:08)
[2021-07-21] MEDS ORDERED: BENZONATATE 100 MG CAP PO PRN (10:13)
[2021-07-21] MEDS: DIPHENOX-ATROP 2.5-0.025 MG 1 EACH TAB PO PRN (10:32)
[2021-07-21] MEDS: DULoxetine HCL 60 MG CAPSULE.DR PO SCH (10:35)
--- NOTE | 2021-07-21 11:32 | P.PN ---
Subjective Progress Note Date: 07/21/21 Principal diagnosis: Mental status changes. I was involved in the patient's care due to possible ICU transfer as the patient was having diminished level of consciousness and the patient was altered neurologically. I reviewed the chart. 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 The patient has issues with chronic pain and she has undergone also spinal fusion. She has hypertension and hyperlipidemia as comorbid conditions in addition to multitude of comorbidities as mentioned in the chart. She was in a good state of health. She apparently was undergoing a foot surgery for a bunion and to my understanding this was done under spinal anesthesia. The patient went home and following that she was found to be altered by the and she came into the hospital for further evaluation. Since yesterday, the patient was evaluated by neurology and infectious disease. The patient was spiking a temperature 100.6. Along with the mental status change, there was a concern of an underlying [employer] infection and patient was given an MRI that do not to be negative and a lumbar puncture that showed no significant leukocytosis or increased protein. Cultures still pending for now. Meanwhile, the patient was given a dose of vancomycin and Rocephin by infectious disease. No seizure activity has been noted. The patient has been a bit difficult to arouse. Nevertheless, she was as the painful stimulation and she would moan and groan. She has withdrawing to moving all 4 extremities. She does not converse. We have not seen any significant Sheryl White movements to indicate on the underlying seizure activity. Note that the patient was given No rco and Toradol following her surgery to be taken outpatient basis and there is no clear history of a drug overdose. For now, the patient has mild LFT abnormalities with an AST of 57, ALT of 43 and an alkaline phosphatase of 131. Creatinine is down to 1.09 and a sodium level is at 139. The patient has a white cell count of 23.2 with a hemoglobin of 13.9. UA has been negative for any infection. CSF shows 2 RBCs, no nucleated cells, glucose of 80 with a protein of 57. Urine toxin was positive for opiates, methamphetamine and benzodiazepines. Earlier this morning, she developed some loose diarrhea and stool was checked for C. diff that came back negative. MRI of the brain was negative. 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 The EEG was abnormal and showed background slowing along with moderate to severe encephalopathy. No seizure activity was noted. Progress note dated 07/20/2021. 65-year-old female seen by my partner yesterday for mental status changes. 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 She also suffers from hypertension and hyperlipidemia. She was seen by my partner yesterday for mental status changes. Today, she is resting comfortably in her room, room 368. She is improved. Interestingly, she tested positive for opiates, methamphetamines, benzodiazepines. Her is in the room, shocked by the fact that her drug screen was positive for methamphetamines. He is not aware that she is taking those types of medications. The patient herself denies it as well. Her MRI of the brain was negative. The EEG showed slowing, consistent with moderate to severe encephalopathy. Currently she is on 3 L nasal cannula, with saturations of 98%. White count 15.2, normal hemoglobin hematocrit and platelet count. Sodium 144, potassium 3.5, chlorides 118, CO2 16, anion gap 10, BUN 24, with a creatinine 0.64. C-reactive protein is 29.2. Microbiology is negative. CSF appears to be negative. Chest x-ray shows a elevated right hemidiaphragm with some minimal b asilar atelectasis. The patient received 1 dose of vancomycin, and is currently on cefepime and Flagyl per infectious diseases. Progress note dated 07/21/2021. 65-year-old female, seen yesterday. She has a history of CVA, as well as a history of hypertension, and hyperlipidemia. She was seen by my partner in consultation for mental status changes. Interestingly, her drug screen was positive for opiates, methamphetamines, and benzodiazepines. Current lab work includes a white count of 9.4, hemoglobin 10.7, hematocrit 33.5, and a platelet count of 157,000. Sodium 136, potassium 3.5, chlorides 114, CO2 19, anion gap 3, BUN 18, creatinine 0.54. Pro-calcitonin level is elevated at 2.88. Repeat drug screen is pending. CT of the abdomen and pelvis shows colitis/proctitis of the colon, a possible pseudomeningocele, trace bilateral pleural effusions, and a Zarate catheter within the bladder. The patient remains on cefepime and Flagyl as per infectious diseases. Objective - Vital Signs Vital signs: Vital Signs Temp 98.1 F 07/21/21 03:54 Pulse 64 07/21/21 03:54 Resp 16 07/21/21 03:54 BP 145/72 07/21/21 03:54 Pulse Ox 99 07/21/21 03:54 Intake & Output 07/20/21 07/21/21 07/21/21 18:59 06:59 18:59 Intake Total 240 Output Total 800 Balance 240 -800 Intake: Oral 240 Output: Urine 800 Uretheral (Zarate) 400 Other: Voiding Method Indwelling Catheter # Bowel Movements 1 - Exam No acute distress, oriented 3. The patient is much more awake and alert. She was asking for something for cough, and something for loose stools. This is a dramatic turnaround from yesterday. HEENT examination is grossly unremarkable. Neck supple. Full range of motion. No adenopathy thyromegaly or neck vein distention. Cardiovascular examination reveals regular rhythm rate. S1-S2 normal. No S3 or S4. No discernible murmur noted. Heart rate is 64 bpm. Lungs reveal clear breath sounds. Breath sounds are equal bilaterally. No adventitious lung sounds including wheezes rhonchi or crackles. Abdomen soft bowel sounds are heard. No masses or tenderness. Extremities are intact. No cyanosis clubbing or edema. Skin is without rash or lesion. Neurologic examination is brief but nonfocal. - Labs CBC & Chem 7: 07/21/21 08:26 07/21/21 08:26 Labs: Abnormal Lab Results - Last 24 Hours (Table) 07/20/21 07/21/21 07/21/21 Range/Units 07:56 08:26 08:26 RBC 3.42 L (3.80-5.40) m/uL Hgb 10.7 L (11.4-16.0) gm/dL Hct 33.5 L (34.0-46.0) % Lymphocytes # 0.8 L (1.0-4.8) k/uL Sodium 136 L (137-145) mmol/L Chloride 114 H (98-107) mmol/L Carbon Dioxide 19 L (22-30) mmol/L BUN 18 H (7-17) mg/dL Glucose 72 L (74-99) mg/dL Calcium 7.9 L (8.4-10.2) mg/dL Procalcitonin 2.88 H (0.02-0.09) ng/mL Microbiology - Last 24 Hours (Table) 07/18/21 00:03 Blood Culture - Preliminary Blood No Growth after 72 hours 07/18/21 17:58 CSF Gram Stain - Preliminary Cerebral Spinal Fluid CSF Culture - Preliminary 07/18/21 12:08 Blood Culture - Preliminary Blood No Growth after 48 hours Assessment and Plan Assessment: Encephalopathy, likely metabolic, and a patient who is improved since yesterday. CT scan/MRI, were negative. CSF, negative for infection. The patient's mental status is dramatically when compared to yesterday. Acute kidney injury, improved. Recent history of foot injury/bunion surgery. History of hypertension. History of CVA, chronic right-sided weakness. Chronic right hemidiaphragm elevation. History of spinal fusion, involving L2 through S1. Hearing impairment. Chronic pain syndrome. History of hyperlipidemia. Osteoarthritis. History of kidney stones. Irritable bowel syndrome. Plan: Plan dated 07/20/2021. The patient appears to be improving. Because of the possibility of infection, and septic encephalopathy, even though culture data is thus far negative, the patient will have a pro-calcitonin level done. Also, because of the unusual finding in the drug screen, and positive for methamphetamines, a repeat drug screen is ordered. The is in the room, and all this is discussed with him. Additional recommendations are forthcoming. We will continue to follow as needed. Plan dated 07/21/2021. The patient is currently on cefepime and Flagyl as per infectious diseases. The patient is much more alert and awake today. Her vital signs are stable. Labs, x-rays, and medications are reviewed. The repeat drug screen, is currently pending. It was unusual, as the patient tested positive for methamphetamines. He states she does not take times the medications. We will continue to follow and make recommendations where appropriate. Prognosis is guarded. Thus far, all microbiologic studies are negative. Time with Patient: Less than 30
[2021-07-21 11:41] LABS: Urine Alcohol Negative (Negative); Urine Barbiturate Negative (Negative); Urine Cocaine Negative (Negative); Urine Methadone Negative (Negative); Urine Opiates Negative (Negative); Urine Phencyclidine Negative (Negative)
[2021-07-21] MEDS: ESTRADIOL 0.1 MG/GM VAGINAL CREAM 42.5 GM TUBE VAGINAL SCH (11:53)
--- NOTE | 2021-07-21 13:06 | P.CNOR ---
History of Present Illness - [facility] Consult date: 07/21/21 Requesting physician: Reed E Sheet Consult reason: other (Evaluate lumbar fluid collection) History of present illness: This is a very pleasant 65-year-old female who is seen and examined at the bedside for further evaluation of her lumbar spine. She was originally transferred from [facility] for further evaluation with altered mental status with acute encephalopathy. She has been in the hospital since 07/17/2021. At her initial presentation she had significant altered mental status. Over the past several days she's had significant improvement. At the bedside today she is able to answer all questions without significant difficulty. Her is with her at the bedside. She feels she has returned to her regular baseline other than the fact that she has generally weaker from lying in bed for the past several days. Patient does have a significant medical history which includes multiple fusions at her lumbar spine performed in 2009, 2012, and in [address] Camacho. She has had some hardware removed and currently has retained hardware at L2-3. 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 She states her right lower extremity weakness and numbness below the waist is chronic and is unchanged. 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 Camacho previously. She states they have been ongoing for years without change. Patient has been discussed in detail with Dr. Mendez and infectious disease and Dr. Waters in neurology. Patient continues to have significant weakness of her bilateral lower extremities but states her symptoms are chronic. She did recently undergo surgical intervention in her right ankle by Dr. Fink. He was able to see her over the weekend and change the dressing at the right ankle. He has been undergoing further evaluation as to a source of infection. CT imaging abdomen pelvis was taken which show evidence of colitis/proctitis of the sigmoid colon and rectum. Patient has had abdominal tenderness and it is felt her source of infection could be stemming from her abdomen. They're planning for CT imaging with contrast. Patient is currently on antibiotic medications. Patient initially did have fever presentation as well. Patient continues to be seen examined by multiple medical providers including medicine, neurology, pulmonology, and infectious disease. Patient's other medical diagnoses include hyperlipidemia, hypertension, neurologic disorder, history of reported stroke to the thoracic spine at T10 in 2018. She also has a history of drug abuse with benzodiazepines, opiates, and cocaine. Past Medical History Past Medical History: Asthma, CVA/TIA, GERD/Reflux, Hearing Disorder / Deafness, Hyperlipidemia, Hypertension, Musculoskeletal Disorder, Neurologic Disorder, Osteoarthritis (OA), Thyroid Disorder Additional Past Medical History / Comment(s): Varicose veins. Bilateral hearing aids. 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 allergy shots biweekly (Dr. Hinton). [place] 05/29/19 inpt r/t paralysis rt leg inpt x4 days pt states inflammation around infarct of spinal cord that occured 10/2017. Hx spinal fusion L2-S1., hx of positive tb test and now has [id number] instead. History of Any Multi-Drug Resistant Organisms: None Reported Past Surgical History: Appendectomy, Back Surgery, Bladder Surgery, Breast Surgery, Cholecystectomy, Heart Catheterization, Hysterectomy, Orthopedic Surgery, Tubal Ligation Additional Past Surgical History / Comment(s): Bilat CTR, Nasal surgery, bilat cataract surgery, Ganglion Cyst removal right hand, Left Kidney Stone surgery, Right Breast Biopsy, Back Surgery X3 w/(Lumbar fusion L2-S1), Right Ulna villarreal rgery, gum Line surgery, Bladder Suspension X 3, Colonoscopies, Debridement & Repair of left elbow. PAIN CLINIC PROCEDURES., torn retina right eye 04/2019 Past Anesthesia/Blood Transfusion Reactions: Postoperative Nausea & Vomiting (PONV) Additional Past Anesthesia/Blood Transfusion Reaction / Comm: States becomes very nauseaous when NPO. Past Psychological History: Depression Smoking Status: Never smoker Past Alcohol Use History: Unable to Obtain Past Drug Use History: Unable to Obtain - Past Family History Mother Family Medical History: No Reported History Daughter(s) Family Medical History: Deep Vein Thrombosis (DVT) Medications and Allergies Home Medications Medication Instructions Recorded Confirmed Type Calcium Carbonate [Calcium] 600 mg PO BID 12/16/16 07/17/21 History Cholecalciferol (Vitamin D3) 50 mcg PO BID 12/16/16 07/17/21 History [Vitamin D3] Cinnamon Bark [Cinnamon] 1,000 mg PO BID 12/16/16 07/17/21 History Dexlansoprazole [Dexilant] 30 mg PO HS 12/16/16 07/17/21 History Fluticasone Nasal Sula [Flonase 2 spr EA NOSTRIL HS 12/16/16 07/17/21 History Nasal Sula] L.acidoph,Paracasei, B.lactis 1 cap PO BID 12/16/16 07/17/21 History [Probiotic] Montelukast [Singulair] 10 mg PO HS 12/16/16 07/17/21 History Spironolactone [Aldactone] 50 mg PO BID 12/16/16 07/17/21 History Atorvastatin [Lipitor] 10 mg PO HS 08/24/18 07/17/21 History Azelastine HCl [Astepro] 2 spray EA NOSTRIL BID PRN 08/24/18 07/17/21 History Baclofen [Lioresal] 20 mg PO BID 08/24/18 07/17/21 History DULoxetine HCL [Cymbalta] 60 mg PO DAILY 08/24/18 07/17/21 History Furosemide [Lasix] 20 mg PO DAILY@1700 08/24/18 07/17/21 History Furosemide [Lasix] 40 mg PO DAILY 08/24/18 07/17/21 History lamoTRIgine [LaMICtal] 100 mg PO BID 08/24/18 07/17/21 History Levothyroxine Sodium [Synthroid] 50 mcg PO DAILY 09/19/18 07/17/21 History Methenamine Hippurate [Hiprex] 1 gm PO Q48H 09/19/18 07/17/21 History Potassium Chloride [Potassium 10 meq PO BID 10/12/18 07/17/21 History Chloride ER] Aspirin 81 mg PO DAILY 10/24/18 07/17/21 History Magnesium 200 mg PO DAILY 10/24/18 07/17/21 History Ipratropium [place] 0.06%Nasal 2 spray EA NOSTRIL TID PRN 05/25/19 07/17/21 History [Atrovent Nasal 0.06%] Sucralfate [Carafate] 1 gm PO BID PRN 05/25/19 07/17/21 History calcium polycarbophiL [Fibercon] 625 mg PO BID 05/25/19 07/17/21 History hydrALAZINE HCL [Apresoline] 37.5 mg PO TID 05/25/19 07/17/21 History hydrOXYzine HCL [Atarax] 10 - 20 mg PO Q8H PRN 05/25/19 07/17/21 History Diclofenac Sodium Gel [Voltaren 4 gm TOPICAL QID PRN 07/10/19 07/17/21 History Gel] Mometasone/Formoterol [Dulera 100 1 puff INHALATION RT-BID PRN 12/17/19 07/17/21 History Mcg-5 Mcg Inhaler] Ondansetron Odt [Zofran ODT] 4 - 8 mg PO TID PRN 04/10/20 07/17/21 History Ascorbic Acid [Vitamin C] 1,000 mg PO DAILY #60 tab 04/12/20 07/17/21 Rx lamoTRIgine [LaMICtal] 50 mg PO DAILY@1400 03/06/21 07/17/21 History Albuterol Sulfate [Ventolin HFA] 2 puff INHALATION RT-Q4H PRN 07/17/21 07/17/21 History Dicyclomine [Bentyl] 40 mg PO Q12H 07/17/21 07/17/21 History Estradiol Cream [Estrace Cream 1 gm VAGINAL TUTH 07/17/21 07/17/21 History 0.01%] HYDROcodone/APAP 5-325MG [[place] 1 - 2 tab PO Q4H PRN 07/17/21 07/17/21 History 5-325] Ketorolac [Toradol] 10 mg PO Q6H PRN 07/17/21 07/17/21 History Lidocaine [Aspercreme Patch] 1 patch TRANSDERM DAILY PRN 07/17/21 07/17/21 History Losartan Potassium 100 mg PO DAILY 07/17/21 07/17/21 History Multivit with Calcium,Iron,Min 1 tab PO DAILY 07/17/21 07/17/21 History [Women's Multivitamin] diazePAM [Valium] 5 mg PO Q8H PRN 07/17/21 07/17/21 History Allergies Allergy/AdvReac Type Severity Reaction Status Date / Time celecoxib [From Celebrex] Allergy Itching Verified 07/17/21 14:14 ciprofloxacin [From Cipro] Allergy Rash/Hives Verified 07/17/21 14:14 gentamicin Allergy Ototoxicity Verified 07/17/21 14:14 nitrofurantoin Allergy Chest Pain Verified 07/17/21 14:14 [From Macrodantin] Penicillins Allergy Rash/Hives Verified 07/17/21 14:14 sulfamethoxazole Allergy tongue Verified 07/17/21 14:14 [From Septra] swelling thimerosal Allergy Rash/Hives Verified 07/17/21 14:14 tobramycin Allergy Rash/Hives Verified 07/17/21 14:14 trimethoprim [From Septra] Allergy tongue Verified 07/17/21 14:14 swelling cefaclor [From Ceclor] AdvReac Drug Verified 07/17/21 14:14 induced fever clindamycin [From Cleocin] AdvReac Drug Verified 07/17/21 14:14 induced fever seasonal allergies Allergy Cough Uncoded 07/17/21 12:40 Physical Examination Physical exam: Patient is awake, alert, and oriented 3 Vital signs stable Good chest excursion with deep inspiration and expiration Examination of lumbar spine reveals skin is intact with no abrasions, lacerations, or bruises; no erythema, purulence or signs of infection Evidence of a large well-healed incision along the midline of the lumbar spine extending to the lumbosacral spine No significant pain with palpation over the lumbar spine Patient has significant difficulties with active range of motion of the right lower extremity Patient has difficulty performing dorsiflexion, plantar flexion, knee extension, and hip flexion on the right. Significant hypersensitivity with palpation of the bilateral lower extremities Dressing intact over the right ankle Patient is able to perform dorsiflexion and plantarflexion of the left lower extremity without significant difficulty Patient is able to lift her left lower extremity off the bed without significant difficulty Zarate catheter intact Results Pertinent studies: CT the abdomen and pelvis reviewed for the orthopedic purposes: Evidence of previous multilevel fusion L2-S1 with retained hardware at L2-3 with evidence of wide decompression; no evidence of vertebral body compression fracture; there is evidence of a fluid collection which could be chronic seroma at the posterior aspect of her lower lumbar spine along the thecal sac at L2-5 - Labs Labs: Abnormal Lab Results - Last 24 Hours (Table) 07/20/21 07/21/21 07/21/21 Range/Units 07:56 08:26 08:26 RBC 3.42 L (3.80-5.40) m/uL Hgb 10.7 L (11.4-16.0) gm/dL Hct 33.5 L (34.0-46.0) % Lymphocytes # 0.8 L (1.0-4.8) k/uL Sodium 136 L (137-145) mmol/L Chloride 114 H (98-107) mmol/L Carbon Dioxide 19 L (22-30) mmol/L BUN 18 H (7-17) mg/dL Glucose 72 L (74-99) mg/dL Calcium 7.9 L (8.4-10.2) mg/dL Procalcitonin 2.88 H (0.02-0.09) ng/mL Microbiology - Last 24 Hours (Table) 07/18/21 00:03 Blood Culture - Preliminary Blood No Growth after 72 hours 07/18/21 17:58 CSF Gram Stain - Preliminary Cerebral Spinal Fluid CSF Culture - Preliminary 07/18/21 12:08 Blood Culture - Preliminary Blood No Growth after 48 hours H & H 07/17/21 07/18/21 07/19/21 Range/Units 18:20 08:53 16:37 Hgb 15.3 13.9 10.8 L D (11.4-16.0) gm/dL Hct 46.8 H 44.3 33.7 L (34.0-46.0) % 07/20/21 07/21/21 Range/Units 07:56 08:26 Hgb 12.3 10.7 L (11.4-16.0) gm/dL Hct 37.9 33.5 L (34.0-46.0) % Result Diagrams: 07/21/21 08:26 07/21/21 08:26 Assessment and Plan Assessment: Assessment: History of multiple lumbar fusions including the levels of L2-S1 performed in 2009, 2012, and [address] 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 Colitis/proctitis of the sigmoid colon and rectum Acute encephalopathy, improved Altered mental status at presentation Hyperlipidemia Hypertension Neurologic disorder History of drug abuse with benzodiazepines, opiates, and cocaine Recent surgical intervention at her right ankle (1) Altered mental status Current Visit: Yes Status: Acute Code(s): R41.82 - ALTERED MENTAL STATUS, UNSPECIFIED SNOMED Code(s): 166424803 (2) Encephalopathy acute Current Visit: Yes Status: Acute Code(s): G93.40 - ENCEPHALOPATHY, UNSPECIFIED SNOMED Code(s): 30779107 (3) Seroma Current Visit: Yes Status: Acute Code(s): UCN0201 - SNOMED Code(s): 472750904 (4) History of lumbar fusion Current Visit: Yes Status: Acute Code(s): Z98.1 - ARTHRODESIS STATUS SNOMED Code(s): 70403105522264 (5) Lower extremity weakness Current Visit: Yes Status: Acute Code(s): R29.898 - OTH SYMPTOMS AND SIGNS INVOLVING THE MUSCULOSKELETAL SYSTEM SNOMED Code(s): 805634870 (6) Hypersensitivity Current Visit: Yes Status: Acute Code(s): T78.40XA - ALLERGY, UNSPECIFIED, INITIAL ENCOUNTER SNOMED Code(s): 623115249 (7) Colitis Current Visit: Yes Status: Acute Code(s): K52.9 - NONINFECTIVE GASTROENTERITIS AND COLITIS, UNSPECIFIED SNOMED Code(s): 88696550 (8) Proctitis Current Visit: Yes Status: Acute Code(s): K62.89 - OTHER SPECIFIED DISEASES OF ANUS AND RECTUM SNOMED Code(s): 0179913 (9) History of stroke Current Visit: Yes Status: Acute Code(s): Z86.73 - PRSNL HX OF TIA (TIA), AND CEREB INFRC W/O RESID DEFICITS SNOMED Code(s): 930714668 (10) Hyperlipidemia Current Visit: Yes Status: Acute Code(s): E78.5 - HYPERLIPIDEMIA, UNSPECIFIED SNOMED Code(s): 73073891 (11) Hypertension Current Visit: Yes Status: Acute Code(s): I10 - ESSENTIAL (PRIMARY) HYPERTE NSION SNOMED Code(s): 72252939 (12) Opiate use Current Visit: Yes Status: Acute Code(s): F11.90 - OPIOID USE, UNSPECIFIED, UNCOMPLICATED SNOMED Code(s): 547749244 (13) History of cocaine use Current Visit: Yes Status: Acute Code(s): Z87.898 - PERSONAL HISTORY OF OTHER SPECIFIED CONDITIONS SNOMED Code(s): 452365923 (14) Fever Current Visit: Yes Status: Acute Code(s): R50.9 - FEVER, UNSPECIFIED SNOMED Code(s): 509506181 Plan: Plan: 1. Patient has been discussed in detail with multiple medical providers including Dr. Pompa, Dr. Mendez and infectious disease, and neurology. Patient has had significant improvement of her altered mental status over the past several days. She feels she has returned to her baseline. She is answering questions clearly and appropriately. She does have a significant history of multiple fusions to her lumbosacral spine. These were all performed by Dr. Camacho. Patient states at the bedside that over the past couple days she feels she has returned to her regular baseline. She does feel generally weaker after lying in bed over the past several days. She does continue to have chronic lower extremity numbness with decreased sensation but hypersensitivity of the bilateral lower extremities. She continues to have chronic right lower extremity weakness following her stroke in 2018. Patient states she is known to have a lumbar seroma which has been previously seen on MRI imaging and she states Dr. Camacho is aware of the seroma. Consultation was placed for further evaluation as there was some question if a source of infection may be coming from her lumbar spine. Given her history of known seroma in her lumbar spine and also CT of the abdomen pelvis imaging which showed evidence of Colitis/proctitis of the sigmoid colon and rectum, it seems a source of her infection is currently coming from her abdomen in her lumbar spine. Patient was discussed in detail with Dr. Mendez in infectious disease. After further discussion with him, we will not currently planned to obtain MRI imaging of the lumbar spine as both infectious disease and myself do not feel it is necessary. She is scheduled for contrast imaging of her abdomen and pelvis. We did discuss if there are indications for further imaging a lumbar MRI imaging could be ordered as needed. Infectious disease does not currently feel that this MRI is needed. The patient states she has a known seroma and does not feel this imaging is currently warranted either. She continues with antibiotic medications. Patient does state if she needed further surgical intervention she would plan have this performed by Dr. Camacho. At this time, we're not currently planning to obtain further imaging in regards to the patient's lumbar spine. We will sign off on the patient. If her CT imaging of the abdomen and pelvis with contrast does not show any significant findings and is felt her infection is stemming from her lumbar spine, we may be contacted for further evaluation. Infectious disease may plan to order MRI imaging of the lumbar spine if needed as well. 2. Patient will continue be seen examined by multiple other medical providers including infectious disease, neurology, pulmonology, and medicine. Time with Patient: Greater than 30 (Including obtaining history, physical examination, reviewing of imaging, and dictation.)
--- NOTE | 2021-07-21 14:15 | P.PN ---
Subjective From the records 65-year-old female who comes to us from [facility]. Patient had surgery by Dr. Fink on Tuesday and I was told had a couple episodes of vomiting and was lethargic so brought her to the hospital. According to the physician at [place] patient was very somnolent was able to be aroused but would go right back to sleep. Patient had lab work which showed an elevated creatinine and elevated white count. Patient had a CT of the brain and CT of the abdomen pelvis which all were negative. No history of any fevers or chills no history of any difficulty breathing or cough. Initial serum glucose is 142 and ammonia is 23 Urine drug screen is positive for opiates, methamphetamine, benzoyl. Otherwise the rest is nondetected. Acetaminophen is less than 10, systolic is less than 1.0. EKG shows sinus bradycardia no ST segment elevation or depression Blood work completed an outside facility revealed elevated creatinine and a white blood count; CT head was reported to be negative 07/18/2021 Patient is evaluated with family members at bedside; doesn't open eyes on verbal stimulation but continues to moan spontaneously; doesn't follow any commands; EEG just completed MRI of the brain scheduled for today; computed tomography scan of the brain done at an outside facility was negative; urology has recommended stat EEG which is just completed; no plans to start antiepileptic drugs unless EEG is conclusive We will continue to avoid any sedating medications which can affect patient's mentation Labs including vitamin B12 and folic acid are pending 07/19/2021 Patient is seen and evaluated, continues to be confused but some improvement compared to yesterday. Patient opens her eyes on verbal stimulation Vital signs: temperature 98.4, pulse 85, resp 16, BP 150/85 Labs WBC 11.3 , Hgb 10.8, Na 146, BUN 28 Patient IS currently on ceftriaxone, vancomycin, and acyclovir for empiric meningeal encephalitis CSF studies have been negative ; neurology on board and recommending to discontinue acyclovir Patient remains on ceftriaxone and vancomycin pending ID re-evaluation EEG is completed and suggestive of encephalopathy; no seizure activity noted Neuro recommending repeat EEG tomorrow subjective: Resume the care of the patient from today 07/21/2011 Patient is a pleasant 65 years old female who presents with altered mental status, workup ruled out pending encephalitis with no nucleated cells and CSF tap. Today patient is more awake, she does she the hospital although she could not on the name, she The year of the month and the date and she knows name of the president, she wasn't sure why she was in the hospital. Patient was reoriented. Patient is complaining of from generalized abdominal pain and tenderness, no guarding or rebound tenderness. CT of the abdomen and pelvis is ordered and result is pending. Patient kept nothing by mouth for now. Several consultants on the case included neurology and pulmonary service. Patient remains on broad-spectrum antibiotics cefepime and Flagyl with ID team on the case as well as gentle hydration. Labs and vitals reviewed 07/21/2021 Patient today is fully awake and oriented back to baseline, and abdominal pain and tenderness is minimal and improving significantly compared to yesterday. She is currently started on regular diet, yesterday she was started on Colace for stools in the colon, she has frequent bowel movements mostly related to her colitis/proctitis. Colace is a stopped and Lomotil started. Patient states that she follows up with her manager line at another hospital Dr. Bakari Fraire and she has colonoscopy every 3 years, last colonoscopy was 2 years ago and she supposed to go for next colonoscopy on November 2022 as she states. Patient was instructed to follow up with her GI doctors within one week to 2 weeks after discharge and she agrees. Also CT of the abdomen and pelvis showed . fluid collection at surgical bed L2- L5, s/p laminectomy L2-L5 with hard dockery at L2-L3. This is a chronic seroma per orthopedic team, under, and follow-up with her spine surgeon Dr. Camacho as an outpatient. Other than that she is hemodynamically stable. Leukocytosis improved down to 9.9 and hemoglobin 10.7 with some evidence of hemodilution, sodium improved to 136. Liver enzymes back to normal. S calcitonin elevated 2.8. EEG is negative. Patient currently covered with cefepime and Flagyl with gentle hydration. Objective - Vital Signs Vital signs: Vital Signs Temp 98.1 F 07/21/21 03:54 Pulse 64 07/21/21 03:54 Resp 16 07/21/21 03:54 BP 145/72 07/21/21 03:54 Pulse Ox 99 07/21/21 03:54 Intake & Output 07/20/21 07/21/21 07/21/21 18:59 06:59 18:59 Intake Total 240 Output Total 800 Balance 240 -800 Intake: Oral 240 Output: Urine 800 Uretheral (Zarate) 400 Other: Voiding Method Indwelling Catheter # Bowel Movements 1 - Exam GENERAL: The patient is alert and oriented x3, not in any acute distress. Well developed, well nourished. HEENT: Pupils are round and equally reacting to light. EOMI. No scleral icterus. No conjunctival pallor. Normocephalic, atraumatic. No pharyngeal erythema. No thyromegaly. CARDIOVASCULAR: S1 and S2 present. No murmurs, rubs, or gallops. PULMONARY: Chest is clear to auscultation, no wheezing or crackles. -ABDOMEN: Soft, generalized abdominal tenderness, no rebound tenderness or guarding, nondistended, normoactive bowel sounds. No palpable organomegaly. MUSCULOSKELETAL: No joint swelling or deformity. EXTREMITIES: No cyanosis, clubbing, or pedal edema. NEUROLOGICAL: Gross neurological examination did not reveal any focal deficits. SKIN: No rashes. no petechiae. - Labs CBC & Chem 7: 07/21/21 08:26 07/21/21 08:26 Labs: Abnormal Lab Results - Last 24 Hours (Table) 07/20/21 07/21/21 07/21/21 Range/Units 07:56 08:26 08:26 RBC 3.42 L (3.80-5.40) m/uL Hgb 10.7 L (11.4-16.0) gm/dL Hct 33.5 L (34.0-46.0) % Lymphocytes # 0.8 L (1.0-4.8) k/uL Sodium 136 L (137-145) mmol/L Chloride 114 H (98-107) mmol/L Carbon Dioxide 19 L (22-30) mmol/L BUN 18 H (7-17) mg/dL Glucose 72 L (74-99) mg/dL Calcium 7.9 L (8.4-10.2) mg/dL Procalcitonin 2.88 H (0.02-0.09) ng/mL Microbiology - Last 24 Hours (Table) 07/18/21 00:03 Blood Culture - Preliminary Blood No Growth after 72 hours 07/18/21 17:58 CSF Gram Stain - Preliminary Cerebral Spinal Fluid CSF Culture - Preliminary 07/18/21 12:08 Blood Culture - Preliminary Blood No Growth after 48 hours Assessment and Plan Assessment: 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 Camacho as an outpatient Altered mental status most likely metabolic/toxic encephalopathy, improved Evidence of some drug abuse with cocaine, benzodiazepines and opiates. History of stroke and right hemiparesis Plan: This is a pleasant 74 years old female who presents with altered mental status, abdominal pain. Continue with IV fluid and broad-spectrum antibiotics prior to team. Currently on cefepime and Flagyl Patient was instructed to follow up with her GI physician in 1-2 week after discharge and she agrees. Orthopedic input is appreciated, no need for any further imaging or surgical intervention, follow-up with her spine surgeon Dr. Camacho as an outpatient. Patient informed and she agrees. Neurology service on the case as well as pulmonary service. Labs and medication were reviewed.. Continue same treatment. Continue with symptomatic treatment. Resume home medication. Monitor lytes and vitals. DVT and GI prophylaxis. Further recommendations as per clinical course of the patient DVT prophylaxis: Subcutaneous heparin GI Prophylaxis: Protonix and Carafate PT/OT: KARON, social media job titles consulted Prognosis is guarded
--- NOTE | 2021-07-21 14:33 | P.PN ---
Subjective Progress Note Date: 07/21/21 07/21/2021: Patient was seen for a follow-up. Patient is doing even better than yesterday. She is fully alert awake. Her mentation is completely normal now. Patient denies headache. Patient states that last night she had a bout of coughing. Afterwards she noticed some visual disturbance, whenever she would shut her eyes, she sees images innervation. She was seeing snowstorm, beautiful snow pictures, involving both eyes. Today she states that whenever she closes her eye, she sees some red spots in her vision. This is something new. She is concerned about retinal detachment. She has no headache. 07/20/2021: Patient was seen for a follow-up. Patient initially seen by Dr. Abel Mathew. Please refer to his note for details. Patient has history of a stroke with residual right-sided weakness. She came because of altered mental status. She was found to have encephalopathy of unknown origin. Patient had a recent right ankle surgery last 07/15/2021. She underwent shaving of some bone spurs in the right ankle. Patient's son was present today, and provided the history. He states that patient has markedly improved. Patient came with altered mental status on Tuesday, when she was minimally communicative to noncommunicative status. On Tuesday, which is yesterday she had some minimal verbalization. Today she is talking a lot. He believes that she is back to baseline. She is conversant sitting usually, asking about her grandkids. She appears generalized weak. She is going for computed tomography scan of abdomen and pelvis. Denies any headache, chest pain, down pain nausea vomiting diarrhea. Patient lives with her son. Patient's son states that about 4 years ago she had a "blood clot in the spine at T10 level. She underwent surgery for it at [facility]. She underwent hospitalization for 3 weeks at that time. She had constant numbness of her both lower limbs from waist down. It is worse in the right leg as compared to the left. The left leg is somewhat better proximally from waist to the knee, except from below knee to the foot, which is severely numb like the right side. Since then she has been walking weird. She uses a walker. Objective - Vital Signs Vital signs: Vital Signs Temp 98.1 F 07/21/21 03:54 Pulse 64 07/21/21 03:54 Resp 16 07/21/21 03:54 BP 145/72 07/21/21 03:54 Pulse Ox 99 07/21/21 03:54 Intake & Output 07/20/21 07/21/21 07/21/21 18:59 06:59 18:59 Intake Total 240 Output Total 800 Balance 240 -800 Intake: Oral 240 Output: Urine 800 Uretheral (Zarate) 400 Other: Voiding Method Indwelling Catheter # Bowel Movements 1 - Exam Patient's mental status, speech and language functions are normal. Her mentation is now completely normal. Patient knows it is July 2021 and that she is in [facility] and she knows name of the current president. She admits that she has decreased hearing and uses hearing aids. Speech and language functions are normal. Attention span and concentration is decreased, fund of knowledge appears adequate. On cranial nerve examination pupils are round and reacting, visual vilchis are full on confrontation with no neglect. Extraocular muscles are intact with no n ystagmus. Face is symmetric and tongue protrudes to the midline. Palatal elevation and sensation normal hearing is moderately decreased and facial sensation is normal. Muscle strength shows normal strength in the upper limbs. Her strength is normal in the ankles. Hip flexion is somewhat weak bilaterally. She also has hyperesthesia therefore did not let me examine her legs. Deep tendon reflexes are 2+ in the arms and legs. Plantars are withdrawal. Sensory to touch in the upper extremities is equal with no neglect. She does have significant dysesthesias to touch with bilateral lower limbs from him down to the feet. Cerebellar function showed no ataxia for [id number] testing. Tone and bulk of muscles normal. Gait deferred. On general examination, there is no carotid bruit or murmur, S1-S2 audible. Abdomen is slightly tender in the left lower quadrant. No organomegaly. Bowel sounds present. Chest is clear to auscultation. Peripheral pulses are present. Patient has mild peripheral edema. - Labs CBC & Chem 7: 07/21/21 08:26 07/21/21 08:26 Labs: Abnormal Lab Results - Last 24 Hours (Table) 07/20/21 07/21/21 07/21/21 Range/Units 07:56 08:26 08:26 RBC 3.42 L (3.80-5.40) m/uL Hgb 10.7 L (11.4-16.0) gm/dL Hct 33.5 L (34.0-46.0) % Lymphocytes # 0.8 L (1.0-4.8) k/uL Sodium 136 L (137-145) mmol/L Chloride 114 H (98-107) mmol/L Carbon Dioxide 19 L (22-30) mmol/L BUN 18 H (7-17) mg/dL Glucose 72 L (74-99) mg/dL Calcium 7.9 L (8.4-10.2) mg/dL Procalcitonin 2.88 H (0.02-0.09) ng/mL Microbiology - Last 24 Hours (Table) 07/18/21 00:03 Blood Culture - Preliminary Blood No Growth after 72 hours 07/18/21 17:58 CSF Gram Stain - Preliminary Cerebral Spinal Fluid CSF Culture - Preliminary 07/18/21 12:08 Blood Culture - Preliminary Blood No Growth after 48 hours Assessment and Plan Assessment: * Metabolic encephalopathy, perhaps from abdominal source. Computed tomography scan of the abdomen and pelvis showed evidence of possible colitis/proctitis. Patient's altered mentation has completely resolved. CSF is negative for meningoencephalitis. MRI Brain is negative for stroke.--mentation is now completely normal as of today. * New onset visual disturbance since last night after a bout of coughing. Patient sees visual imagery, snowflakes, in her vision on closing her eyes. Exact cause is uncertain. * Acute kidney injury--improved * History of hypertension * History of stroke with residual weakness over the right sided (has blood clot in spinal cord according to patient) and walks with walker * History of spinal fusion over the L2 to S1 * Hard of hearing bilaterally. * Dysesthesias of bilateral lower extremities, probably due to above #4. * Patient's urine positive for methamphetamine, possible lab error. * Osteoarthritis Plan: * CT of abdomen and pelvis revealed colitis/proctitis of the sigmoid colon and rectum upstream large stool burden throughout the colon. Surgical bed fluid collection along the thecal sac of the L2 to L5 vertebral bodies level which may represent a pseudomeningocele, seroma or abscess. Correlate with surgical history of the spine. Consider MRI of the lumbar spine with IV contrast there is clinical concern. Orthopedic consult input appreciated. No indication for MRI at this time, as she has known case of seroma following lumbar surgery in the past. Patient is off ceftriaxone and acyclovir, as meningoencephalitis has been ruled out. Patient on cefepime and metronidazole for possible abdominal source. * Repeat EEG on 07/20/2021 was normal awake and drowsy EEG for patient's age. No focal, lateralized or epileptiform activity was seen. When compared to the EEG from 07/18/2021, the background has remarkably improved. The sharply contoured triphasic waves seen in bihemispheric region have now completely resolved. Patient is off Keppra. * Ophthalmology consultation for new onset of visual disturbance. * Infection disease is on board. * Please avoid any opiate use/narcotic or sedation which will affect patient's mentation. * Repeat UDS negative for amphetamines. Initial report was likely L her. * Continue aspirin 81 mg daily. * B12 1140, folate 18.2. * Discussed with patient's son in detail. * We'll defer the rest of the medical management to the primary team.
[2021-07-21] MEDS ORDERED: TAMSULOSIN 0.4 MG CAP.ER.24H PO STA (19:37)
[2021-07-21] MEDS: SODIUM CHLORIDE 0.9% 1,000 ML IV SCH (20:55)
[2021-07-21] MEDS: ATORVASTATIN 10 MG TAB PO SCH (20:56)
[2021-07-21] MEDS: PANTOPRAZOLE 40 MG TABLET PO SCH (20:56)
[2021-07-21] MEDS: FLUTICASONE 50MCG/SPRAY NASAL 16GM EA NOSTRIL SCH (20:56)
--- NOTE | 2021-07-21 21:28 | P.PN ---
Subjective Progress Note Date: 07/20/21 Principal diagnosis: Fever Patient is a 65-year-old female who was transferred from [facility] for evaluation fever and mental status changes, and this patient apparently did have a negative CT of the head and abdominal pelvis patient did have a CSF examination completed yesterday which was negative. On today's evaluation that is 07/20/2021, the patient is afebrile today, the patient is slightly awake and alert today, the patient denies having any headach e no chest pain shortness of breath or cough some abdominal discomfort no vomiting or diarrhea Objective - Vital Signs Vital signs: Vital Signs Temp 97.5 F L 07/20/21 08:00 Pulse 71 07/20/21 12:00 Resp 18 07/20/21 12:00 BP 151/80 07/20/21 12:00 Pulse Ox 97 07/20/21 12:00 Intake & Output 07/19/21 07/20/21 07/20/21 18:59 06:59 18:59 Output Total 575 350 Balance -575 -350 Weight 75 kg Output: Urine 575 350 Other: Voiding Method Indwelling Catheter Indwelling Catheter Indwelling Catheter # Bowel Movements 2 3 - Exam GENERAL DESCRIPTION: An elderly female lying in bed in no distress RESPIRATORY SYSTEM: Unlabored breathing , decreased breath sounds at bases HEART: S1 S2 regular rate and rhythm , ABDOMEN: Soft , mild lower abdominal tenderness EXTREMITIES: No edema feet - Labs CBC & Chem 7: 07/21/21 08:26 07/21/21 08:26 Labs: Abnormal Lab Results - Last 24 Hours (Table) 07/19/21 07/19/21 07/20/21 Range/Units 16:37 16:37 07:07 WBC 11.3 H (3.8-10.6) k/uL RBC 3.52 L (3.80-5.40) m/uL Hgb 10.8 L D (11.4-16.0) gm/dL Hct 33.7 L (34.0-46.0) % Neutrophils # 9.8 H (1.3-7.7) k/uL Lymphocytes # 0.7 L (1.0-4.8) k/uL Sodium 146 H (137-145) mmol/L Chloride 119 H 118 H (98-107) mmol/L Carbon Dioxide 16 L (22-30) mmol/L BUN 28 H 24 H (7-17) mg/dL Glucose 69 L (74-99) mg/dL Calcium 8.2 L 7.9 L (8.4-10.2) mg/dL C-Reactive Protein 29.2 H (<1.0) mg/dL Total Protein 4.4 L (6.3-8.2) g/dL Albumin 2.3 L (3.5-5.0) g/dL 07/20/21 Range/Units 07:56 WBC 15.2 H (3.8-10.6) k/uL RBC (3.80-5.40) m/uL Hgb (11.4-16.0) gm/dL Hct (34.0-46.0) % Neutrophils # 12.9 H (1.3-7.7) k/uL Lymphocytes # (1.0-4.8) k/uL Sodium (137-145) mmol/L Chloride (98-107) mmol/L Carbon Dioxide (22-30) mmol/L BUN (7-17) mg/dL Glucose (74-99) mg/dL Calcium (8.4-10.2) mg/dL C-Reactive Protein (<1.0) mg/dL Total Protein (6.3-8.2) g/dL Albumin (3.5-5.0) g/dL Microbiology - Last 24 Hours (Table) 07/18/21 00:03 Blood Culture - Preliminary Blood No Growth after 48 hours 07/18/21 17:58 CSF Gram Stain - Preliminary Cerebral Spinal Fluid CSF Culture - Preliminary 07/18/21 12:08 Blood Culture - Preliminary Blood No Growth after 24 hours Assessment and Plan (1) Fever Current Visit: Yes Status: Acute Code(s): R50.9 - FEVER, UNSPECIFIED SNOMED Code(s): 400654523 Plan: 1patient presented to hospital with mental status changes patient did have an episode of vomiting, patient apparently did have a negative CT of abdominal pelvis at the [facility] chest x-ray showing a right lower lobe atelectasis UA was negative with significant mental status changes and minimal headache recently 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 2 patient with a possible abdominal source as the patient is tender on clinical examination. We will await for CT of abdominal pelvis to be completed, continue the patient on cefepime and Flagyl, at the bedside his questions and concerns were answered Time with Patient: Less than 30
--- NOTE | 2021-07-21 21:31 | P.PN ---
Subjective Progress Note Date: 07/21/21 Principal diagnosis: Fever Patient is a 65-year-old female who was transferred from [facility] for evaluation fever and mental status changes, and this patient apparently did have a negative CT of the head and abdominal pelvis patient did have a CSF examination completed yesterday which was negative. On today's evaluation that is 07/21/2021, the patient remains to be afebrile, the patient is is awake and alert, the patient denies having any headache no ch est pain shortness of breath or cough some abdominal discomfort but no worsening no further vomiting or diarrhea overall feeling better denies having any back pain Objective - Vital Signs Vital signs: Vital Signs Temp 98.1 F 07/21/21 03:54 Pulse 64 07/21/21 03:54 Resp 16 07/21/21 03:54 BP 145/72 07/21/21 03:54 Pulse Ox 99 07/21/21 03:54 Intake & Output 07/20/21 07/21/21 07/21/21 18:59 06:59 18:59 Intake Total 240 Output Total 800 Balance 240 -800 Intake: Oral 240 Output: Urine 800 Uretheral (Zarate) 400 Other: Voiding Method Indwelling Catheter # Bowel Movements 1 - Exam GENERAL DESCRIPTION: An elderly female lying in bed in no distress RESPIRATORY SYSTEM: Unlabored breathing , decreased breath sounds at bases HEART: S1 S2 regular rate and rhythm , ABDOMEN: Soft , mild lower abdominal tenderness EXTREMITIES: No edema feet - Labs CBC & Chem 7: 07/21/21 08:26 07/21/21 08:26 Labs: Abnormal Lab Results - Last 24 Hours (Table) 07/20/21 07/21/21 07/21/21 Range/Units 07:56 08:26 08:26 RBC 3.42 L (3.80-5.40) m/uL Hgb 10.7 L (11.4-16.0) gm/dL Hct 33.5 L (34.0-46.0) % Lymphocytes # 0.8 L (1.0-4.8) k/uL Sodium 136 L (137-145) mmol/L Chloride 114 H (98-107) mmol/L Carbon Dioxide 19 L (22-30) mmol/L BUN 18 H (7-17) mg/dL Glucose 72 L (74-99) mg/dL Calcium 7.9 L (8.4-10.2) mg/dL Procalcitonin 2.88 H (0.02-0.09) ng/mL Microbiology - Last 24 Hours (Table) 07/18/21 00:03 Blood Culture - Preliminary Blood No Growth after 72 hours 07/18/21 17:58 CSF Gram Stain - Preliminary Cerebral Spinal Fluid CSF Culture - Preliminary 07/18/21 12:08 Blood Culture - Preliminary Blood No Growth after 48 hours Assessment and Plan (1) Fever Current Visit: Yes Status: Acute Code(s): R50.9 - FEVER, UNSPECIFIED SNOMED Code(s): 486775604 Plan: 1patient presented to hospital with mental status changes patient did have an episode of vomiting, patient apparently did have a negative CT of abdominal pelvis at the 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 2 patient with a possible abdominal source as the patient is tender on clinical examination. CT of abdominal pelvis CT shows evidence of colitis and the patient seemed to have clinically responded to cefepime and Flagyl and her white count has normalized, there was also evidence of fluid collection along the spine which is not new per patient and has been previous documented on an MRI done at [facility] a few years ago, ortho has been consulted Time with Patient: Less than 30
[2021-07-22] MEDS: DIPHENOX-ATROP 2.5-0.025 MG 1 EACH TAB PO PRN ×2 (00:23→08:20)
[2021-07-22] MEDS: CEFEPIME 2 GM in SODIUM CHLORIDE 0.9% 100 ML IVPB SCH ×3 (01:23→16:43)
[2021-07-22] MEDS: SODIUM CHLORIDE 0.9% 1,000 ML IV SCH ×2 (04:03→16:56)
[2021-07-22] MEDS: LEVOTHYROXINE 50 MCG TAB PO SCH (06:06)
[2021-07-22] MEDS: TAMSULOSIN 0.4 MG CAP.ER.24H PO SCH (08:20)
[2021-07-22] MEDS: CALCIUM CARBONATE 500 MG CHEWABLE PO SCH ×2 (08:20→21:44)
[2021-07-22] MEDS: CHOLECALCIFEROL 25 MCG (1000 IU) TABLET PO SCH ×2 (08:20→21:44)
[2021-07-22] MEDS: ASCORBIC ACID 500 MG TAB PO SCH (08:20)
[2021-07-22] MEDS: ASPIRIN 81 MG PO SCH (08:20)
[2021-07-22] MEDS: metroNIDAZOLE-NS PMX 500 MG in SALINE 1 100ML.BAG IVPB SCH (08:21)
[2021-07-22] MEDS: DULoxetine HCL 60 MG CAPSULE.DR PO SCH (08:21)
[2021-07-22] MEDS: DOCUSATE 100 MG CAP PO SCH ×2 (08:21→21:44)
[2021-07-22] MEDS ORDERED: MORPHINE SULFATE 4 MG/ML SYRINGE IVP STA (08:49)
[2021-07-22 08:55] LABS: Basophils % (A) 0 %; Eosinophils # (A) 0.2 k/uL (0-0.7); Eosinophils % (A) 2 %; HCT 37.1 % (34.0-46.0); HGB 12.2 gm/dL (11.4-16.0); Lymphocytes # (A) 0.9 k/uL (1.0-4.8); Lymphocytes % (A) 10 %; MCH 30.7 pg (25.0-35.0); MCHC 32.9 g/dL (31.0-37.0); MCV 93.4 fL (80.0-100.0); Monocytes # (A) 0.5 k/uL (0-1.0); Monocytes % (A) 5 %; Neutrophils # (A) 7.6 k/uL (1.3-7.7); Neutrophils % (A) 81 %; Platelet Count 155 k/uL (150-450); RBC 3.97 m/uL (3.80-5.40); RDW 14.4 % (11.5-15.5); WBC 9.4 k/uL (3.8-10.6)
[2021-07-22 08:58] LABS: ALT 21 U/L (4-34); AST 28 U/L (14-36); African American GFR (CKD) >90 (>60 ml/min/1.73 sqM); Albumin 2.3 g/dL (3.5-5.0); Alkaline Phosphatase 45 U/L (38-126); Anion Gap 4 mmol/L; Blood Urea Nitrogen 14 mg/dL (7-17); Calcium 7.8 mg/dL (8.4-10.2); Carbon Dioxide 21 mmol/L (22-30); Chloride 111 mmol/L (98-107); Glucose 94 mg/dL (74-99); Non-African American GFR(CKD) >90 (>60 ml/min/1.73 sqM); Potassium 3.3 mmol/L (3.5-5.1); Sodium 136 mmol/L (137-145); Total Bilirubin 0.4 mg/dL (0.2-1.3); Total Protein 4.4 g/dL (6.3-8.2)
[2021-07-22] MEDS ORDERED: guaiFENesin-DM 100-10MG/5ML 10 ML CUP PO PRN (09:15)
--- NOTE | 2021-07-22 09:30 | XR ---
EXAMINATION TYPE: XR KUB DATE OF EXAM: 07/22/2021 COMPARISON: 04/11/2020 HISTORY: Pain TECHNIQUE: Single supine KUB image of the abdomen is obtained FINDINGS: There is retained contrast within the right hemicolon. Distention of small and large bowel may reflect underlying ileus. No evidence for obstructive change. Contrast is seen within the right hemicolon. No convincing evidence for pneumoperitoneum. No unusual calcifications. The lung bases are clear. The osseous structures are intact. IMPRESSION: 1. Distention of the small and large bowel may reflect underlying ileus.
[2021-07-22] MEDS ORDERED: PEG 3350-NA SULF,BICARB,CL/KCL 4,000 ML BOTTLE PO ONE (11:19)
--- NOTE | 2021-07-22 12:20 | P.PN ---
Subjective Progress Note Date: 07/22/21 Principal diagnosis: Mental status changes. I was involved in the patient's care due to possible ICU transfer as the patient was having diminished level of consciousness and the patient was altered neurologically. I reviewed the chart. 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 The patient has issues with chronic pain and she has undergone also spinal fusion. She has hypertension and hyperlipidemia as comorbid conditions in addition to multitude of comorbidities as mentioned in the chart. She was in a good state of health. She apparently was undergoing a foot surgery for a bunion and to my understanding this was done under spinal anesthesia. The patient went home and following that she was found to be altered by the and she came into the hospital for further evaluation. Since yesterday, the patient was evaluated by neurology and infectious disease. The patient was spiking a temperature 100.6. Along with the mental status change, there was a concern of an underlying [employer] infection and patient was given an MRI that do not to be negative and a lumbar puncture that showed no significant leukocytosis or increased protein. Cultures still pending for now. Meanwhile, the patient was given a dose of vancomycin and Rocephin by infectious disease. No seizure activity has been noted. The patient has been a bit difficult to arouse. Nevertheless, she was as the painful stimulation and she would moan and groan. She has withdrawing to moving all 4 extremities. She does not converse. We have not seen any significant Sheryl White movements to indicate on the underlying seizure activity. Note that the patient was given No rco and Toradol following her surgery to be taken outpatient basis and there is no clear history of a drug overdose. For now, the patient has mild LFT abnormalities with an AST of 57, ALT of 43 and an alkaline phosphatase of 131. Creatinine is down to 1.09 and a sodium level is at 139. The patient has a white cell count of 23.2 with a hemoglobin of 13.9. UA has been negative for any infection. CSF shows 2 RBCs, no nucleated cells, glucose of 80 with a protein of 57. Urine toxin was positive for opiates, methamphetamine and benzodiazepines. Earlier this morning, she developed some loose diarrhea and stool was checked for C. diff that came back negative. MRI of the brain was negative. 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 The EEG was abnormal and showed background slowing along with moderate to severe encephalopathy. No seizure activity was noted. Progress note dated 07/20/2021. 65-year-old female seen by my partner yesterday for mental status changes. 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 She also suffers from hypertension and hyperlipidemia. She was seen by my partner yesterday for mental status changes. Today, she is resting comfortably in her room, room 368. She is improved. Interestingly, she tested positive for opiates, methamphetamines, benzodiazepines. Her is in the room, shocked by the fact that her drug screen was positive for methamphetamines. He is not aware that she is taking those types of medications. The patient herself denies it as well. Her MRI of the brain was negative. The EEG showed slowing, consistent with moderate to severe encephalopathy. Currently she is on 3 L nasal cannula, with saturations of 98%. White count 15.2, normal hemoglobin hematocrit and platelet count. Sodium 144, potassium 3.5, chlorides 118, CO2 16, anion gap 10, BUN 24, with a creatinine 0.64. C-reactive protein is 29.2. Microbiology is negative. CSF appears to be negative. Chest x-ray shows a elevated right hemidiaphragm with some minimal b asilar atelectasis. The patient received 1 dose of vancomycin, and is currently on cefepime and Flagyl per infectious diseases. Progress note dated 07/21/2021. 65-year-old female, seen yesterday. She has a history of CVA, as well as a history of hypertension, and hyperlipidemia. She was seen by my partner in consultation for mental status changes. Interestingly, her drug screen was positive for opiates, methamphetamines, and benzodiazepines. Current lab work includes a white count of 9.4, hemoglobin 10.7, hematocrit 33.5, and a platelet count of 157,000. Sodium 136, potassium 3.5, chlorides 114, CO2 19, anion gap 3, BUN 18, creatinine 0.54. Pro-calcitonin level is elevated at 2.88. Repeat drug screen is pending. CT of the abdomen and pelvis shows colitis/proctitis of the colon, a possible pseudomeningocele, trace bilateral pleural effusions, and a Zarate catheter within the bladder. The patient remains on cefepime and Flagyl as per infectious diseases. Progress note dated 07/22/2021. 65-year-old male, again seen in room 368. The patient has a history of CVA, hypertension, and hyperlipidemia. She was initially seen for mental status changes, which have dramatically improved. Currently, she is on room air. Getting any IV fluids. Her daughter, from [place], [place], is in the room with her. Labs today include a white count of 9.4, hemoglobin 12.2, hematocrit 37.1, and a platelet count of 155,000. Sodium 136, potassium 3.3, chlorides 111, CO2 21, anion gap 4, BUN 14, and creatinine 0.63. Repeat drug screen was negative for everything. Objective - Vital Signs Vital signs: Vital Signs Temp 97.8 F 07/22/21 08:05 Pulse 67 07/22/21 11:05 Resp 16 07/22/21 11:05 BP 150/71 07/22/21 11:05 Pulse Ox 95 07/22/21 11:05 Intake & Output 07/21/21 07/22/21 07/22/21 18:59 06:59 18:59 Intake Total 480 118 Output Total 800 Balance 480 -800 118 Intake: Oral 480 118 Output: Urine 800 Uretheral (Zarate) 800 Other: Voiding Method Indwelling Catheter Indwelling Catheter Indwelling Catheter # Voids 2 # Bowel Movements 3 - Exam No acute distress, oriented 3. The patient is awake and alert. She looks much better today than she even did yesterday. HEENT examination is grossly unremarkable. Neck supple. Full range of motion. No adenopathy thyromegaly or neck vein distention. Cardiovascular examination reveals regular rhythm rate. S1-S2 normal. No S3 or S4. No discernible murmur noted. Heart rate is 67 bpm. Lungs reveal clear breath sounds. Breath sounds are equal bilaterally. No adventitious lung sounds including wheezes rhonchi or crackles. Room air saturation is 95%. Abdomen soft bowel sounds are heard. No masses or tenderness. Extremities are intact. No cyanosis clubbing or edema. Skin is without rash or lesion. Neurologic examination is brief but nonfocal. - Labs CBC & Chem 7: 07/22/21 07:42 07/22/21 07:42 Labs: Abnormal Lab Results - Last 24 Hours (Table) 07/22/21 07/22/21 Range/Units 07:42 07:42 Lymphocytes # 0.9 L (1.0-4.8) k/uL Sodium 136 L (137-145) mmol/L Potassium 3.3 L (3.5-5.1) mmol/L Chloride 111 H (98-107) mmol/L Carbon Dioxide 21 L (22-30) mmol/L Calcium 7.8 L (8.4-10.2) mg/dL Total Protein 4.4 L (6.3-8.2) g/dL Albumin 2.3 L (3.5-5.0) g/dL Microbiology - Last 24 Hours (Table) 07/18/21 00:03 Blood Culture - Preliminary Blood No Growth after 96 hours 07/18/21 17:58 CSF Gram Stain - Preliminary Cerebral Spinal Fluid CSF Culture - Preliminary 07/18/21 12:08 Blood Culture - Preliminary Blood No Growth after 72 hours Assessment and Plan Assessment: Encephalopathy, likely metabolic, and a patient who is improved since yesterday. CT scan/MRI, were negative. CSF, negative for infection. The patient's mental status is dramatically improved. Repeat drug screen was negative. Acute kidney injury, improved. Recent history of foot injury/bunion surgery. History of hypertension. History of CVA, chronic right-sided weakness. Chronic right hemidiaphragm elevation. History of spinal fusion, involving L2 through S1. Hearing impairment. Chronic pain syndrome. History of hyperlipidemia. Osteoarthritis. History of kidney stones. Irritable bowel syndrome. Plan: Plan dated 07/20/2021. The patient appears to be improving. Because of the possibility of infection, and septic encephalopathy, even though culture data is thus far negative, the patient will have a pro-calcitonin level done. Also, because of the unusual finding in the drug screen, and positive for methamphetamines, a repeat drug screen is ordered. The is in the room, and all this is discussed with him. Additional recommendations are forthcoming. We will continue to follow as needed. Plan dated 07/21/2021. The patient is currently on cefepime and Flagyl as per infectious diseases. The patient is much more alert and awake today. Her vital signs are stable. Labs, x-rays, and medications are reviewed. The repeat drug screen, is currently pending. It was unusual, as the patient tested positive for methamphetamines. He states she does not take times the medications. We will continue to follow and make recommendations where appropriate. Prognosis is guarded. Thus far, all microbiologic studies are negative. Plan dated 07/22/2021. Currently, the patient's doing very well. She is awake and alert. Her daughters in the room. Repeat drug screen was negative. After today, we'll only see the patient as needed. There are currently no significant lung issues to speak of. The patient's room air saturation is excellent. Please feel free to call us back should any lung issues develop. Time with Patient: Less than 30
[2021-07-22] MEDS ORDERED: POLYETHYLENE GLYCOL LYTES SOLN 4,000 ML SOLN.RECON PO ONE (12:30)
--- NOTE | 2021-07-22 12:40 | P.GSCN ---
History of Present Illness Consult date: 07/22/21 Reason for Consult: Colitis, proctitis History of present illness: CHIEF COMPLAINT: Altered mental status changes HISTORY OF PRESENT ILLNESS: This is 65-year-old female who presented to the emergency department on 07/17/2021 with altered mental status changes as a transfer from [facility]. states that she woke up approximately 3 AM with 2 episodes of emesis and then passed out and loss consciousness. Patient has a history of multiple comorbidities including multiple spine surgeries last one [place] [address] Camacho. He states she's been having multiple episodes of diarrhea since Tuesday. She had a max temperature of 100.6 on admission. She denies any further nausea or vomiting. She denies any blood in her stool. She denies any prior history of Crohn's disease or colitis. Colonoscopies are up-to-date and states that she is due for one next July, last colonoscopy was done at [facility]. She had a CT of the abdomen and pelvis on 07/20/2021 that showed colitis/proctitis of the sigmoid colon and rectum upstream large stool burden throughout the colon. There was also note of surgical bed fluid collection along the thecal sac of L2 through L5 vertebral bodies levels which may represent a pseudomeningocele, seroma or abscess. Trace bilateral pleural effusion right greater than left. C. diff and stool cultures have been ordered but uncollected. The patient states she does have some mild lower abdominal cramping associated with her diarrhea. She is afebrile. She has multiple consultants on and worked up for infection. Preliminary blood culture is negative, is cerebral spinal fluid preliminary this with no growth. Patient is currently on cefepime and Flagyl. PAST MEDICAL HISTORY: Hypertension, CVA with chronic right-sided weakness, hearing impairment, chronic pain syndrome, hyperlipidemia, osteoarthritis, history of kidney stones, IBS. PAST SURGICAL HISTORY: Bunion surgery, multiple spine surgery, appendectomy, bladder distention, breast surgery, cholecystectomy, heart catheterization, hysterectomy, orthopedic surgery, tubal ligation, nasal surgery, cataract surgery MEDICATIONS: See list. ALLERGIES: See list. SOCIAL HISTORY: No illicit drug use. REVIEW OF SYSTEMS: CONSTITUTIONAL: Denies fever or chills. HEENT: Had some blurred vision, visual changes.. Denies hemoptysis CARDIOVASCULAR: Denies chest pain or pressure. RESPIRATORY: No shortness of breath. GASTROINTESTINAL: See HPI for pertinent findings HEMATOLOGIC: Denies bleeding disorders. GENITOURINARY: Denies any blood in urine or increased urinary frequency. SKIN: Denies pruitis. Denies rash. PHYSICAL EXAM: VITAL SIGNS: Reviewed GENERAL: Well-developed in no acute distress. HEENT: No sclera icterus. Extraocular movements grossly intact. Moist buccal mucosa. Head is atraumatic, normocephalic. No nasal drainage. ABDOMEN: Soft. Obese. Nondistended. Nontender. NEUROLOGIC: Alert and oriented. Cranial nerves II through XII grossly intact. LABORATORY DATA: WBC 9.4 hemoglobin 12 hematocrit 37 platelet count 155,000 Sodium 136 potassium 3.3 BUN 14 creatinine 0.6 glucose 94 Total bilirubin 0.4 AST 28 ALT 21 alkaline phosphatase 45 IMAGING: CT abdomen and pelvis report colitis/proctitis of the sigmoid colon and rectum with upstream large stool burden throughout the colon. Surgical bed fluid collection along the thecal sac of L2-L5 vertebral body level which may represent a pseudomeningocele, seroma or abscess. Correlate with surgical history of spine. Consider MRI lumbar spine with IV contrast if there is clinical concern. Trace bilateral pleural effusions, right greater than left. Zarate catheter in place with gas in the bladder lumen. Correlate with urinalysis if there is concern for cystitis. ASSESSMENT: 1. Diarrhea 2. Colitis/proctitis of sigmoid colon and rectum seen on CT of abdomen and pelvis 3. Fever, resolved 4. Altered mental status changes 5. Hypokalemia PLAN: 1. Patient may have clear liquid diet, nothing by mouth after midnight 2. Replace potassium per protocol 3. Please obtain C. diff and stool cultures 4. Bowel prep this afternoon 5. Colonoscopy scheduled for tomorrow 6. Protonix for GI prophylaxis 7. Repeat CBC, BMP in the morning Thank you for this consultation, we will continue to follow. The impression and plan of care has been dictated as directed. Dr. Nichole I performed a history and examination of this patient, discussed the same with the dictator. I agree with the dictator's note ,documented as a scribe. Any additional findings or plans will be noted.. Past Medical History Past Medical History: Asthma, CVA/TIA, GERD/Reflux, Hearing Disorder / Deafness, Hyperlipidemia, Hypertension, Musculoskeletal Disorder, Neurologic Disorder, Osteoarthritis (OA), Thyroid Disorder Additional Past Medical History / Comment(s): Varicose veins. Bilateral hearing aids. 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 allergy shots biweekly (Dr. Hinton). 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 Hx spinal fusion L2-S1., hx of positive tb test and now has [id number] instead. History of Any Multi-Drug Resistant Organisms: None Reported Past Surgical History: Appendectomy, Back Surgery, Bladder Surgery, Breast Surgery, Cholecystectomy, Heart Catheterization, Hysterectomy, Orthopedic Surgery, Tubal Ligation Additional Past Surgical History / Comment(s): Bilat CTR, Nasal surgery, bilat cataract surgery, Ganglion Cyst removal right hand, Left Kidney Stone surgery, Right Breast Biopsy, Back Surgery X3 w/(Lumbar fusion L2-S1), Right Ulna surgery, gum Line surgery, Bladder Suspension X 3, Colonoscopies, Debridement & Repair of left elbow. PAIN CLINIC PROCEDURES., torn retina right eye 04/2019 Past Anesthesia/Blood Transfusion Reactions: Postoperative Nausea & Vomiting (PO NV) Additional Past Anesthesia/Blood Transfusion Reaction / Comm: States becomes very nauseaous when NPO. Past Psychological History: Depression Smoking Status: Never smoker Past Alcohol Use History: Unable to Obtain Past Drug Use History: Unable to Obtain - Past Family History Mother Family Medical History: No Reported History Daughter(s) Family Medical History: Deep Vein Thrombosis (DVT) Medications and Allergies Home Medications Medication Instructions Recorded Confirmed Type Calcium Carbonate [Calcium] 600 mg PO BID 12/16/16 07/17/21 History Cholecalciferol (Vitamin D3) 50 mcg PO BID 12/16/16 07/17/21 History [Vitamin D3] Cinnamon Bark [Cinnamon] 1,000 mg PO BID 12/16/16 07/17/21 History Dexlansoprazole [Dexilant] 30 mg PO HS 12/16/16 07/17/21 History Fluticasone Nasal [place] [Flonase 2 spr EA NOSTRIL HS 12/16/16 07/17/21 History Nasal [place]] L.acidoph,Paracasei, B.lactis 1 cap PO BID 12/16/16 07/17/21 History [Probiotic] Montelukast [Singulair] 10 mg PO HS 12/16/16 07/17/21 History Spironolactone [Aldactone] 50 mg PO BID 12/16/16 07/17/21 History Atorvastatin [Lipitor] 10 mg PO HS 08/24/18 07/17/21 History Azelastine HCl [Astepro] 2 spray EA NOSTRIL BID PRN 08/24/18 07/17/21 History Baclofen [Lioresal] 20 mg PO BID 08/24/18 07/17/21 History DULoxetine HCL [Cymbalta] 60 mg PO DAILY 08/24/18 07/17/21 History Furosemide [Lasix] 20 mg PO DAILY@1700 08/24/18 07/17/21 History Furosemide [Lasix] 40 mg PO DAILY 08/24/18 07/17/21 History lamoTRIgine [LaMICtal] 100 mg PO BID 08/24/18 07/17/21 History Levothyroxine Sodium [Synthroid] 50 mcg PO DAILY 09/19/18 07/17/21 History Methenamine Hippurate [Hiprex] 1 gm PO Q48H 09/19/18 07/17/21 History Potassium Chloride [Potassium 10 meq PO BID 10/12/18 07/17/21 History Chloride ER] Aspirin 81 mg PO DAILY 10/24/18 07/17/21 History Magnesium 200 mg PO DAILY 10/24/18 07/17/21 History Ipratropium [place] 0.06%Nasal 2 spray EA NOSTRIL TID PRN 05/25/19 07/17/21 History [Atrovent Nasal 0.06%] Sucralfate [Carafate] 1 gm PO BID PRN 05/25/19 07/17/21 History calcium polycarbophiL [Fibercon] 625 mg PO BID 05/25/19 07/17/21 History hydrALAZINE HCL [Apresoline] 37.5 mg PO TID 05/25/19 07/17/21 History hydrOXYzine HCL [Atarax] 10 - 20 mg PO Q8H PRN 05/25/19 07/17/21 History Diclofenac Sodium Gel [Voltaren 4 gm TOPICAL QID PRN 07/10/19 07/17/21 History Gel] Mometasone/Formoterol [Dulera 100 1 puff INHALATION RT-BID PRN 12/17/19 07/17/21 History Mcg-5 Mcg Inhaler] Ondansetron Odt [Zofran ODT] 4 - 8 mg PO TID PRN 04/10/20 07/17/21 History Ascorbic Acid [Vitamin C] 1,000 mg PO DAILY #60 tab 04/12/20 07/17/21 Rx lamoTRIgine [LaMICtal] 50 mg PO DAILY@1400 03/06/21 07/17/21 History Albuterol Sulfate [Ventolin HFA] 2 puff INHALATION RT-Q4H PRN 07/17/21 07/17/21 History Dicyclomine [Bentyl] 40 mg PO Q12H 07/17/21 07/17/21 History Estradiol Cream [Estrace Cream 1 gm VAGINAL TUTH 07/17/21 07/17/21 History 0.01%] HYDROcodone/APAP 5-325MG [[place] 1 - 2 tab PO Q4H PRN 07/17/21 07/17/21 History 5-325] Ketorolac [Toradol] 10 mg PO Q6H PRN 07/17/21 07/17/21 History Lidocaine [Aspercreme Patch] 1 patch TRANSDERM DAILY PRN 07/17/21 07/17/21 History Losartan Potassium 100 mg PO DAILY 07/17/21 07/17/21 History Multivit with Calcium,Iron,Min 1 tab PO DAILY 07/17/21 07/17/21 History [Women's Multivitamin] diazePAM [Valium] 5 mg PO Q8H PRN 07/17/21 07/17/21 History Allergies Allergy/AdvReac Type Severity Reaction Status Date / Time celecoxib [From Celebrex] Allergy Itching Verified 07/17/21 14:14 ciprofloxacin [From Cipro] Allergy Rash/Hives Verified 07/17/21 14:14 gentamicin Allergy Ototoxicity Verified 07/17/21 14:14 nitrofurantoin Allergy Chest Pain Verified 07/17/21 14:14 [From Macrodantin] Penicillins Allergy Rash/Hives Verified 07/17/21 14:14 sulfamethoxazole Allergy tongue Verified 07/17/21 14:14 [From Janra] swelling thimerosal Allergy Rash/Hives Verified 07/17/21 14:14 tobramycin Allergy Rash/Hives Verified 07/17/21 14:14 trimethoprim [From Septra] Allergy tongue Verified 07/17/21 14:14 swelling cefaclor [From Ceclor] AdvReac Drug Verified 07/17/21 14:14 induced fever clindamycin [From Cleocin] AdvReac Drug Verified 07/17/21 14:14 induced fever seasonal allergies Allergy Cough Uncoded 07/17/21 12:40 Surgical - Exam Vital Signs Resp 20 07/17/21 12:35 Results - Labs 07/22/21 07:42 07/22/21 07:42 Abnormal Lab Results - Last 24 Hours (Table) 07/22/21 07/22/21 Range/Units 07:42 07:42 Lymphocytes # 0.9 L (1.0-4.8) k/uL Sodium 136 L (137-145) mmol/L Potassium 3.3 L (3.5-5.1) mmol/L Chloride 111 H (98-107) mmol/L Carbon Dioxide 21 L (22-30) mmol/L Calcium 7.8 L (8.4-10.2) mg/dL Total Protein 4.4 L (6.3-8.2) g/dL Albumin 2.3 L (3.5-5.0) g/dL Microbiology - Last 24 Hours (Table) 07/18/21 00:03 Blood Culture - Preliminary Blood No Growth after 96 hours 07/18/21 17:58 CSF Gram Stain - Preliminary Cerebral Spinal Fluid CSF Culture - Preliminary 07/18/21 12:08 Blood Culture - Preliminary Blood No Growth after 72 hours Diabetes panel 07/22/21 Range/Units 07:42 Sodium 136 L (137-145) mmol/L Potassium 3.3 L (3.5-5.1) mmol/L Chloride 111 H (98-107) mmol/L Carbon Dioxide 21 L (22-30) mmol/L BUN 14 (7-17) mg/dL Creatinine 0.63 (0.52-1.04) mg/dL Glucose 94 (74-99) mg/dL Calcium 7.8 L (8.4-10.2) mg/dL AST 28 (14-36) U/L ALT 21 (4-34) U/L Alkaline Phosphatase 45 (38-126) U/L Total Protein 4.4 L (6.3-8.2) g/dL Albumin 2.3 L (3.5-5.0) g/dL Calcium panel 07/22/21 Range/Units 07:42 Calcium 7.8 L (8.4-10.2) mg/dL Albumin 2.3 L (3.5-5.0) g/dL Pituitary panel 07/22/21 Range/Units 07:42 Sodium 136 L (137-145) mmol/L Potassium 3.3 L (3.5-5.1) mmol/L Chloride 111 H (98-107) mmol/L Carbon Dioxide 21 L (22-30) mmol/L BUN 14 (7-17) mg/dL Creatinine 0.63 (0.52-1.04) mg/dL Glucose 94 (74-99) mg/dL Calcium 7.8 L (8.4-10.2) mg/dL Adrenal panel 07/22/21 Range/Units 07:42 Sodium 136 L (137-145) mmol/L Potassium 3.3 L (3.5-5.1) mmol/L Chloride 111 H (98-107) mmol/L Carbon Dioxide 21 L (22-30) mmol/L BUN 14 (7-17) mg/dL Creatinine 0.63 (0.52-1.04) mg/dL Glucose 94 (74-99) mg/dL Calcium 7.8 L (8.4-10.2) mg/dL Total Bilirubin 0.4 (0.2-1.3) mg/dL AST 28 (14-36) U/L ALT 21 (4-34) U/L Alkaline Phosphatase 45 (38-126) U/L Total Protein 4.4 L (6.3-8.2) g/dL Albumin 2.3 L (3.5-5.0) g/dL
[2021-07-22] MEDS ORDERED: Potassium Replacement Protocol 1 EACH MISC MISCELLANE PRN (12:41)
[2021-07-22] MEDS ORDERED: POTASSIUM CHLORIDE ER 20 MEQ TAB.ER PO STA (12:42)
[2021-07-22] MEDS: metroNIDAZOLE 500 MG TAB PO SCH (16:43)
[2021-07-22] MEDS: MORPHINE SULFATE 4 MG/ML SYRINGE IVP PRN ×2 (16:50→21:45)
[2021-07-22] MEDS ORDERED: TROPICAMIDE 1% OPHTH DROPS 2 ML BTL BOTH EYES ONE (17:00)
--- NOTE | 2021-07-22 19:20 | CONS ---
CONSULTATION CHIEF COMPLAINT: Visual disturbance. HISTORY OF PRESENT ILLNESS: Patient has visual disturbance which includes sparkling lights when she closes her eyes. She also feels that her vision has been decreased in the last two days. PAST SURGICAL HISTORY: Patient had cataract surgery in 2015, also developed retinal detachment which was treated with laser. Medical history reviewed, including hypertension. EYE EXAMINATION: Vision 20/40 both eyes with reading glasses. Extraocular motility full. Pupils equal and reactive with no RAPD. Eye pressure was 16 mmHg, both eyes. Both eyes have implants in good position. Vitreous was normal with no hemorrhages. Optic disk was of good color with a cup/disk ratio of 0.4, both eyes. Macula looked normal. Peripheral retina was normal. Blood vessels show hypertensive retinopathy, grade 2. No exudates in the retina. Confrontation was normal. ASSESSMENT: 1. Visual disturbance. 2. Posterior vitreous detachment with no retinal tears. 3. Hypertensive retinopathy, grade 2. PLAN: Patient was assured that there is no major pathology in her eye exam today. Advised to check with her local fisheries inspector after discharge to check glasses and to re-examine her eye. MMODL / IJN: [id number] /
--- NOTE | 2021-07-22 21:11 | P.PN ---
Subjective From the records 65-year-old female who comes to us from [facility]. Patient had surgery by Dr. Fink on Tuesday and I was told had a couple episodes of vomiting and was lethargic so brought her to the hospital. According to the physician at [place] patient was very somnolent was able to be aroused but would go right back to sleep. Patient had lab work which showed an elevated creatinine and elevated white count. Patient had a CT of the brain and CT of the abdomen pelvis which all were negative. No history of any fevers or chills no history of any difficulty breathing or cough. Initial serum glucose is 142 and ammonia is 23 Urine drug screen is positive for opiates, methamphetamine, benzoyl. Otherwise the rest is nondetected. Acetaminophen is less than 10, systolic is less than 1.0. EKG shows sinus bradycardia no ST segment elevation or depression Blood work completed an outside facility revealed elevated creatinine and a white blood count; CT head was reported to be negative 07/18/2021 Patient is evaluated with family members at bedside; doesn't open eyes on verbal stimulation but continues to moan spontaneously; doesn't follow any commands; EEG just completed MRI of the brain scheduled for today; computed tomography scan of the brain done at an outside facility was negative; urology has recommended stat EEG which is just completed; no plans to start antiepileptic drugs unless EEG is conclusive We will continue to avoid any sedating medications which can affect patient's mentation Labs including vitamin B12 and folic acid are pending 07/19/2021 Patient is seen and evaluated, continues to be confused but some improvement compared to yesterday. Patient opens her eyes on verbal stimulation Vital signs: temperature 98.4, pulse 85, resp 16, BP 150/85 Labs WBC 11.3 , Hgb 10.8, Na 146, BUN 28 Patient IS currently on ceftriaxone, vancomycin, and acyclovir for empiric meningeal encephalitis CSF studies have been negative ; neurology on board and recommending to discontinue acyclovir Patient remains on ceftriaxone and vancomycin pending ID re-evaluation EEG is completed and suggestive of encephalopathy; no seizure activity noted Neuro recommending repeat EEG tomorrow subjective: Resume the care of the patient from today 07/21/2011 Patient is a pleasant 65 years old female who presents with altered mental status, workup ruled out pending encephalitis with no nucleated cells and CSF tap. Today patient is more awake, she does she the hospital although she could not on the name, she The year of the month and the date and she knows name of the president, she wasn't sure why she was in the hospital. Patient was reoriented. Patient is complaining of from generalized abdominal pain and tenderness, no guarding or rebound tenderness. CT of the abdomen and pelvis is ordered and result is pending. Patient kept nothing by mouth for now. Several consultants on the case included neurology and pulmonary service. Patient remains on broad-spectrum antibiotics cefepime and Flagyl with ID team on the case as well as gentle hydration. Labs and vitals reviewed 07/21/2021 Patient today is fully awake and oriented back to baseline, and abdominal pain and tenderness is minimal and improving significantly compared to yesterday. She is currently started on regular diet, yesterday she was started on Colace for stools in the colon, she has frequent bowel movements mostly related to her colitis/proctitis. Colace is a stopped and Lomotil started. Patient states that she follows up with her hat liner at another hospital Dr. Bakari Fraire and she has colonoscopy every 3 years, last colonoscopy was 2 years ago and she supposed to go for next colonoscopy on November 2022 as she states. Patient was instructed to follow up with her GI doctors within one week to 2 weeks after discharge and she agrees. Also CT of the abdomen and pelvis showed . fluid collection at surgical bed L2- L5, s/p laminectomy L2-L5 with hard dockery at L2-L3. This is a chronic seroma per orthopedic team, under, and follow-up with her spine surgeon Dr. Camacho as an outpatient. Other than that she is hemodynamically stable. Leukocytosis improved down to 9.9 and hemoglobin 10.7 with some evidence of hemodilution, sodium improved to 136. Liver enzymes back to normal. S calcitonin elevated 2.8. EEG is negative. Patient currently covered with cefepime and Flagyl with gentle hydration. 07/22/2021 Patient mentation is back to normal. However she is in distress because of her abdominal pain Patient continued to have diarrhea and abdominal pain was more severe last night with more tenderness in the left lower quadrant, KUB showing small large bowel ileus. Surgery team were consulted for plan for colonoscopy tomorrow. C. diff is negative, stool studies are pending. Currently With antibiotic of cefepime and Flagyl per ID team also she is on normal saline at 75 mL/h. Lighting Fixture Installer examined the patient and found posterior vitreous detachment with no retinal tear and hypertensive retinopathy that require outpatient follow-up only for now. Orthopedic team on the case for spinal seroma and recommended no further action needed regarding this. Pulmonary team on the case Zarate catheter was replaced because of urinary retention more than 700 mL. Flomax is started Prognosis remains guarded Objective - Vital Signs Vital signs: Vital Signs Temp 97.8 F 07/22/21 08:05 Pulse 75 07/22/21 08:05 Resp 18 07/22/21 08:05 BP 146/65 07/22/21 08:05 Pulse Ox 96 07/22/21 08:05 Intake & Output 07/21/21 07/22/21 07/22/21 18:59 06:59 18:59 Intake Total 480 118 Output Total 800 Balance 480 -800 118 Intake: Oral 480 118 Output: Urine 800 Uretheral (Zarate) 800 Other: Voiding Method Indwelling Catheter Indwelling Catheter Indwelling Catheter # Voids 2 # Bowel Movements 3 - Exam GENERAL: The patient is alert and oriented x3, not in any acute distress. Well developed, well nourished. HEENT: Pupils are round and equally reacting to light. EOMI. No scleral icterus. No conjunctival pallor. Normocephalic, atraumatic. No pharyngeal erythema. No thyromegaly. CARDIOVASCULAR: S1 and S2 present. No murmurs, rubs, or gallops. PULMONARY: Chest is clear to auscultation, no wheezing or crackles. -ABDOMEN: Soft, generalized abdominal tenderness, no rebound tenderness or guarding, nondistended, normoactive bowel sounds. No palpable organomegaly. MUSCULOSKELETAL: No joint swelling or deformity. EXTREMITIES: No cyanosis, clubbing, or pedal edema. NEUROLOGICAL: Gross neurological examination did not reveal any focal deficits. SKIN: No rashes. no petechiae. - Labs CBC & Chem 7: 07/22/21 07:42 07/22/21 07:42 Labs: Abnormal Lab Results - Last 24 Hours (Table) 07/22/21 07/22/21 Range/Units 07:42 07:42 Lymphocytes # 0.9 L (1.0-4.8) k/uL Sodium 136 L (137-145) mmol/L Potassium 3.3 L (3.5-5.1) mmol/L Chloride 111 H (98-107) mmol/L Carbon Dioxide 21 L (22-30) mmol/L Calcium 7.8 L (8.4-10.2) mg/dL Total Protein 4.4 L (6.3-8.2) g/dL Albumin 2.3 L (3.5-5.0) g/dL Microbiology - Last 24 Hours (Table) 07/18/21 00:03 Blood Culture - Preliminary Blood No Growth after 96 hours 07/18/21 17:58 CSF Gram Stain - Preliminary Cerebral Spinal Fluid CSF Culture - Preliminary 07/18/21 12:08 Blood Culture - Preliminary Blood No Growth after 72 hours Assessment and Plan Assessment: Sigmoid colitis and proctitis with sepsis posterior vitreous detachment with no retinal tear and hypertensive retinopathy. Outpatient follow-up L2-L5 surgical bed seroma,, chronic as per orthopedic team follow up with her spine surgeon Dr. Camacho as an outpatient Altered mental status most likely metabolic/toxic encephalopathy, resolved and patient is back to baseline Evidence of some drug abuse with cocaine, benzodiazepines and opiates. History of stroke and right hemiparesis Plan: This is a pleasant 74 years old female who presents with altered mental status, abdominal pain. Continue with IV fluid and broad-spectrum antibiotics prior to team. Currently on cefepime and Flagyl Patient was instructed to follow up with her GI physician in 1-2 week after discharge and she agrees. Colonoscopy tomorrow morning for surgery team Pulmonary team on the case Orthopedic input is appreciated, no need for any further imaging or surgical intervention, follow-up with her spine surgeon Dr. Camacho as an outpatient. Thai tarango informed and she agrees. Neurology service on the case as well as pulmonary service. Labs and medication were reviewed.. Continue same treatment. Continue with symptomatic treatment. Resume home medication. Monitor lytes and vitals. DVT and GI prophylaxis. Further recommendations as per clinical course of the patient DVT prophylaxis: Subcutaneous heparin GI Prophylaxis: Protonix and Carafate PT/OT: KARON, social work professor consulted Prognosis is guarded
[2021-07-22] MEDS: PANTOPRAZOLE 40 MG TABLET PO SCH (21:44)
[2021-07-22] MEDS: ATORVASTATIN 10 MG TAB PO SCH (21:44)
[2021-07-22] MEDS: FLUTICASONE 50MCG/SPRAY NASAL 16GM EA NOSTRIL SCH (21:44)
[2021-07-23] MEDS: metroNIDAZOLE 500 MG TAB PO SCH ×4 (00:04→23:23)
[2021-07-23] MEDS: CEFEPIME 2 GM in SODIUM CHLORIDE 0.9% 100 ML IVPB SCH ×4 (00:04→23:23)
[2021-07-23] MEDS: LEVOTHYROXINE 50 MCG TAB PO SCH (06:15)
[2021-07-23] MEDS: SODIUM CHLORIDE 0.9% 1,000 ML IV SCH ×2 (06:15→16:10)
[2021-07-23] MEDS: MORPHINE SULFATE 4 MG/ML SYRINGE IVP PRN ×2 (06:23→17:05)
[2021-07-23] MEDS: TAMSULOSIN 0.4 MG CAP.ER.24H PO SCH (08:04)
[2021-07-23] MEDS: CALCIUM CARBONATE 500 MG CHEWABLE PO SCH ×2 (08:04→21:07)
[2021-07-23] MEDS: CHOLECALCIFEROL 25 MCG (1000 IU) TABLET PO SCH ×2 (08:04→21:07)
[2021-07-23] MEDS: ASCORBIC ACID 500 MG TAB PO SCH (08:04)
[2021-07-23] MEDS: ASPIRIN 81 MG PO SCH (08:04)
[2021-07-23] MEDS: LACTATED RINGERS 1,000 ML IV SCH (08:06)
[2021-07-23] MEDS: DULoxetine HCL 60 MG CAPSULE.DR PO SCH (08:56)
[2021-07-23] MEDS: DOCUSATE 100 MG CAP PO SCH ×2 (08:56→21:07)
[2021-07-23 09:12] LABS: African American GFR (CKD) >90 (>60 ml/min/1.73 sqM); Anion Gap 9 mmol/L; Blood Urea Nitrogen 10 mg/dL (7-17); Calcium 7.6 mg/dL (8.4-10.2); Carbon Dioxide 16 mmol/L (22-30); Chloride 111 mmol/L (98-107); Glucose 70 mg/dL (74-99); Non-African American GFR(CKD) >90 (>60 ml/min/1.73 sqM); Sodium 136 mmol/L (137-145)
[2021-07-23 09:25] LABS: Potassium 3.5 mmol/L (3.5-5.1)
[2021-07-23 09:47] LABS: HCT 37.8 % (34.0-46.0); HGB 11.6 gm/dL (11.4-16.0); Hypochromasia Marked; MCH 30.7 pg (25.0-35.0); MCHC 30.6 g/dL (31.0-37.0); Macrocytosis Slight; Mean Platelet Volume 11.2; RBC 3.78 m/uL (3.80-5.40); RDW 14.1 % (11.5-15.5); WBC 8.6 k/uL (3.8-10.6)
[2021-07-23] MEDS: ESTRADIOL 0.1 MG/GM VAGINAL CREAM 42.5 GM TUBE VAGINAL SCH (10:13)
--- NOTE | 2021-07-23 10:51 | P.PN ---
Subjective Progress Note Date: 07/22/21 07/22/2021: Patient was seen for a follow-up. Patient is sitting in the recliner, very pleasant, in no acute distress. Patient's family was also present. She is fully oriented. Complains of irritable bowel, loose stools but no watery stools. No blood. No mucus. She is undergoing colonoscopy tomorrow. Denies any neurological symptoms. Telemetry monitoring showing sinus rhythm. No arrhythmia. 07/21/2021: Patient was seen for a follow-up. Patient is doing even better than yesterday. She is fully alert awake. Her mentation is completely normal now. Patient denies headache. Patient states that last night she had a bout of coughing. Afterwards she noticed some visual disturbance, whenever she would shut her eyes, she sees images innervation. She was seeing snowstorm, beautiful snow pictures, involving both eyes. Today she states that whenever she closes her eye, she sees some red spots in her vision. This is something new. She is concerned about retinal detachment. She has no headache. 07/20/2021: Patient was seen for a follow-up. Patient initially seen by Dr. Abel Mathew. Please refer to his note for details. Patient has history of a stroke with residual right-sided weakness. She came because of altered mental status. She was found to have encephalopathy of unknown origin. Patient had a recent right ankle surgery last 07/15/2021. She underwent shaving of some bone spurs in the right ankle. Patient's son was present today, and provided the history. He states that patient has markedly improved. Patient came with altered mental status on Tuesday, when she was minimally communicative to noncommunicative status. On Tuesday, which is yesterday she had some minimal verbalization. Today she is talking a lot. He believes that she is back to baseline. She is conversant sitting usually, asking about her grandkids. She appears generalized weak. She is going for computed tomography scan of abdomen and pelvis. Denies any headache, chest pain, down pain nausea vomiting diarrhea. Patient lives with her son. Patient's son states that about 4 years ago she had a "blood clot in the spine at T10 level. She underwent surgery for it at [facility]. She underwent hospitalization for 3 weeks at that time. She had constant numbness of her both lower limbs from waist down. It is worse in the right leg as compared to the left. The left leg is somewhat better proximally from waist to the knee, except from below knee to the foot, which is severely numb like the right side. Since then she has been walking weird. She uses a walker. Objective - Vital Signs Vital signs: Vital Signs Temp 98.2 F 07/23/21 07:58 Pulse 73 07/23/21 07:58 Resp 18 07/23/21 07:58 BP 148/73 07/23/21 07:58 Pulse Ox 96 07/23/21 07:58 Intake & Output 07/22/21 07/23/21 07/23/21 18:59 06:59 18:59 Intake Total 718 Output Total 1375 Balance 718 -1375 Intake: Oral 718 Output: Urine 1375 Other: Voiding Method Indwelling Catheter Indwelling Catheter # Bowel Movements 3 2 - Exam Patient's mental status, speech and language functions are normal. Her mentation is now completely normal. Speech and language functions are normal. Attention span and concentration is decreased, fund of knowledge appears adequate. On cranial nerve examination pupils are equal, round and reacting, visual vilchis are full on confrontation with no neglect. Extraocular muscles are intact with no nystagmus. Face is symmetric and tongue protrudes to the midline. Palatal elevation and sensation normal hearing is moderately decreased and facial sensation is normal. Muscle strength shows normal strength in the upper limbs. Her strength is normal in the ankles. Hip flexion is somewhat weak bilaterally. She also has hyperesthesia therefore did not let me examine her legs. Deep tendon reflexes are 2+ in the arms and legs. Plantars are withdrawal. Sensory to touch in the upper extremities is equal with no neglect. She does have significant dysesthesias to touch with bilateral lower limbs from him down to the feet. Cerebellar function showed no ataxia for [id number] testing. Tone and bulk of muscles normal. Gait deferred. On general examination, there is no carotid bruit or murmur, S1-S2 audible. Chest is clear to auscultation. Peripheral pulses are present. Patient has mild peripheral edema. - Labs CBC & Chem 7: 07/22/21 07:42 07/23/21 08:27 Labs: Abnormal Lab Results - Last 24 Hours (Table) 07/23/21 Range/Units 08:27 Sodium 136 L (137-145) mmol/L Chloride 111 H (98-107) mmol/L Carbon Dioxide 16 L (22-30) mmol/L Glucose 70 L (74-99) mg/dL Calcium 7.6 L (8.4-10.2) mg/dL Microbiology - Last 24 Hours (Table) 07/22/21 19:10 Stool Culture - Preliminary Stool 07/18/21 00:03 Blood Culture - Preliminary Blood No Growth after 120 hours 07/18/21 17:58 CSF Gram Stain - Final Cerebral Spinal Fluid CSF Culture - Final 07/18/21 12:08 Blood Culture - Preliminary Blood No Growth after 96 hours Assessment and Plan Assessment: * Metabolic encephalopathy, perhaps from abdominal source. Computed tomography scan of the abdomen and pelvis showed evidence of possible colitis/proctitis. Patient's altered mentation has completely resolved. CSF is negative for meningoencephalitis. MRI Brain is negative for stroke.--mentation is now completely normal as of today. * New onset visual disturbance since last night after a bout of coughing. Patient sees visual imagery, snowflakes, in her vision on closing her eyes. Exact cause is uncertain. * Acute kidney injury--improved * History of hypertension * History of stroke with residual weakness over the right sided (has blood clot in spinal cord according to patient) and walks with walker * History of spinal fusion over the L2 to S1 * Hard of hearing bilaterally. * Dysesthesias of bilateral lower extremities, probably due to above #4. * Patient's urine positive for methamphetamine, repeat test came back negative. It was likely a lab error. * Osteoarthritis Plan: * Patient's mentation is normal. Her examination is nonfocal. No other neurological workup indicated. * Ophthalmology seen the patient, diagnosed with posterior vitreous detachment with no retinal tears. Patient has hypertensive retinopathy grade 2. Patient was recommended by deaf and hard of hearing teacher to follow up with her local deaf and hard of hearing teacher after discharge to check glasses and to reexamine her eye. * CT of abdomen and pelvis revealed colitis/proctitis of the sigmoid colon and rectum upstream large stool burden throughout the colon. Surgical bed fluid collection along the thecal sac of the L2 to L5 vertebral bodies level which may represent a pseudomeningocele, seroma or abscess. Correlate with surgical history of the spine. Consider MRI of the lumbar spine with IV contrast there is clinical concern. Orthopedic consult input appreciated. No indication for MRI at this time, as she has known case of seroma following lumbar surgery in the past. Patient is off ceftriaxone and acyclovir, as meningoencephalitis has been ruled out. Patient on cefepime and metronidazole for possible abdominal source. * Repeat EEG on 07/20/2021 was normal awake and drowsy EEG for patient's age. No focal, lateralized or epileptiform activity was seen. When compared to the EEG from 07/18/2021, the background has remarkably improved. The sharply contoured triphasic waves seen in bihemispheric region have now completely resolved. Patient is off Keppra. * Repeat UDS negative for amphetamines. Initial report was likely a lab error. * Continue aspirin 81 mg daily. * B12 1140, folate 18.2. * Discussed with patient's son in detail. * Neurologically clear for discharge.
[2021-07-23 11:09] LABS: MCV 100.1 fL (80.0-100.0)
[2021-07-23 11:10] LABS: Platelet Count 110 k/uL (150-450)
[2021-07-23] MEDS ORDERED: FUROSEMIDE 10 MG/ML 4 ML VIAL IV SCH (11:45)
--- NOTE | 2021-07-23 11:49 | P.PN ---
Subjective From the records 65-year-old female who comes to us from [facility]. Patient had surgery by Dr. Fink on Tuesday and I was told had a couple episodes of vomiting and was lethargic so brought her to the hospital. According to the physician at [place] patient was very somnolent was able to be aroused but would go right back to sleep. Patient had lab work which showed an elevated creatinine and elevated white count. Patient had a CT of the brain and CT of the abdomen pelvis which all were negative. No history of any fevers or chills no history of any difficulty breathing or cough. Initial serum glucose is 142 and ammonia is 23 Urine drug screen is positive for opiates, methamphetamine, benzoyl. Otherwise the rest is nondetected. Acetaminophen is less than 10, systolic is less than 1.0. EKG shows sinus bradycardia no ST segment elevation or depression Blood work completed an outside facility revealed elevated creatinine and a white blood count; CT head was reported to be negative 07/18/2021 Patient is evaluated with family members at bedside; doesn't open eyes on verbal stimulation but continues to moan spontaneously; doesn't follow any commands; EEG just completed MRI of the brain scheduled for today; computed tomography scan of the brain done at an outside facility was negative; urology has recommended stat EEG which is just completed; no plans to start antiepileptic drugs unless EEG is conclusive We will continue to avoid any sedating medications which can affect patient's mentation Labs including vitamin B12 and folic acid are pending 07/19/2021 Patient is seen and evaluated, continues to be confused but some improvement compared to yesterday. Patient opens her eyes on verbal stimulation Vital signs: temperature 98.4, pulse 85, resp 16, BP 150/85 Labs WBC 11.3 , Hgb 10.8, Na 146, BUN 28 Patient IS currently on ceftriaxone, vancomycin, and acyclovir for empiric meningeal encephalitis CSF studies have been negative ; neurology on board and recommending to discontinue acyclovir Patient remains on ceftriaxone and vancomycin pending ID re-evaluation EEG is completed and suggestive of encephalopathy; no seizure activity noted Neuro recommending repeat EEG tomorrow subjective: Resume the care of the patient from today 07/21/2011 Patient is a pleasant 65 years old female who presents with altered mental status, workup ruled out pending encephalitis with no nucleated cells and CSF tap. Today patient is more awake, she does she the hospital although she could not on the name, she The year of the month and the date and she knows name of the president, she wasn't sure why she was in the hospital. Patient was reoriented. Patient is complaining of from generalized abdominal pain and tenderness, no guarding or rebound tenderness. CT of the abdomen and pelvis is ordered and result is pending. Patient kept nothing by mouth for now. Several consultants on the case included neurology and pulmonary service. Patient remains on broad-spectrum antibiotics cefepime and Flagyl with ID team on the case as well as gentle hydration. Labs and vitals reviewed 07/21/2021 Patient today is fully awake and oriented back to baseline, and abdominal pain and tenderness is minimal and improving significantly compared to yesterday. She is currently started on regular diet, yesterday she was started on Colace for stools in the colon, she has frequent bowel movements mostly related to her colitis/proctitis. Colace is a stopped and Lomotil started. Patient states that she follows up with her senior principal at another hospital Dr. Bakari Fraire and she has colonoscopy every 3 years, last colonoscopy was 2 years ago and she supposed to go for next colonoscopy on November 2022 as she states. Patient was instructed to follow up with her GI doctors within one week to 2 weeks after discharge and she agrees. Also CT of the abdomen and pelvis showed . fluid collection at surgical bed L2- L5, s/p laminectomy L2-L5 with hard dockery at L2-L3. This is a chronic seroma per orthopedic team, under, and follow-up with her spine surgeon Dr. Camacho as an outpatient. Other than that she is hemodynamically stable. Leukocytosis improved down to 9.9 and hemoglobin 10.7 with some evidence of hemodilution, sodium improved to 136. Liver enzymes back to normal. S calcitonin elevated 2.8. EEG is negative. Patient currently covered with cefepime and Flagyl with gentle hydration. 07/22/2021 Patient mentation is back to normal. However she is in distress because of her abdominal pain Patient continued to have diarrhea and abdominal pain was more severe last night with more tenderness in the left lower quadrant, KUB showing small large bowel ileus. Surgery team were consulted for plan for colonoscopy tomorrow. C. diff is negative, stool studies are pending. Currently With antibiotic of cefepime and Flagyl per ID team also she is on normal saline at 75 mL/h. Material Checker examined the patient and found posterior vitreous detachment with no retinal tear and hypertensive retinopathy that require outpatient follow-up only for now. Orthopedic team on the case for spinal seroma and recommended no further action needed regarding this. Pulmonary team on the case Zarate catheter was replaced because of urinary retention more than 700 mL. Flomax is started Prognosis remains guarded 07/24/2011 Patient clinically doing well, for the last 3 days she is fully awake and oriented and back to her baseline mental status. Her mental problem is the sigmoid colitis and prostatitis. Given pulmonary, ophthalmology and neurology cleared the patient for discharge from their perspective. However patient was still complaining of from significant pain and ileus yesterday, surgery team are planning for colonoscopy today. She'll finish her GoLYTELY. Could not tell about her diarrhea. However her abdominal pain is much improved today compared to yesterday. She's been treated with cefepime and Flagyl for the colitis with infectious disease team on the case. She has fluid of her old and swollen hands and legs and she wants something to diuresis her because she has restricted movement because of fluid overload, Lortab normal saline 75 down to 50 mL per hour. And also started Lasix IV 2 days. She was instructed to keep the Zarate catheter and follow-up with urologist as an outpatient, she was instructed to follow up with Dr. Bergman in one week she agrees but she is considering to follow up with her own urologist which is fine as well. She is on Flomax On admission she has positive urine drug screen for opioids, benzodiazepine and methamphetamine. I tacked to the patient and she has been started her as well, her told me since she came from a hospital last time she was taken intubated and she did not leave the house, also he is a retired police patrol officer and he is completely against any drugs and if seen cases of methamphetamine overdose before and he does not recommended to be used by anyone. Most likely this is a false positive test. 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 Well developed, well nourished. HEENT: Pupils are round and equally reacting to light. EOMI. No scleral icterus. No conjunctival pallor. Normocephalic, atraumatic. No pharyngeal erythema. No thyromegaly. CARDIOVASCULAR: S1 and S2 present. No murmurs, rubs, or gallops. PULMONARY: Chest is clear to auscultation, no wheezing or crackles. -ABDOMEN: Soft, generalized abdominal tenderness, no rebound tenderness or guarding, nondistended, normoactive bowel sounds. No palpable organomegaly. MUSCULOSKELETAL: No joint swelling or deformity. EXTREMITIES: No cyanosis, clubbing, or pedal edema. NEUROLOGICAL: Gross neurological examination did not reveal any focal deficits. SKIN: No rashes. no petechiae. - Labs CBC & Chem 7: 07/23/21 08:27 07/23/21 08:27 Labs: Abnormal Lab Results - Last 24 Hours (Table) 07/23/21 07/23/21 Range/Units 08:27 08:27 RBC 3.78 L (3.80-5.40) m/uL MCV 100.1 H D (80.0-100.0) fL MCHC 30.6 L (31.0-37.0) g/dL Plt Count 110 L (150-450) k/uL Sodium 136 L (137-145) mmol/L Chloride 111 H (98-107) mmol/L Carbon Dioxide 16 L (22-30) mmol/L Glucose 70 L (74-99) mg/dL Calcium 7.6 L (8.4-10.2) mg/dL Microbiology - Last 24 Hours (Table) 07/22/21 19:10 Stool Culture - Preliminary Stool 07/18/21 00:03 Blood Culture - Preliminary Blood No Growth after 120 hours 07/18/21 17:58 CSF Gram Stain - Final Cerebral Spinal Fluid CSF Culture - Final 07/18/21 12:08 Blood Culture - Preliminary Blood No Growth after 96 hours Assessment and Plan Assessment: Sigmoid colitis and proctitis with sepsis , improving Urinary retention, status post Zarate catheter and Flomax Generalized edema secondary to IV drug infusion of crystalloids. posterior vitreous detachment with no retinal tear and hypertensive retinopathy. Outpatient follow-up L2-L5 surgical bed seroma,, chronic as per orthopedic team follow up with her spine surgeon Dr. Camacho as an outpatient Altered mental status most likely metabolic/toxic encephalopathy, resolved completely and patient is back to baseline Evidence of some drug abuse with methamphetamine, benzodiazepines and opiates. Most likely false positive test. Both patient and look reliable and declined illicit drug abuse History of stroke and right hemiparesis Plan: This is a pleasant 74 years old female who presents with altered mental status, abdominal pain. Continue with IV fluid and broad-spectrum antibiotics prior to team. Currently on cefepime and Flagyl Patient was instructed to follow up with her GI physician in 1-2 week after discharge and she agrees. Colonoscopy today by surgery team. Lower IV fluids normal saline to 50 mL per hour, start IV Lasix 2 days Pulmonary team on the case Orthopedic input is appreciated, no need for any further imaging or surgical intervention, follow-up with her spine surgeon Dr. Camacho as an outpatient. Patient informed and she agrees. Neurology service on the case as well as pulmonary service. Both cleared the patient for discharge. Material Checker also recommended outpatient follow-up Labs and medication were reviewed.. Continue same treatment. Continue with symptomatic treatment. Resume home medication. Monitor lytes and vitals. DVT and GI prophylaxis. Further recommendations as per clinical course of the patient DVT prophylaxis: Subcutaneous heparin GI Prophylaxis: Protonix and Carafate PT/OT: KARON, neonatal social worker consulted Prognosis is guarded
--- NOTE | 2021-07-23 12:36 | P.PN ---
Subjective Progress Note Date: 07/23/21 Principal diagnosis: Mental status changes. I was involved in the patient's care due to possible ICU transfer as the patient was having diminished level of consciousness and the patient was altered neurologically. I reviewed the chart. 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 The patient has issues with chronic pain and she has undergone also spinal fusion. She has hypertension and hyperlipidemia as comorbid conditions in addition to multitude of comorbidities as mentioned in the chart. She was in a good state of health. She apparently was undergoing a foot surgery for a bunion and to my understanding this was done under spinal anesthesia. The patient went home and following that she was found to be altered by the and she came into the hospital for further evaluation. Since yesterday, the patient was evaluated by neurology and infectious disease. The patient was spiking a temperature 100.6. Along with the mental status change, there was a concern of an underlying SOL[employer] SITE ASSESSMENT SPECIALIST infection and patient was given an MRI that do not to be negative and a lumbar puncture that showed no significant leukocytosis or increased protein. Cultures still pending for now. Meanwhile, the patient was given a dose of vancomycin and Rocephin by infectious disease. No seizure activity has been noted. The patient has been a bit difficult to arouse. Nevertheless, she was as the painful stimulation and she would moan and groan. She has withdrawing to moving all 4 extremities. She does not converse. We have not seen any significant Sheryl White movements to indicate on the underlying seizure activity. Note that the patient was given No rco and Toradol following her surgery to be taken outpatient basis and there is no clear history of a drug overdose. For now, the patient has mild LFT abnormalities with an AST of 57, ALT of 43 and an alkaline phosphatase of 131. Creatinine is down to 1.09 and a sodium level is at 139. The patient has a white cell count of 23.2 with a hemoglobin of 13.9. UA has been negative for any infection. CSF shows 2 RBCs, no nucleated cells, glucose of 80 with a protein of 57. Urine toxin was positive for opiates, methamphetamine and benzodiazepines. Earlier this morning, she developed some loose diarrhea and stool was checked for C. diff that came back negative. MRI of the brain was negative. 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 The EEG was abnormal and showed background slowing along with moderate to severe encephalopathy. No seizure activity was noted. Progress note dated 07/20/2021. 65-year-old female seen by my partner yesterday for mental status changes. 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 She also suffers from hypertension and hyperlipidemia. She was seen by my partner yesterday for mental status changes. Today, she is resting comfortably in her room, room 368. She is improved. Interestingly, she tested positive for opiates, methamphetamines, benzodiazepines. Her is in the room, shocked by the fact that her drug screen was positive for methamphetamines. He is not aware that she is taking those types of medications. The patient herself denies it as well. Her MRI of the brain was negative. The EEG showed slowing, consistent with moderate to severe encephalopathy. Currently she is on 3 L nasal cannula, with saturations of 98%. White count 15.2, normal hemoglobin hematocrit and platelet count. Sodium 144, potassium 3.5, chlorides 118, CO2 16, anion gap 10, BUN 24, with a creatinine 0.64. C-reactive protein is 29.2. Microbiology is negative. CSF appears to be negative. Chest x-ray shows a elevated right hemidiaphragm with some minimal b asilar atelectasis. The patient received 1 dose of vancomycin, and is currently on cefepime and Flagyl per infectious diseases. Progress note dated 07/21/2021. 65-year-old female, seen yesterday. She has a history of CVA, as well as a history of hypertension, and hyperlipidemia. She was seen by my partner in consultation for mental status changes. Interestingly, her drug screen was positive for opiates, methamphetamines, and benzodiazepines. Current lab work includes a white count of 9.4, hemoglobin 10.7, hematocrit 33.5, and a platelet count of 157,000. Sodium 136, potassium 3.5, chlorides 114, CO2 19, anion gap 3, BUN 18, creatinine 0.54. Pro-calcitonin level is elevated at 2.88. Repeat drug screen is pending. CT of the abdomen and pelvis shows colitis/proctitis of the colon, a possible pseudomeningocele, trace bilateral pleural effusions, and a Zarate catheter within the bladder. The patient remains on cefepime and Flagyl as per infectious diseases. Progress note dated 07/22/2021. 65-year-old male, again seen in room 368. The patient has a history of CVA, hypertension, and hyperlipidemia. She was initially seen for mental status changes, which have dramatically improved. Currently, she is on room air. Getting any IV fluids. Her daughter, from [place], [place], is in the room with her. Labs today include a white count of 9.4, hemoglobin 12.2, hematocrit 37.1, and a platelet count of 155,000. Sodium 136, potassium 3.3, chlorides 111, CO2 21, anion gap 4, BUN 14, and creatinine 0.63. Repeat drug screen was negative for everything. Progress note dated 07/23/2021. 65-year-old female again seen in room 368. Currently, she is on room air. She's not receiving any IV fluids. The patient appears to be back to normal. She initially was admitted with mental status changes. The patient's repeat drug screen was negative. Labs today include a white count of 8.6, hemoglobin 11.6, hematocrit 37.8, and platelet count of 110,000. Sodium 136, potassium 3.5, chlorides 111, CO2 16, BUN 10, and creatinine 0.59. Pro-calcitonin level from July 20 was 2.88. Microbiologic studies have all been negative. Objective - Vital Signs Vital signs: Vital Signs Temp 98.2 F 07/23/21 07:58 Pulse 73 07/23/21 07:58 Resp 18 07/23/21 07:58 BP 148/73 07/23/21 07:58 Pulse Ox 96 07/23/21 07:58 Intake & Output 07/22/21 07/23/21 07/23/21 18:59 06:59 18:59 Intake Total 718 Output Total 1375 Balance 718 -1375 Intake: Oral 718 Output: Urine 1375 Other: Voiding Method Indwelling Catheter Indwelling Catheter # Bowel Movements 3 2 3 - Exam No acute distress, oriented 3. The patient is awake and alert. The patient's on room air. Saturations are 96%. HEENT examination is grossly unremarkable. Neck supple. Full range of motion. No adenopathy thyromegaly or neck vein distention. Cardiovascular examination reveals regular rhythm rate. S1-S2 normal. No S3 or S4. No discernible murmur noted. Heart rate is 73 bpm. Lungs reveal clear breath sounds. Breath sounds are equal bilaterally. No adventitious lung sounds including wheezes rhonchi or crackles. Room air saturation is 96%. Abdomen soft bowel sounds are heard. No masses or tenderness. Extremities are intact. No cyanosis clubbing or edema. Skin is without rash or lesion. Neurologic examination is brief but nonfocal. - Labs CBC & Chem 7: 07/23/21 08:27 07/23/21 08:27 Labs: Abnormal Lab Results - Last 24 Hours (Table) 07/23/21 07/23/21 Range/Units 08:27 08:27 RBC 3.78 L (3.80-5.40) m/uL MCV 100.1 H D (80.0-100.0) fL MCHC 30.6 L (31.0-37.0) g/dL Plt Count 110 L (150-450) k/uL Sodium 136 L (137-145) mmol/L Chloride 111 H (98-107) mmol/L Carbon Dioxide 16 L (22-30) mmol/L Glucose 70 L (74-99) mg/dL Calcium 7.6 L (8.4-10.2) mg/dL Microbiology - Last 24 Hours (Table) 07/22/21 19:10 Stool Culture - Preliminary Stool 07/18/21 00:03 Blood Culture - Preliminary Blood No Growth after 120 hours 07/18/21 17:58 CSF Gram Stain - Final Cerebral Spinal Fluid CSF Culture - Final 07/18/21 12:08 Blood Culture - Preliminary Blood No Growth after 96 hours Assessment and Plan Assessment: Encephalopathy, likely metabolic, and a patient who is improved since yesterday. CT scan/MRI, were negative. CSF, negative for infection. The patient's mental status is dramatically improved. Repeat drug screen was negative. Acute kidney injury, improved. Recent history of foot injury/bunion surgery. History of hypertension. History of CVA, chronic right-sided weakness. Chronic right hemidiaphragm elevation. History of spinal fusion, involving L2 through S1. Hearing impairment. Chronic pain syndrome. History of hyperlipidemia. Osteoarthritis. History of kidney stones. Irritable bowel syndrome. Plan: Plan dated 07/20/2021. The patient appears to be improving. Because of the possibility of infection, and septic encephalopathy, even though culture data is thus far negative, the patient will have a pro-calcitonin level done. Also, because of the unusual finding in the drug screen, and positive for methamphetamines, a repeat drug screen is ordered. The is in the room, and all this is discussed with him. Additional recommendations are forthcoming. We will continue to follow as needed. Plan dated 07/21/2021. The patient is currently on cefepime and Flagyl as per infectious diseases. The patient is much more alert and awake today. Her vital signs are stable. Labs, x-rays, and medications are reviewed. The repeat drug screen, is currently pending. It was unusual, as the patient tested positive for methamphetamines. He states she does not take times the medications. We will continue to follow and make recommendations where appropriate. Prognosis is guarded. Thus far, all microbiologic studies are negative. Plan dated 07/22/2021. Currently, the patient's doing very well. She is awake and alert. Her daughters in the room. Repeat drug screen was negative. After today, we'll only see the patient as needed. There are currently no significant lung issues to speak of. The patient's room air saturation is excellent. Please feel free to call us back should any lung issues develop. Plan dated 07/23/2021. The patient is again seen today 368. Her mental status is back to normal. Her repeat drug screen was negative. The patient is not having any respiratory issues. Room air saturations are 96%. We will see the patient moving forward only as needed. Prognosis is thought to be generally good. Time with Patient: Less than 30
[2021-07-23 12:52] VITALS: BMI 26.6
[2021-07-23] MEDS ORDERED: PROPOFOL 10 MG/ML 20 ML VIAL IV ONE (12:52)
[2021-07-23] MEDS ORDERED: SODIUM CHLORIDE 0.9% 1,000 ML IV ONE (12:54)
--- NOTE | 2021-07-23 13:04 | P.OP ---
Date of Procedure: 07/23/21 Preoperative Diagnosis: Colitis Postoperative Diagnosis: Poor colon prep Severe colitis of the rectosigmoid Procedure(s) Performed: Colonoscopy Anesthesia: MAC Surgeon: Kalpesh Nichole Pathology: other (Sigmoid colon) Condition: stable Disposition: PACU Description of Procedure: Patient's placed on the endoscopy table in the lateral position. She received IV sedation. Digital rectal exam was performed which revealed a large amount of liquid stool. The flexible colonoscope was then placed patient anus and passed into the rectum and then into the sigmoid colon. The patient's colon prep was very poor. There is a large amount liquid stool. At this point decided to stop advancing the colonoscope. The rectosigmoid appeared inflamed. A biopsies performed the colon forcep. Scope was withdrawn. Patient tolerated procedure well.
[2021-07-23] MEDS ORDERED: diphenhydrAMINE 50 MG/ML 1 ML VIAL IVP STA (16:26)
[2021-07-23] MEDS ORDERED: FAMOTIDINE 20 MG/2 ML VIAL IV ONE (16:26)
[2021-07-23] MEDS ORDERED: methylPREDNISolone SOD SUCCI 125 MG/2 ML VIAL IV ONE (16:30)
[2021-07-23] MEDS: DIPHENOX-ATROP 2.5-0.025 MG 1 EACH TAB PO PRN (16:55)
[2021-07-23] MEDS: ALBUTEROL NEBULIZED 2.5 MG/3 ML INHALATION PRN (19:46)
[2021-07-23] MEDS: FLUTICASONE 50MCG/SPRAY NASAL 16GM EA NOSTRIL SCH (21:06)
[2021-07-23] MEDS: PANTOPRAZOLE 40 MG TABLET PO SCH (21:07)
[2021-07-23] MEDS: ATORVASTATIN 10 MG TAB PO SCH (21:07)
[2021-07-23] MEDS: diphenhydrAMINE 50 MG/ML 1 ML VIAL IVP PRN (21:07)
--- NOTE | 2021-07-23 23:25 | P.PN ---
Subjective Progress Note Date: 07/22/21 Principal diagnosis: Fever Patient is a 65-year-old female who was transferred from [facility] for evaluation fever and mental status changes, and this patient apparently did have a negative CT of the head and abdominal pelvis patient did have a CSF examination completed yesterday which was negative. On today's evaluation that is 07/22/2021, the patient continues to be afebrile, the patient denies having any headache no chest pain shortness of breath or c ough some abdominal discomfort and the patient also had developed significant diarrhea with multiple loose stools Objective - Vital Signs Vital signs: Vital Signs Temp 97.8 F 07/22/21 08:05 Pulse 75 07/22/21 08:05 Resp 18 07/22/21 08:05 BP 146/65 07/22/21 08:05 Pulse Ox 96 07/22/21 08:05 Intake & Output 07/21/21 07/22/21 07/22/21 18:59 06:59 18:59 Intake Total 480 118 Output Total 800 Balance 480 -800 118 Intake: Oral 480 118 Output: Urine 800 Uretheral (Zarate) 800 Other: Voiding Method Indwelling Catheter Indwelling Catheter Indwelling Catheter # Voids 2 # Bowel Movements 3 - Exam GENERAL DESCRIPTION: An elderly female lying in bed in no distress RESPIRATORY SYSTEM: Unlabored breathing , decreased breath sounds at bases HEART: S1 S2 regular rate and rhythm , ABDOMEN: Soft , mild lower abdominal tenderness EXTREMITIES: No edema feet - Labs CBC & Chem 7: 07/23/21 08:27 07/23/21 08:27 Labs: Abnormal Lab Results - Last 24 Hours (Table) 07/22/21 07/22/21 Range/Units 07:42 07:42 Lymphocytes # 0.9 L (1.0-4.8) k/uL Sodium 136 L (137-145) mmol/L Potassium 3.3 L (3.5-5.1) mmol/L Chloride 111 H (98-107) mmol/L Carbon Dioxide 21 L (22-30) mmol/L Calcium 7.8 L (8.4-10.2) mg/dL Total Protein 4.4 L (6.3-8.2) g/dL Albumin 2.3 L (3.5-5.0) g/dL Microbiology - Last 24 Hours (Table) 07/18/21 00:03 Blood Culture - Preliminary Blood No Growth after 96 hours 07/18/21 17:58 CSF Gram Stain - Preliminary Cerebral Spinal Fluid CSF Culture - Preliminary 07/18/21 12:08 Blood Culture - Preliminary Blood No Growth after 72 hours Assessment and Plan (1) Fever Current Visit: Yes Status: Acute Code(s): R50.9 - FEVER, UNSPECIFIED SNOMED Code(s): 861262126 Plan: 1patient presented to hospital with mental status changes patient did have an episode of vomiting, patient apparently did have a negative CT of abdominal pelvis at the [facility] chest x-ray showing a right lower lobe atelectasis UA was negative with significant mental status changes and minimal headache recently underlying [employer]UR[employer] HEAD infection has been 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 2 patient with a possible abdominal source as the patient is tender on clinical examination. CT of abdominal pelvis CT shows evidence of colitis and the patient seemed to have clinically responded to cefepime and Flagyl and her white count has normalized, however the patient has developed significant diarrhea stool for C. diff has been requested will treat if positive patient had been encouraged to increase her yogurt intake Time with Patient: Less than 30
--- NOTE | 2021-07-23 23:26 | P.PN ---
Subjective Progress Note Date: 07/23/21 Principal diagnosis: Fever Patient is a 65-year-old female who was transferred from [facility] for evaluation fever and mental status changes, and this patient apparently did have a negative CT of the head and abdominal pelvis patient did have a CSF examination completed yesterday which was negative. On today's evaluation that is 07/23/2021, the patient remains to be afebrile, the patient denies having headache , the patient denies chest pain shortness of breath or cough , the patient abdominal discomfort and diarrhea has decreased in intensity Objective - Vital Signs Vital signs: Vital Signs Temp 98.3 F 07/23/21 16:00 Pulse 77 07/23/21 19:58 Resp 18 07/23/21 16:00 BP 145/70 07/23/21 16:00 Pulse Ox 95 07/23/21 16:00 Intake & Output 07/23/21 07/23/21 07/24/21 06:59 18:59 06:59 Intake Total 1180 Output Total 1375 1375 Balance -1375 -195 Weight 75 kg Intake: IV 120 Invasive Line 3 10 Invasive Line 4 10 Oral 1060 Output: Urine 1375 1375 Other: Voiding Method Indwelling Catheter Indwelling Catheter # Bowel Movements 2 3 - Exam GENERAL DESCRIPTION: An elderly female lying in bed in no distress RESPIRATORY SYSTEM: Unlabored breathing , decreased breath sounds at bases HEART: S1 S2 regular rate and rhythm , ABDOMEN: Soft , mild lower abdominal tenderness EXTREMITIES: No edema feet - Labs CBC & Chem 7: 07/23/21 08:27 07/23/21 08:27 Labs: Abnormal Lab Results - Last 24 Hours (Table) 07/23/21 07/23/21 Range/Units 08:27 08:27 RBC 3.78 L (3.80-5.40) m/uL MCV 100.1 H D (80.0-100.0) fL MCHC 30.6 L (31.0-37.0) g/dL Plt Count 110 L (150-450) k/uL Sodium 136 L (137-145) mmol/L Chloride 111 H (98-107) mmol/L Carbon Dioxide 16 L (22-30) mmol/L Glucose 70 L (74-99) mg/dL Calcium 7.6 L (8.4-10.2) mg/dL Microbiology - Last 24 Hours (Table) 07/18/21 12:08 Blood Culture - Preliminary Blood No Growth after 120 hours 07/22/21 19:10 Stool Culture - Preliminary Stool 07/18/21 00:03 Blood Culture - Preliminary Blood No Growth after 120 hours 07/18/21 17:58 CSF Gram Stain - Final Cerebral Spinal Fluid CSF Culture - Final Assessment and Plan (1) Fever Current Visit: Yes Status: Acute Code(s): R50.9 - FEVER, UNSPECIFIED SNOMED Code(s): 822290224 Plan: 1patient presented to hospital with mental status changes patient did have an episode of vomiting, patient apparently did have a negative CT of abdominal pelvis at the [facility] chest x-ray showing a right lower lobe atelectasis UA was negative with significant mental status changes and minimal headache recently underlying RACE STEWARD infection has been 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 2 patient with a possible abdominal source as the patient is tender on clinical examination. CT of abdominal pelvis CT shows evidence of colitis and the patient seemed to have clinically responded to cefepime and Flagyl and her white count has normalized, however the patient has developed significant diarrhea stool for C. diff came back negative and the patient hardly has improved, plan to finish therapy with oral antibiotics Time with Patient: Less than 30
[2021-07-24] MEDS: diphenhydrAMINE 50 MG/ML 1 ML VIAL IVP PRN ×4 (04:13→20:58)
[2021-07-24] MEDS: LEVOTHYROXINE 50 MCG TAB PO SCH (06:27)
[2021-07-24] MEDS: ALBUTEROL NEBULIZED 2.5 MG/3 ML INHALATION PRN ×4 (08:48→21:10)
[2021-07-24] MEDS: ASPIRIN 81 MG PO SCH (09:49)
[2021-07-24] MEDS: DIPHENOX-ATROP 2.5-0.025 MG 1 EACH TAB PO PRN (09:49)
[2021-07-24] MEDS: CHOLECALCIFEROL 25 MCG (1000 IU) TABLET PO SCH ×2 (09:49→19:43)
[2021-07-24] MEDS: DULoxetine HCL 60 MG CAPSULE.DR PO SCH (09:49)
[2021-07-24] MEDS: ASCORBIC ACID 500 MG TAB PO SCH (09:49)
[2021-07-24] MEDS: CALCIUM CARBONATE 500 MG CHEWABLE PO SCH ×2 (09:50→19:43)
[2021-07-24] MEDS: LACTATED RINGERS 1,000 ML IV SCH (09:50)
[2021-07-24] MEDS: metroNIDAZOLE 500 MG TAB PO SCH ×2 (09:50→14:58)
[2021-07-24] MEDS: TAMSULOSIN 0.4 MG CAP.ER.24H PO SCH (09:50)
[2021-07-24] MEDS: DOCUSATE 100 MG CAP PO SCH (09:51)
[2021-07-24] MEDS: CEFEPIME 2 GM in SODIUM CHLORIDE 0.9% 100 ML IVPB SCH ×2 (09:51→14:58)
[2021-07-24] MEDS: FUROSEMIDE 40 MG TAB PO SCH ×2 (10:06→14:59)
[2021-07-24] MEDS: CHOLESTYRAMINE (WITH SUGAR) 4 GM PACKET PO SCH ×2 (10:06→15:01)
--- NOTE | 2021-07-24 12:05 | P.PN ---
Subjective Progress Note Date: 07/24/21 CHIEF COMPLAINT: Colitis HISTORY OF PRESENT ILLNESS: Patient is status post colonoscopy showing evidence of severe colitis of the rectosigmoid colon with biopsy. Patient had poor colon prep. She denies any abdominal pain. Denies any nausea or vomiting. Tolerating diet. Afebrile. WBC is 8.6 hemoglobin 11.6 platelets 110 sodium 136 potassium 3.5 creatinine 0.59 PHYSICAL EXAM: VITAL SIGNS: Reviewed. GENERAL: Well-developed in no acute distress. HEENT: No sclera icterus. Extraocular movements grossly intact. Moist buccal mucosa. Head is atraumatic, normocephalic. ABDOMEN: Soft. Nondistended. Nontender. NEUROLOGIC: Alert and oriented. Cranial nerves II through XII grossly intact. ASSESSMENT: 1. Severe colitis of the rectosigmoid colon PLAN: -Patient can be discharged from surgical standpoint when medically cleared -Surgical service will sign off. Please call with any questions or concerns -Antibiotics per infectious disease service -Continue regular diet -Patient to follow-up outpatient in office with Dr. michele in one week Physician Car Sales Associate note has been reviewed by physician. Signing provider agrees with the documented findings, assessment, and plan of care. Objective - Vital Signs Vital signs: Vital Signs Temp 97.8 F 07/23/21 20:00 Pulse 72 07/24/21 09:02 Resp 18 07/24/21 04:00 BP 165/74 07/24/21 04:00 Pulse Ox 96 07/24/21 04:00 Intake & Output 07/23/21 07/24/21 07/24/21 18:59 06:59 18:59 Intake Total 1180 Output Total 1375 1100 Balance -195 -1100 Weight 75 kg Intake: IV 120 Invasive Line 3 10 Invasive Line 4 10 Oral 1060 Output: Urine 1375 1100 Other: Voiding Method Indwelling Catheter Indwelling Catheter # Bowel Movements 3 1 2 - Labs CBC & Chem 7: 07/23/21 08:27 07/23/21 08:27 Labs: Microbiology - Last 24 Hours (Table) 07/18/21 00:03 Blood Culture - Final Blood No Growth after 144 hours 07/18/21 12:08 Blood Culture - Preliminary Blood No Growth after 120 hours
[2021-07-24] MEDS ORDERED: methylPREDNISolone SOD SUCCI 125 MG/2 ML VIAL IV STA (12:12)
[2021-07-24] MEDS ORDERED: FAMOTIDINE 20 MG/2 ML VIAL IV SCH (12:15)
[2021-07-24] MEDS ORDERED: LIDOCAINE 1% INJ 10MG/ML (20 ML MDV) SQ ONE (14:22)
--- NOTE | 2021-07-24 15:46 | IR ---
EXAMINATION TYPE: IR cvc insert >=5 years DATE OF EXAM: 07/24/2021 COMPARISON: NONE CLINICAL HISTORY: Colitis Needs long-term intravenous access for antibiotics. PROCEDURE: Hand hygiene obtained with soap and water and alcohol-based hand rub. After informed consent, the skin overlying the left brachial vein was localized with ultrasound and n oted to be compressible and patent. An ultrasound image was obtained and submitted on the patient's chart. The overlying skin was prepped and draped and Lidocaine was used for local anesthesia. A ski n ankur was made with a scalpel. Access was gained to the vein under ultrasound guidance with a 21 ga uge needle and a 0.018 inch wire was advanced. Access site was dilated with Peel-Away sheath and cat heter tailored to the appropriate length and advanced such that the distal tip is at the cavoatrial j unction. Spot image was obtained verifying placement. Catheter was fixed to the skin and a sterile dressing was placed following hemostasis. Catheter was aspirated and flushed with saline. Patient w as discharged in stable condition without complication.Maximal barrier technique is utilized. Ultras ound image is documented on the chart. Ultrasound used with sterile technique. Fluoro time and fluoroscopic images submitted to document procedure: 0.1 minutes fluoroscopy time, 14 intraoperative C-arm images document the procedure IMPRESSION: STATUS POST ULTRASOUND AND FLUOROSCOPIC GUIDED PICC LINE PLACEMENT, READY FOR USE. THIS PROCEDURE WAS PERFORMED BY THE UNDERSIGNED.
--- NOTE | 2021-07-24 15:47 | P.PN ---
Subjective Progress Note Date: 07/24/21 Principal diagnosis: Fever Patient is a 65-year-old female who was transferred from [facility] for evaluation fever and mental status changes, and this patient apparently did have a negative CT of the head and abdominal pelvis patient did have a CSF examination completed yesterday which was negative. On today's evaluation that is 07/24/2021, the patient continues to be afebrile, the patient denies headache , the patient denies chest pain shortness of breath or cough , the patient denies abdominal pain and diarrhea has decreased in frequency Objective - Vital Signs Vital signs: Vital Signs Temp 97.8 F 07/23/21 20:00 Pulse 70 07/24/21 12:10 Resp 18 07/24/21 04:00 BP 165/74 07/24/21 04:00 Pulse Ox 96 07/24/21 04:00 Intake & Output 07/23/21 07/24/21 07/24/21 18:59 06:59 18:59 Intake Total 1180 240 Output Total 1375 1100 Balance -195 -1100 240 Weight 75 kg Intake: IV 120 Invasive Line 3 10 Invasive Line 4 10 Oral 1060 240 Output: Urine 1375 1100 Other: Voiding Method Indwelling Catheter Indwelling Catheter # Bowel Movements 3 1 2 - Exam GENERAL DESCRIPTION: An elderly female lying in bed in no distress RESPIRATORY SYSTEM: Unlabored breathing , decreased breath sounds at bases HEART: S1 S2 regular rate and rhythm , ABDOMEN: Soft , mild lower abdominal tenderness EXTREMITIES: No edema feet - Labs CBC & Chem 7: 07/23/21 08:27 07/23/21 08:27 Labs: Microbiology - Last 24 Hours (Table) 07/18/21 00:03 Blood Culture - Final Blood No Growth after 144 hours 07/18/21 12:08 Blood Culture - Preliminary Blood No Growth after 120 hours Assessment and Plan (1) Fever Current Visit: Yes Status: Acute Code(s): R50.9 - FEVER, UNSPECIFIED S NOMED Code(s): 314164404 Plan: 1patient presented to hospital with mental status changes patient did have an episode of vomiting, patient apparently did have a negative CT of abdominal pelvis at the [facility] chest x-ray showing a right lower lobe atelectasis UA was negative with significant mental status changes and minimal headache recently underlying [employer] infection has been 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 2 patient with a possible abdominal source as the patient is tender on clinical examination. CT of abdominal pelvis CT shows evidence of colitis status post attempted colonoscopy, patient has clinically responded to cefepime and Flagyl and her white count has normalized, with a plan to finish therapy with oral Ceftin and Flagyl, family at the bedside questions answered Time with Patient: Less than 30
--- NOTE | 2021-07-24 18:54 | P.PN ---
Subjective From the records 65-year-old female who comes to us from [facility]. Patient had surgery by Dr. Fink on Tuesday and I was told had a couple episodes of vomiting and was lethargic so brought her to the hospital. According to the physician at [place] patient was very somnolent was able to be aroused but would go right back to sleep. Patient had lab work which showed an elevated creatinine and elevated white count. Patient had a CT of the brain and CT of the abdomen pelvis which all were negative. No history of any fevers or chills no history of any difficulty breathing or cough. Initial serum glucose is 142 and ammonia is 23 Urine drug screen is positive for opiates, methamphetamine, benzoyl. Otherwise the rest is nondetected. Acetaminophen is less than 10, systolic is less than 1.0. EKG shows sinus bradycardia no ST segment elevation or depression Blood work completed an outside facility revealed elevated creatinine and a white blood count; CT head was reported to be negative 07/18/2021 Patient is evaluated with family members at bedside; doesn't open eyes on verbal stimulation but continues to moan spontaneously; doesn't follow any commands; EEG just completed MRI of the brain scheduled for today; computed tomography scan of the brain done at an outside facility was negative; urology has recommended stat EEG which is just completed; no plans to start antiepileptic drugs unless EEG is conclusive We will continue to avoid any sedating medications which can affect patient's mentation Labs including vitamin B12 and folic acid are pending 07/19/2021 Patient is seen and evaluated, continues to be confused but some improvement compared to yesterday. Patient opens her eyes on verbal stimulation Vital signs: temperature 98.4, pulse 85, resp 16, BP 150/85 Labs WBC 11.3 , Hgb 10.8, Na 146, BUN 28 Patient IS currently on ceftriaxone, vancomycin, and acyclovir for empiric meningeal encephalitis CSF studies have been negative ; neurology on board and recommending to discontinue acyclovir Patient remains on ceftriaxone and vancomycin pending ID re-evaluation EEG is completed and suggestive of encephalopathy; no seizure activity noted Neuro recommending repeat EEG tomorrow subjective: Resume the care of the patient from today 07/21/2011 Patient is a pleasant 65 years old female who presents with altered mental status, workup ruled out pending encephalitis with no nucleated cells and CSF tap. Today patient is more awake, she does she the hospital although she could not on the name, she The year of the month and the date and she knows name of the president, she wasn't sure why she was in the hospital. Patient was reoriented. Patient is complaining of from generalized abdominal pain and tenderness, no guarding or rebound tenderness. CT of the abdomen and pelvis is ordered and result is pending. Patient kept nothing by mouth for now. Several consultants on the case included neurology and pulmonary service. Patient remains on broad-spectrum antibiotics cefepime and Flagyl with ID team on the case as well as gentle hydration. Labs and vitals reviewed 07/21/2021 Patient today is fully awake and oriented back to baseline, and abdominal pain and tenderness is minimal and improving significantly compared to yesterday. She is currently started on regular diet, yesterday she was started on Colace for stools in the colon, she has frequent bowel movements mostly related to her colitis/proctitis. Colace is a stopped and Lomotil started. Patient states that she follows up with her named account executive at another hospital Dr. Bakari Fraire and she has colonoscopy every 3 years, last colonoscopy was 2 years ago and she supposed to go for next colonoscopy on November 2022 as she states. Patient was instructed to follow up with her GI doctors within one week to 2 weeks after discharge and she agrees. Also CT of the abdomen and pelvis showed . fluid collection at surgical bed L2- L5, s/p laminectomy L2-L5 with hard dockery at L2-L3. This is a chronic seroma per orthopedic team, under, and follow-up with her spine surgeon Dr. Camacho as an outpatient. Other than that she is hemodynamically stable. Leukocytosis improved down to 9.9 and hemoglobin 10.7 with some evidence of hemodilution, sodium improved to 136. Liver enzymes back to normal. S calcitonin elevated 2.8. EEG is negative. Patient currently covered with cefepime and Flagyl with gentle hydration. 07/22/2021 Patient mentation is back to normal. However she is in distress because of her abdominal pain Patient continued to have diarrhea and abdominal pain was more severe last night with more tenderness in the left lower quadrant, KUB showing small large bowel ileus. Surgery team were consulted for plan for colonoscopy tomorrow. C. diff is negative, stool studies are pending. Currently With antibiotic of cefepime and Flagyl per ID team also she is on normal saline at 75 mL/h. Personal Attendant examined the patient and found posterior vitreous detachment with no retinal tear and hypertensive retinopathy that require outpatient follow-up only for now. Orthopedic team on the case for spinal seroma and recommended no further action needed regarding this. Pulmonary team on the case Zarate catheter was replaced because of urinary retention more than 700 mL. Flomax is started Prognosis remains guarded 07/24/2011 Patient clinically doing well, for the last 3 days she is fully awake and oriented and back to her baseline mental status. Her mental problem is the sigmoid colitis and prostatitis. Given pulmonary, ophthalmology and neurology cleared the patient for discharge from their perspective. However patient was still complaining of from significant pain and ileus yesterday, surgery team are planning for colonoscopy today. She'll finish her GoLYTELY. Could not tell about her diarrhea. However her abdominal pain is much improved today compared to yesterday. She's been treated with cefepime and Flagyl for the colitis with infectious disease team on the case. She has fluid of her old and swollen hands and legs and she wants something to diuresis her because she has restricted movement because of fluid overload, Lortab normal saline 75 down to 50 mL per hour. And also started Lasix IV 2 days. She was instructed to keep the Zarate catheter and follow-up with urologist as an outpatient, she was instructed to follow up with Dr. Bergman in one week she agrees but she is considering to follow up with her own urologist which is fine as well. She is on Flomax On admission she has positive urine drug screen for opioids, benzodiazepine and methamphetamine. I tacked to the patient and she has been started her as well, her told me since she came from a hospital last time she was taken intubated and she did not leave the house, also he is a retired railroad police and he is completely against any drugs and if seen cases of methamphetamine overdose before and he does not recommended to be used by anyone. Most likely this is a false positive test. 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 She can follow command and fully oriented. Abdominal pain is down, no nausea vomiting and tolerates diet however she still have frequent bowel movements, every 1 hour although some of it are small amount stool. No blood. Laxative for discontinued. Also patient developing rash yesterday and today, it could be secondary to Robitussin which was discontinued. Yesterday we discontinued her Lasix however today and get worse rash given without Lasix, she still complaining of from significant swelling although states that Lasix helped her before she wants Lasix back. We going to resume orally and monitor closely. Her generalized swelling slightly better. No abdominal pain or tenderness, she had colonoscopy yesterday but the area was full of liquid stool, so it was aborted, cone biopsy were taken and pending, patient informed and she is aware with the need for follow-up for the results. In the meantime she remains with cefepime and Flagyl, normal saline discontinued today, by mouth Lasix 40 mg twice daily started, also we had adequate strength. Stool cultures still pending, Possible discharge on Tuesday as there is placement issue, discussed with forensic social worker Patient to keep the Zarate catheter and follow-up outpatient with urologist, she is informed and agrees Objective - Vital Signs Vital signs: Vital Signs Temp 97.8 F 07/23/21 20:00 Pulse 70 07/24/21 12:10 Resp 18 07/24/21 04:00 BP 165/74 07/24/21 04:00 Pulse Ox 96 07/24/21 04:00 Intake & Output 07/23/21 07/24/21 07/24/21 18:59 06:59 18:59 Intake Total 1180 240 Output Total 1375 1100 Balance -195 -1100 240 Weight 75 kg 75 kg Intake: IV 120 Invasive Line 3 10 Invasive Line 4 10 Oral 1060 240 Output: Urine 1375 1100 Other: Voiding Method Indwelling Catheter Indwelling Catheter # Bowel Movements 3 1 2 - Exam GENERAL: The patient is alert and oriented x3, not in any acute distress. Well developed, well nourished. HEENT: Pupils are round and equally reacting to light. EOMI. No scleral icterus. No conjunctival pallor. Normocephalic, atraumatic. No pharyngeal erythema. No thyromegaly. CARDIOVASCULAR: S1 and S2 present. No murmurs, rubs, or gallops. PULMONARY: Chest is clear to auscultation, no wheezing or crackles. -ABDOMEN: Soft, generalized abdominal tenderness, no rebound tenderness or guarding, nondistended, normoactive bowel sounds. No palpable organomegaly. MUSCULOSKELETAL: No joint swelling or deformity. EXTREMITIES: No cyanosis, clubbing, or pedal edema. NEUROLOGICAL: Gross neurological examination did not reveal any focal deficits. SKIN: No rashes. no petechiae. - Labs CBC & Chem 7: 07/23/21 08:27 07/23/21 08:27 Labs: Microbiology - Last 24 Hours (Table) 07/18/21 12:08 Blood Culture - Final Blood No Growth after 144 hours 07/18/21 00:03 Blood Culture - Final Blood No Growth after 144 hours Assessment and Plan Assessment: Sigmoid colitis and proctitis with sepsis , improving Urinary retention, status post Zarate catheter and Flomax Generalized maculopapular rash Generalized edema secondary to IV drug infusion of crystalloids. posterior vitreous detachment with no retinal tear and hypertensive retinopathy. Outpatient follow-up L2-L5 surgical bed seroma,, chronic as per orthopedic team follow up with her spine surgeon Dr. Camacho as an outpatient Altered mental status most likely metabolic/toxic encephalopathy, resolved completely and patient is back to baseline Evidence of some drug abuse with methamphetamine, benzodiazepines and opiates. Most likely false positive test. Both patient and look reliable and declined illicit drug abuse History of stroke and right hemiparesis Plan: This is a pleasant 74 years old female who presents with altered mental status, abdominal pain. Discontinue IV fluid continue with broad-spectrum antibiotics prior to team. Currently on cefepime and Flagyl. Add Questran Patient was instructed to follow up with her GI physician in 1-2 week after discharge and she agrees. Follow-up: Biopsy Continue with Nessa serrato Infectious disease team on the case Pulmonary team on the case, the side of the case. Surgery team also signs of the case. Neurologist for the patient for discharge Orthopedic input is appreciated, no need for any further imaging or surgical intervention, follow-up with her spine surgeon Dr. Camacho as an outpatient. Patient informed and she agrees. Neurology service on the case as well as pulmonary service. Both cleared the patient for discharge. Personal Attendant also recommended outpatient follow-up Labs and medication were reviewed.. Continue same treatment. Continue with symptomatic treatment. Resume home medication. Monitor lytes and vitals. DVT and GI prophylaxis. Further recommendations as per clinical course of the patient DVT prophylaxis: Subcutaneous heparin GI Prophylaxis: Protonix and Carafate PT/OT: KARON, forensic social worker consulted Prognosis is guarded
[2021-07-24] MEDS: HEPARIN SODIUM,PORCINE/PF 5,000 UNIT/0.5 ML SYRINGE SQ SCH (19:42)
[2021-07-24] MEDS: PANTOPRAZOLE 40 MG TABLET PO SCH (19:43)
[2021-07-24] MEDS: ATORVASTATIN 10 MG TAB PO SCH (19:43)
[2021-07-24] MEDS: FLUTICASONE 50MCG/SPRAY NASAL 16GM EA NOSTRIL SCH (19:44)
[2021-07-25] MEDS: metroNIDAZOLE 500 MG TAB PO SCH ×4 (00:01→23:37)
[2021-07-25] MEDS: CEFEPIME 2 GM in SODIUM CHLORIDE 0.9% 100 ML IVPB SCH ×2 (00:01→08:44)
[2021-07-25] MEDS: ONDANSETRON 4 MG/2 ML VIAL IVP PRN (01:16)
[2021-07-25] MEDS: LEVOTHYROXINE 50 MCG TAB PO SCH (06:30)
[2021-07-25] MEDS: TAMSULOSIN 0.4 MG CAP.ER.24H PO SCH (08:45)
[2021-07-25] MEDS: HEPARIN SODIUM,PORCINE/PF 5,000 UNIT/0.5 ML SYRINGE SQ SCH ×2 (08:45→20:45)
[2021-07-25] MEDS: FAMOTIDINE 20 MG TAB PO SCH (08:45)
[2021-07-25] MEDS: FUROSEMIDE 40 MG TAB PO SCH ×2 (08:45→16:28)
[2021-07-25] MEDS: CALCIUM CARBONATE 500 MG CHEWABLE PO SCH ×2 (08:45→20:44)
[2021-07-25] MEDS: CHOLECALCIFEROL 25 MCG (1000 IU) TABLET PO SCH ×2 (08:46→20:45)
[2021-07-25] MEDS: ASCORBIC ACID 500 MG TAB PO SCH (08:46)
[2021-07-25] MEDS: DULoxetine HCL 60 MG CAPSULE.DR PO SCH (08:46)
[2021-07-25] MEDS: ASPIRIN 81 MG PO SCH (08:46)
[2021-07-25] MEDS: DIPHENOX-ATROP 2.5-0.025 MG 1 EACH TAB PO PRN (09:14)
[2021-07-25] MEDS: diphenhydrAMINE 50 MG/ML 1 ML VIAL IVP PRN ×2 (09:14→16:28)
[2021-07-25] MEDS: CHOLESTYRAMINE (WITH SUGAR) 4 GM PACKET PO SCH ×2 (09:17→16:28)
[2021-07-25] MEDS: ALBUTEROL NEBULIZED 2.5 MG/3 ML INHALATION PRN ×2 (11:26→20:25)
[2021-07-25] MEDS: HYDROCORTISONE 1% CREAM 454 GM JAR TOPICAL SCH ×3 (11:56→20:45)
[2021-07-25] MEDS: AZTREONAM 2 GM in SODIUM CHLORIDE 0.9% 100 ML IVPB SCH ×2 (16:27→23:37)
--- NOTE | 2021-07-25 18:50 | P.PN ---
Subjective From the records 65-year-old female who comes to us from [facility]. Patient had surgery by Dr. Fink on Tuesday and I was told had a couple episodes of vomiting and was lethargic so brought her to the hospital. According to the physician at [facility] patient was very somnolent was able to be aroused but would go right back to sleep. Patient had lab work which showed an elevated creatinine and elevated white count. Patient had a CT of the brain and CT of the abdomen pelvis which all were negative. No history of any fevers or chills no history of any difficulty breathing or cough. Initial serum glucose is 142 and ammonia is 23 Urine drug screen is positive for opiates, methamphetamine, benzoyl. Otherwise the rest is nondetected. Acetaminophen is less than 10, systolic is less than 1.0. EKG shows sinus bradycardia no ST segment elevation or depression Blood work completed an outside facility revealed elevated creatinine and a white blood count; CT head was reported to be negative 07/18/2021 Patient is evaluated with family members at bedside; doesn't open eyes on verbal stimulation but continues to moan spontaneously; doesn't follow any commands; EEG just completed MRI of the brain scheduled for today; computed tomography scan of the brain done at an outside facility was negative; urology has recommended stat EEG which is just completed; no plans to start antiepileptic drugs unless EEG is conclusive We will continue to avoid any sedating medications which can affect patient's mentation Labs including vitamin B12 and folic acid are pending 07/19/2021 Patient is seen and evaluated, continues to be confused but some improvement compared to yesterday. Patient opens her eyes on verbal stimulation Vital signs: temperature 98.4, pulse 85, resp 16, BP 150/85 Labs WBC 11.3 , Hgb 10.8, Na 146, BUN 28 Patient IS currently on ceftriaxone, vancomycin, and acyclovir for empiric meningeal encephalitis CSF studies have been negative ; neurology on board and recommending to discontinue acyclovir Patient remains on ceftriaxone and vancomycin pending ID re-evaluation EEG is completed and suggestive of encephalopathy; no seizure activity noted Neuro recommending repeat EEG tomorrow subjective: Resume the care of the patient from today 07/21/2011 Patient is a pleasant 65 years old female who presents with altered mental status, workup ruled out pending encephalitis with no nucleated cells and CSF tap. Today patient is more awake, she does she the hospital although she could not on the name, she The year of the month and the date and she knows name of the president, she wasn't sure why she was in the hospital. Patient was reoriented. Patient is complaining of from generalized abdominal pain and tenderness, no guarding or rebound tenderness. CT of the abdomen and pelvis is ordered and result is pending. Patient kept nothing by mouth for now. Several consultants on the case included neurology and pulmonary service. Patient remains on broad-spectrum antibiotics cefepime and Flagyl with ID team on the case as well as gentle hydration. Labs and vitals reviewed 07/21/2021 Patient today is fully awake and oriented back to baseline, and abdominal pain and tenderness is minimal and improving significantly compared to yesterday. She is currently started on regular diet, yesterday she was started on Colace for stools in the colon, she has frequent bowel movements mostly related to her colitis/proctitis. Colace is a stopped and Lomotil started. Patient states that she follows up with her manager spa at another hospital Dr. Bakari Fraire and she has colonoscopy every 3 years, last colonoscopy was 2 years ago and she supposed to go for next colonoscopy on November 2022 as she states. Patient was instructed to follow up with her GI doctors within one week to 2 weeks after discharge and she agrees. Also CT of the abdomen and pelvis showed . fluid collection at surgical bed L2- L5, s/p laminectomy L2-L5 with hard dockery at L2-L3. This is a chronic seroma per orthopedic team, under, and follow-up with her spine surgeon Dr. Camacho as an outpatient. Other than that she is hemodynamically stable. Leukocytosis improved down to 9.9 and hemoglobin 10.7 with some evidence of hemodilution, sodium improved to 136. Liver enzymes back to normal. S calcitonin elevated 2.8. EEG is negative. Patient currently covered with cefepime and Flagyl with gentle hydration. 07/22/2021 Patient mentation is back to normal. However she is in distress because of her abdominal pain Patient continued to have diarrhea and abdominal pain was more severe last night with more tenderness in the left lower quadrant, KUB showing small large bowel ileus. Surgery team were consulted for plan for colonoscopy tomorrow. C. diff is negative, stool studies are pending. Currently With antibiotic of cefepime and Flagyl per ID team also she is on normal saline at 75 mL/h. Hat Cone Inspector examined the patient and found posterior vitreous detachment with no retinal tear and hypertensive retinopathy that require outpatient follow-up only for now. Orthopedic team on the case for spinal seroma and recommended no further action needed regarding this. Pulmonary team on the case Zarate catheter was replaced because of urinary retention more than 700 mL. Flomax is started Prognosis remains guarded 07/24/2011 Patient clinically doing well, for the last 3 days she is fully awake and oriented and back to her baseline mental status. Her mental problem is the sigmoid colitis and prostatitis. Given pulmonary, ophthalmology and neurology cleared the patient for discharge from their perspective. However patient was still complaining of from significant pain and ileus yesterday, surgery team are planning for colonoscopy today. She'll finish her GoLYTELY. Could not tell about her diarrhea. However her abdominal pain is much improved today compared to yesterday. She's been treated with cefepime and Flagyl for the colitis with infectious disease team on the case. She has fluid of her old and swollen hands and legs and she wants something to diuresis her because she has restricted movement because of fluid overload, Lortab normal saline 75 down to 50 mL per hour. And also started Lasix IV 2 days. She was instructed to keep the Zarate catheter and follow-up with urologist as an outpatient, she was instructed to follow up with Dr. Bergman in one week she agrees but she is considering to follow up with her own urologist which is fine as well. She is on Flomax On admission she has positive urine drug screen for opioids, benzodiazepine and methamphetamine. I tacked to the patient and she has been started her as well, her told me since she came from a hospital last time she was taken intubated and she did not leave the house, also he is a retired commissioned police officer and he is completely against any drugs and if seen cases of methamphetamine overdose before and he does not recommended to be used by anyone. Most likely this is a false positive test. 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 She can follow command and fully oriented. Abdominal pain is down, no nausea vomiting and tolerates diet however she still have frequent bowel movements, every 1 hour although some of it are small amount stool. No blood. Laxative for discontinued. Also patient developing rash yesterday and today, it could be secondary to Robitussin which was discontinued. Yesterday we discontinued her Lasix however today and get worse rash given without Lasix, she still complaining of from significant swelling although states that Lasix helped her before she wants Lasix back. We going to resume orally and monitor closely. Her generalized swelling slightly better. No abdominal pain or tenderness, she had colonoscopy yesterday but the area was full of liquid stool, so it was aborted, cone biopsy were taken and pending, patient informed and she is aware with the need for follow-up for the results. In the meantime she remains with cefepime and Flagyl, normal saline discontinued today, by mouth Lasix 40 mg twice daily started, also we had adequate strength. Stool cultures still pending, Possible discharge on Tuesday as there is placement issue, discussed with social media senior associate Patient to keep the Zarate catheter and follow-up outpatient with urologist, she is informed and agrees 07/25/2021 Patient clinically is similar to yesterday, she still has diarrhea however she has significantly less abdominal pain. 1 is in with Uzma yesterday is that she's developed maculopapular rash over the trunk and extremity over the last 2 days, it looks similar to yesterday. Because of this we checked her antibiotic into aztreonam instead of Flagyl and cefepime while keep monitoring. Stool culture so far is negative showing no Salmonella or Shigella and/or E coli. Repeat labs in the morning Objective - Vital Signs Vital signs: Vital Signs Temp 97.8 F 07/25/21 11:56 Pulse 74 07/25/21 11:56 Resp 16 07/25/21 11:56 BP 168/78 07/25/21 11:56 Pulse Ox 98 07/25/21 11:56 Intake & Output 07/24/21 07/25/21 07/25/21 18:59 06:59 18:59 Intake Total 1637 540 120 Output Total 700 500 Balance 937 40 120 Weight 75 kg Intake: IV 40 Invasive Line 5 40 Oral 1597 540 120 Output: Urine 700 500 Uretheral (Zarate) 700 Other: Voiding Method Indwelling Catheter Indwelling Catheter Indwelling Catheter # Bowel Movements 2 - Exam GENERAL: The patient is alert and oriented x3, not in any acute distress. Well developed, well nourished. HEENT: Pupils are round and equally reacting to light. EOMI. No scleral icterus. No conjunctival pallor. Normocephalic, atraumatic. No pharyngeal erythema. No thyromegaly. CARDIOVASCULAR: S1 and S2 present. No murmurs, rubs, or gallops. PULMONARY: Chest is clear to auscultation, no wheezing or crackles. -ABDOMEN: Soft, generalized abdominal tenderness, no rebound tenderness or guarding, nondistended, normoactive bowel sounds. No palpable organomegaly. MUSCULOSKELETAL: No joint swelling or deformity. EXTREMITIES: No cyanosis, clubbing, or pedal edema. NEUROLOGICAL: Gross neurological examination did not reveal any focal deficits. SKIN: No rashes. no petechiae. - Labs CBC & Chem 7: 07/23/21 08:27 07/23/21 08:27 Labs: Microbiology - Last 24 Hours (Table) 07/22/21 19:10 Stool Culture - Preliminary Stool 07/18/21 12:08 Blood Culture - Final Blood No Growth after 144 hours Assessment and Plan Assessment: Sigmoid colitis and proctitis with sepsis , improving Urinary retention, status post Zarate catheter and Flomax Generalized maculopapular rash Generalized edema secondary to IV drug infusion of crystalloids. posterior vitreous detachment with no retinal tear and hypertensive retinopathy. Outpatient follow-up L2-L5 surgical bed seroma,, chronic as per orthopedic team follow up with her spine surgeon Dr. Camacho as an outpatient Altered mental status most likely metabolic/toxic encephalopathy, resolved completely and patient is back to baseline Evidence of some drug abuse with methamphetamine, benzodiazepines and opiates. Most likely false positive test. Both patient and look reliable and declined illicit drug abuse History of stroke and right hemiparesis Plan: This is a pleasant 74 years old female who presents with altered mental status, abdominal pain. Discontinue IV fluid continue with broad-spectrum antibiotics prior to team. Currently on cefepime and Flagyl. Add Questran Patient was instructed to follow up with her GI physician in 1-2 week after discharge and she agrees. Follow-up: Biopsy Continue with Lasix Monitor rash Infectious disease team on the case Pulmonary team on the case, the side of the case. Surgery team also signs of the case. Neurologist for the patient for discharge Orthopedic input is appreciated, no need for any further imaging or surgical intervention, follow-up with her spine surgeon Dr. Camacho as an outpatient. Patient informed and she agrees. Neurology service on the case as well as pulmonary service. Both cleared the patient for discharge. Hat Cone Inspector also recommended outpatient follow-up Labs and medication were reviewed.. Continue same treatment. Continue with symptomatic treatment. Resume home medication. Monitor lytes and vitals. DVT and GI prophylaxis. Further recommendations as per clinical course of the patient DVT prophylaxis: Subcutaneous heparin GI Prophylaxis: Protonix and Carafate PT/OT: KARON, social media senior associate consulted Prognosis is guarded
[2021-07-25] MEDS: PANTOPRAZOLE 40 MG TABLET PO SCH (20:44)
[2021-07-25] MEDS: diphenhydrAMINE 25 MG CAP PO PRN (20:45)
[2021-07-25] MEDS: ATORVASTATIN 10 MG TAB PO SCH (20:45)
[2021-07-25] MEDS: FLUTICASONE 50MCG/SPRAY NASAL 16GM EA NOSTRIL SCH (20:46)
--- NOTE | 2021-07-25 21:53 | P.PN ---
Subjective Progress Note Date: 07/25/21 Principal diagnosis: Fever Patient is a 65-year-old female who was transferred from [facility] for evaluation fever and mental status changes, and this patient apparently did have a negative CT of the head and abdominal pelvis patient did have a CSF examination completed yesterday which was negative. On today's evaluation that is 07/25/2021, the patient remains to be afebrile, the patient denies headache , the patient denies chest pain shortness of breath or cough , the patient denies abdominal pain and diarrhea has decreased in frequency, patient has developed a generalized rash, patient did have a cephalosporin ALLERGY but apparently has taken Keflex without any problem Objective - Vital Signs Vital signs: Vital Signs Temp 97.8 F 07/25/21 11:56 Pulse 74 07/25/21 11:56 Resp 16 07/25/21 11:56 BP 168/78 07/25/21 11:56 Pulse Ox 98 07/25/21 11:56 Intake & Output 07/24/21 07/25/21 07/25/21 18:59 06:59 18:59 Intake Total 1637 540 570 Output Total 566 968 4463 Balance 937 40 -930 Weight 75 kg Intake: IV 40 Invasive Line 5 40 Oral 1597 540 570 Output: Urine 782 228 3325 Uretheral (Zarate) 700 1500 Other: Voiding Method Indwelling Catheter Indwelling Catheter Indwelling Catheter # Bowel Movements 2 - Exam GENERAL DESCRIPTION: An elderly female lying in bed in no distress RESPIRATORY SYSTEM: Unlabored breathing , decreased breath sounds at bases HEART: S1 S2 regular rate and rhythm , ABDOMEN: Soft , mild lower abdominal tenderness EXTREMITIES: No edema feet - Labs CBC & Chem 7: 07/23/21 08:27 07/23/21 08:27 Labs: Microbiology - Last 24 Hours (Table) 07/22/21 19:10 Stool Culture - Preliminary Stool 07/18/21 12:08 Blood Culture - Final Blood No Growth after 144 hours Assessment and Plan (1) Fever Current Visit: Yes Status: Acute Code(s): R50.9 - FEVER, UNSPECIFIED SNOMED Code(s): 343827995 Plan: 1patient presented to hospital with mental status changes patient did have an episode of vomiting, patient apparently did have a negative CT of abdominal pelvis at the [facility] chest x-ray showing a right lower lobe atelectasis UA was negative with significant mental status changes and minimal headache recently 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 2 patient with a possible abdominal source as the patient is tender on clinical examination. CT of abdominal pelvis CT shows evidence of colitis status post attempted colonoscopy, patient has clinically responded to cefepime and Flagyl and her white count has normalized, however the patient has not developed a rash secondary to cefepime which has been discontinued Azactam has been added and we'll see response Time with Patient: Less than 30
[2021-07-26] MEDS: DIPHENOX-ATROP 2.5-0.025 MG 1 EACH TAB PO PRN ×2 (00:48→08:20)
[2021-07-26] MEDS: diphenhydrAMINE 50 MG/ML 1 ML VIAL IVP PRN ×3 (00:49→17:33)
--- NOTE | 2021-07-26 00:50 | P.PN ---
Subjective Progress Note Date: 07/23/21 07/23/2021: Patient is doing much better. Her mentation is completely back to normal. Patient had undergone colonoscopy, biopsy has been taken. Patient denies any new visual symptoms. No other neurological symptoms. 07/22/2021: Patient was seen for a follow-up. Patient is sitting in the recliner, very pleasant, in no acute distress. Patient's family was also present. She is fully oriented. Complains of irritable bowel, loose stools but no watery stools. No blood. No mucus. She is undergoing colonoscopy tomorrow. Denies any neurological symptoms. Telemetry monitoring showing sinus rhythm. No arrhythmia. 07/21/2021: Patient was seen for a follow-up. Patient is doing even better than yesterday. She is fully alert awake. Her mentation is completely normal now. Patient denies headache. Patient states that last night she had a bout of coughing. Afterwards she noticed some visual disturbance, whenever she would shut her eyes, she sees images innervation. She was seeing snowstorm, beautiful snow pictures, involving both eyes. Today she states that whenever she closes her eye, she sees some red spots in her vision. This is something new. She is concerned about retinal detachment. She has no headache. 07/20/2021: Patient was seen for a follow-up. Patient initially seen by Dr. Abel Mathew. Please refer to his note for details. Patient has history of a stroke with residual right-sided weakness. She came because of altered mental status. She was found to have encephalopathy of unknown origin. Patient had a recent right ankle surgery last 07/15/2021. She underwent shaving of some bone spurs in the right ankle. Patient's son was present today, and provided the history. He states that patient has markedly improved. Patient came with altered mental status on Tuesday, when she was minimally communicative to noncommunicative status. On Tuesday, which is yesterday she had some minimal verbalization. Today she is talking a lot. He believes that she is back to baseline. She is conversant sitting usually, asking about her grandkids. She appears generalized weak. She is going for computed tomography scan of abdomen and pelvis. Denies any headache, chest pain, down pain nausea vomiting diarrhea. Patient lives with her son. Patient's son states that about 4 years ago she had a "blood clot in the spine at T10 level. She underwent surgery for it at [facility]. She underwent hospitalization for 3 weeks at that time. She had constant numbness of her both lower limbs from waist down. It is worse in the right leg as compared to the left. The left leg is somewhat better proximally from waist to the knee, except from below knee to the foot, which is severely numb like the right side. Since then she has been walking weird. She uses a walker. Objective - Vital Signs Vital signs: Vital Signs Temp 97.8 F 07/25/21 20:00 Pulse 72 07/25/21 20:36 Resp 16 07/25/21 20:00 BP 151/70 07/25/21 20:00 Pulse Ox 96 07/25/21 20:00 Intake & Output 07/25/21 07/25/21 07/26/21 06:59 18:59 07:59 Intake Total 540 690 485 Output Total 500 1500 Balance 40 -810 485 Intake: Oral 540 690 485 Output: Urine 500 1500 Uretheral (Zarate) 1500 Other: Voiding Method Indwelling Catheter Indwelling Catheter Indwelling Catheter # Bowel Movements 2 - Exam Patient's mental status, speech and language functions are normal. Her mentation is now completely normal. Speech and language functions are normal. Attention span and concentration is decreased, fund of knowledge appears adequate. On cranial nerve examination pupils are equal, round and reacting, visual vilchis are full on confrontation with no neglect. Extraocular muscles are intact with no nystagmus. Face is symmetric and tongue protrudes to the midline. Palatal elevation and sensation normal hearing is moderately decreased and facial sensation is normal. Muscle strength shows normal strength in the upper limbs. Her strength is normal in the ankles. Hip flexion is somewhat weak bilaterally. She also has hyperesthesia therefore did not let me examine her legs. Patient's knees appear somewhat swollen. Her hands also appears slightly swollen. She has osteoarthritis, denies rheumatoid. She states she has been tested for it. Deep tendon reflexes are 2+ in the arms and legs. Plantars are withdrawal. Sensory to touch in the upper extremities is equal with no neglect. She does have significant dysesthesias to touch with bilateral lower limbs from him down to the feet. Cerebellar function showed no ataxia for [id number] testing. Tone and bulk of muscles normal. Gait deferred. On general examination, there is no carotid bruit or murmur, S1-S2 audible. Sada st is clear to auscultation. Peripheral pulses are present. Patient has mild peripheral edema. - Labs CBC & Chem 7: 07/23/21 08:27 07/23/21 08:27 Labs: Microbiology - Last 24 Hours (Table) 07/22/21 19:10 Stool Culture - Final Stool Assessment and Plan Assessment: * Metabolic encephalopathy, perhaps from abdominal source. Computed tomography scan of the abdomen and pelvis showed evidence of possible colitis/proctitis. Patient's altered mentation has completely resolved. CSF is negative for meningoencephalitis. MRI Brain is negative for stroke.--mentation is now completely normal as of yesterday. * New onset visual disturbance since last night after a bout of coughing. Patient diagnosed with posterior vitreous detachment, with no retinal tears. * Acute kidney injury--completely resolved. * History of hypertension * History of stroke with residual weakness over the right sided (has blood clot in spinal cord according to patient) and walks with walker * History of spinal fusion over the L2 to S1 * Hard of hearing bilaterally. * Dysesthesias of bilateral lower extremities, probably due to above #4. * Patient's urine positive for methamphetamine, repeat test came back negative. It was likely a lab error. * Osteoarthritis Plan: * Patient's mentation is normal. Her examination is nonfocal. No other neurological workup indicated. * Ophthalmology seen the patient, diagnosed with posterior vitreous detachment with no retinal tears. Patient has hypertensive retinopathy grade 2. Patient was recommended by reconciliation machine operator to follow up with her local reconciliation machine operator after discharge to check glasses and to reexamine her eye. * CT of abdomen and pelvis revealed colitis/proctitis of the sigmoid colon and rectum upstream large stool burden throughout the colon. Surgical bed fluid collection along the thecal sac of the L2 to L5 vertebral bodies level which may represent a pseudomeningocele, seroma or abscess. Correlate with surgical history of the spine. Consider MRI of the lumbar spine with IV contrast there is clinical concern. Orthopedic consult input appreciated. No indication for MRI at this time, as she has known case of seroma following lumbar surgery in the past. Patient is off ceftriaxone and acyclovir, as meningoencephalitis has been ruled out. Patient on cefepime and metronidazole for possible abdominal source. * Repeat EEG on 07/20/2021 was normal awake and drowsy EEG for patient's age. No focal, lateralized or epileptiform activity was seen. When compared to the EEG from 07/18/2021, the background has remarkably improved. The sharply contoured triphasic waves seen in bihemispheric region have now completely resolved. Patient is off Keppra. * Repeat UDS negative for amphetamines. Initial report was likely a lab error. * Continue aspirin 81 mg daily. * B12 1140, folate 18.2. * Neurologically clear for discharge.
--- NOTE | 2021-07-26 00:54 | P.PN ---
Subjective Progress Note Date: 07/24/21 07/24/2021: Patient is laying comfortably in the bed. Offers no complaints. Awaiting transfer to rehab. Her diarrhea/loose stools have improved. Denies any new neurological symptoms. 07/23/2021: Patient is doing much better. Her mentation is completely back to normal. Patient had undergone colonoscopy, biopsy has been taken. Patient denies any new visual symptoms. No other neurological symptoms. 07/22/2021: Patient was seen for a follow-up. Patient is sitting in the recliner, very pleasant, in no acute distress. Patient's family was also present. She is fully oriented. Complains of irritable bowel, loose stools but no watery stools. No blood. No mucus. She is undergoing colonoscopy tomorrow. Denies any neurological symptoms. Telemetry monitoring showing sinus rhythm. No arrhythmia. 07/21/2021: Patient was seen for a follow-up. Patient is doing even better than yesterday. She is fully alert awake. Her mentation is completely normal now. Patient denies headache. Patient states that last night she had a bout of coughing. Afterwards she noticed some visual disturbance, whenever she would shut her eyes, she sees images innervation. She was seeing snowstorm, beautiful snow pictures, involving both eyes. Today she states that whenever she closes her eye, she sees some red spots in her vision. This is something new. She is concerned about retinal detachment. She has no headache. 07/20/2021: Patient was seen for a follow-up. Patient initially seen by Dr. Abel Mathew. Please refer to his note for details. Patient has history of a stroke with residual right-sided weakness. She came because of altered mental status. She was found to have encephalopathy of unknown origin. Patient had a recent right ankle surgery last 07/15/2021. She underwent shaving of some bone spurs in the right ankle. Patient's son was present today, and provided the history. He states that patient has markedly improved. Patient came with altered mental status on Tuesday, when she was minimally communicative to noncommunicative status. On Tuesday, which is yesterday she had some minimal verbalization. Today she is talking a lot. He believes that she is back to baseline. She is conversant sitting usually, asking about her grandkids. She appears generalized weak. She is going for computed tomography scan of abdomen and pelvis. Denies any headache, chest pain, down pain nausea vomiting diarrhea. Patient lives with her son. Patient's son states that about 4 years ago she had a "blood clot in the spine at T10 level. She underwent surgery for it at [facility]. She underwent hospitalization for 3 weeks at that time. She had constant numbness of her both lower limbs from waist down. It is worse in the right leg as compared to the left. The left leg is somewhat better proximally from waist to the knee, except from below knee to the foot, which is severely numb like the right side. Since then she has been walking weird. She uses a walker. Objective - Vital Signs Vital signs: Vital Signs Temp 97.8 F 07/25/21 20:00 Pulse 72 07/25/21 20:36 Resp 16 07/25/21 20:00 BP 151/70 07/25/21 20:00 Pulse Ox 96 07/25/21 20:00 Intake & Output 07/25/21 07/25/21 07/26/21 06:59 18:59 07:59 Intake Total 540 690 485 Output Total 500 1500 Balance 40 -810 485 Intake: Oral 540 690 485 Output: Urine 500 1500 Uretheral (Zarate) 1500 Other: Voiding Method Indwelling Catheter Indwelling Catheter Indwelling Catheter # Bowel Movements 2 - Exam Patient's mental status, speech and language functions are normal. Her mentation is now completely normal. Speech and language functions are normal. Attention span and concentration is decreased, fund of knowledge appears adequate. Patient's examinations remains unchanged. Detail testing deferred. - Labs CBC & Chem 7: 07/23/21 08:27 07/23/21 08:27 Labs: Microbiology - Last 24 Hours (Table) 07/22/21 19:10 Stool Culture - Final Stool Assessment and Plan Assessment: * Metabolic encephalopathy, perhaps from abdominal source. Computed tomography scan of the abdomen and pelvis showed evidence of possible colitis/proctitis. Patient's altered mentation has completely resolved. CSF is negative for meningoencephalitis. MRI Brain is negative for stroke.--mentation is now completely normal as of yesterday. * New onset visual disturbance since last night after a bout of coughing. Patient diagnosed with posterior vitreous detachment, with no retinal tears. * Acute kidney injury--completely resolved. * History of hypertension * History of stroke with residual weakness over the right sided (has blood clot in spinal cord according to patient) and walks with walker * History of spinal fusion over the L2 to S1 * Hard of hearing bilaterally. * Dysesthesias of bilateral lower extremities, probably due to above #4. * Patient's urine positive for methamphetamine, repeat test came back negative. It was likely a lab error. * Osteoarthritis Plan: * Patient's mentation is normal. Her examination is nonfocal. No other neurological workup indicated. * Ophthalmology seen the patient, diagnosed with posterior vitreous detachment with no retinal tears. Patient has hypertensive retinopathy grade 2. Patient was recommended by belt back operator to follow up with her local belt back operator after discharge to check glasses and to reexamine her eye. * CT of abdomen and pelvis revealed colitis/proctitis of the sigmoid colon and rectum upstream large stool burden throughout the colon. Surgical bed fluid collection along the thecal sac of the L2 to L5 vertebral bodies level which may represent a pseudomeningocele, seroma or abscess. Correlate with surgical history of the spine. Consider MRI of the lumbar spine with IV contrast there is clinical concern. Orthopedic consult input appreciated. No indication for MRI at this time, as she has known case of seroma following lumbar surgery in the past. Patient is off ceftriaxone and acyclovir, as meningoencephalitis has been ruled out. Patient on cefepime and metronidazole for possible abdominal source. * Repeat EEG on 07/20/2021 was normal awake and drowsy EEG for patient's age. No focal, lateralized or epileptiform activity was seen. When compared to the EEG from 07/18/2021, the background has remarkably improved. The sharply contoured triphasic waves seen in bihemispheric region have now completely resolved. Patient is off Keppra. * Repeat UDS negative for amphetamines. Initial report was likely a lab error. * Continue aspirin 81 mg daily. * B12 1140, folate 18.2. * Neurologically clear for discharge. Neurology will sign off. Please reconsult neurology if any concerns. No need to follow up with neurologist outpatient.
[2021-07-26] MEDS: LEVOTHYROXINE 50 MCG TAB PO SCH (05:59)
[2021-07-26] MEDS: CHOLECALCIFEROL 25 MCG (1000 IU) TABLET PO SCH ×2 (08:11→21:29)
[2021-07-26] MEDS: DULoxetine HCL 60 MG CAPSULE.DR PO SCH (08:11)
[2021-07-26] MEDS: CALCIUM CARBONATE 500 MG CHEWABLE PO SCH ×2 (08:11→21:32)
[2021-07-26] MEDS: TAMSULOSIN 0.4 MG CAP.ER.24H PO SCH (08:11)
[2021-07-26] MEDS: FAMOTIDINE 20 MG TAB PO SCH (08:11)
[2021-07-26] MEDS: HEPARIN SODIUM,PORCINE/PF 5,000 UNIT/0.5 ML SYRINGE SQ SCH ×2 (08:11→21:28)
[2021-07-26] MEDS: FUROSEMIDE 40 MG TAB PO SCH ×2 (08:11→16:52)
[2021-07-26] MEDS: ASPIRIN 81 MG PO SCH (08:12)
[2021-07-26] MEDS: ASCORBIC ACID 500 MG TAB PO SCH (08:12)
[2021-07-26] MEDS: metroNIDAZOLE 500 MG TAB PO SCH ×2 (08:12→13:53)
[2021-07-26] MEDS: ALBUTEROL NEBULIZED 2.5 MG/3 ML INHALATION PRN (09:04)
[2021-07-26 09:37] LABS: Basophils % (A) 0 %; Eosinophils # (A) 0.5 k/uL (0-0.7); Eosinophils % (A) 4 %; HCT 36.9 % (34.0-46.0); HGB 11.7 gm/dL (11.4-16.0); Hypochromasia Moderate; Lymphocytes # (A) 1.1 k/uL (1.0-4.8); Lymphocytes % (A) 8 %; MCH 30.4 pg (25.0-35.0); MCHC 31.7 g/dL (31.0-37.0); MCV 95.8 fL (80.0-100.0); Mean Platelet Volume 9.1; Monocytes # (A) 0.4 k/uL (0-1.0); Monocytes % (A) 3 %; Neutrophils # (A) 12.2 k/uL (1.3-7.7); Neutrophils % (A) 85 %; Platelet Count 160 k/uL (150-450); RBC 3.85 m/uL (3.80-5.40); RDW 14.8 % (11.5-15.5); WBC 14.5 k/uL (3.8-10.6)
[2021-07-26 09:53] LABS: Calcium 7.9 mg/dL (8.4-10.2); Magnesium 1.5 mg/dL (1.6-2.3)
[2021-07-26 09:54] LABS: Potassium 3.2 mmol/L (3.5-5.1)
[2021-07-26] MEDS: CHOLESTYRAMINE (WITH SUGAR) 4 GM PACKET PO SCH ×2 (11:21→16:53)
[2021-07-26] MEDS: HYDROCORTISONE 1% CREAM 454 GM JAR TOPICAL SCH ×3 (11:33→21:30)
[2021-07-26] MEDS: AZTREONAM 2 GM in SODIUM CHLORIDE 0.9% 100 ML IVPB SCH ×2 (11:33→16:52)
[2021-07-26] MEDS: diphenhydrAMINE 25 MG CAP PO PRN ×2 (11:33→17:33)
[2021-07-26] MEDS: DICYCLOMINE 20 MG TAB PO SCH (13:53)
[2021-07-26] MEDS: HYDROcodone/APAP 5-325MG 1 EACH TAB PO PRN (13:53)
[2021-07-26] MEDS: lamoTRIgine 25 MG TAB PO SCH (13:53)
[2021-07-26] MEDS: LOSARTAN 50 MG TAB PO SCH (13:53)
[2021-07-26] MEDS: NYSTATIN 100,000 UNIT/ML SUSP 500,000 UNIT/5 ML CUP PO SCH ×2 (17:33→21:30)
[2021-07-26] MEDS: POTASSIUM CHLORIDE ER 20 MEQ TAB.ER PO SCH (17:33)
[2021-07-26] MEDS ORDERED: Magnesium Replacement Protocol 1 EACH MISC MISCELLANE PRN (20:02)
--- NOTE | 2021-07-26 20:11 | P.PN ---
Subjective From the records 65-year-old female who comes to us from [facility]. Patient had surgery by Dr. Fink on Tuesday and I was told had a couple episodes of vomiting and was lethargic so brought her to the hospital. According to the physician at [place] patient was very somnolent was able to be aroused but would go right back to sleep. Patient had lab work which showed an elevated creatinine and elevated white count. Patient had a CT of the brain and CT of the abdomen pelvis which all were negative. No history of any fevers or chills no history of any difficulty breathing or cough. Initial serum glucose is 142 and ammonia is 23 Urine drug screen is positive for opiates, methamphetamine, benzoyl. Otherwise the rest is nondetected. Acetaminophen is less than 10, systolic is less than 1.0. EKG shows sinus bradycardia no ST segment elevation or depression Blood work completed an outside facility revealed elevated creatinine and a white blood count; CT head was reported to be negative 07/18/2021 Patient is evaluated with family members at bedside; doesn't open eyes on verbal stimulation but continues to moan spontaneously; doesn't follow any commands; EEG just completed MRI of the brain scheduled for today; computed tomography scan of the brain done at an outside facility was negative; urology has recommended stat EEG which is just completed; no plans to start antiepileptic drugs unless EEG is conclusive We will continue to avoid any sedating medications which can affect patient's mentation Labs including vitamin B12 and folic acid are pending 07/19/2021 Patient is seen and evaluated, continues to be confused but some improvement compared to yesterday. Patient opens her eyes on verbal stimulation Vital signs: temperature 98.4, pulse 85, resp 16, BP 150/85 Labs WBC 11.3 , Hgb 10.8, Na 146, BUN 28 Patient IS currently on ceftriaxone, vancomycin, and acyclovir for empiric meningeal encephalitis CSF studies have been negative ; neurology on board and recommending to discontinue acyclovir Patient remains on ceftriaxone and vancomycin pending ID re-evaluation EEG is completed and suggestive of encephalopathy; no seizure activity noted Neuro recommending repeat EEG tomorrow subjective: Resume the care of the patient from today 07/21/2011 Patient is a pleasant 65 years old female who presents with altered mental status, workup ruled out pending encephalitis with no nucleated cells and CSF tap. Today patient is more awake, she does she the hospital although she could not on the name, she The year of the month and the date and she knows name of the president, she wasn't sure why she was in the hospital. Patient was reoriented. Patient is complaining of from generalized abdominal pain and tenderness, no guarding or rebound tenderness. CT of the abdomen and pelvis is ordered and result is pending. Patient kept nothing by mouth for now. Several consultants on the case included neurology and pulmonary service. Patient remains on broad-spectrum antibiotics cefepime and Flagyl with ID team on the case as well as gentle hydration. Labs and vitals reviewed 07/21/2021 Patient today is fully awake and oriented back to baseline, and abdominal pain and tenderness is minimal and improving significantly compared to yesterday. She is currently started on regular diet, yesterday she was started on Colace for stools in the colon, she has frequent bowel movements mostly related to her colitis/proctitis. Colace is a stopped and Lomotil started. Patient states that she follows up with her grade teacher at another hospital Dr. Bakari Fraire and she has colonoscopy every 3 years, last colonoscopy was 2 years ago and she supposed to go for next colonoscopy on November 2022 as she states. Patient was instructed to follow up with her GI doctors within one week to 2 weeks after discharge and she agrees. Also CT of the abdomen and pelvis showed . fluid collection at surgical bed L2- L5, s/p laminectomy L2-L5 with hard dockery at L2-L3. This is a chronic seroma per orthopedic team, under, and follow-up with her spine surgeon Dr. Camacho as an outpatient. Other than that she is hemodynamically stable. Leukocytosis improved down to 9.9 and hemoglobin 10.7 with some evidence of hemodilution, sodium improved to 136. Liver enzymes back to normal. S calcitonin elevated 2.8. EEG is negative. Patient currently covered with cefepime and Flagyl with gentle hydration. 07/22/2021 Patient mentation is back to normal. However she is in distress because of her abdominal pain Patient continued to have diarrhea and abdominal pain was more severe last night with more tenderness in the left lower quadrant, KUB showing small large bowel ileus. Surgery team were consulted for plan for colonoscopy tomorrow. C. diff is negative, stool studies are pending. Currently With antibiotic of cefepime and Flagyl per ID team also she is on normal saline at 75 mL/h. Legal Process Specialist examined the patient and found posterior vitreous detachment with no retinal tear and hypertensive retinopathy that require outpatient follow-up only for now. Orthopedic team on the case for spinal seroma and recommended no further action needed regarding this. Pulmonary team on the case Zarate catheter was replaced because of urinary retention more than 700 mL. Flomax is started Prognosis remains guarded 07/24/2011 Patient clinically doing well, for the last 3 days she is fully awake and oriented and back to her baseline mental status. Her mental problem is the sigmoid colitis and prostatitis. Given pulmonary, ophthalmology and neurology cleared the patient for discharge from their perspective. However patient was still complaining of from significant pain and ileus yesterday, surgery team are planning for colonoscopy today. She'll finish her GoLYTELY. Could not tell about her diarrhea. However her abdominal pain is much improved today compared to yesterday. She's been treated with cefepime and Flagyl for the colitis with infectious disease team on the case. She has fluid of her old and swollen hands and legs and she wants something to diuresis her because she has restricted movement because of fluid overload, Lortab normal saline 75 down to 50 mL per hour. And also started Lasix IV 2 days. She was instructed to keep the Zarate catheter and follow-up with urologist as an outpatient, she was instructed to follow up with Dr. Bergman in one week she agrees but she is considering to follow up with her own urologist which is fine as well. She is on Flomax On admission she has positive urine drug screen for opioids, benzodiazepine and methamphetamine. I tacked to the patient and she has been started her as well, her told me since she came from a hospital last time she was taken intubated and she did not leave the house, also he is a retired booking police officer and he is completely against any drugs and if seen cases of methamphetamine overdose before and he does not recommended to be used by anyone. Most likely this is a false positive test. 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 She can follow command and fully oriented. Abdominal pain is down, no nausea vomiting and tolerates diet however she still have frequent bowel movements, every 1 hour although some of it are small amount stool. No blood. Laxative for discontinued. Also patient developing rash yesterday and today, it could be secondary to Robitussin which was discontinued. Yesterday we discontinued her Lasix however today and get worse rash given without Lasix, she still complaining of from significant swelling although states that Lasix helped her before she wants Lasix back. We going to resume orally and monitor closely. Her generalized swelling slightly better. No abdominal pain or tenderness, she had colonoscopy yesterday but the area was full of liquid stool, so it was aborted, cone biopsy were taken and pending, patient informed and she is aware with the need for follow-up for the results. In the meantime she remains with cefepime and Flagyl, normal saline discontinued today, by mouth Lasix 40 mg twice daily started, also we had adequate strength. Stool cultures still pending, Possible discharge on Tuesday as there is placement issue, discussed with social service liaison Patient to keep the Zarate catheter and follow-up outpatient with urologist, she is informed and agrees 07/25/2021 Patient clinically is similar to yesterday, she still has diarrhea however she has significantly less abdominal pain. 1 is in with Uzma yesterday is that she's developed maculopapular rash over the trunk and extremity over the last 2 days, it looks similar to yesterday. Because of this we checked her antibiotic into aztreonam instead of Flagyl and cefepime while keep monitoring. Stool culture so far is negative showing no Salmonella or Shigella and/or E coli. Repeat labs in the morning 07/26/2021 Patient looks like diarrhea and abdominal pain improving gradually and slowly. Her diarrhea is becoming less frequent and without mucus. Abdominal pain is im proving as well.Her pro-calcitonin came down to 0.8 down to 0.26. She is currently kept on aztreonam which was started 2 days ago after she developed rash and cefepime and Flagyl were discontinued. Also will resume her home dose of mental area also she is currently on Questran. Her rash looks his stable and kept with hydrocortisone cream, and Benadryl when necessary. She has some leukocytosis which could be secondary to steroid effect she received due to her rash. We will monitor her WBC tomorrow. Low potassium and magnesium replaced. She is developing some oral thrush and nystatin was added. colon Biopsy showing focal acute colitis with features suggestive of earlier ischemic colitis Blood pressure was elevated and her losartan 100 mg was restarted at a lower dose of 50 mg daily. social service liaison consulted for placement Objective - Vital Signs Vital signs: Vital Signs Temp 97.9 F 07/26/21 08:07 Pulse 72 07/26/21 09:16 Resp 16 07/26/21 09:16 BP 147/67 07/26/21 08:07 Pulse Ox 95 07/26/21 09:03 Intake & Output 07/25/21 07/26/21 07/26/21 17:59 06:59 18:59 Intake Total Output Total Balance Intake: Intake, IV Titration Amount Aztreonam 2 gm In Sodium Chloride 0.9% 100 ml @ 33 .3 mls/hr IVPB Q8HR [facility] Rx#:[id number] Oral Output: Urine Uretheral (Zarate) Other: Voiding Method Indwelling Catheter # Bowel Movements - Exam GENERAL: The patient is alert and oriented x3, not in any acute distress. Well developed, well nourished. HEENT: Pupils are round and equally reacting to light. EOMI. No scleral icterus. No conjunctival pallor. Normocephalic, atraumatic. No pharyngeal erythema. No thyromegaly. CARDIOVASCULAR: S1 and S2 present. No murmurs, rubs, or gallops. PULMONARY: Chest is clear to auscultation, no wheezing or crackles. -ABDOMEN: Soft, generalized abdominal tenderness, no rebound tenderness or guarding, nondistended, normoactive bowel sounds. No palpable organomegaly. MUSCULOSKELETAL: No joint swelling or deformity. EXTREMITIES: No cyanosis, clubbing, or pedal edema. NEUROLOGICAL: Gross neurological examination did not reveal any focal deficits. SKIN: No rashes. no petechiae. - Labs CBC & Chem 7: 07/26/21 09:03 07/26/21 09:03 Labs: Abnormal Lab Results - Last 24 Hours (Table) 07/26/21 07/26/21 Range/Units 09: 09:03 WBC 14.5 H (3.8-10.6) k/uL Neutrophils # 12.2 H (1.3-7.7) k/uL Sodium 135 L (137-145) mmol/L Potassium 3.2 L (3.5-5.1) mmol/L Chloride 108 H (98-107) mmol/L Carbon Dioxide 18 L (22-30) mmol/L Glucose 100 H (74-99) mg/dL Calcium 7.9 L (8.4-10.2) mg/dL Magnesium 1.5 L (1.6-2.3) mg/dL Microbiology - Last 24 Hours (Table) 07/22/21 19:10 Stool Culture - Final Stool Assessment and Plan Assessment: Sigmoid colitis and proctitis with sepsis , improving. colon Biopsy showing focal acute colitis with features suggestive of earlier ischemic colitis Urinary retention, status post Zarate catheter and Flomax Generalized maculopapular rash, most likely secondary to cefepime which was discontinued Generalized edema secondary to IV drug infusion of crystalloids. posterior vitreous detachment with no retinal tear and hypertensive retinopathy. Outpatient follow-up L2-L5 surgical bed seroma,, chronic as per orthopedic team follow up with her spine surgeon Dr. Camacho as an outpatient Altered mental status most likely metabolic/toxic encephalopathy, resolved completely and patient is back to baseline Evidence of some drug abuse with methamphetamine, benzodiazepines and opiates. Most likely false positive test. Both patient and look reliable and declined illicit drug abuse History of stroke and right hemiparesis Plan: This is a pleasant 74 years old female who presents with altered mental status, abdominal pain. Discontinue IV fluid . Continue with oral Lasix 40 mg twice a day continue with aztreonam. Continue with Bentyl and Questran Patient was instructed to follow up with her GI physician in 1-2 week after discharge and she agrees. Follow-up: Biopsy Infectious disease team on the case Pulmonary team on the case, the signed off the case. Surgery team also signs off the case. Neurologist cleared the patient for discharge Orthopedic input is appreciated, no need for any further imaging or surgical intervention, follow-up with her spine surgeon Dr. Camacho as an outpatient for her L2 to L5 surgical medical seroma. Patient informed and she agrees. Legal Process Specialist also recommended outpatient follow-up Labs and medication were reviewed.. Continue same treatment. Continue with symptomatic treatment. Resume home medication. Monitor lytes and vitals. DVT and GI prophylaxis. Further recommendations as per clinical course of the patient DVT prophylaxis: Subcutaneous heparin GI Prophylaxis: Protonix and Carafate PT/OT:social service liaison consulted for placement Prognosis is guarded
[2021-07-26] MEDS: PANTOPRAZOLE 40 MG TABLET PO SCH (21:28)
[2021-07-26] MEDS: lamoTRIgine 100 MG TAB PO SCH (21:28)
[2021-07-26] MEDS: FLUTICASONE 50MCG/SPRAY NASAL 16GM EA NOSTRIL SCH (21:29)
[2021-07-26] MEDS: ATORVASTATIN 10 MG TAB PO SCH (21:29)
[2021-07-26] MEDS ORDERED: MAGNESIUM SULFATE-D5W PMX 1 GM in DEXTROSE/WATER 2 100ML.BAG IVPB ONE (22:35)
[2021-07-26] MEDS ORDERED: POTASSIUM CHLORIDE ER 20 MEQ TAB.ER PO STA (22:57)
[2021-07-27] MEDS: AZTREONAM 2 GM in SODIUM CHLORIDE 0.9% 100 ML IVPB SCH ×3 (00:16→16:58)
[2021-07-27] MEDS: DICYCLOMINE 20 MG TAB PO SCH ×2 (00:16→12:47)
[2021-07-27] MEDS: diphenhydrAMINE 25 MG CAP PO PRN ×4 (00:16→22:25)
[2021-07-27] MEDS: metroNIDAZOLE 500 MG TAB PO SCH ×3 (00:16→15:46)
[2021-07-27] MEDS: HYDROcodone/APAP 5-325MG 1 EACH TAB PO PRN ×2 (01:08→22:26)
[2021-07-27] MEDS ORDERED: MAGNESIUM SULFATE-D5W PMX 1 GM in DEXTROSE/WATER 1 100ML.BAG IVPB ONE (02:16)
[2021-07-27] MEDS: LEVOTHYROXINE 50 MCG TAB PO SCH (06:02)
[2021-07-27 08:05] LABS: African American GFR (CKD) >90 (>60 ml/min/1.73 sqM); Anion Gap 4 mmol/L; Blood Urea Nitrogen 12 mg/dL (7-17); Calcium 7.3 mg/dL (8.4-10.2); Carbon Dioxide 21 mmol/L (22-30); Chloride 108 mmol/L (98-107); Glucose 97 mg/dL (74-99); Non-African American GFR(CKD) 80 (>60 ml/min/1.73 sqM); Sodium 133 mmol/L (137-145)
[2021-07-27 08:07] LABS: Magnesium 2.2 mg/dL (1.6-2.3); Potassium 3.7 mmol/L (3.5-5.1)
[2021-07-27] MEDS: ASCORBIC ACID 500 MG TAB PO SCH (08:16)
[2021-07-27] MEDS: TAMSULOSIN 0.4 MG CAP.ER.24H PO SCH (08:16)
[2021-07-27] MEDS: CHOLESTYRAMINE (WITH SUGAR) 4 GM PACKET PO SCH ×2 (08:16→15:46)
[2021-07-27] MEDS: HEPARIN SODIUM,PORCINE/PF 5,000 UNIT/0.5 ML SYRINGE SQ SCH ×2 (08:16→22:25)
[2021-07-27] MEDS: CALCIUM CARBONATE 500 MG CHEWABLE PO SCH ×2 (08:16→22:25)
[2021-07-27] MEDS: LOSARTAN 50 MG TAB PO SCH (08:17)
[2021-07-27] MEDS: FAMOTIDINE 20 MG TAB PO SCH (08:17)
[2021-07-27] MEDS: ASPIRIN 81 MG PO SCH (08:17)
[2021-07-27] MEDS: DULoxetine HCL 60 MG CAPSULE.DR PO SCH (08:17)
[2021-07-27] MEDS: lamoTRIgine 100 MG TAB PO SCH ×2 (08:17→22:26)
[2021-07-27] MEDS: FUROSEMIDE 40 MG TAB PO SCH ×2 (08:17→15:46)
[2021-07-27] MEDS: CHOLECALCIFEROL 25 MCG (1000 IU) TABLET PO SCH ×2 (08:17→22:25)
[2021-07-27] MEDS: DIPHENOX-ATROP 2.5-0.025 MG 1 EACH TAB PO PRN (08:32)
[2021-07-27] MEDS: HYDROCORTISONE 1% CREAM 454 GM JAR TOPICAL SCH ×3 (08:32→22:27)
[2021-07-27] MEDS: NYSTATIN 100,000 UNIT/ML SUSP 500,000 UNIT/5 ML CUP PO SCH ×4 (08:33→22:24)
[2021-07-27] MEDS ORDERED: LOSARTAN 50 MG TAB PO SCH (09:00)
[2021-07-27 11:26] LABS: Basophils % (A) 0 %; Eosinophils # (A) 0.2 k/uL (0-0.7); Eosinophils % (A) 3 %; HCT 40.8 % (34.0-46.0); HGB 12.8 gm/dL (11.4-16.0); Hypochromasia Marked; Lymphocytes # (A) 0.4 k/uL (1.0-4.8); Lymphocytes % (A) 6 %; MCH 30.8 pg (25.0-35.0); MCHC 31.5 g/dL (31.0-37.0); MCV 97.8 fL (80.0-100.0); Mean Platelet Volume 11.8; Monocytes # (A) 0.2 k/uL (0-1.0); Monocytes % (A) 3 %; Neutrophils # (A) 6.2 k/uL (1.3-7.7); Neutrophils % (A) 87 %; RBC 4.17 m/uL (3.80-5.40); RDW 14.8 % (11.5-15.5); WBC 7.1 k/uL (3.8-10.6)
[2021-07-27] MEDS ORDERED: POTASSIUM CHLORIDE ER 20 MEQ TAB.ER PO STA (11:32)
[2021-07-27 12:33] LABS: Platelet Count 61 k/uL (150-450)
[2021-07-27] MEDS: lamoTRIgine 25 MG TAB PO SCH (12:47)
[2021-07-27] MEDS: ONDANSETRON 4 MG/2 ML VIAL IVP PRN (16:58)
[2021-07-27] MEDS: diphenhydrAMINE 50 MG/ML 1 ML VIAL IVP PRN (17:28)
[2021-07-27] MEDS: ALBUTEROL NEBULIZED 2.5 MG/3 ML INHALATION PRN (19:44)
[2021-07-27] MEDS: PANTOPRAZOLE 40 MG TABLET PO SCH (22:25)
[2021-07-27] MEDS: ATORVASTATIN 10 MG TAB PO SCH (22:26)
[2021-07-27] MEDS: FLUTICASONE 50MCG/SPRAY NASAL 16GM EA NOSTRIL SCH (22:27)
--- NOTE | 2021-07-27 22:33 | P.PN ---
Subjective Progress Note Date: 07/26/21 Principal diagnosis: Fever Patient is a 65-year-old female who was transferred from [facility] for evaluation fever and mental status changes, and this patient apparently did have a negative CT of the head and abdominal pelvis patient did have a CSF examination completed yesterday which was negative. On today's evaluation that is 07/26/2021, the patient did have low-grade fever 100F today, the patient denies chest pain shortness of breath or cough , the patient denies abdominal pain and diarrhea has decreased in frequency, patient rash has decreased in intensity and no new rash has been noticed Objective - Vital Signs Vital signs: Vital Signs Temp 98.3 F 07/26/21 11:28 Pulse 74 07/26/21 11:28 Resp 17 07/26/21 11:28 BP 174/73 07/26/21 11:28 Pulse Ox 97 07/26/21 11:28 Intake & Output 07/25/21 07/26/21 07/26/21 17:59 06:59 18:59 Intake Total Output Total Balance Intake: Intake, IV Titration Amount Aztreonam 2 gm In Sodium Chloride 0.9% 100 ml @ 33 .3 mls/hr IVPB Q8HR [facility] Rx#:[id number] Oral Output: Urine Uretheral (Zarate) Other: Voiding Method Indwelling Catheter # Bowel Movements - Exam GENERAL DESCRIPTION: An elderly female lying in bed in no distress RESPIRATORY SYSTEM: Unlabored breathing , decreased breath sounds at bases HEART: S1 S2 regular rate and rhythm , ABDOMEN: Soft , mild lower abdominal tenderness EXTREMITIES: No edema feet - Labs CBC & Chem 7: 07/27/21 10:20 07/27/21 21:09 Labs: Abnormal Lab Results - Last 24 Hours (Table) 07/26/21 07/26/21 Range/Units 09:03 09:03 WBC 14.5 H (3.8-10.6) k/uL Neutrophils # 12.2 H (1.3-7.7) k/uL Sodium 135 L (137-145) mmol/L Potassium 3.2 L (3.5-5.1) mmol/L Chloride 108 H (98-107) mmol/L Carbon Dioxide 18 L (22-30) mmol/L Glucose 100 H (74-99) mg/dL Calcium 7.9 L (8.4-10.2) mg/dL Magnesium 1.5 L (1.6-2.3) mg/dL Microbiology - Last 24 Hours (Table) 07/22/21 19:10 Stool Culture - Final Stool Assessment and Plan (1) Fever Current Visit: Yes Status: Acute Code(s): R50.9 - FEVER, UNSPECIFIED SNOMED Code(s): 286134693 Plan: 1patient presented to hospital with mental status changes patient did have an episode of vomiting, patient apparently did have a negative CT of abdominal pelvis at the [facility] chest x-ray showing a right lower lobe atelectasis UA was negative with significant mental status changes and minimal headache recently underlying [employer]CH[employer] infection has been 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 2 patient with abdominal tenderness and diarrhea, CT of abdominal pelvis CT shows evidence of colitis status post attempted colonoscopy, patient has clinically responded to cefepime and Flagyl and her white count has normalized, however the patient has not developed a rash secondary to cefepime which has been discontinued , patient to continue Azactam because of her multiple antibiotic ALLERGIES along with Flagyl Time with Patient: Less than 30
--- NOTE | 2021-07-27 22:35 | P.PN ---
Subjective Progress Note Date: 07/27/21 Principal diagnosis: Fever Patient is a 65-year-old female who was transferred from [facility] for evaluation fever and mental status changes, and this patient apparently did have a negative CT of the head and abdominal pelvis patient did have a CSF examination completed yesterday which was negative. On today's evaluation that is 07/27/2021, the patient denies any fever or any chills, the patient denies chest pain shortness of breath or cough , the patient abdominal pain has decreased in intensity and diarrhea has decreased in frequency, patient rash has has shown improvement and no new rash has been noticed Objective - Vital Signs Vital signs: Vital Signs Temp 98.5 F 07/27/21 15:44 Pulse 71 07/27/21 15:44 Resp 16 07/27/21 15:44 BP 104/51 07/27/21 15:44 Pulse Ox 96 07/27/21 15:44 Intake & Output 07/26/21 07/27/21 07/27/21 18:59 06:59 18:59 Intake Total 240 Output Total 750 500 600 Balance -750 -500 -360 Weight 75 kg Intake: Oral 240 Output: Urine 750 500 Stool 600 Other: Voiding Method Indwelling Catheter Toilet Toilet Bedside Commode Bedside Commode # Voids 1 # Bowel Movements 1 - Exam GENERAL DESCRIPTION: An elderly female lying in bed in no distress RESPIRATORY SYSTEM: Unlabored breathing , decreased breath sounds at bases HEART: S1 S2 regular rate and rhythm , ABDOMEN: Soft , mild lower abdominal tenderness EXTREMITIES: No edema feet - Labs CBC & Chem 7: 07/27/21 10:20 07/27/21 21:09 Labs: Abnormal Lab Results - Last 24 Hours (Table) 07/26/21 07/27/21 07/27/21 Range/Units 09:03 06:55 10:20 Plt Count 61 L D (150-450) k/uL Lymphocytes # 0.4 L (1.0-4.8) k/uL Sodium 133 L (137-145) mmol/L Chloride 108 H (98-107) mmol/L Carbon Dioxide 21 L (22-30) mmol/L Calcium 7.3 L (8.4-10.2) mg/dL Procalcitonin 0.26 H (0.02-0.09) ng/mL Microbiology - Last 24 Hours (Table) 07/22/21 19:10 Stool Culture - Final Stool Assessment and Plan (1) Fever Current Visit: Yes Status: Acute Code(s): R50.9 - FEVER, UNSPECIFIED SNOMED Code(s): 049154686 Plan: 1patient presented to hospital with mental status changes patient did have an episode of vomiting, patient apparently did have a negative CT of abdominal pelvis at the [facility] chest x-ray showing a right lower lobe atelectasis UA was negative with significant mental status changes and minimal headache recently underlying MEDICAL ASSISTANT FLOAT infection has been 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 2 patient with abdominal tenderness and diarrhea, CT of abdominal pelvis CT shows evidence of colitis status post attempted colonoscopy, patient has clinically responded to cefepime and Flagyl and her white count has normalized, however the patient has developed a rash secondary to cefepime which has been discontinued , patient to continue Azactam and Flagyl to finish a total of 2 week course of therapy for the colitis Time with Patient: Less than 30
[2021-07-28] MEDS: LACTOBACILLUS ACIDOPH & BULGAR 1 EACH PACKET PO SCH ×3 (00:30→21:46)
[2021-07-28] MEDS: AZTREONAM 2 GM in SODIUM CHLORIDE 0.9% 100 ML IVPB SCH ×3 (01:31→16:45)
[2021-07-28] MEDS: DICYCLOMINE 20 MG TAB PO SCH ×2 (01:31→12:02)
[2021-07-28] MEDS: metroNIDAZOLE 500 MG TAB PO SCH ×3 (01:31→16:45)
[2021-07-28] MEDS: diphenhydrAMINE 50 MG/ML 1 ML VIAL IVP PRN ×3 (03:29→21:17)
[2021-07-28] MEDS: LEVOTHYROXINE 50 MCG TAB PO SCH (05:54)
[2021-07-28] MEDS: ALBUTEROL NEBULIZED 2.5 MG/3 ML INHALATION PRN (07:37)
[2021-07-28 08:26] LABS: Calcium 7.4 mg/dL (8.4-10.2); Potassium 3.6 mmol/L (3.5-5.1)
[2021-07-28 08:33] LABS: Basophils % (A) 0 %; Eosinophils # (A) 0.4 k/uL (0-0.7); Eosinophils % (A) 5 %; HCT 34.2 % (34.0-46.0); HGB 11.1 gm/dL (11.4-16.0); Hypochromasia Slight; Lymphocytes # (A) 0.8 k/uL (1.0-4.8); Lymphocytes % (A) 11 %; MCH 30.5 pg (25.0-35.0); MCHC 32.3 g/dL (31.0-37.0); MCV 94.4 fL (80.0-100.0); Mean Platelet Volume 8.5; Monocytes # (A) 0.2 k/uL (0-1.0); Monocytes % (A) 3 %; Neutrophils # (A) 5.8 k/uL (1.3-7.7); Neutrophils % (A) 79 %; Platelet Count 358 k/uL (150-450); RBC 3.62 m/uL (3.80-5.40); WBC 7.3 k/uL (3.8-10.6)
[2021-07-28] MEDS: DULoxetine HCL 60 MG CAPSULE.DR PO SCH (08:41)
[2021-07-28] MEDS: CHOLECALCIFEROL 25 MCG (1000 IU) TABLET PO SCH ×2 (08:41→21:18)
[2021-07-28] MEDS: TAMSULOSIN 0.4 MG CAP.ER.24H PO SCH (08:41)
[2021-07-28] MEDS: ASCORBIC ACID 500 MG TAB PO SCH (08:42)
[2021-07-28] MEDS: FUROSEMIDE 40 MG TAB PO SCH ×2 (08:42→16:45)
[2021-07-28] MEDS: LOSARTAN 50 MG TAB PO SCH (08:42)
[2021-07-28] MEDS: CALCIUM CARBONATE 500 MG CHEWABLE PO SCH ×2 (08:43→21:18)
[2021-07-28] MEDS: FAMOTIDINE 20 MG TAB PO SCH (08:43)
[2021-07-28] MEDS: ASPIRIN 81 MG PO SCH (08:43)
[2021-07-28] MEDS: lamoTRIgine 100 MG TAB PO SCH ×2 (08:43→21:20)
[2021-07-28] MEDS: NYSTATIN 100,000 UNIT/ML SUSP 500,000 UNIT/5 ML CUP PO SCH ×4 (08:44→21:17)
[2021-07-28] MEDS: CHOLESTYRAMINE (WITH SUGAR) 4 GM PACKET PO SCH ×2 (08:44→16:45)
[2021-07-28] MEDS: HEPARIN SODIUM,PORCINE/PF 5,000 UNIT/0.5 ML SYRINGE SQ SCH ×2 (08:44→21:17)
[2021-07-28] MEDS: HYDROCORTISONE 1% CREAM 454 GM JAR TOPICAL SCH ×3 (08:45→21:20)
[2021-07-28] MEDS: ESTRADIOL 0.1 MG/GM VAGINAL CREAM 42.5 GM TUBE VAGINAL SCH (08:46)
--- NOTE | 2021-07-28 09:41 | P.PN ---
Subjective Progress Note Date: 07/27/21 65-year-old female who comes to us from [facility]. Patient had surgery by Dr. Fink on Tuesday and I was told had a couple episodes of vomiting and was lethargic so brought her to the hospital. According to the physician at [place] patient was very somnolent was able to be aroused but would go right back to sleep. Patient had lab work which showed an elevated creatinine and elevated white count. Patient had a CT of the brain and CT of the abdomen pelvis which all were negative. No history of any fevers or chills no history of any difficulty breathing or cough. Initial serum glucose is 142 and ammonia is 23 Urine drug screen is positive for opiates, methamphetamine, benzoyl. Otherwise the rest is nondetected. Acetaminophen is less than 10, systolic is less than 1.0. EKG shows sinus bradycardia no ST segment elevation or depression Blood work completed an outside facility revealed elevated creatinine and a white blood count; CT head was reported to be negative 07/18/2021 Patient is evaluated with family members at bedside; doesn't open eyes on verbal stimulation but continues to moan spontaneously; doesn't follow any commands; ELGIN Bynum just completed MRI of the brain scheduled for today; computed tomography scan of the brain done at an outside facility was negative; urology has recommended stat EEG which is just completed; no plans to start antiepileptic drugs unless EEG is conclusive We will continue to avoid any sedating medications which can affect patient's mentation Labs including vitamin B12 and folic acid are pending 07/19/2021 Patient is seen and evaluated, continues to be confused but some improvement compared to yesterday. Patient opens her eyes on verbal stimulation Vital signs: temperature 98.4, pulse 85, resp 16, BP 150/85 Labs WBC 11.3 , Hgb 10.8, Na 146, BUN 28 Patient IS currently on ceftriaxone, vancomycin, and acyclovir for empiric meningeal encephalitis CSF studies have been negative ; neurology on board and recommending to discontinue acyclovir Patient remains on ceftriaxone and vancomycin pending ID re-evaluation EEG is completed and suggestive of encephalopathy; no seizure activity noted Neuro recommending repeat EEG tomorrow subjective: Resume the care of the patient from today 07/21/2011 Patient is a pleasant 65 years old female who presents with altered mental status, workup ruled out pending encephalitis with no nucleated cells and CSF tap. Today patient is more awake, she does she the hospital although she could not on the name, she The year of the month and the date and she knows name of the president, she wasn't sure why she was in the hospital. Patient was reoriented. Patient is complaining of from generalized abdominal pain and tenderness, no guarding or rebound tenderness. CT of the abdomen and pelvis is ordered and result is pending. Patient kept nothing by mouth for now. Several consultants on the case included neurology and pulmonary service. Patient remains on broad-spectrum antibiotics cefepime and Flagyl with ID team on the case as well as gentle hydration. Labs and vitals reviewed 07/21/2021 Patient today is fully awake and oriented back to baseline, and abdominal pain and tenderness is minimal and improving significantly compared to yesterday. She is currently started on regular diet, yesterday she was started on Colace for stools in the colon, she has frequent bowel movements mostly related to her colitis/proctitis. Colace is a stopped and Lomotil started. Patient states that she follows up with her obiee lead developer at another hospital Dr. Bakari Fraire and she has colonoscopy every 3 years, last colonoscopy was 2 years ago and she supposed to go for next colonoscopy on November 2022 as she states. Patient was instructed to follow up with her GI doctors within one week to 2 weeks after discharge and she agrees. Also CT of the abdomen and pelvis showed . fluid collection at surgical bed L2- L5, s/p laminectomy L2-L5 with hard dockery at L2-L3. This is a chronic seroma per orthopedic team, under, and follow-up with her spine surgeon Dr. Camacho as an outpatient. Other than that she is hemodynamically stable. Leukocytosis improved down to 9.9 and hemoglobin 10.7 with some evidence of hemodilution, sodium improved to 136. Liver enzymes back to normal. S calcitonin elevated 2.8. EEG is negative. Patient currently covered with cefepime and Flagyl with gentle hydration. 07/22/2021 Patient mentation is back to normal. However she is in distress because of her abdominal pain Patient continued to have diarrhea and abdominal pain was more severe last night with more tenderness in the left lower quadrant, KUB showing small large bowel ileus. Surgery team were consulted for plan for colonoscopy tomorrow. C. diff is negative, stool studies are pending. Currently With antibiotic of cefepime and Flagyl per ID team also she is on normal saline at 75 mL/h. Military Pay Clerk examined the patient and found posterior vitreous detachment with no retinal tear and hypertensive retinopathy that require outpatient follow-up only for now. Orthopedic team on the case for spinal seroma and recommended no further action needed regarding this. Pulmonary team on the case Zarate catheter was replaced because of urinary retention more than 700 mL. Flomax is started Prognosis remains guarded 07/24/2011 Patient clinically doing well, for the last 3 days she is fully awake and oriented and back to her baseline mental status. Her mental problem is the sigmoid colitis and prostatitis. Given pulmonary, ophthalmology and neurology cleared the patient for discharge from their perspective. However patient was still complaining of from significant pain and ileus yesterday, surgery team are planning for colonoscopy today. She'll finish her GoLYTELY. Could not tell about her diarrhea. However her abdominal pain is much improved today compared to yesterday. She's been treated with cefepime and Flagyl for the colitis with infectious disease team on the case. She has fluid of her old and swollen hands and legs and she wants something to diuresis her because she has restricted movement because of fluid overload, Lortab normal saline 75 down to 50 mL per hour. And also started Lasix IV 2 days. She was instructed to keep the Zarate catheter and follow-up with urologist as an outpatient, she was instructed to follow up with Dr. Bergman in one week she agrees but she is considering to follow up with her own urologist which is fine as well. She is on Flomax On admission she has positive urine drug screen for opioids, benzodiazepine and methamphetamine. I tacked to the patient and she has been started her as well, her told me since she came from a hospital last time she was ta bailey intubated and she did not leave the house, also he is a retired police sergeant and he is completely against any drugs and if seen cases of methamphetamine overdose before and he does not recommended to be used by anyone. Most likely this is a false positive test. 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 She can follow command and fully oriented. Abdominal pain is down, no nausea vomiting and tolerates diet however she still have frequent bowel movements, every 1 hour although some of it are small amount stool. No blood. Laxative for discontinued. Also patient developing rash yesterday and today, it could be secondary to Cristobal tussin which was discontinued. Yesterday we discontinued her Lasix however today and get worse rash given without Lasix, she still complaining of from significant swelling although states that Lasix helped her before she wants Lasix back. We going to resume orally and monitor closely. Her generalized swelling slightly better. No abdominal pain or tenderness, she had colonoscopy yesterday but the area was full of liquid stool, so it was aborted, cone biopsy were taken and pending, patient informed and she is aware with the need for follow-up for the results. In the meantime she remains with cefepime and Flagyl, normal saline discontinued today, by mouth Lasix 40 mg twice daily started, also we had adequate strength. Stool cultures still pending, Possible discharge on Tuesday as there is placement issue, discussed with 7th grade social studies teacher Patient to keep the Zarate catheter and follow-up outpatient with urologist, she is informed and agrees 07/25/2021 Patient clinically is similar to yesterday, she still has diarrhea however she has significantly less abdominal pain. 1 is in with Uzma yesterday is that she's developed maculopapular rash over the trunk and extremity over the last 2 days, it looks similar to yesterday. Because of this we checked her antibiotic into aztreonam instead of Flagyl and cefepime while keep monitoring. Stool culture so far is negative showing no Salmonella or Shigella and/or E coli. Repeat labs in the morning 07/26/2021 Patient looks like diarrhea and abdominal pain improving gradually and slowly. Her diarrhea is becoming less frequent and without mucus. Abdominal pain is improving as well.Her pro-calcitonin came down to 0.8 down to 0.26. She is currently kept on aztreonam which was started 2 days ago after she developed rash and cefepime and Flagyl were discontinued. Also will resume her home dose of mental area also she is currently on Questran. Her rash looks his stable and kept with hydrocortisone cream, and Benadryl when necessary. She has some leukocytosis which could be secondary to steroid effect she received due to her rash. We will monitor her WBC tomorrow. Low potassium and magnesium replaced. She is developing some oral thrush and nystatin was added. colon Biopsy showing focal acute colitis with features suggestive of earlier ischemic colitis Blood pressure was elevated and her losartan 100 mg was restarted at a lower dose of 50 mg daily. 7th grade social studies teacher consulted for placement 07/27/2021 Patient is currently in the recliner. Awake alert but seems to be lethargic and more drowsy today. Still having diarrhea but improving compared to yesterday. Patient is being continued antibiotics in the form of aztreonam and Flagyl due to colitis. Patient is awake alert and attentive oriented otherwise. CSF cultures negative and unlikely MANIFOLD OPERATOR infection. ID is on board.. Lab laboratory data showed WBC 7.1 hemoglobin 12.8 and platelets 61 Sodium 133 potassium 3.7 chloride 108 bicarb is 21 BUN 12 and creatinine 0.77 Current medications reviewed. Objective - Vital Signs Vital signs: Vital Signs Temp 98.3 F 07/27/21 12:45 Pulse 77 07/27/21 12:45 Resp 19 07/27/21 12:45 BP 95/56 07/27/21 12:45 Pulse Ox 96 07/27/21 12:45 Intake & Output 07/26/21 07/27/21 07/27/21 18:59 06:59 18:59 Intake Total 240 Output Total 750 500 600 Balance -750 -500 -360 Intake: Oral 240 Output: Urine 750 500 Stool 600 Other: Voiding Method Indwelling Catheter Toilet Toilet Bedside Commode Bedside Commode # Voids 1 # Bowel Movements 1 - Exam - Exam GENERAL: The patient is alert and oriented x3, not in any acute distress. Well developed, well nourished. HEENT: Pupils are round and equally reacting to light. EOMI. No scleral icterus. No conjunctival pallor. Normocephalic, atraumatic. No pharyngeal erythema. No thyromegaly. CARDIOVASCULAR: S1 and S2 present. No murmurs, rubs, or gallops. PULMONARY: Chest is clear to auscultation, no wheezing or crackles. -ABDOMEN: Soft, generalized abdominal tenderness, no rebound tenderness or guarding, nondistended, normoactive bowel sounds. No palpable organomegaly. MUSCULOSKELETAL: No joint swelling or deformity. EXTREMITIES: No cyanosis, clubbing, or pedal edema. NEUROLOGICAL: Gross neurological examination did not reveal any focal deficits. SKIN: No rashes. no petechiae. - Labs CBC & Chem 7: 07/28/21 06:55 07/28/21 06:55 Labs: Abnormal Lab Results - Last 24 Hours (Table) 07/26/21 07/27/21 07/27/21 Range/Units 09:03 06:55 10:20 Plt Count 61 L D (150-450) k/uL Lymphocytes # 0.4 L (1.0-4.8) k/uL Sodium 133 L (137-145) mmol/L Chloride 108 H (98-107) mmol/L Carbon Dioxide 21 L (22-30) mmol/L Calcium 7.3 L (8.4-10.2) mg/dL Procalcitonin 0.26 H (0.02-0.09) ng/mL Microbiology - Last 24 Hours (Table) 07/22/21 19:10 Stool Culture - Final Stool Assessment and Plan Assessment: Acute Sigmoid colitis and proctitis with sepsis , improving. colon Biopsy showin g focal acute colitis with features suggestive of earlier ischemic colitis Urinary retention, status post Zarate catheter and Flomax Generalized maculopapular rash, most likely secondary to cefepime which was discontinued Generalized edema secondary to IV drug infusion of crystalloids. posterior vitreous detachment with no retinal tear and hypertensive retinopathy. Outpatient follow-up L2-L5 surgical bed seroma,, chronic as per orthopedic team follow up with her spine surgeon Dr. Camacho as an outpatient Altered mental status most likely metabolic/toxic encephalopathy, resolved completely and patient is back to baseline Evidence of some drug abuse with methamphetamine, benzodiazepines and opiates. Most likely false positive test. Both patient and look reliable and declined illicit drug abuse History of stroke and right hemiparesis Plan: This is a pleasant 74 years old female who presents with altered mental status, abdominal pain. Discontinue IV fluid . Continue with oral Lasix 40 mg twice a day continue with aztreonam. Continue with Bentyl and Questran Patient was instructed to follow up with her GI physician in 1-2 week after discharge and she agrees. Follow-up: Biopsy Infectious disease team on the case Surgery team also signs off the case. Neurologist cleared the patient for discharge Orthopedic input is appreciated, no need for any further imaging or surgical intervention, follow-up with her spine surgeon Dr. Camacho as an outpatient for her L2 to L5 surgical medical seroma. Patient informed and she agrees. Military Pay Clerk also recommended outpatient follow-up Labs and medication were reviewed. Monitor lytes and vitals. DVT and GI prophylaxis. DVT prophylaxis: Subcutaneous heparin GI Prophylaxis: Protonix and Carafate PT/OT:7th grade social studies teacher consulted for placement Prognosis is guarded Time with Patient: Greater than 30
[2021-07-28] MEDS: HYDROcodone/APAP 5-325MG 1 EACH TAB PO PRN (12:01)
[2021-07-28] MEDS: diphenhydrAMINE 25 MG CAP PO PRN ×2 (12:02→21:18)
[2021-07-28] MEDS: lamoTRIgine 25 MG TAB PO SCH (13:09)
--- NOTE | 2021-07-28 14:39 | P.PN ---
<BryantKeri - Last Filed: 07/28/21 14:32> Subjective Progress Note Date: 07/28/21 CHIEF COMPLAINT: Colitis HISTORY OF PRESENT ILLNESS: Patient is status post colonoscopy showing evidence of severe colitis of the rectosigmoid colon with biopsy on 07/23/21. Patient had poor colon prep. Pathology results showed acute colitis with early ischemic colitis. Surgical service was reconsulted due to pathology results. Patient reports that she is having diarrhea but it is showing improvement. She had only 4 episodes yesterday. She denies any abdominal pain. She denies any vomiting. She does admit to occasional nausea. She for sit she does get abdominal cramping just prior to having a stool and then abdomen feels better. She denies any blood in her stools. Afebrile. WBC 7.3 hemoglobin 11.1 platelets 358 PHYSICAL EXAM: VITAL SIGNS: Reviewed. GENERAL: Well-developed in no acute distress. HEENT: No sclera icterus. Extraocular movements grossly intact. Moist buccal mucosa. Head is atraumatic, normocephalic. ABDOMEN: Soft. Nondistended. Nontender. NEUROLOGIC: Alert and oriented. Cranial nerves II through XII grossly intact. ASSESSMENT: 1. Severe colitis of the rectosigmoid colon 2. Focal acute colitis with features suggestive of early ischemic colitis noted on pathology PLAN: -No surgical intervention planned -Continue medical management -Continue antibiotics per ID service -Continue regular diet -Patient to follow-up outpatient in office with Dr. Nichole in one week Physician Barber Or Beauty Shop Manager note has been reviewed by physician. Signing provider agrees with the documented findings, assessment, and plan of care. Objective - Vital Signs Vital signs: Vital Signs Temp 99 F 07/28/21 08:00 Pulse 72 07/28/21 08:00 Resp 16 07/28/21 08:00 BP 105/55 07/28/21 08:00 Pulse Ox 91 L 07/28/21 08:00 Intake & Output 07/27/21 07/28/21 07/28/21 18:59 06:59 18:59 Intake Total 240 320 Output Total 600 300 Balance -360 -300 320 Weight 75 kg Intake: Oral 240 320 Output: Stool 600 300 Other: Voiding Method Toilet Toilet Toilet Bedside Commode Bedside Commode Bedside Commode # Voids 1 1 4 # Bowel Movements 1 1 - Labs CBC & Chem 7: 07/28/21 06:55 07/28/21 06:55 Labs: Abnormal Lab Results - Last 24 Hours (Table) 07/28/21 07/28/21 Range/Units 06:55 06:55 RBC 3.62 L (3.80-5.40) m/uL Hgb 11.1 L (11.4-16.0) gm/dL Lymphocytes # 0.8 L (1.0-4.8) k/uL Sodium 133 L (137-145) mmol/L Calcium 7.4 L (8.4-10.2) mg/dL <Sean Leslie - Last Filed: 07/28/21 17:04> Subjective I have personally seen and examined the patient, reviewed the LINE COOK /PAs history, exam and MDM and agree with the assessment and plan as written. Based on total visit time, I have performed more than 50% of the visit. As above: Patient still having some liquid stools. No significant abdominal pain. No bleeding. Labs noted. Pathology results noted. Ischemic etiology would be atypical given the location. Begin steroid enemas. Objective - Vital Signs Vital signs: Vital Signs Temp 97.6 F 07/28/21 12:00 Pulse 72 07/28/21 12:00 Resp 17 07/28/21 12:00 BP 123/65 07/28/21 12:00 Pulse Ox 98 07/28/21 12:00 Intake & Output 07/27/21 07/28/21 07/28/21 18:59 06:59 18:59 Intake Total 240 320 Output Total 600 300 Balance -360 -300 320 Weight 75 kg Intake: Oral 240 320 Output: Stool 600 300 Other: Voiding Method Toilet Toilet Toilet Bedside Commode Bedside Commode Bedside Commode # Voids 1 1 4 # Bowel Movements 1 1 - Labs CBC & Chem 7: 07/28/21 06:55 07/28/21 06:55 Labs: Abnormal Lab Results - Last 24 Hours (Table) 07/28/21 07/28/21 Range/Units 06:55 06:55 RBC 3.62 L (3.80-5.40) m/uL Hgb 11.1 L (11.4-16.0) gm/dL Lymphocytes # 0.8 L (1.0-4.8) k/uL Sodium 133 L (137-145) mmol/L Calcium 7.4 L (8.4-10.2) mg/dL
[2021-07-28] MEDS: DIPHENOX-ATROP 2.5-0.025 MG 1 EACH TAB PO SCH (17:31)
[2021-07-28] MEDS ORDERED: MESALAMINE 4 GM/60 ML ENEMA RECTAL SCH (21:00)
[2021-07-28] MEDS: PANTOPRAZOLE 40 MG TABLET PO SCH (21:18)
[2021-07-28] MEDS: ATORVASTATIN 10 MG TAB PO SCH (21:18)
[2021-07-28] MEDS: FLUTICASONE 50MCG/SPRAY NASAL 16GM EA NOSTRIL SCH (21:20)
[2021-07-29] MEDS: DICYCLOMINE 20 MG TAB PO SCH ×2 (00:52→13:42)
[2021-07-29] MEDS: AZTREONAM 2 GM in SODIUM CHLORIDE 0.9% 100 ML IVPB SCH ×2 (00:53→08:58)
[2021-07-29] MEDS: metroNIDAZOLE 500 MG TAB PO SCH ×3 (00:56→16:37)
[2021-07-29] MEDS: LEVOTHYROXINE 50 MCG TAB PO SCH (06:14)
[2021-07-29] MEDS: HYDROcodone/APAP 5-325MG 1 EACH TAB PO PRN ×2 (06:19→16:38)
[2021-07-29 06:32] VITALS: RESP 16
[2021-07-29] MEDS: ALBUTEROL NEBULIZED 2.5 MG/3 ML INHALATION PRN (08:05)
[2021-07-29 08:34] LABS: Basophils % (A) 0 %; Eosinophils # (A) 0.3 k/uL (0-0.7); Eosinophils % (A) 4 %; HCT 35.4 % (34.0-46.0); HGB 11.3 gm/dL (11.4-16.0); Hypochromasia Moderate; Lymphocytes # (A) 0.9 k/uL (1.0-4.8); Lymphocytes % (A) 11 %; MCH 30.7 pg (25.0-35.0); MCHC 31.9 g/dL (31.0-37.0); MCV 96.2 fL (80.0-100.0); Monocytes # (A) 0.3 k/uL (0-1.0); Monocytes % (A) 4 %; Neutrophils # (A) 6.8 k/uL (1.3-7.7); Neutrophils % (A) 80 %; Platelet Count 388 k/uL (150-450); RBC 3.69 m/uL (3.80-5.40); RDW 14.8 % (11.5-15.5); WBC 8.5 k/uL (3.8-10.6)
[2021-07-29] MEDS: TAMSULOSIN 0.4 MG CAP.ER.24H PO SCH ×2 (08:56→13:28)
[2021-07-29] MEDS: FUROSEMIDE 40 MG TAB PO SCH ×2 (08:56→16:37)
[2021-07-29] MEDS: DULoxetine HCL 60 MG CAPSULE.DR PO SCH (08:56)
[2021-07-29] MEDS: ASCORBIC ACID 500 MG TAB PO SCH (08:56)
[2021-07-29] MEDS: ASPIRIN 81 MG PO SCH (08:56)
[2021-07-29] MEDS: CALCIUM CARBONATE 500 MG CHEWABLE PO SCH (08:57)
[2021-07-29] MEDS: CHOLECALCIFEROL 25 MCG (1000 IU) TABLET PO SCH (08:57)
[2021-07-29] MEDS: lamoTRIgine 100 MG TAB PO SCH (08:59)
[2021-07-29] MEDS: diphenhydrAMINE 25 MG CAP PO PRN (08:59)
[2021-07-29] MEDS: HEPARIN SODIUM,PORCINE/PF 5,000 UNIT/0.5 ML SYRINGE SQ SCH (08:59)
[2021-07-29] MEDS: FAMOTIDINE 20 MG TAB PO SCH (08:59)
[2021-07-29] MEDS: HYDROCORTISONE 1% CREAM 454 GM JAR TOPICAL SCH (09:00)
[2021-07-29] MEDS: CHOLESTYRAMINE (WITH SUGAR) 4 GM PACKET PO SCH (09:00)
[2021-07-29 09:06] LABS: African American GFR (CKD) >90 (>60 ml/min/1.73 sqM); Anion Gap 4 mmol/L; Blood Urea Nitrogen 12 mg/dL (7-17); Calcium 7.6 mg/dL (8.4-10.2); Carbon Dioxide 23 mmol/L (22-30); Chloride 106 mmol/L (98-107); Glucose 105 mg/dL (74-99); Non-African American GFR(CKD) 83 (>60 ml/min/1.73 sqM); Potassium 3.7 mmol/L (3.5-5.1); Sodium 133 mmol/L (137-145)
[2021-07-29] MEDS: DIPHENOX-ATROP 2.5-0.025 MG 1 EACH TAB PO SCH (09:13)
[2021-07-29] MEDS: NYSTATIN 100,000 UNIT/ML SUSP 500,000 UNIT/5 ML CUP PO SCH ×2 (09:14→13:42)
--- NOTE | 2021-07-29 11:43 | P.PN ---
Subjective Progress Note Date: 07/29/21 CHIEF COMPLAINT: Colitis HISTORY OF PRESENT ILLNESS: Patient is status post colonoscopy showing evidence of severe colitis of the rectosigmoid colon with biopsy on 07/23/21. Patient had poor colon prep. Pathology results showed acute colitis with early ischemic colitis. Patient is reporting improvement in her diarrhea. She reports no stool through the night. She did reports left lower quadrant abdominal pain. Denies any blood in her stools. She did have a low-grade temp of 100.2 early this morning. She also reports feeling a little bloated. She was started on the Rowasa enemas yesterday. WBC 8.5 hemoglobin 11.3 platelets 388 sodium 133 potassium 3.7 creatinine 0.75 PHYSICAL EXAM: VITAL SIGNS: Reviewed. GENERAL: Well-developed in no acute distress. HEENT: No sclera icterus. Extraocular movements grossly intact. Moist buccal mucosa. Head is atraumatic, normocephalic. ABDOMEN: Soft. Nondistended. Nontender. NEUROLOGIC: Alert and oriented. Cranial nerves II through XII grossly intact. ASSESSMENT: 1. Severe colitis of the rectosigmoid colon 2. Focal acute colitis with features suggestive of early ischemic colitis noted on pathology. Ischemic etiology would be atypical given the location. PLAN: -No surgical intervention planned -Continue medical management -Continue Rowasa enemas -Continue antibiotics per ID service -Continue regular diet Physician Computer Tape Librarian note has been reviewed by physician. Signing provider agrees with the documented findings, assessment, and plan of care. Objective - Vital Signs Vital signs: Vital Signs Temp 98.3 F 07/29/21 08:00 Pulse 84 07/29/21 08:15 Resp 16 07/29/21 08:00 BP 103/62 07/29/21 08:00 Pulse Ox 94 L 07/29/21 08:06 Intake & Output 07/28/21 07/29/21 07/29/21 18:59 06:59 18:59 Intake Total 320 250 240 Balance 320 250 240 Intake: Oral 320 250 240 Other: Voiding Method Toilet Toilet Bedside Commode Bedside Commode # Voids 4 1 # Bowel Movements 1 - Labs CBC & Chem 7: 07/29/21 08:00 07/29/21 08:00 Labs: Abnormal Lab Results - Last 24 Hours (Table) 07/29/21 07/29/21 Range/Units 08:00 08:00 RBC 3.69 L (3.80-5.40) m/uL Hgb 11.3 L (11.4-16.0) gm/dL Lymphocytes # 0.9 L (1.0-4.8) k/uL Sodium 133 L (137-145) mmol/L Glucose 105 H (74-99) mg/dL Calcium 7.6 L (8.4-10.2) mg/dL
--- NOTE | 2021-07-29 12:40 | P.PN ---
Subjective Progress Note Date: 07/28/21 Principal diagnosis: Fever Patient is a 65-year-old female who was transferred from [facility] for evaluation fever and mental status changes, and this patient apparently did have a negative CT of the head and abdominal pelvis patient did have a CSF examination completed yesterday which was negative. On today's evaluation that is 07/28/2021, Patient remains to be afebrile, patient is feeling slightly better, the patient denies having any chest pain shortness of breath or cough patient abdominal pain has improved however still complaining of diarrhea no blood or mucus in the stool Objective - Vital Signs Vital signs: Vital Signs Temp 99 F 07/28/21 08:00 Pulse 72 07/28/21 08:00 Resp 16 07/28/21 08:00 BP 105/55 07/28/21 08:00 Pulse Ox 91 L 07/28/21 08:00 Intake & Output 07/27/21 07/28/21 07/28/21 18:59 06:59 18:59 Intake Total 240 100 Output Total 600 300 Balance -360 -300 100 Weight 75 kg Intake: Oral 240 100 Output: Stool 600 300 Other: Voiding Method Toilet Toilet Toilet Bedside Commode Bedside Commode Bedside Commode # Voids 1 1 # Bowel Movements 1 1 - Exam GENERAL DESCRIPTION: An elderly female lying in bed in no distress RESPIRATORY SYSTEM: Unlabored breathing , decreased breath sounds at bases HEART: S1 S2 regular rate and rhythm , ABDOMEN: Soft , mild lower abdominal tenderness EXTREMITIES: No edema feet - Labs CBC & Chem 7: 07/29/21 08:00 07/29/21 08:00 Labs: Abnormal Lab Results - Last 24 Hours (Table) 07/28/21 07/28/21 Range/Units 06:55 06:55 RBC 3.62 L (3.80-5.40) m/uL Hgb 11.1 L (11.4-16.0) gm/dL Lymphocytes # 0.8 L (1.0-4.8) k/uL Sodium 133 L (137-145) mmol/L Calcium 7.4 L (8.4-10.2) mg/dL Assessment and Plan (1) Fever Current Visit: Yes Status: Acute Code(s): R50.9 - FEVER, UNSPECIFIED SNOMED Code(s): 038123754 Plan: 1patient presented to hospital with mental status changes patient did have an episode of vomiting, patient apparently did have a negative CT of abdominal pelvis at the [facility] chest x-ray showing a right lower lobe atele ctasis UA was negative with significant mental status changes and minimal headache recently underlying WAXER infection has been 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 2 patient with abdominal tenderness and diarrhea, CT of abdominal pelvis CT shows evidence of colitis status post attempted colonoscopy, Biopsy was suspicious for early acute colitis, patient to have multiple antibiotic allergies and is currently covered with the Azactam and Flagyl to continue Time with Patient: Less than 30
--- NOTE | 2021-07-29 12:42 | P.PN ---
Subjective Progress Note Date: 07/29/21 Principal diagnosis: Fever Patient is a 65-year-old female who was transferred from [facility] for evaluation fever and mental status changes, and this patient apparently did have a negative CT of the head and abdominal pelvis patient did have a CSF examination completed yesterday which was negative. On today's evaluation that is 07/29/2021, The patient denies having any fever or any chills, the patient denies having any chest pain shortness of breath or cough the patient denies any abdominal pain still have some diarrhea but decreased in frequency still watery but no blood or mucus in the stool Objective - Vital Signs Vital signs: Vital Signs Temp 98.3 F 07/29/21 08:00 Pulse 84 07/29/21 08:15 Resp 16 07/29/21 08:00 BP 103/62 07/29/21 08:00 Pulse Ox 94 L 07/29/21 08:06 Intake & Output 07/28/21 07/29/21 07/29/21 18:59 06:59 18:59 Intake Total 320 250 240 Balance 320 250 240 Intake: Oral 320 250 240 Other: Voiding Method Toilet Toilet Bedside Commode Bedside Commode # Voids 4 1 # Bowel Movements 1 - Exam GENERAL DESCRIPTION: An elderly female lying in bed in no distress RESPIRATORY SYSTEM: Unlabored breathing , decreased breath sounds at bases HEART: S1 S2 regular rate and rhythm , ABDOMEN: Soft , mild lower abdominal tenderness EXTREMITIES: No edema feet - Labs CBC & Chem 7: 07/29/21 08:00 07/29/21 08:00 Labs: Abnormal Lab Results - Last 24 Hours (Table) 07/29/21 07/29/21 Range/Units 08:00 08:00 RBC 3.69 L (3.80-5.40) m/uL Hgb 11.3 L (11.4-16.0) gm/dL Lymphocytes # 0.9 L (1.0-4.8) k/uL Sodium 133 L (137-145) mmol/L Glucose 105 H (74-99) mg/dL Calcium 7.6 L (8.4-10.2) mg/dL Assessment and Plan (1) Fever Current Visit: Yes Status: Acute Code(s): R50.9 - FEVER, UNSPECIFIED SNOMED Code(s): 423357261 Plan: 1patient presented to hospital with mental status changes patient did have an episode of vomiting, patient apparently did have a negative CT of abdominal pelvis at the [facility] chest x-ray showing a right lower lobe atelectasis UA was negative with significant mental status changes and minimal headache recently underlying IRONWORKER infection has been 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 2 patient with abdominal tenderness and diarrhea, CT of abdominal pelvis CT shows evidence of colitis status post attempted colonoscopy, Biopsy was suspicious for early acute Ischemic colitis, patient do have multiple antibiotic allergies and is currently covered with the Azactam and Flagyl to continue 3-Diarrhea stool for C. difficile was negative patient is currently on Questran Lomotil to continue advised to increase her yogurt intake Time with Patient: Less than 30
--- NOTE | 2021-07-29 13:26 | P.PN ---
Subjective Progress Note Date: 07/28/21 65-year-old female who comes to us from [facility]. Patient had surgery by Dr. Fink on Tuesday and I was told had a couple episodes of vomiting and was lethargic so brought her to the hospital. According to the physician at [place] patient was very somnolent was able to be aroused but would go right back to sleep. Patient had lab work which showed an elevated creatinine and elevated white count. Patient had a CT of the brain and CT of the abdomen pelvis which all were negative. No history of any fevers or chills no history of any difficulty breathing or cough. Initial serum glucose is 142 and ammonia is 23 Urine drug screen is positive for opiates, methamphetamine, benzoyl. Otherwise the rest is nondetected. Acetaminophen is less than 10, systolic is less than 1.0. EKG shows sinus bradycardia no ST segment elevation or depression Blood work completed an outside facility revealed elevated creatinine and a white blood count; CT head was reported to be negative 07/18/2021 Patient is evaluated with family members at bedside; doesn't open eyes on verbal stimulation but continues to moan spontaneously; doesn't follow any commands; ELGIN Byunm just completed MRI of the brain scheduled for today; computed tomography scan of the brain done at an outside facility was negative; urology has recommended stat EEG which is just completed; no plans to start antiepileptic drugs unless EEG is conclusive We will continue to avoid any sedating medications which can affect patient's mentation Labs including vitamin B12 and folic acid are pending 07/19/2021 Patient is seen and evaluated, continues to be confused but some improvement compared to yesterday. Patient opens her eyes on verbal stimulation Vital signs: temperature 98.4, pulse 85, resp 16, BP 150/85 Labs WBC 11.3 , Hgb 10.8, Na 146, BUN 28 Patient IS currently on ceftriaxone, vancomycin, and acyclovir for empiric meningeal encephalitis CSF studies have been negative ; neurology on board and recommending to discontinue acyclovir Patient remains on ceftriaxone and vancomycin pending ID re-evaluation EEG is completed and suggestive of encephalopathy; no seizure activity noted Neuro recommending repeat EEG tomorrow subjective: Resume the care of the patient from today 07/21/2011 Patient is a pleasant 65 years old female who presents with altered mental status, workup ruled out pending encephalitis with no nucleated cells and CSF tap. Today patient is more awake, she does she the hospital although she could not on the name, she The year of the month and the date and she knows name of the president, she wasn't sure why she was in the hospital. Patient was reoriented. Patient is complaining of from generalized abdominal pain and tenderness, no guarding or rebound tenderness. CT of the abdomen and pelvis is ordered and result is pending. Patient kept nothing by mouth for now. Several consultants on the case included neurology and pulmonary service. Patient remains on broad-spectrum antibiotics cefepime and Flagyl with ID team on the case as well as gentle hydration. Labs and vitals reviewed 07/21/2021 Patient today is fully awake and oriented back to baseline, and abdominal pain and tenderness is minimal and improving significantly compared to yesterday. She is currently started on regular diet, yesterday she was started on Colace for stools in the colon, she has frequent bowel movements mostly related to her colitis/proctitis. Colace is a stopped and Lomotil started. Patient states that she follows up with her furs salesperson at another hospital Dr. Bakari Fraire and she has colonoscopy every 3 years, last colonoscopy was 2 years ago and she supposed to go for next colonoscopy on November 2022 as she states. Patient was instructed to follow up with her GI doctors within one week to 2 weeks after discharge and she agrees. Also CT of the abdomen and pelvis showed . fluid collection at surgical bed L2- L5, s/p laminectomy L2-L5 with hard dockery at L2-L3. This is a chronic seroma per orthopedic team, under, and follow-up with her spine surgeon Dr. Camacho as an outpatient. Other than that she is hemodynamically stable. Leukocytosis improved down to 9.9 and hemoglobin 10.7 with some evidence of hemodilution, sodium improved to 136. Liver enzymes back to normal. S calcitonin elevated 2.8. EEG is negative. Patient currently covered with cefepime and Flagyl with gentle hydration. 07/22/2021 Patient mentation is back to normal. However she is in distress because of her abdominal pain Patient continued to have diarrhea and abdominal pain was more severe last night with more tenderness in the left lower quadrant, KUB showing small large bowel ileus. Surgery team were consulted for plan for colonoscopy tomorrow. C. diff is negative, stool studies are pending. Currently With antibiotic of cefepime and Flagyl per ID team also she is on normal saline at 75 mL/h. [employer] Assistant examined the patient and found posterior vitreous detachment with no retinal tear and hypertensive retinopathy that require outpatient follow-up only for now. Orthopedic team on the case for spinal seroma and recommended no further action needed regarding this. Pulmonary team on the case Zarate catheter was replaced because of urinary retention more than 700 mL. Flomax is started Prognosis remains guarded 07/24/2011 Patient clinically doing well, for the last 3 days she is fully awake and oriented and back to her baseline mental status. Her mental problem is the sigmoid colitis and prostatitis. Given pulmonary, ophthalmology and neurology cleared the patient for discharge from their perspective. However patient was still complaining of from significant pain and ileus yesterday, surgery team are planning for colonoscopy today. She'll finish her GoLYTELY. Could not tell about her diarrhea. However her abdominal pain is much improved today compared to yesterday. She's been treated with cefepime and Flagyl for the colitis with infectious disease team on the case. She has fluid of her old and swollen hands and legs and she wants something to diuresis her because she has restricted movement because of fluid overload, Lortab normal saline 75 down to 50 mL per hour. And also started Lasix IV 2 days. She was instructed to keep the Zarate catheter and follow-up with urologist as an outpatient, she was instructed to follow up with Dr. Bergman in one week she agrees but she is considering to follow up with her own urologist which is fine as well. She is on Flomax On admission she has positive urine drug screen for opioids, benzodiazepine and methamphetamine. I tacked to the patient and she has been started her as well, her told me since she came from a hospital last time she was ta bailey intubated and she did not leave the house, also he is a retired police superintendent and he is completely against any drugs and if seen cases of methamphetamine overdose before and he does not recommended to be used by anyone. Most likely this is a false positive test. 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 She can follow command and fully oriented. Abdominal pain is down, no nausea vomiting and tolerates diet however she still have frequent bowel movements, every 1 hour although some of it are small amount stool. No blood. Laxative for discontinued. Also patient developing rash yesterday and today, it could be secondary to Cristobal tussin which was discontinued. Yesterday we discontinued her Lasix however today and get worse rash given without Lasix, she still complaining of from significant swelling although states that Lasix helped her before she wants Lasix back. We going to resume orally and monitor closely. Her generalized swelling slightly better. No abdominal pain or tenderness, she had colonoscopy yesterday but the area was full of liquid stool, so it was aborted, cone biopsy were taken and pending, patient informed and she is aware with the need for follow-up for the results. In the meantime she remains with cefepime and Flagyl, normal saline discontinued today, by mouth Lasix 40 mg twice daily started, also we had adequate strength. Stool cultures still pending, Possible discharge on Tuesday as there is placement issue, discussed with social organization professor Patient to keep the Zarate catheter and follow-up outpatient with urologist, she is informed and agrees 07/25/2021 Patient clinically is similar to yesterday, she still has diarrhea however she has significantly less abdominal pain. 1 is in with Uzma yesterday is that she's developed maculopapular rash over the trunk and extremity over the last 2 days, it looks similar to yesterday. Because of this we checked her antibiotic into aztreonam instead of Flagyl and cefepime while keep monitoring. Stool culture so far is negative showing no Salmonella or Shigella and/or E coli. Repeat labs in the morning 07/26/2021 Patient looks like diarrhea and abdominal pain improving gradually and slowly. Her diarrhea is becoming less frequent and without mucus. Abdominal pain is improving as well.Her pro-calcitonin came down to 0.8 down to 0.26. She is currently kept on aztreonam which was started 2 days ago after she developed rash and cefepime and Flagyl were discontinued. Also will resume her home dose of mental area also she is currently on Questran. Her rash looks his stable and kept with hydrocortisone cream, and Benadryl when necessary. She has some leukocytosis which could be secondary to steroid effect she received due to her rash. We will monitor her WBC tomorrow. Low potassium and magnesium replaced. She is developing some oral thrush and nystatin was added. colon Biopsy showing focal acute colitis with features suggestive of earlier ischemic colitis Blood pressure was elevated and her losartan 100 mg was restarted at a lower dose of 50 mg daily. social organization professor consulted for placement 07/27/2021 Patient is currently in the recliner. Awake alert but seems to be lethargic and more drowsy today. Still having diarrhea but improving compared to yesterday. Patient is being continued antibiotics in the form of aztreonam and Flagyl due to colitis. Patient is awake alert and attentive oriented otherwise. CSF cultures negative and unlikely INTERACTIVE PRODUCER infection. ID is on board.. Lab laboratory data showed WBC 7.1 hemoglobin 12.8 and platelets 61 Sodium 133 potassium 3.7 chloride 108 bicarb is 21 BUN 12 and creatinine 0.77 07/28/2021 Patient is currently resting in the bed. Awake alert and oriented x3. Weakness is improving. Still having diarrhea. Continued on Lomotil and Questran. Continued on antibiotics as above aztreonam and Flagyl for severe colitis. No complaints of fever. No complaints of abdominal pain. Cramping abdominal pain sometimes. Denies any hematemesis or melena. Denies any blood in the stool. Laboratory data showed WBC 7.3 hemoglobin 7.1 and platelets 358 sodium 133 potassium 3.6 chloride 105 BUN 13 and creatinine 0.85 calcium 7.4. ID and general surgery is on board. No surgical intervention recommended at this time. Anticipate discharge to extended care facility to complete antibiotic course. PICC line in place. Current medications reviewed. Objective - Vital Signs Vital signs: Vital Signs Temp 97.6 F 07/28/21 12:00 Pulse 72 07/28/21 12:00 Resp 17 07/28/21 12:00 BP 123/65 07/28/21 12:00 Pulse Ox 98 07/28/21 12:00 Intake & Output 07/27/21 07/28/21 07/28/21 18:59 06:59 18:59 Intake Total 240 320 Output Total 600 300 Balance -360 -300 320 Weight 75 kg Intake: Oral 240 320 Output: Stool 600 300 Other: Voiding Method Toilet Toilet Toilet Bedside Commode Bedside Commode Bedside Commode # Voids 1 1 4 # Bowel Movements 1 1 - Exam - Exam GENERAL: The patient is alert and oriented x3, not in any acute distress. Well developed, well nourished. HEENT: Pupils are round and equally reacting to light. EOMI. No scleral icterus. No conjunctival pallor. Normocephalic, atraumatic. No pharyngeal erythema. No thyromegaly. CARDIOVASCULAR: S1 and S2 present. No murmurs, rubs, or gallops. PULMONARY: Chest is clear to auscultation, no wheezing or crackles. -ABDOMEN: Soft, generalized abdominal tenderness, no rebound tenderness or guarding, nondistended, normoactive bowel sounds. No palpable organomegaly. MUSCULOSKELETAL: No joint swelling or deformity. EXTREMITIES: No cyanosis, clubbing, or pedal edema. NEUROLOGICAL: Gross neurological examination did not reveal any focal deficits. SKIN: No rashes. no petechiae. - Labs CBC & Chem 7: 07/29/21 08:00 07/29/21 08:00 Labs: Abnormal Lab Results - Last 24 Hours (Table) 07/28/21 07/28/21 Range/Units 06:55 06:55 RBC 3.62 L (3.80-5.40) m/uL Hgb 11.1 L (11.4-16.0) gm/dL Lymphocytes # 0.8 L (1.0-4.8) k/uL Sodium 133 L (137-145) mmol/L Calcium 7.4 L (8.4-10.2) mg/dL Assessment and Plan Assessment: Acute Sigmoid colitis and proctitis with sepsis , improving. colon Biopsy showing focal acute colitis with features suggestive of earlier ischemic colitis Diarrhea. C. difficile toxin is negative. Urinary retention, status post Zarate catheter and Flomax. Improved now. Generalized maculopapular rash, most likely secondary to cefepime which was discontinued Generalized edema secondary to IV drug infusion of crystalloids. posterior vitreous detachment with no retinal tear and hypertensive retinopathy. Outpatient follow-up L2-L5 surgical bed seroma,, chronic as per orthopedic team follow up with her spine surgeon Dr. Camacho as an outpatient Altered mental status most likely metabolic/toxic encephalopathy, resolved completely and patient is back to baseline Evidence of some drug abuse with methamphetamine, benzodiazepines and opiates. Most likely false positive test. Both patient and look reliable and declined illicit drug abuse History of stroke and right hemiparesis Plan: This is a pleasant 74 years old female who presents with altered mental status, abdominal pain. Discontinue IV fluid . Continue with oral Lasix 40 mg twice a day continue with aztreonam. Continue with Bentyl and Questran Patient was instructed to follow up with her GI physician in 1-2 week after discharge and she agrees. Follow-up: Biopsy Infectious disease team on the case Surgery team also signs off the case. Neurologist cleared the patient for discharge Orthopedic input is appreciated, no need for any further imaging or surgical intervention, follow-up with her spine surgeon Dr. Camacho as an outpatient for her L2 to L5 surgical medical seroma. Patient informed and she agrees. [employer] Assistant also recommended outpatient follow-up Labs and medication were reviewed. Monitor lytes and vitals. DVT and GI prophylaxis. DVT prophylaxis: Subcutaneous heparin GI Prophylaxis: Protonix and Carafate PT/OT:social organization professor consulted for placement Prognosis is guarded Time with Patient: Greater than 30
[2021-07-29] MEDS: LOSARTAN 50 MG TAB PO SCH (13:28)
[2021-07-29] MEDS: LACTOBACILLUS ACIDOPH & BULGAR 1 EACH PACKET PO SCH (13:42)
[2021-07-29] MEDS: lamoTRIgine 25 MG TAB PO SCH (13:42)
[2021-07-29 13:52] VITALS: TEMP 99.3
--- NOTE | 2021-07-29 14:33 | P.DS ---
"Providers Date of admission: 07/17/21 14:46 Expected date of discharge: 07/29/21 Attending physician: Britni Jones MD Consults: 07/17/21 14:46 Consult Physician Urgent Consulting Provider: Abel Mathew Consult Reason/Comments: Altered mental status Do you want consulting provider notified?: Yes 07/18/21 09:02 Consult Physician Stat Consulting Provider: Berto Mendez Consult Reason/Comments: AMS, Leukocystosis, Fever, Recent R ankle surgery Do you want consulting provider notified?: Yes 07/18/21 13:25 Consult Physician Stat Consulting Provider: Francine Nicole Consult Reason/Comments: ICU management Do you want consulting provider notified?: Yes 07/18/21 15:28 Consult to Anesthesia Stat Consulting Provider: Anesthesia,Services Consult Reason/Comments: lumbar puncture. Altered mental status 07/21/21 11:18 Consult Physician Urgent Consulting Provider: Taty Messina Consult Reason/Comments: New onset visual disturbance/images noted on shutting eyes Do you want consulting provider notified?: Yes 07/28/21 11:06 Consult Physician Routine Consulting Provider: Kalpesh Nichole Consult Reason/Comments: re-consult Do you want consulting provider notified?: Already Contacted Primary care physician: Sherman Myers MD Hospital Course: Discharge diagnosis Acute Sigmoid colitis and proctitis with sepsis.. colon Biopsy showing focal acute colitis with features suggestive of earlier ischemic colitis Diarrhea. Likely antibiotic related. C. difficile toxin is negative. Urinary retention, status post Zarate catheter and Flomax. Improved now. Generalized maculopapular rash, most likely secondary to cefepime which was discontinued Generalized edema secondary to IV drug infusion of crystalloids. posterior vitreous detachment with no retinal tear and hypertensive retinopathy. Outpatient follow-up L2-L5 surgical bed seroma,, chronic as per orthopedic team follow up with her spine surgeon Dr. Camacho as an outpatient Altered mental status most likely metabolic/toxic encephalopathy, resolved completely and patient is back to baseline. 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 Most likely false positive test. Both patient and look reliable and declined illicit drug abuse History of stroke and right hemiparesis DVT prophylaxis with heparin subcu Hospital course 65-year-old female who comes to us from [facility]. Patient had surgery by Dr. Fink on Tuesday and I was told had a couple episodes of vomiting and was lethargic so brought her to the hospital. According to the physician at [place] patient was very somnolent was able to be aroused but would go right back to sleep. Patient had lab work which showed an elevated creatinine and elevated white count. Patient had a CT of the brain and CT of the abdomen pelvis which all were negative. No history of any fevers or chills no history of any difficulty breathing or cough. Initial serum glucose is 142 and ammonia is 23 Urine drug screen is positive for opiates, methamphetamine, benzoyl. Otherwise the rest is nondetected. Acetaminophen is less than 10, systolic is less than 1.0. EKG shows sinus bradycardia no ST segment elevation or depression Blood work completed an outside facility revealed elevated creatinine and a white blood count; CT head was reported to be negative 07/18/2021 Patient is evaluated with family members at bedside; doesn't open eyes on verbal stimulation but continues to moan spontaneously; doesn't follow any commands; EEG just completed MRI of the brain scheduled for today; computed tomography scan of the brain done at an outside facility was negative; urology has recommended stat EEG which is just completed; no plans to start antiepileptic drugs unless EEG is conclusive We will continue to avoid any sedating medications which can affect patient's mentation Labs including vitamin B12 and folic acid are pending 07/19/2021 Patient is seen and evaluated, continues to be confused but some improvement compared to yesterday. Patient opens her eyes on verbal stimulation Vital signs: temperature 98.4, pulse 85, resp 16, BP 150/85 Labs WBC 11.3 , Hgb 10.8, Na 146, BUN 28 Patient IS currently on ceftriaxone, vancomycin, and acyclovir for empiric meningeal encephalitis CSF studies have been negative ; neurology on board and recommending to discontinue acyclovir Patient remains on ceftriaxone and vancomycin pending ID re-evaluation EEG is completed and suggestive of encephalopathy; no seizure activity noted Neuro recommending repeat EEG tomorrow subjective: Resume the care of the patient from today 07/21/2011 Patient is a pleasant 65 years old female who presents with altered mental status, workup ruled out pending encephalitis with no nucleated cells and CSF tap. Today patient is more awake, she does she the hospital although she could not on the name, she The year of the month and the date and she knows name of the president, she wasn't sure why she was in the hospital. Patient was reoriented. Patient is complaining of from generalized abdominal pain and tenderness, no guarding or rebound tenderness. CT of the abdomen and pelvis is ordered and result is pending. Patient kept nothing by mouth for now. Several consultants on the case included neurology and pulmonary service. Patient remains on broad-spectrum antibiotics cefepime and Flagyl with ID team on the case as well as gentle hydration. Labs and vitals reviewed 07/21/2021 Patient today is fully awake and oriented back to baseline, and abdominal pain and tenderness is minimal and improving significantly compared to yesterday. She is currently started on regular diet, yesterday she was started on Colace for stools in the colon, she has frequent bowel movements mostly related to her colitis/proctitis. Colace is a stopped and Lomotil started. Patient states that she follows up with her inserter operator at another hospital Dr. Bakari Fraire and she has colonoscopy every 3 years, last colonoscopy was 2 years ago and she supposed to go for next colonoscopy on November 2022 as she states. Patient was instructed to follow up with her GI doctors within one week to 2 weeks after discharge and she agrees. Also CT of the abdomen and pelvis showed . fluid collection at surgical bed L2- L5, s/p laminectomy L2-L5 with hard dockery at L2-L3. This is a chronic seroma per orthopedic team, under, and follow-up with her spine surgeon Dr. Camacho as an outpatient. Other than that she is hemodynamically stable. Leukocytosis improved down to 9.9 and hemoglobin 10.7 with some evidence of hemodilution, sodium improved to 136. Liver enzymes back to normal. S calcitonin elevated 2.8. EEG is negative. Patient currently covered with cefepime and Flagyl with gentle hydration. 07/22/2021 Patient mentation is back to normal. However she is in distress because of her abdominal pain Patient continued to have diarrhea and abdominal pain was more severe last night with more tenderness in the left lower quadrant, KUB showing small large bowel ileus. Surgery team were consulted for plan for c olonoscopy tomorrow. C. diff is negative, stool studies are pending. Currently With antibiotic of cefepime and Flagyl per ID team also she is on normal saline at 75 mL/h. [employer] Consultant examined the patient and found posterior vitreous detachment with no retinal tear and hypertensive retinopathy that require outpatient follow-up only for now. Orthopedic team on the case for spinal seroma and recommended no further action needed regarding this. Pulmonary team on the case Zarate catheter was replaced because of urinary retention more than 700 mL. Flomax is started Prognosis remains guarded 07/24/2011 Patient clinically doing well, for the last 3 days she is fully awake and oriented and back to her baseline mental status. Her mental problem is the sigmoid colitis and prostatitis. Given pulmonary, ophthalmology and neurology cleared the patient for discharge from their perspective. However patient was still complaining of from significant pain and ileus yesterday, surgery team are planning for colonoscopy today. She'll finish her GoLYTELY. Could not tell about her diarrhea. However her abdominal pain is much improved today compared to yesterday. She's been treated with cefepime and Flagyl for the colitis with infectious disease team on the case. She has fluid of her old and swollen hands and legs and she wants something to diuresis her because she has restricted movement because of fluid overload, Lortab normal saline 75 down to 50 mL per hour. And also started Lasix IV 2 days. She was instructed to keep the Zarate catheter and follow-up with urologist as an outpatient, she was instructed to follow up with Dr. Bergman in one week she agrees but she is considering to follow up with her own urologist which is fine as well. She is on Flomax On admission she has positive urine drug screen for opioids, benzodiazepine and methamphetamine. I tacked to the patient and she has been started her as well, her told me since she came from a hospital last time she was taken intubated and she did not leave the house, also he is a retired railroad police and he is completely against any drugs and if seen cases of methamphetamine overdose before and he does not recommended to be used by anyone. Most likely this is a false positive test. 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 She can follow command and fully oriented. Abdominal pain is down, no nausea vomiting and tolerates diet however she still have frequent bowel movements, every 1 hour although some of it are small amount stool. No blood. Laxative for discontinued. Also patient developing rash yesterday and today, it could be secondary to Robitussin which was discontinued. Yesterday we discontinued her Lasix however today and get worse rash given without Lasix, she still complaining of from significant swelling although states that Lasix helped her before she wants Lasix back. We going to resume orally and monitor closely. Her generalized swelling slightly better. No abdominal pain or tenderness, she had colonoscopy yesterday but the area was full of liquid stool, so it was aborted, cone biopsy were taken and pending, patient informed and she is aware with the need for follow-up for the results. In the meantime she remains with cefepime and Flagyl, normal saline discontinued today, by mouth Lasix 40 mg twice daily started, also we had adequate strength. Stool cultures still pending, Possible discharge on Tuesday as there is placement issue, discussed with social sciences professor Patient to keep the Zarate catheter and follow-up outpatient with urologist, she is informed and agrees 07/25/2021 Patient clinically is similar to yesterday, she still has diarrhea however she has significantly less abdominal pain. 1 is in with Uzma yesterday is that she's developed maculopapular rash over the trunk and extremity over the last 2 days, it looks similar to yesterday. Because of this we checked her antibiotic into aztreonam instead of Flagyl and cefepime while keep monitoring. Stool culture so far is negative showing no Salmonella or Shigella and/or E coli. Repeat labs in the morning 07/26/2021 Patient looks like diarrhea and abdominal pain improving gradually and slowly. Her diarrhea is becoming less frequent and without mucus. Abdominal pain is improving as well.Her pro-calcitonin came down to 0.8 down to 0.26. She is currently kept on aztreonam which was started 2 days ago after she developed rash and cefepime and Flagyl were discontinued. Also will resume her home dose of mental area also she is currently on Questran. Her rash looks his stable and kept with hydrocortisone cream, and Benadryl when necessary. She has some leukocytosis which could be secondary to steroid effect she received due to her rash. We will monitor her WBC tomorrow. Low potassium and magnesium replaced. She is developing some oral thrush and nystatin was added. colon Biopsy showing focal acute colitis with features suggestive of earlier ischemic colitis Blood pressure was elevated and her losartan 100 mg was restarted at a lower dose of 50 mg daily. social sciences professor consulted for placement 07/27/2021 Patient is currently in the recliner. Awake alert but seems to be lethargic and more drowsy today. Still having diarrhea but improving compared to yesterday. Patient is being continued antibiotics in the form of aztreonam and Flagyl due to colitis. Patient is awake alert and attentive oriented otherwise. CSF cultures negative and unlikely PROGRAM DIRECTOR/MUSIC DIRECTOR infection. ID is on board.. Lab laboratory data showed WBC 7.1 hemoglobin 12.8 and platelets 61 Sodium 133 potassium 3.7 chloride 108 bicarb is 21 BUN 12 and creatinine 0.77 07/28/2021 Patient is currently resting in the bed. Awake alert and oriented x3. Weakness is improving. Still having diarrhea. Continued on Lomotil and Questran. Continued on antibiotics as above aztreonam and Flagyl for severe colitis. No complaints of fever. No complaints of abdominal pain. Cramping abdominal pain sometimes. Denies any hematemesis or melena. Denies any blood in the stool. Laboratory data showed WBC 7.3 hemoglobin 7.1 and platelets 358 sodium 133 potassium 3.6 chloride 105 BUN 13 and creatinine 0.85 calcium 7.4. ID and general surgery is on board. No surgical intervention recommended at this time. Anticipate discharge to extended care facility to complete antibiotic course. PICC line in place. 07/29/2021 Patient is currently sitting in the recliner. Awake alert and oriented 3. No complaints of chest pain or shortness of breath. No complaints of nausea vomiting or abdominal pain. Patient is still having diarrhea but improving slowly. Continued on antibiotic course with aztreonam and Flagyl. Laboratory data showed no significant change from yesterday. Renal function is stable. Patient is tolerating oral diet slowly. Patient can be discharged to rehab and continue with antibiotic course for 7 more days as per ID recommendations. - Exam GENERAL: The patient is alert and oriented x3, not in any acute distress. Well developed, well nourished. HEENT: Pupils are round and equally reacting to light. EOMI. No scleral icterus. No conjunctival pallor. Normocephalic, atraumatic. No pharyngeal erythema. No thyromegaly. CARDIOVASCULAR: S1 and S2 present. No murmurs, rubs, or gallops. PULMONARY: Chest is clear to auscultation, no wheezing or crackles. -ABDOMEN: Soft, generalized abdominal tenderness, no rebound tenderness or guarding, nondistended, normoactive bowel sounds. No palpable organomegaly. MUSCULOSKELETAL: No joint swelling or deformity. EXTREMITIES: No cyanosis, clubbing, or pedal edema. NEUROLOGICAL: Gross neurological examination did not reveal any focal deficits. SKIN: No rashes. no petechiae. Vital Signs 07/29/21 07/29/21 07/29/21 08:00 08:06 08:15 Temperature 98.3 F Pulse Rate 79 84 Pulse Rate [ 81 Neighborhood Planner ] Pulse Rate [ Pulse Oximetery ] Respiratory 16 Rate Blood Pressure 103/62 [Right Arm] O2 Sat by Pulse 93 L 94 L Oximetry 07/29/21 12:00 Temperature 99.3 F Pulse Rate Pulse Rate [ Neighborhood Planner ] Pulse Rate [ 80 Pulse Oximetery ] Respiratory 16 Rate Blood Pressure 101/66 [Right Arm] O2 Sat by Pulse 97 Oximetry Total time taken greater than 35 minutes including 18 minutes for counseling and coordination of care. Patient Condition at Discharge: Stable Plan - Discharge Summary New Discharge Prescriptions: New metroNIDAZOLE [Flagyl] 500 mg PO Q8HR #21 tab Diphenox-Atrop 2.5-0.025 mg [Lomotil] 1 each PO Q6HR PRN #30 tab PRN Reason: Diarrhea Cholestyramine (with Sugar) [Questran Packet] 4 gm PO BID@1000,1800 #14 pac ket Aztreonam [Azactam] 2 gm IVPB Q8HR #21 each Continue Montelukast [Singulair] 10 mg PO HS Fluticasone Nasal Mckenna [Flonase Nasal Mckenna] 2 spr EA NOSTRIL HS L.acidoph,Paracasei, B.lactis [Probiotic] 1 cap PO BID Dexlansoprazole [Dexilant] 30 mg PO HS Cinnamon Bark [Cinnamon] 1,000 mg PO BID Cholecalciferol (Vitamin D3) [Vitamin D3] 50 mcg PO BID Calcium Carbonate [Calcium] 600 mg PO BID Atorvastatin [Lipitor] 10 mg PO HS Azelastine HCl [Astepro] 2 spray EA NOSTRIL BID PRN PRN Reason: Allergy Symptoms DULoxetine HCL [Cymbalta] 60 mg PO DAILY Furosemide [Lasix] 20 mg PO DAILY@1700 Furosemide [Lasix] 40 mg PO DAILY lamoTRIgine [LaMICtal] 100 mg PO BID Levothyroxine Sodium [Synthroid] 50 mcg PO DAILY Methenamine Hippurate [Hiprex] 1 gm PO Q48H Potassium Chloride [Potassium Chloride ER] 10 meq PO BID Aspirin 81 mg PO DAILY Magnesium 200 mg PO DAILY hydrOXYzine HCL [Atarax] 10 - 20 mg PO Q8H PRN PRN Reason: Allergy Symptoms calcium polycarbophiL [Fibercon] 625 mg PO BID Ipratropium [place] 0.06%Nasal [Atrovent Nasal 0.06%] 2 spray EA NOSTRIL TID PRN PRN Reason: allergy sx Sucralfate [Carafate] 1 gm PO BID PRN PRN Reason: Heartburn Diclofenac Sodium Gel [Voltaren Gel] 4 gm TOPICAL QID PRN PRN Reason: Pain Mometasone/Formoterol [Dulera 100 Mcg-5 Mcg Inhaler] 1 puff INHALATION RT-BID PRN PRN Reason: Shortness Of Breath Ondansetron Odt [Zofran ODT] 4 - 8 mg PO TID PRN PRN Reason: Nausea And Vomiting Ascorbic Acid [Vitamin C] 1,000 mg PO DAILY #60 tab lamoTRIgine [LaMICtal] 50 mg PO DAILY@1400 diazePAM [Valium] 5 mg PO Q8H PRN PRN Reason: Anxiety Lidocaine [Aspercreme Patch] 1 patch TRANSDERM DAILY PRN PRN Reason: Pain HYDROcodone/APAP 5-325MG [[place] 5-325] 1 - 2 tab PO Q4H PRN PRN Reason: Pain Dicyclomine [Bentyl] 40 mg PO Q12H Estradiol Cream [Estrace Cream 0.01%] 1 gm VAGINAL TUTH Albuterol Sulfate [Ventolin HFA] 2 puff INHALATION RT-Q4H PRN PRN Reason: Shortness Of Breath Multivit with Calcium,Iron,Min [Women's Multivitamin] 1 tab PO DAILY Discontinued Spironolactone [Aldactone] 50 mg PO BID Baclofen [Lioresal] 20 mg PO BID hydrALAZINE HCL [Apresoline] 37.5 mg PO TID Ketorolac [Toradol] 10 mg PO Q6H PRN PRN Reason: Pain Losartan Potassium 100 mg PO DAILY Discharge Medication List Calcium Carbonate [Calcium] 600 mg PO BID 12/16/16 [History] Cholecalciferol (Vitamin D3) [Vitamin D3] 50 mcg PO BID 12/16/16 [History] Cinnamon Bark [Cinnamon] 1,000 mg PO BID 12/16/16 [History] Dexlansoprazole [Dexilant] 30 mg PO HS 12/16/16 [History] Fluticasone Nasal Mckenna [Flonase Nasal Mckenna] 2 spr EA NOSTRIL HS 12/16/16 [History] L.acidoph,Paracasei, B.lactis [Probiotic] 1 cap PO BID 12/16/16 [History] Montelukast [Singulair] 10 mg PO HS 12/16/16 [History] Atorvastatin [Lipitor] 10 mg PO HS 08/24/18 [History] Azelastine HCl [Astepro] 2 spray EA NOSTRIL BID PRN 08/24/18 [History] DULoxetine HCL [Cymbalta] 60 mg PO DAILY 08/24/18 [History] Furosemide [Lasix] 20 mg PO DAILY@1700 08/24/18 [History] Furosemide [Lasix] 40 mg PO DAILY 08/24/18 [History] lamoTRIgine [LaMICtal] 100 mg PO BID 08/24/18 [History] Levothyroxine Sodium [Synthroid] 50 mcg PO DAILY 09/19/18 [History] Methenamine Hippurate [Hiprex] 1 gm PO Q48H 09/19/18 [History] Potassium Chloride [Potassium Chloride ER] 10 meq PO BID 10/12/18 [History] Aspirin 81 mg PO DAILY 10/24/18 [History] Magnesium 200 mg PO DAILY 10/24/18 [History] Ipratropium [place] 0.06%Nasal [Atrovent Nasal 0.06%] 2 spray EA NOSTRIL TID PRN 05/25/19 [History] Sucralfate [Carafate] 1 gm PO BID PRN 05/25/19 [History] calcium polycarbophiL [Fibercon] 625 mg PO BID 05/25/19 [History] hydrOXYzine HCL [Atarax] 10 - 20 mg PO Q8H PRN 05/25/19 [History] Diclofenac Sodium Gel [Voltaren Gel] 4 gm TOPICAL QID PRN 07/10/19 [History] Mometasone/Formoterol [Dulera 100 Mcg-5 Mcg Inhaler] 1 puff INHALATION RT-BID PRN 12/17/19 [History] Ondansetron Odt [Zofran ODT] 4 - 8 mg PO TID PRN 04/10/20 [History] Ascorbic Acid [Vitamin C] 1,000 mg PO DAILY #60 tab 04/12/20 [Rx] lamoTRIgine [LaMICtal] 50 mg PO DAILY@1400 03/06/21 [History] Albuterol Sulfate [Ventolin HFA] 2 puff INHALATION RT-Q4H PRN 07/17/21 [History] Dicyclomine [Bentyl] 40 mg PO Q12H 07/17/21 [History] Estradiol Cream [Estrace Cream 0.01%] 1 gm VAGINAL TUTH 07/17/21 [History] HYDROcodone/APAP 5-325MG [[place] 5-325] 1 - 2 tab PO Q4H PRN 07/17/21 [History] Lidocaine [Aspercreme Patch] 1 patch TRANSDERM DAILY PRN 07/17/21 [History] Multivit with Calcium,Iron,Min [Women's Multivitamin] 1 tab PO DAILY 07/17/21 [History] diazePAM [Valium] 5 mg PO Q8H PRN 07/17/21 [History] Aztreonam [Azactam] 2 gm IVPB Q8HR #21 each 07/29/21 [Rx] Cholestyramine (with Sugar) [Questran Packet] 4 gm PO BID@1000,1800 #14 packet 07/29/21 [Rx] Diphenox-Atrop 2.5-0.025 mg [Lomotil] 1 each PO Q6HR PRN #30 tab 07/29/21 [Rx] metroNIDAZOLE [Flagyl] 500 mg PO Q8HR #21 tab 07/29/21 [Rx] Follow up Appointment(s)/Referral(s): Reji Mendoza PAC [PHYSICIAN AUTO PHONE INSTALLER] - As Needed (Patient may follow-up with Reji Mendoza PA-C or Dr. Cristopher Pompa at [facility] on an as-needed basis following discharge. ) Taty Messina MD [STAFF PHYSICIAN] - 08/05/21 11:50 am (eye doctor ) Bakari Miles MD [REFERRING] - 10 Days (your inserter operator (called [phone]) on hold for 10 mins, please call office to schedule appointment.) Sherman Myers MD [Primary Care Provider] - 07/28/21 2:00 pm Dennis Camacho MD [REFERRING] - 2 Weeks (your spine surgeon. high call volume, please call the office to schedule appointment.) Sebastien Russo MD [STAFF PHYSICIAN] - 2 Weeks (urologist for urinary retension ) Kalpesh Nichole MD [STAFF PHYSICIAN] - 08/04/21 2:20 pm (general surgoen ) Activity/Diet/Wound Care/Special Instructions: [facility] Etelvina Dodson R.N. PH: [phone] | FAX: [phone] | [place] [address] Discharge Disposition: TRANSFER TO SNF/ECF"
[2021-07-29 16:37] VITALS: BP 113/70; PULSE 81
[2021-07-29] MEDS: DIPHENOX-ATROP 2.5-0.025 MG 1 EACH TAB PO PRN (16:43)
== END 2021-07-29 17:21 | DRG 871 ==
LOC: EC 12:21 → 3SCARD 14:46
PROVIDERS: ADMIT Internal Medicine; ATTEND Internal Medicine
PROC: 009U3ZX Drainage of Spinal Canal, Percutaneous Approach, Diagnostic (ICD-10-PCS; 2021-07-18)
PROC: 05H933Z Insertion of Infusion Device into Right Brachial Vein, Percutaneous Approach (ICD-10-PCS; 2021-07-21)
PROC: 0DDP8ZX Extraction of Rectum, Via Natural or Artificial Opening Endoscopic, Diagnostic (ICD-10-PCS; 2021-07-23)
PROC: 0DDN8ZX Extraction of Sigmoid Colon, Via Natural or Artificial Opening Endoscopic, Diagnostic (ICD-10-PCS; 2021-07-23)
PROC: 05HA33Z Insertion of Infusion Device into Left Brachial Vein, Percutaneous Approach (ICD-10-PCS; principal; 2021-07-24 18:25)
DX: A41.9 Sepsis, unspecified organism (principal); G92.8 Other toxic encephalopathy; G04.90 Encephalitis and encephalomyelitis, unspecified; B37.0 Candidal stomatitis; I69.351 Hemiplegia and hemiparesis following cerebral infarction affecting right dominant side; K55.9 Vascular disorder of intestine, unspecified; K56.7 Ileus, unspecified; N17.9 Acute kidney failure, unspecified; R65.20 Severe sepsis without septic shock; Z20.822 Contact with and (suspected) exposure to COVID-19; E03.9 Hypothyroidism, unspecified; E78.5 Hyperlipidemia, unspecified; E87.6 Hypokalemia; F14.10 Cocaine abuse, uncomplicated; F32.A Depression, unspecified; G62.9 Polyneuropathy, unspecified; G89.4 Chronic pain syndrome; H43.819 Vitreous degeneration, unspecified eye; I69.398 Other sequelae of cerebral infarction; J45.909 Unspecified asthma, uncomplicated; J98.6 Disorders of diaphragm; K58.9 Irritable bowel syndrome, unspecified; L27.1 Localized skin eruption due to drugs and medicaments taken internally; K62.89 Other specified diseases of anus and rectum; R00.1 Bradycardia, unspecified; M19.90 Unspecified osteoarthritis, unspecified site; F15.10 Other stimulant abuse, uncomplicated; F11.10 Opioid abuse, uncomplicated; J30.2 Other seasonal allergic rhinitis; R33.8 Other retention of urine; T36.1X5A Adverse effect of cephalosporins and other beta-lactam antibiotics, initial encounter; R56.9 Unspecified convulsions; Z79.51 Long term (current) use of inhaled steroids; Z79.82 Long term (current) use of aspirin; Z79.890 Hormone replacement therapy; Z79.899 Other long term (current) drug therapy; Z87.442 Personal history of urinary calculi; Z90.710 Acquired absence of both cervix and uterus; Z97.4 Presence of external hearing-aid; Z98.1 Arthrodesis status; I10 Essential (primary) hypertension; H91.93 Unspecified hearing loss, bilateral; Z88.1 Allergy status to other antibiotic agents; X58.XXXA Exposure to other specified factors, initial encounter; Z98.49 Cataract extraction status, unspecified eye; Z98.51 Tubal ligation status
CPT/HCPCS: 36410; 36415; 36573; 36600; 45380; 70551; 71045; 74018; 74177; 76937; 80048; 80053; 80143; 80179; 80306; 81001; 82140; 82565; 82607; 82746; 82805; 82945; 83605; 83630; 83735; 84132; 84145; 84157; 84443; 85025; 85027; 86140; 87040; 87045; 87046; 87070; 87205; 87324; 87529; 87635; 88305; 89050; 93005; 93880; 94640; 94760; 95816; 96374; 99285

== ENCOUNTER 2021-10-16 10:46 | Day surgery (SDC) | payer MEDICARE ==
[2021-10-15 11:41] VITALS: BMI 25.0
[~2021-10-16 10:46] MED LIST changes: +LIDOCAINE 1% (10MG/ML) FOR IV START INTRADERMA PRN; -ONDANSETRON 4 MG/2 ML VIAL IVP ONE; -Pre Op ABX Message 1 EACH MISC MISCELLANE ONE; -fentaNYL (PF) 50 MCG/ML 2 ML AMP IV PRN
[2021-10-16 11:18] VITALS: TEMP 97.9
[2021-10-16] MEDS ORDERED: ROPIVACAINE 5MG/ML 20ML VIAL ONE (11:51)
[2021-10-16] MEDS ORDERED: methylPREDNISolone ACETATE 40 MG/ML 1 ML VIAL ONE (11:51)
[2021-10-16] MEDS ORDERED: MIDAZOLAM 2 MG/2 ML VIAL ONE (11:51)
--- NOTE | 2021-10-16 12:10 | P.PCN ---
Date of Procedure: 10/16/21 Procedure(s) Performed: PREOPERATIVE DIAGNOSIS: 1-Lumbar Spondylosis with Facet Arthropathy without myelopathy. 2-right cluneal nerve neuralgia. 3-right sacroiliitis. POSTOPERATIVE DIAGNOSIS: Same as preop diagnosis. PROCEDURES : Right Radiofrequency thermocoagulation, L3 , L4 , and L5 medial branch, with fluoroscopic guidance (fluoroscopy images available in the radiology department) ( to denervate the facet joint at L4-5 ,and L5-S1 levels ) ANESTHESIA: Monitored anesthesia care as per anesthesia department. EBL: Minimal PROCEDURE INDICATION: The patient with low back pain secondary to lumbar facet arthropathy who had more than 50% relief of her pain with previous diagnostic lumbar medial branch block with bupivacaine. PROCEDURE DESCRIPTION / TECHNIQUE: The patient was seen and identified in the preoperative area. Risks, benefits, complications, including but not limited to risk of infection ,bleeding , allergic reactions to the medications and no complete pain releife , and alternatives were discussed with the patient, the patient agreed to proceed with the procedure and signed the consent. IV was started. Vital signs remained stable throughout the procedure. Patient was taken to the OR and time out was completed. The patient was placed in the prone position on the procedure table. The lumber area was prepped and draped in the usual sterile fashion. . Vital signs were closely monitored during the procedure .IV sedation was used during the procedure to decrease patients anxiety. Using AP and then oblique fluoroscopy, the ``eye of the Jose dog miriam esponding to the connection between the superior and transverse articular processes of right L3, L4, and L5 were identified, marked, and localized with 1% lidocaine. Subsequently, a [id number] radiofrequency cannula with a 10- mm active tip was advanced guided by fluoroscopy to each of the``eyes of the Jose dog at right L3, L4, and L5. Each site then underwent sensory testing at 50 Hz and 0 to 1 volt and motor testing at 2.5 Hz and 0 to 3 volt with local stimulation, but no radicular symptoms down the legs. Thereafter the right L3, L4 , and L5 sites underwent radiofrequency thermocoagulation at 80 degrees celsius for 90 seconds after injecting 0.5 ml of PF Ropivacaine 1ml, then after the thermocoagulation done , 1 ml of the block solution containing Depo-Medrol 40 mg and 3 ml of Ropivacaine 0.5% was injected at the right L3 , L4 , and L5 , levels after negative aspiration of CSF and blood and with no paresthesias. Cannulas were retracted while injecting lidocaine 1% until the needle is out. At the end of the procedure, the skin was cleansed and bandages were applied. COMPLICATIONS: No acute complications. DISPOSITION / PLANS: The patient was placed in a supine position and transferred to the recovery area in a stable condition for observation and was discharged from the recovery room after meeting discharge criteria. Home discharge instructions given to the patient by the staff. The patient was reexamined prior to discharge. The patient will schedule a follow up in the clinic in 2-4 weeks.
[2021-10-16 12:37] VITALS: BP 144/75; PULSE 64; RESP 16
--- NOTE | 2021-10-16 13:13 | FL ---
Fluoroscopy INDICATION: Pain FINDINGS: Fluoroscopy time: 22 seconds. Images obtained: 3. IMPRESSIONS: 1. Documentation of fluoroscopy.
== END 2021-10-16 13:00 | disposition home or self-care (01) ==
LOC: ORPAIN 10:46
PROVIDERS: ATTEND Specialist
DX: M47.816 Spondylosis without myelopathy or radiculopathy, lumbar region (principal); G58.8 Other specified mononeuropathies; M46.1 Sacroiliitis, not elsewhere classified; I10 Essential (primary) hypertension; E78.5 Hyperlipidemia, unspecified; J45.909 Unspecified asthma, uncomplicated; Z86.73 Personal history of transient ischemic attack (TIA), and cerebral infarction without residual deficits; M19.90 Unspecified osteoarthritis, unspecified site; K21.9 Gastro-esophageal reflux disease without esophagitis; Z79.890 Hormone replacement therapy; Z79.51 Long term (current) use of inhaled steroids; Z79.899 Other long term (current) drug therapy
CPT/HCPCS: 64635; 64636; J2250; J1030; J2795

== ENCOUNTER → 2021-11-09 | Outpatient (CLI) | payer MEDICARE ==
[2021-11-09 10:15] VITALS: BP 134/71; PULSE 68; RESP 18; TEMP 98.1
--- NOTE | 2021-11-09 10:15 | P.PAINPG ---
PQRS Measure Charge Sheet Comment: A 66 yr old female with a history of severe and chronic low back pain secondary to lumbar degenerative disc diseases and lumbar spondylosis with facet arthropathy presents today for evaluation status post R RFA L4-L5, L5-S1. She states she experienced 100% pain relief status post procedure. Pain level is currently at 0 out of 10 in intensity. Denies radiation of pain. No provocation of pain. Pain is alleviated with medications, topicals, injections, repositioning, home based stretching regimen and rest. Interventional pain procedures completed include R RFA L3-L5. R Luneal nerve RFA Patient is currently on [place] Patient denies any side effects of the medication(s), denies excessive drowsiness or sleepiness, denies suicidal ideation and reports that the current pain medication is helping to control the pain and improve activities of daily living. Patient denies any motor or sensory deficits. Patient denies any fever or night sweats, denies any change in the bowel movements or urination. Physical Examination: -Constitutional: Cooperative. Not in acute distress . - Neurologic: Cranial nerve II to XII intact. No focal neurological deficits. - Psychatric: Alert & oriented x 3. Matching mood & appropriate affect. Judgment and insight intact. - Musculoskeletal: Cervical spine: Muscle bulk/ tone/ strength in the bilateral upper extremities normal Vertebral body tenderness to palpation over Spurling test positive Distraction test positive Facet loading test positive Thoracic spine Muscle bulk / tone/ strength in the bilateral paraspinal muscles normal Vertebral body tender to palpation over Facet loading test positive Lumbar spine: Motor bulk/ tone/ strength lower extremities , thigh and legs : 5/5 Deep tendon reflexes : Normal Knee Jerk. Normal Ankle Jerk . Vertebral body tenderness to palpation over Lumbar Facet Loading Test positive L5 Straight Leg Raise: positive at 30 degrees right side/ left side Gaenslen's Test positive Sacral spine : Severe tenderness over the Sacroiliac joint: right side / left side Range of motion: Flexion of the lumbar spine <60 degrees Range of motion: Extension of the lumbar spine <20 degrees Gaenslen's Test positive Vickey's Test positive Yash test: positive right side / left side Thigh Thrust Test Sacral Thrust Test Assessment and plan: Chronic low back pain secondary to lumbar degenerative disc disease , lumbar spondylosis with facet arthropathy without myelopathy Patient exhibited sufficient and optimal pain relief status post pr ocedure. Discussed prognosis. She may return to our clinic on an as-needed basis. All patient questions answered MAPS reviewed and it was appropriate. Prescription refill for I have spent less than 30 minutes on patient care today. Dr Ward was available by phone for the evaluation of this patient. The time was used to review the medical records including relevant urine studies and Prescription history (MAPs), review of the available imaging, evaluation and examination of the patient, coordination of care with the medical staff and if applicable referring physicians, as well as creation of the medical record PQRS Narrative: Smoking Status Never smoker Hx Alcohol Use (MH) No Home Medications: Ambulatory Orders Calcium Carbonate [Calcium] 600 mg PO BID 12/16/16 Cholecalciferol (Vitamin D3) [Vitamin D3] 50 mcg PO BID 12/16/16 Cinnamon Bark [Cinnamon] 1,000 mg PO BID 12/16/16 Dexlansoprazole [Dexilant] 30 mg PO HS 12/16/16 Fluticasone Nasal [place] [Flonase Nasal [place]] 2 spr EA NOSTRIL HS 12/16/16 L.acidoph,Paracasei, B.lactis [Probiotic] 1 cap PO BID 12/16/16 Montelukast [Singulair] 10 mg PO HS 12/16/16 Atorvastatin [Lipitor] 10 mg PO HS 08/24/18 DULoxetine HCL [Cymbalta] 60 mg PO DAILY 08/24/18 Furosemide [Lasix] 20 mg PO DAILY@1700 08/24/18 Furosemide [Lasix] 40 mg PO DAILY 08/24/18 lamoTRIgine [LaMICtal] 100 mg PO BID 08/24/18 Levothyroxine Sodium [Synthroid] 50 mcg PO DAILY 09/19/18 Methenamine Hippurate [Hiprex] 1 gm PO Q48H 09/19/18 Potassium Chloride [Potassium Chloride ER] 10 meq PO BID 10/12/18 Aspirin 81 mg PO DAILY 10/24/18 Magnesium 200 mg PO DAILY 10/24/18 Sucralfate [Carafate] 1 gm PO BID PRN 05/25/19 calcium polycarbophiL [Fibercon] 625 mg PO BID 05/25/19 hydrOXYzine HCL [Atarax] 10 - 20 mg PO Q8H PRN 05/25/19 Diclofenac Sodium Gel [Voltaren Gel] 4 gm TOPICAL QID PRN 07/10/19 Mometasone/Formoterol [Dulera 100 Mcg-5 Mcg Inhaler] 1 puff INHALATION RT-BID PRN 12/17/19 Ondansetron Odt [Zofran ODT] 4 - 8 mg PO TID PRN 04/10/20 Ascorbic Acid [Vitamin C] 1,000 mg PO DAILY #60 tab 04/12/20 lamoTRIgine [LaMICtal] 50 mg PO DAILY@1400 03/06/21 Dicyclomine [Bentyl] 40 mg PO Q12H 07/17/21 Estradiol Cream [Estrace Cream 0.01%] 1 gm VAGINAL TUTH 07/17/21 Lidocaine [Aspercreme Patch] 1 patch TRANSDERM DAILY PRN 07/17/21 Multivit with Calcium,Iron,Min [Women's Multivitamin] 1 tab PO DAILY 07/17/21 Diphenox-Atrop 2.5-0.025 mg [Lomotil] 1 each PO Q6HR PRN #30 tab 07/29/21 HYDROcodone/APAP 10-325MG [[place] 10-325] 1 tab PO Q4-6H PRN 10/15/21 diazePAM [Valium] 5 mg PO Q8H PRN 10/15/21 Losartan [Cozaar] 25 mg PO DAILY 10/16/21 Controlled Substance Measures - Controlled Substance Measures Is patient prescribed a controlled substance at discharge?: No
== END ==
LOC: PNWHC3 09:48
PROVIDERS: ATTEND Specialist
DX: M51.36 Other intervertebral disc degeneration, lumbar region (principal); M47.816 Spondylosis without myelopathy or radiculopathy, lumbar region; G89.29 Other chronic pain; Z88.1 Allergy status to other antibiotic agents; Z88.0 Allergy status to penicillin; Z88.2 Allergy status to sulfonamides; Z88.8 Allergy status to other drugs, medicaments and biological substances
CPT/HCPCS: 99211

== ENCOUNTER → 2021-12-09 | Outpatient (CLI) | payer MEDICARE ==
[2021-12-09 10:08] VITALS: BP 144/67; PULSE 64; RESP 18; TEMP 98.3
--- NOTE | 2021-12-10 06:41 | P.PN ---
Subjective Progress Note Date: 12/09/21 This is 66 yrs old female with a history of severe and chronic low back pain secondary to lumbar degenerative disc diseases ,and lumbar spondylosis with facet arthropathy last months we have done R RFA medial branch L4-L5, L5-S1. She states she experienced 100% pain relief status post procedure. Currently she is complaining of pain in the right side lower thoracic and upper lumbar area , pain increases with any activity and any movement intensity of the pain 6-8/10. Denies radiation of pain. No provocation of pain. Pain is alleviated with medications, topicals, injections, repositioning, home based stretching regimen and rest. Interventional pain procedures completed include R RFA L3-L5. R Cluneal nerve RFA Patient is currently on [place] Patient denies any side effects of the medication(s), denies excessive drowsiness or sleepiness, denies suicidal ideation and reports that the current pain medication is helping to control the pain and improve activities of daily living. Patient denies any motor or sensory deficits. Patient denies any fever or night sweats, denies any change in the bowel movements or urination. Physical Examination: -Constitutional: Cooperative. Not in acute distress . - Neurologic: Cranial nerve II to XII intact. No focal neurological deficits. - Psychatric: Alert & oriented x 3. Matching mood & appropriate affect. Judgment and insight intact. - Musculoskeletal: Cervical spine: Muscle bulk/ tone/ strength in the bilateral upper extremities normal Vertebral body tenderness to palpation over Spurling test positive Distraction test positive Facet loading test positive Thoracic spine Muscle bulk / tone/ strength in the bilateral paraspinal muscles normal Vertebral body tender to palpation over Facet loading test positive Trigger point in the right side lower Thoracic paraspinal muscles Lumbar spine: Motor bulk/ tone/ strength lower extremities , thigh and legs : 5/5 Deep tendon reflexes : Normal Knee Jerk. Normal Ankle Jerk . Vertebral body tenderness to palpation over Trigger point identified in the right-sided upper lumbar paraspinal muscles Straight Leg Raise: positive at 30 degrees right side/ left side Gaenslen's Test positive Assessment and plan: Chronic low back pain secondary to lumbar degenerative disc disease , lumbar spondylosis with facet arthropathy without myelopathy Myofascial pain syndrome right-sided lower thoracic and upper lumbar area Patient could benefit from trigger point injection right side lower thoracic and right-sided upper lumbar area Patient could benefit from muscle relaxant Zanaflex 2 mg twice a day dispense 60 with 3 refills All patient questions answered MAPS reviewed and it was appropriate. Objective - Vital Signs Vital signs: Vital Signs Temp 98.3 F 12/09/21 10:02 Pulse 64 12/09/21 10:02 Resp 18 12/09/21 10:02 BP 144/67 12/09/21 10:02 Pulse Ox 100 12/09/21 10:02 FiO2 Intake & Output 12/09/21 12/09/21 12/10/21 06:59 18:59 06:59 Weight 67.585 kg
== END ==
LOC: PNWHC3 09:04
PROVIDERS: ATTEND Specialist
DX: M51.36 Other intervertebral disc degeneration, lumbar region (principal); M47.816 Spondylosis without myelopathy or radiculopathy, lumbar region; M79.18 Myalgia, other site; G89.29 Other chronic pain; Z88.1 Allergy status to other antibiotic agents; Z88.0 Allergy status to penicillin; Z88.2 Allergy status to sulfonamides; Z91.09 Other allergy status, other than to drugs and biological substances; Z88.8 Allergy status to other drugs, medicaments and biological substances
CPT/HCPCS: 99211

== ENCOUNTER → 2022-02-08 | Outpatient (CLI) | payer MEDICARE ==
[2022-02-08 13:35] VITALS: BP 121/68; PULSE 78; RESP 18; TEMP 98.3
--- NOTE | 2022-02-08 14:24 | P.PAINPG ---
PQRS Measure Charge Sheet Comment: A 66 yr old female with a history of severe and chronic low back pain secondary to lumbar degenerative disc diseases and lumbar spondylosis with facet arthropathy without myelopathy presents today for evaluation s/p TPIs of thoraco lumbar spine. PT states she experienced 65% pain relief x 4 wks s/p procedure. Pain level is currently at 10/10 in intensity, random, localized in R lower back, stabbing/ shooting in the R flank. Pain is provoked by anything as pain is unprovoked and sometimes accompanied w spasms. Pain is alleviated with use of a walker for ambulation, walking daily, home exercise regimen, meds ([place] by her PCP, Lidoderm, Voltaren gel topical), repositioning and rest. Zanaflex is ineffe ctive. Interventional pain procedures completed include Thoracolumbar TPIs, BL RFA L3- L5, SI injections, R Cluneal injection. Patient is currently on [place], Voltaren gel, Lidoderm prn Patient denies any side effects of the medication(s), denies excessive drowsiness or sleepiness, denies suicidal ideation and reports that the current pain medication is helping to control the pain and improve activities of daily living. Patient denies any motor or sensory deficits. Patient denies any fever or night sweats, denies any change in the bowel movements or urination. Physical Examination: -Constitutional: Cooperative. Not in acute distress . - Neurologic: Cranial nerve II to XII intact. No focal neurological deficits. - Psychatric: Alert & oriented x 3. Matching mood & appropriate affect. Judgmen t and insight intact. - Musculoskeletal: Cervical spine: Muscle bulk/ tone/ strength in the bilateral upper extremities normal Vertebral body tenderness to palpation over Spurling test positive Distraction test positive Facet loading test positive Thoracic spine Muscle bulk / tone/ strength in the bilateral paraspinal muscles normal Vertebral body tender to palpation over T10-T11 Facet loading test positive Lumbar spine: Motor bulk/ tone/ strength lower extremities , thigh and legs : 5/5 Deep tendon reflexes : Normal Knee Jerk. Normal Ankle Jerk . Vertebral body tenderness to palpation over Lumbar Facet Loading Test positive Straight Leg Raise: positive at 30 degrees right side/ left side Gaenslen's Test positive Sacral spine : Severe tenderness over the Sacroiliac joint: right side / left side Range of motion: Flexion of the lumbar spine <60 degrees Range of motion: Extension of the lumbar spine <20 degrees Gaenslen's Test positive Vickey's Test positive Yash test: positive right side / left side Thigh Thrust Test Sacral Thrust Test Imaging: MRI without contrast of the thoracic spine from 08/01/18 reviewed. Assessment and plan: Chronic low back pain secondary to lumbar degenerative disc disease , lumbar spondylosis with facet arthropathy without myelopathy Recommendation of XOCHITL T10-T11 #1. May need a series, up to 3 within a 6 mo period, for optimal pain relief. Risks, benefits of procedure discussed and pt verbalized understanding. Denies anticoagulant use or medical history of diabetes. JACQUELYN form completed. To be provided to [facility] to determine which anesth etics she was given caused her headaches. All patient questions answered I have spent less than 30 minutes on patient care today. Dr Ward was available by phone for the evaluation of this patient. The time was used to review the medical records including relevant urine studies and Prescription history (MAPs), review of the available imaging, evaluation and examination of the patient, coordination of care with the medical staff and if applicable referring physicians, as well as creation of the medical record - Pain Location Right Lower Back Non-Pharmacological Interventions: Home Exercise, Stretching Pharmacological Interventions: Medication, Scheduled Medication, Topical Medication PQRS Narrative: Smoking Status Never smoker Hx Alcohol Use (MH) No Home Medications: Ambulatory Orders Calcium Carbonate [Calcium] 600 mg PO BID 12/16/16 Cholecalciferol (Vitamin D3) [Vitamin D3] 50 mcg PO BID 12/16/16 Cinnamon Bark [Cinnamon] 1,000 mg PO BID 12/16/16 Dexlansoprazole [Dexilant] 30 mg PO HS 12/16/16 Fluticasone Nasal [place] [Flonase Nasal [place]] 2 spr EA NOSTRIL HS PRN 12/16/16 L.acidoph,Paracasei, B.lactis [Probiotic] 1 cap PO BID 12/16/16 Montelukast [Singulair] 10 mg PO HS 12/16/16 Atorvastatin [Lipitor] 10 mg PO HS 08/24/18 DULoxetine HCL [Cymbalta] 60 mg PO DAILY 08/24/18 Furosemide [Lasix] 20 mg PO DAILY@1700 08/24/18 Furosemide [Lasix] 40 mg PO DAILY 08/24/18 Levothyroxine Sodium [Synthroid] 50 mcg PO DAILY 09/19/18 Methenamine Hippurate [Hiprex] 1 gm PO Q48H 09/19/18 Potassium Chloride [Potassium Chloride ER] 10 meq PO BID 10/12/18 Aspirin 81 mg PO DAILY 10/24/18 Magnesium 200 mg PO DAILY 10/24/18 Sucralfate [Carafate] 1 gm PO BID PRN 05/25/19 calcium polycarbophiL [Fibercon] 625 mg PO BID 05/25/19 hydrOXYzine HCL [Atarax] 10 - 20 mg PO Q8H PRN 05/25/19 Diclofenac Sodium Gel [Voltaren Gel] 4 gm TOPICAL QID PRN 07/10/19 Ondansetron Odt [Zofran ODT] 4 - 8 mg PO TID PRN 04/10/20 Ascorbic Acid [Vitamin C] 1,000 mg PO DAILY #60 tab 04/12/20 lamoTRIgine [LaMICtal] 50 mg PO BID 03/06/21 Dicyclomine [Bentyl] 20 mg PO Q12H 07/17/21 Estradiol Cream [Estrace Cream 0.01%] 1 gm VAGINAL TUTH 07/17/21 Lidocaine [Aspercreme Patch] 1 patch TRANSDERM DAILY PRN 07/17/21 Multivit with Calcium,Iron,Min [Women's Multivitamin] 1 tab PO DAILY 07/17/21 Diphenox-Atrop 2.5-0.025 mg [Lomotil] 1 each PO Q6HR PRN #30 tab 07/29/21 HYDROcodone/APAP 10-325MG [[place] 10-325] 1 tab PO Q4-6H PRN 10/15/21 diazePAM [Valium] 5 mg PO Q8H PRN 10/15/21 Losartan [Cozaar] 25 mg PO DAILY 10/16/21 tiZANidine HCL [Zanaflex] 2 mg PO Q8HR PRN #60 capsule 12/09/21 Controlled Substance Measures - Controlled Substance Measures Is patient prescribed a controlled substance at discharge?: No
== END ==
LOC: PNWHC3 13:06
PROVIDERS: ATTEND Specialist
DX: M47.816 Spondylosis without myelopathy or radiculopathy, lumbar region (principal); M51.36 Other intervertebral disc degeneration, lumbar region; G89.29 Other chronic pain; Z88.1 Allergy status to other antibiotic agents; Z88.8 Allergy status to other drugs, medicaments and biological substances; Z88.0 Allergy status to penicillin
CPT/HCPCS: 99211

== ENCOUNTER 2022-03-11 08:46 | Day surgery (SDC) | payer MEDICARE ==
[2022-03-11] MEDS ORDERED: LACTATED RINGERS 1,000 ML IV SCH (09:03)
[2022-03-11] MEDS ORDERED: LIDOCAINE 1% (10MG/ML) FOR IV START INTRADERMA PRN (09:03)
[2022-03-11 09:19] VITALS: RESP 16; TEMP 97
[2022-03-11] MEDS ORDERED: MIDAZOLAM 2 MG/2 ML VIAL ONE (09:44)
[2022-03-11] MEDS ORDERED: methylPREDNISolone ACETATE 40 MG/ML 1 ML VIAL ONE (09:44)
[2022-03-11] MEDS ORDERED: IOPAMIDOL M200 10 ML VIAL ONE (09:44)
[2022-03-11] MEDS ORDERED: fentaNYL (PF) 50 MCG/ML 2 ML AMP ONE (09:44)
--- NOTE | 2022-03-11 09:54 | P.PCN ---
Date of Procedure: 03/11/22 Procedure(s) Performed: PREOPERATIVE DIAGNOSIS: 1-thoracic Degenerative Disc Diseases 2-thoracic spondylosis with Facet arthropathy without myelopathy. 3-thoracic radiculopathy POSTOPERATIVE DIAGNOSIS: Same as preop diagnosis. PROCEDURE 1. Thoracic epidural steroid injection under fluoroscopic guidance at the T10- 11 level. (Fluoroscopy imaging was available in radiology department) 2. Thoracic epidurogram. ANESTHESIA: moderate sedation with intravenous Versed 1 mg ,and fentanyle 50 Mcg Sedation start time : 0945 Sedation end time : 0 950 EBL: Minimal PROCEDURE INDICATION: The patient with mid and low back pain and radiculitis symptoms unresponsive to conservative treatment. Fluoroscopy was used to optimize visualization of the needle placement and to maximize safety. PROCEDURE DESCRIPTION / TECHNIQUE: The patient was seen and identified in the preoperative area. Risks, benefits, complications including but not limited to infections ,bleeding ,allergic reaction to the medications ,nerve damage and not complete pain releife , and alternatives were discussed with the patient. The patient agreed to proceed with the procedure and signed the consent. IV was started, and vital signs were st able. Patient was taken to the OR and time out was completed. The patient was placed in the prone position on procedure table and a pillow was placed under the abdomen to reduce lumbar lordosis. The lumbosacral area was prepped and draped in the usual sterile fashion.ere closely monitored during the procedure. Conscious sedation was used during the procedure to decrease patients anxiety. Vital signs was monitered during the entire procedure. Using anterior-posterior fluoroscopy, the T10-11 interlaminar space was identified and the skin over this site was marked and then infiltrated with 1% lidocaine subcutaneously. Subsequently, a 20-gauge Tuohy epidural needle was inserted and advanced toward the epidural space using the ``Loss of resistance technique and guided by AP and lateral fluoroscopy. The correct needle position in the epidural space was verified with the injection of 2 mL of the water soluble contrast dye Isovue 200 contrast and observing an excellent epidurogram with the epidural spread of the dye, after negative aspiration for blood and CSF and in the absence of paresthesias. Again after negative aspiration, a 6 ml mixture containing 40 mg of Depo-medrol ( Preservetive Free ), and 2 ml of preservative free Normal Saline, and 2 ml of preservative free lidocaine 1% solution was injected and a washout of epidurogram was seen. Needle was withdrawn intact, skin was cleansed, and bandages were applied. COMPLICATIONS: None DISPOSITION / PLANS: The patient was placed in a supine position and transferred to the recovery area in a stable condition for observation. There was no evidence of lower extremity motor or sensory deficit after the procedure. Patient was discharged from the recovery room after meeting discharge criteria. Home discharge instructions were given to the patient by the staff. The patient was reexamined prior to discharge. The patient will schedule a follow up in the clinic in 2-4 weeks.
[2022-03-11] MEDS ORDERED: IV FLUID CONTINUATION 1,000 ML IV ONE (09:58)
[2022-03-11 10:11] VITALS: BP 144/76; PULSE 67
--- NOTE | 2022-03-11 12:22 | FL ---
EXAMINATION TYPE: FL guided pain mgmt statistic DATE OF EXAM: 03/11/2022 FLUOROSCOPY Fluoroscopy time of 1 seconds was used during thoracic epidural steroid injection. 1 image/s documen t/s the procedure.
== END 2022-03-11 10:30 | disposition home or self-care (01) ==
LOC: ORPAIN 08:46
PROVIDERS: ATTEND Specialist
DX: M47.24 Other spondylosis with radiculopathy, thoracic region (principal); M51.14 Intervertebral disc disorders with radiculopathy, thoracic region
CPT/HCPCS: 62321; J2250; J1030; J3010; Q9966

== ENCOUNTER → 2022-03-31 | Outpatient (CLI) | payer MEDICARE ==
[2022-03-31 13:37] VITALS: BP 136/61; PULSE 68; RESP 16; TEMP 97.7
--- NOTE | 2022-03-31 14:42 | P.PAINPG ---
PQRS Measure Charge Sheet Comment: A 66 yr old female w at side with a history of severe and chronic low back pain secondary to lumbar DDD and spondylosis with facet arthropathy without myelopathy presents today for evaluation s/p XOCHITL T10-11. Pt states she experienced 90% pain relief x 2 wk s/p procedure. Pain level is currently at 2/10 in intensity, constant, localized in the mid spine, dull/ achy/ sharp/ shooting towards the BL flanks. Pain is provoked by being in 1 position for 1 hr or more. Pain is alleviated with heat, medications and repositioning which she rarely does since her recent TESI. Interventional pain procedures completed include TESI T10-11 Patient is currently on [place] prn Patient denies any side effects of the medication(s), denies excessive drowsiness or sleepiness, denies suicidal ideation and reports that the current pain medication is helping to control the pain and improve activities of daily living. Patient denies any motor or sensory deficits. Patient denies any fever or night sweats, denies any change in the bowel movements or urination. Physical Examination: -Constitutional: Cooperative. Not in acute distress . - Neurologic: Cranial nerve II to XII intact. No focal neurological deficits. - Psychatric: Alert & oriented x 3. Matching mood & appropriate affect. Judgment and insight intact. - Musculoskeletal: Cervical spine: Muscle bulk/ tone/ strength in the bilateral upper extremities normal Vertebral body tenderness to palpation over Spurling test positive Distraction test positive Facet loading test positive Thoracic spine Muscle bulk / tone/ strength in the bilateral paraspinal muscles normal Vertebral body tender to palpation over T10 Facet loading test positive Lumbar spine: Motor bulk/ tone/ strength lower extremities , thigh and legs : 5/5 Deep tendon reflexes : Normal Knee Jerk. Normal Ankle Jerk . Vertebral body tenderness to palpation over Lumbar Facet Loading Test positive Straight Leg Raise: positive at 30 degrees right side/ left side Gaenslen's Test positive Sacral spine : Severe tenderness over the Sacroiliac joint: right side / left side Range of motion: Flexion of the lumbar spine <60 degrees Range of motion: Extension of the lumbar spine <20 degrees Gaenslen's Test positive Yash test: positive right side / left side Thigh Thrust Test Sacral Thrust Test Assessment and plan: Chronic low back pain secondary to lumbar degenerative disc disease, spondylosis with facet arthropathy without myelopathy Pt exhibited optimal and sufficient pain relief s/p procedure. She will follow up w home pain mgmt modalities at home and may return to this clinic on an as needed basis. All patient questions answered I have spent less than 30 minutes on patient care today. Dr Ward was available by phone for the evaluation of this patient. The time was used to review the medical records including relevant urine studies and Prescription history (MAPs), review of the available imaging, evaluation and examination of the patient, coordination of care with the medical staff and if applicable referring physicians, as well as creation of the medical record PQRS Narrative: Smoking Status Never smoker Hx Alcohol Use (MH) No Home Medications: Ambulatory Orders Calcium Carbonate [Calcium] 600 mg PO BID 12/16/16 Cholecalciferol (Vitamin D3) [Vitamin D3] 50 mcg PO BID 12/16/16 Cinnamon Bark [Cinnamon] 1,000 mg PO BID 12/16/16 Dexlansoprazole [Dexilant] 30 mg PO HS 12/16/16 Fluticasone Nasal [place] [Flonase Nasal [place]] 2 spr EA NOSTRIL HS PRN 12/16/16 L.acidoph,Paracasei, B.lactis [Probiotic] 1 cap PO BID 12/16/16 Montelukast [Singulair] 10 mg PO HS 12/16/16 Atorvastatin [Lipitor] 10 mg PO HS 08/24/18 DULoxetine HCL [Cymbalta] 60 mg PO DAILY 08/24/18 Furosemide [Lasix] 20 mg PO DAILY@1700 08/24/18 Furosemide [Lasix] 40 mg PO DAILY 08/24/18 Levothyroxine Sodium [Synthroid] 50 mcg PO DAILY 09/19/18 Methenamine Hippurate [Hiprex] 1 gm PO Q48H 09/19/18 Potassium Chloride [Potassium Chloride ER] 10 meq PO BID 10/12/18 Aspirin 81 mg PO DAILY 10/24/18 Magnesium 200 mg PO DAILY 10/24/18 Sucralfate [Carafate] 1 gm PO BID PRN 05/25/19 calcium polycarbophiL [Fibercon] 625 mg PO BID 05/25/19 hydrOXYzine HCL [Atarax] 10 - 20 mg PO Q8H PRN 05/25/19 Diclofenac Sodium Gel [Voltaren Gel] 4 gm TOPICAL QID PRN 07/10/19 Ondansetron Odt [Zofran ODT] 4 - 8 mg PO TID PRN 04/10/20 Ascorbic Acid [Vitamin C] 1,000 mg PO DAILY #60 tab 04/12/20 lamoTRIgine [LaMICtal] 100 mg PO BID 03/06/21 Dicyclomine [Bentyl] 20 mg PO Q12H 07/17/21 Estradiol Cream [Estrace Cream 0.01%] 1 gm VAGINAL TUTH 07/17/21 Lidocaine [Aspercreme Patch] 1 patch TRANSDERM DAILY PRN 07/17/21 Multivit with Calcium,Iron,Min [Women's Multivitamin] 1 tab PO DAILY 07/17/21 Diphenox-Atrop 2.5-0.025 mg [Lomotil] 1 each PO Q6HR PRN #30 tab 07/29/21 HYDROcodone/APAP 10-325MG [[place] 10-325] 1 tab PO Q4-6H PRN 10/15/21 diazePAM [Valium] 5 mg PO Q8H PRN 10/15/21 Losartan [Cozaar] 25 mg PO DAILY 10/16/21 tiZANidine HCL [Zanaflex] 2 mg PO Q8HR PRN #60 capsule 12/09/21 Spironolactone 50 mg PO BID 03/10/22 allopurinoL [Allopurinol] 100 mg PO DAILY 03/10/22 Controlled Substance Measures - Controlled Substance Measures Is patient prescribed a controlled substance at discharge?: No
== END ==
LOC: PNWHC3 13:10
PROVIDERS: ATTEND Specialist
DX: M47.816 Spondylosis without myelopathy or radiculopathy, lumbar region (principal); M51.36 Other intervertebral disc degeneration, lumbar region; G89.29 Other chronic pain; Z88.1 Allergy status to other antibiotic agents; Z88.2 Allergy status to sulfonamides; Z88.0 Allergy status to penicillin; Z91.09 Other allergy status, other than to drugs and biological substances; Z88.6 Allergy status to analgesic agent; Z88.8 Allergy status to other drugs, medicaments and biological substances
CPT/HCPCS: 99211

== ENCOUNTER → 2022-05-03 | Outpatient (CLI) | payer MEDICARE ==
[2022-05-03 10:23] VITALS: BP 136/92; PULSE 75; RESP 18; TEMP 98.1
--- NOTE | 2022-05-03 15:00 | P.PAINPG ---
PQRS Measure Charge Sheet Comment: A 66 yr old female w at side with a history of severe and chronic mid to low back pain x 4 yrs secondary to thoraco lumbar DDD and spondylosis with facet arthropathy without myelopathy presents today for R LBP. Pain level is currently at 8 /10 in intensity, constant, localized in the R lumbar spine, dull/ achy in character w shooting towards the RLE. Pain is provoked by standing/ walking/ sitting for periods of 20 min or more. Pain is alleviated with PT in [id number], massage at home, medications ([place]), topicals, reclining, repositioning and rest. Interventional pain procedures completed include TESI T12-T11 Patient is currently on [place], Tylenol OTC Patient denies any side effects of the medication(s), denies excessive drowsiness or sleepiness, denies suicidal ideation and reports that the current pain medication is helping to control the pain and improve activities of daily living. Patient denies any motor or sensory deficits. Patient denies any fever or night sweats, denies any change in the bowel movements or urination. Physical Examination: -Constitutional: Cooperative. Not in acute distress . - Neurologic: Cranial nerve II to XII intact. No focal neurological deficits. - Psychatric: Alert & oriented x 3. Matching mood & appropriate affect. Judgment and insight intact. - Musculoskeletal: Cervical spine: Muscle bulk/ tone/ strength in the bilateral upper extremities normal Vertebral body tenderness to palpation over Spurling test positive Distraction test positive Facet loading test positive Thoracic spine Muscle bulk / tone/ strength in the bilateral paraspinal muscles normal Vertebral body tender to palpation over Facet loading test positive Lumbar spine: Motor bulk/ tone/ strength lower extremities , thigh and legs : 5/5 Deep tendon reflexes : Normal Knee Jerk. Normal Ankle Jerk . Vertebral body tenderness to palpation over L2 Lumbar Facet Loading Test positive Straight Leg Raise: positive at 30 degrees right side/ left side Gaenslen's Test positive Sacral spine : Severe tenderness over the Sacroiliac joint: right side / left side Range of motion: Flexion of the lumbar spine <60 degrees Range of motion: Extension of the lumbar spine <20 degrees Gaenslen's Test positive Yash test: positive right side / left side Thigh Thrust Test Sacral Thrust Test Assessment and plan: Chronic mid to low back pain secondary to thoraco lumbar DDD, spondylosis with facet arthropathy without myelopathy Recommendation of XOCHITL L1-L2. May need a series, up to 4 within a 12 mo period, for optimal pain relief. Risks, benefits of procedure discussed and pt verbalized understanding. Admits to anticoagulant use or medical history of diabetes. Protocol for discontinuation/ continuation of medications aleksandar procedure discussed. All patient questions answered I have spent less than 30 minutes on patient care today. Dr Ward was available by phone for the evaluation of this patient. The time was used to review the medical records including relevant urine studies and Prescription history (MAPs), review of the available imaging, evaluation and examination of the patient, coordination of care with the medical staff and if applicable referring physicians, as well as creation of the medical record PQRS Narrative: Smoking Status Never smoker Hx Alcohol Use (MH) No Home Medications: Ambulatory Orders Calcium Carbonate [Calcium] 600 mg PO BID 12/16/16 Cholecalciferol (Vitamin D3) [Vitamin D3] 50 mcg PO BID 12/16/16 Cinnamon Bark [Cinnamon] 1,000 mg PO BID 12/16/16 Dexlansoprazole [Dexilant] 30 mg PO HS 12/16/16 Fluticasone Nasal [place] [Flonase Nasal [place]] 2 spr EA NOSTRIL HS PRN 12/16/16 L.acidoph,Paracasei, B.lactis [Probiotic] 1 cap PO BID 12/16/16 Montelukast [Singulair] 10 mg PO HS 12/16/16 Atorvastatin [Lipitor] 10 mg PO HS 08/24/18 DULoxetine HCL [Cymbalta] 60 mg PO DAILY 08/24/18 Furosemide [Lasix] 20 mg PO DAILY@1700 08/24/18 Furosemide [Lasix] 40 mg PO DAILY 08/24/18 Levothyroxine Sodium [Synthroid] 50 mcg PO DAILY 09/19/18 Methenamine Hippurate [Hiprex] 1 gm PO Q48H 09/19/18 Potassium Chloride [Potassium Chloride ER] 10 meq PO BID 10/12/18 Aspirin 81 mg PO DAILY 10/24/18 Magnesium 200 mg PO DAILY 10/24/18 Sucralfate [Carafate] 1 gm PO BID PRN 05/25/19 calcium polycarbophiL [Fibercon] 625 mg PO BID 05/25/19 hydrOXYzine HCL [Atarax] 10 - 20 mg PO Q8H PRN 05/25/19 Diclofenac Sodium Gel [Voltaren Gel] 4 gm TOPICAL QID PRN 07/10/19 Ondansetron Odt [Zofran ODT] 4 - 8 mg PO TID PRN 04/10/20 Ascorbic Acid [Vitamin C] 1,000 mg PO DAILY #60 tab 04/12/20 lamoTRIgine [LaMICtal] 100 mg PO BID 03/06/21 Dicyclomine [Bentyl] 20 mg PO Q12H 07/17/21 Estradiol Cream [Estrace Cream 0.01%] 1 gm VAGINAL TUTH 07/17/21 Lidocaine [Aspercreme Patch] 1 patch TRANSDERM DAILY PRN 07/17/21 Multivit with Calcium,Iron,Min [Women's Multivitamin] 1 tab PO DAILY 07/17/21 Diphenox-Atrop 2.5-0.025 mg [Lomotil] 1 each PO Q6HR PRN #30 tab 07/29/21 HYDROcodone/APAP 10-325MG [[place] 10-325] 1 tab PO Q4-6H PRN 10/15/21 diazePAM [Valium] 5 mg PO Q8H PRN 10/15/21 Losartan [Cozaar] 25 mg PO DAILY 10/16/21 tiZANidine HCL [Zanaflex] 2 mg PO Q8HR PRN #60 capsule 12/09/21 Spironolactone 50 mg PO BID 03/10/22 allopurinoL [Allopurinol] 100 mg PO DAILY 03/10/22 Controlled Substance Measures - Controlled Substance Measures Is patient prescribed a controlled substance at discharge?: No
== END ==
LOC: PNWHC3 09:42
PROVIDERS: ATTEND Specialist
DX: M47.815 Spondylosis without myelopathy or radiculopathy, thoracolumbar region (principal); M51.35 Other intervertebral disc degeneration, thoracolumbar region; Z88.1 Allergy status to other antibiotic agents; Z88.0 Allergy status to penicillin; Z88.8 Allergy status to other drugs, medicaments and biological substances; Z88.2 Allergy status to sulfonamides; Z91.09 Other allergy status, other than to drugs and biological substances
CPT/HCPCS: 99211

== ENCOUNTER 2022-06-08 10:57 | Day surgery (SDC) | payer MEDICARE ==
[2022-06-03 16:16] VITALS: BMI 26.2
[2022-06-08] MEDS ORDERED: LACTATED RINGERS 1,000 ML IV SCH (11:06)
[2022-06-08] MEDS ORDERED: LIDOCAINE 1% (10MG/ML) FOR IV START INTRADERMA PRN (11:06)
[2022-06-08 11:29] VITALS: TEMP 97.8
[2022-06-08] MEDS ORDERED: methylPREDNISolone ACETATE 40 MG/ML 1 ML VIAL ONE (11:59)
[2022-06-08] MEDS ORDERED: IOPAMIDOL M200 10 ML VIAL ONE (11:59)
[2022-06-08] MEDS ORDERED: MIDAZOLAM 2 MG/2 ML VIAL ONE (11:59)
[2022-06-08] MEDS ORDERED: fentaNYL (PF) 50 MCG/ML 2 ML AMP ONE (11:59)
--- NOTE | 2022-06-08 12:11 | P.PCN ---
Date of Procedure: 06/08/22 Procedure(s) Performed: PREOPERATIVE DIAGNOSIS: 1- Lumbar Degenerative Disc Diseases 2-Lumbar spondylosis with Facet arthropathy without myelopathy. POSTOPERATIVE DIAGNOSIS: Same as preop diagnosis. PROCEDURE 1. Lumbar epidural steroid injection under fluoroscopic guidance at the L1-2 level. (Fluoroscopy imaging was available in radiology department) 2. Lumbar epidurogram. ANESTHESIA: moderate sedation with intravenous Versed 2 mg ,and fentanyle 50 Mcg Sedation start time : 1204 Sedation end time : 1209 EBL: Minimal PROCEDURE INDICATION: The patient with low back pain and radiculitis symptoms unresponsive to conservative treatment. Fluoroscopy was used to optimize visualization of the needle placement and to maximize safety. PROCEDURE DESCRIPTION / TECHNIQUE: The patient was seen and identified in the preoperative area. Risks, benefits, complications including but not limited to infections ,bleeding ,allergic reaction to the medications ,nerve damage and not complete pain releife , and alternatives were discussed with the patient. The patient agreed to proceed with the procedure and signed the consent. IV was started, and vital signs were stable. Patient was taken to the OR and time out was completed. The patient was placed in the prone position on procedure table and a pillow was placed under the abdomen to reduce lumbar lordosis. The lumbosacral area was prepped and draped in the usual sterile fashion.ere closely monitored during the procedure. Conscious sedation was used during the procedure to decrease patients anxiety. Vital signs was monitered during the entire procedure. Using anterior-posterior fluoroscopy, the L1-2 interlaminar space was identified and the skin over this site was marked and then infiltrated with 1% lidocaine subcutaneously. Subsequently, a 20-gauge Tuohy epidural needle was inserted and advanced toward the epidural space using the ``Loss of resistance technique and guided by AP and lateral fluoroscopy. The correct needle position in the e pidural space was verified with the injection of 2 mL of the water soluble contrast dye Isovue 200 contrast and observing an excellent epidurogram with the epidural spread of the dye, after negative aspiration for blood and CSF and in the absence of paresthesias. Again after negative aspiration, a 6 ml mixture containing 40 mg of Depo-medrol ( Preservetive Free ), and 2 ml of preservative free Normal Saline, and 2 ml of preservative free lidocaine 1% solution was injected and a washout of epidurogram was seen. Needle was withdrawn intact, skin was cleansed, and bandages were applied. COMPLICATIONS: None DISPOSITION / PLANS: The patient was placed in a supine position and transferred to the recovery area in a stable condition for observation. There was no evidence of lower extremity motor or sensory deficit after the procedure. Patient was discharged from the recovery room after meeting discharge criteria. Home discharge instructions were given to the patient by the staff. The patient was reexamined prior to discharge. The patient will schedule a follow up in the clinic in 2-4 weeks.
[2022-06-08] MEDS ORDERED: IV FLUID CONTINUATION 800 ML IV ONE (12:17)
[2022-06-08 12:20] VITALS: RESP 16
[2022-06-08 12:30] VITALS: BP 122/71; PULSE 73
--- NOTE | 2022-06-08 12:55 | FL ---
EXAMINATION TYPE: FL guided pain mgmt statistic DATE OF EXAM: 06/08/2022 CLINICAL HISTORY: Fluoroscopy time TECHNIQUE: Fluoroscopy. COMPARISON: None. FINDINGS: Fluoroscopic guidance was provided during procedure performed by Dr. Ward. A total of 2 seconds of fluoroscopic time was utilized during the procedure and 1 spot images was acquired. IMPRESSION: As Above.
== END 2022-06-08 12:45 | disposition home or self-care (01) ==
LOC: ORPAIN 10:57
PROVIDERS: ATTEND Specialist
DX: M51.16 Intervertebral disc disorders with radiculopathy, lumbar region (principal); M47.26 Other spondylosis with radiculopathy, lumbar region; Z88.1 Allergy status to other antibiotic agents; Z88.6 Allergy status to analgesic agent; Z88.8 Allergy status to other drugs, medicaments and biological substances
CPT/HCPCS: 62323; J2250; J1030; J3010; Q9966

== ENCOUNTER → 2022-12-15 | Outpatient (CLI) | payer MEDICARE ==
[2022-12-15 13:24] VITALS: BP 154/74; PULSE 64; RESP 15; TEMP 98.5
--- NOTE | 2022-12-15 14:23 | P.PAINPG ---
PQRS Measure Charge Sheet Comment: A 66 yr old female w at side with a history of severe and chronic mid to low back pain x 5 yrs secondary to thoraco lumbar DDD and spondylosis with facet arthropathy without myelopathy presents today for LBP. Her last XOCHITL L1-L2 yielded 75% pain relief x 2 mo s/p procedure. Pain level is currently at 8 /10 in intensity, constant, localized in the R lumbar spine, sharp in character w shooting towards the RLE. Pain is provoked by standing/ walking/ sitting for periods of 20 min or more. Pain is alleviated with PT in 2021, massage at home, medications ([place]), topicals, reclining, repositioning and rest. Oswestry axial pain score of 26. Interventional pain procedures completed include TESI T12-T11 x1, XOCHITL L1-L2 x1, R RFA L3-L5, Thoracolumbar TPIs Patient is currently on [place], Tylenol OTC Patient denies any side effects of the medication(s), denies excessive drowsiness or sleepiness, denies suicidal ideation and reports that the current pain medication is helping to control the pain and improve activities of daily living. Patient denies any motor or sensory deficits. Patient denies any fever or night sweats, denies any change in the bowel movements or urination. Physical Examination: -Constitutional: Cooperative. Not in acute distress . - Neurologic: Cranial nerve II to XII intact. No focal neurological deficits. - Psychatric: Alert & oriented x 3. Matching mood & appropriate affect. Judgment and insight intact. - Musculoskeletal: Cervical spine: Muscle bulk/ tone/ strength in the bilateral upper extremities normal Vertebral body tenderness to palpation over Spurling test positive Distraction test positive Facet loading test positive Thoracic spine Muscle bulk / tone/ strength in the bilateral paraspinal muscles normal Vertebral body tender to palpation over Facet loading test positive Lumbar spine: Motor bulk/ tone/ strength lower extremities , thigh and legs : 5/5 Deep tendon reflexes : Normal Knee Jerk. Normal Ankle Jerk . Vertebral body tenderness to palpation over L1 Lumbar Facet Loading Test positive Straight Leg Raise: positive at 30 degrees right side/ left side Gaenslen's Test positive Sacral spine : Severe tenderness over the Sacroiliac joint: right side / left side Range of motion: Flexion of the lumbar spine <60 degrees Range of motion: Extension of the lumbar spine <20 degrees Gaenslen's Test positive Yash test: positive right side / left side Thigh Thrust Test Sacral Thrust Test Assessment and plan: Chronic mid to low back pain secondary to thoraco lumbar DDD, spondylosis with facet arthropathy without myelopathy Recommendation of XOCHITL L1-L2. May need a series, up to 4 within a 12 mo period, for optimal pain relief. Risks, benefits of procedure discussed and pt verbalized understanding. Admits to anticoagulant use or medical history of diabetes. Protocol for discontinuation/ continuation of medications aleksandar procedure discussed. All patient questions answered I have spent less than 30 minutes on patient care today. Dr Ward was available by phone for the evaluation of this patient. The time was used to review the medical records including relevant urine studies and Prescription history (MAPs), review of the available imaging, evaluation and examination of the patient, coordination of care with the medical staff and if applicable referring physicians, as well as creation of the medical record PQRS Narrative: Smoking Status Never smoker Hx Alcohol Use (MH) No Home Medications: Ambulatory Orders Calcium Carbonate [Calcium] 600 mg PO BID 12/16/16 Cholecalciferol (Vitamin D3) [Vitamin D3] 50 mcg PO DAILY 12/16/16 Cinnamon Bark [Cinnamon] 1,000 mg PO BID 12/16/16 Dexlansoprazole [Dexilant] 30 mg PO HS 12/16/16 Fluticasone Nasal [place] [Flonase Nasal [place]] 2 spr EA NOSTRIL HS PRN 12/16/16 L.acidoph,Paracasei, B.lactis [Probiotic] 1 cap PO BID 12/16/16 Montelukast [Singulair] 10 mg PO HS 12/16/16 Atorvastatin [Lipitor] 10 mg PO HS 08/24/18 DULoxetine HCL [Cymbalta] 60 mg PO DAILY 08/24/18 Furosemide [Lasix] 20 mg PO DAILY@1700 08/24/18 Furosemide [Lasix] 40 mg PO DAILY 08/24/18 Levothyroxine Sodium [Synthroid] 50 mcg PO DAILY 09/19/18 Methenamine Hippurate [Hiprex] 1 gm PO Q48H 09/19/18 Potassium Chloride [Potassium Chloride ER] 10 meq PO BID 10/12/18 Aspirin 81 mg PO DAILY 10/24/18 Magnesium 200 mg PO DAILY 10/24/18 Sucralfate [Carafate] 1 gm PO BID PRN 05/25/19 calcium polycarbophiL [Fibercon] 625 mg PO BID 05/25/19 hydrOXYzine HCL [Atarax] 10 - 20 mg PO Q8H PRN 05/25/19 Diclofenac Sodium Gel [Voltaren Gel] 4 gm TOPICAL QID PRN 07/10/19 Ondansetron Odt [Zofran ODT] 4 - 8 mg PO TID PRN 04/10/20 Ascorbic Acid [Vitamin C] 1,000 mg PO DAILY #60 tab 04/12/20 lamoTRIgine [LaMICtal] 100 mg PO BID 03/06/21 Dicyclomine [Bentyl] 20 mg PO Q12H 07/17/21 Estradiol Cream [Estrace Cream 0.01%] 1 gm VAGINAL TUTH 07/17/21 Lidocaine [Aspercreme Patch] 1 patch TRANSDERM DAILY PRN 07/17/21 Multivit with Calcium,Iron,Min [Women's Multivitamin] 1 tab PO DAILY 07/17/21 Diphenox-Atrop 2.5-0.025 mg [Lomotil] 1 each PO Q6HR PRN #30 tab 07/29/21 HYDROcodone/APAP 10-325MG [[place] 10-325] 1 tab PO Q4-6H PRN 10/15/21 diazePAM [Valium] 5 mg PO Q8H PRN 10/15/21 Losartan [Cozaar] 25 mg PO DAILY 10/16/21 Spironolactone 50 mg PO BID 03/10/22 allopurinoL [Allopurinol] 100 mg PO DAILY 03/10/22 Controlled Substance Measures - Controlled Substance Measures Is patient prescribed a controlled substance at discharge?: No
== END ==
LOC: PNWHC3 12:52
PROVIDERS: ATTEND Specialist
DX: M51.34 Other intervertebral disc degeneration, thoracic region (principal); M47.814 Spondylosis without myelopathy or radiculopathy, thoracic region; M47.816 Spondylosis without myelopathy or radiculopathy, lumbar region; G89.29 Other chronic pain; Z79.01 Long term (current) use of anticoagulants; Z79.82 Long term (current) use of aspirin; Z88.0 Allergy status to penicillin; Z88.2 Allergy status to sulfonamides; Z88.8 Allergy status to other drugs, medicaments and biological substances; Z88.1 Allergy status to other antibiotic agents; Z91.048 Other nonmedicinal substance allergy status
CPT/HCPCS: 99211

== ENCOUNTER 2022-12-28 07:50 | Day surgery (SDC) | payer MEDICARE ==
[2022-12-24 13:20] VITALS: BMI 26.6
[2022-12-28 08:33] VITALS: TEMP 97.9
[2022-12-28] MEDS ORDERED: methylPREDNISolone ACETATE 80 MG/ML 1 ML VIAL ONE (09:13)
[2022-12-28] MEDS ORDERED: IOPAMIDOL M200 10 ML VIAL ONE (09:13)
--- NOTE | 2022-12-28 09:19 | P.PCN ---
Date of Procedure: 12/28/22 Procedure(s) Performed: PREOPERATIVE DIAGNOSIS: 1- Lumbar Degenerative Disc Diseases 2-Lumbar spondylosis with Facet arthropathy without myelopathy. POSTOPERATIVE DIAGNOSIS: Same as preop diagnosis. PROCEDURE 1. Lumbar epidural steroid injection under fluoroscopic guidance at the L1-2 level. (Fluoroscopy imaging was available in radiology department) 2. Lumbar epidurogram. ANESTHESIA: Lidocaine 1% 3 mL only EBL: Minimal PROCEDURE INDICATION: The patient with low back pain and radiculitis symptoms unresponsive to conservative treatment. Fluoroscopy was used to optimize visualization of the needle placement and to maximize safety. PROCEDURE DESCRIPTION / TECHNIQUE: The patient was seen and identified in the preoperative area. Risks, benefits, complications including but not limited to infections ,bleeding ,allergic reaction to the medications ,nerve damage and not complete pain releife , and alternatives were discussed with the patient. The patient agreed to proceed with the procedure and signed the consent, and vital signs were stable. Patient was taken to the OR and time out was completed. The patient was placed in the prone position on procedure table and a pillow was placed under the abdomen to reduce lumbar lordosis. The lumbosacral area was prepped and draped in the usual sterile fashion.ere closely monitored during the procedure. Vital signs was monitered during the entire procedure. Using anterior-posterior fluoroscopy, the L1-2 interlaminar space was identified and the skin over this site was marked and then infiltrated with 1% lidocaine subcutaneously. Subsequently, a 20-gauge Tuohy epidural needle was inserted and advanced toward the epidural space using the ``Loss of resistance technique and guided by AP and lateral fluoroscopy. The correct needle position in the epidural space was verified with the injection of 2 mL of the water soluble contrast dye Isovue 200 contrast and observing an excellent epidurogram with the epidural spread of the dye, after negative aspiration for blood and CSF and in the absence of paresthesias. Again after negative aspiration, a 6 ml mixture containing 60 mg of Depo-medrol ( Preservetive Free ), and 2 ml of preservative free Normal Saline, and 2 ml of preservative free lidocaine 1% solution was injected and a washout of epidurogram was seen. Needle was withdrawn intact, skin was cleansed, and bandages were applied. COMPLICATIONS: None DISPOSITION / PLANS: The patient was placed in a supine position and transferred to the recovery area in a stable condition for observation. There was no evidence of lower extremity motor or sensory deficit after the procedure. Patient was discharged from the recovery room after meeting discharge criteria. Home discharge instructions were given to the patient by the staff. The patient was reexamined prior to discharge. The patient will schedule a follow up in the clinic in 2-4 weeks.
[2022-12-28] MEDS ORDERED: LACTATED RINGERS 1,000 ML IV SCH (09:24)
[2022-12-28 09:29] VITALS: BP 138/65; RESP 18
[2022-12-28 09:42] VITALS: PULSE 61
--- NOTE | 2022-12-28 10:41 | FL ---
Intraoperative/procedural fluoroscopic services were provided for lumbar epidural steroid injection. Total fluoroscopy time is 3.5 seconds with a total of 1 submitted image to PACS. Total DAP [id number] mG ym2. Please see the operative note for further details.
== END 2022-12-28 10:01 | disposition home or self-care (01) ==
LOC: ORPAIN 07:50
PROVIDERS: ATTEND Specialist
DX: M51.36 Other intervertebral disc degeneration, lumbar region (principal); M47.816 Spondylosis without myelopathy or radiculopathy, lumbar region
CPT/HCPCS: 62323; J1040; Q9966

== ENCOUNTER → 2023-01-19 | Outpatient (CLI) | payer MEDICARE ==
[2023-01-19 15:00] VITALS: BP 150/76; PULSE 70; RESP 16; TEMP 98.5
== END ==
LOC: PNWHC3 14:03
PROVIDERS: ATTEND Specialist
DX: M54.16 Radiculopathy, lumbar region (principal); G89.4 Chronic pain syndrome; Z88.8 Allergy status to other drugs, medicaments and biological substances; Z88.0 Allergy status to penicillin; Z88.2 Allergy status to sulfonamides; Z91.09 Other allergy status, other than to drugs and biological substances; Z88.1 Allergy status to other antibiotic agents; Z79.82 Long term (current) use of aspirin
CPT/HCPCS: 99211